=== PATIENT | female | born 1940 | race Caucasian/White ===

== ENCOUNTER → 2016-02-18 | Outpatient (CLI) | payer BC ==
[~2016-02-18] MED LIST: ASPEC81 PO; ATOR-24 PO; CALCTAB5 PO; CHOLTAB3 PO; COQ10100 PO; CTP1CL PO; HYDR-4717 PO; LEVO125T5 PO; LISI40TA PO; MULT-506 PO; OMEG10007 PO; PANT1TAB3 PO; VENL75CA73 PO; VERA240T20 PO
[2016-02-18 14:56] VITALS: BP 151/83; PULSE 74; Ht 156.8 cm
== END | disposition home or self-care (01) ==
LOC: C.NEUR 13:36
PROVIDERS: ATTEND Internal Medicine Pulmonary Disease
DX: G47.33 Obstructive sleep apnea (adult) (pediatric) (principal)

== ENCOUNTER → 2016-07-25 | Outpatient (CLI) | payer BC ==
[~2016-07-25] MED LIST changes: -PANT1TAB3 PO; +PANT1TAB48 PO
--- NOTE | 2016-07-25 13:55 | MAMMOGRAPHY REPORT ---
BILATERAL DIGITAL SCREENING MAMMOGRAM WITH CAD: 07/25/2016 CLINICAL HISTORY: Routine screening. Patient has no complaints. TECHNIQUE: Current study was also evaluated with a Computer Aided Detection (CAD) system. Bilateral CC and MLO views were obtained. COMPARISON: Comparison is made to exams dated: 07/23/2015 mammogram, 01/19/2015 mammogram, 06/21/2014 [facility], 05/10/2013 mammogram, and 04/30/2012 mammogram - [facility]. BREAST COMPOSITION: There are scattered areas of fibroglandular density in both breasts. FINDINGS: No suspicious masses, calcifications, or areas of architectural distortion are noted in ei ther breast. There has been no significant interval change compared to prior exams. Scattered benign -appearing calcifications are again noted throughout both breasts. IMPRESSION: ACR BI-RADS CATEGORY 2: BENIGN There is no mammographic evidence of malignancy. A 1 year screening mammogram is recommended. The pa tient will receive written notification of the results. Approximately 10% of breast cancers are not detected with mammography. A negative mammographic report should not delay biopsy if a clinically suggestive mass is present. Aline Gonzáles M.D. /:07/25/2016 12:31:53 Digital Advisor: Deb DEVINE(Valery)(M), [facility] letter sent: Normal 1/2 BI-RADS Code: ACR BI-RADS Category 2: Benign
== END | disposition home or self-care (01) ==
LOC: C.MAMM 11:03
PROVIDERS: ATTEND Family Medicine
DX: Z12.31 Encounter for screening mammogram for malignant neoplasm of breast (principal)

== ENCOUNTER 2022-09-16 07:03 | Observation (INO) ==
--- NOTE | 2022-09-05 14:37 | PAT Medication Instructions ---
Medication Instructions Date of Service September 05, 2022 Home Medications Medication Instructions Recorded verapamil 300 mg capsule 24hr 300 mg PO BID #180 caps 11/09/[address],ext.release clonidine HCl 0.1 mg tablet 0.2 mg PO BID #360 tabs 06/19/20 Wheeled Walker #1 ea 02/24/22 acetaminophen 500 mg tablet (Acetaminophen Extra Strength) 1,000 mg PO Q6H PRN Pain hydralazine 50 mg tablet 100 mg PO TID levothyroxine 125 mcg tablet 125 mcg PO 6XWK lisinopril 40 mg tablet 40 mg PO HS lorazepam 0.5 mg tablet (Ativan) 0.5 mg sublingual BID PRN Anxiety multivitamin 1 tab PO QAM omega 3 350 mg-dha 235 mg-epa 90 mg-fish oil 597 mg capsule,delay rel ([place]-3) 1 cap PO QPM pantoprazole 40 mg tablet,delayed release 40 mg PO QPM venlafaxine 150 mg capsule,extended release 24 hr 150 mg PO HS venlafaxine 75 mg capsule,extended release 24 hr 75 mg PO HS verapamil 300 mg capsule 24hr pellet CT,ext.release 300 mg PO BID clonidine HCl 0.1 mg tablet 0.2 mg PO BID prevagen 20 mg PO QAM psyllium husk 3.4 gram/5.4 gram oral powder (Metamucil) 2 tbsp PO BID Balance Of Nature 6 cap PO QAM [place] 3 With Coq10 1 tab PO QAM aflibercept 2 mg/0.05 mL intravitreal syringe (Eylea) 2 mg intravitreal UD amoxicillin 500 mg capsule 2,000 mg PO UD PRN prior to dental procedures cholecalciferol (vitamin D3) 125 mcg (5,000 unit) tablet (Vitamin D3) 125 mcg PO QPM cyanocobalamin (vitamin B-12) 5,000 mcg sublingual tablet (Vitamin B-12) 5,000 mcg sublingual QAM levothyroxine 125 mcg tablet 250 mcg PO WK Super Beets 2 tab PO QAM magnesium 250 mg tablet 250 mg PO BID Continue as directed amoxicillin 500 mg capsule 2,000 mg PO UD PRN prior to dental procedures levothyroxine ASK your prescriber and surgeon prevagen 20 mg PO QAM aflibercept 2 mg/0.05 mL intravitreal syringe (Eylea) 2 mg intravitreal UD STOP taking 2 weeks before surgery (or as soon as possible if surgery is within 2 weeks) omega 3 350 mg-dha 235 mg-epa 90 mg-fish oil 597 mg capsule,delay rel ([place]-3) 1 cap PO QPM Balance Of Nature 6 cap PO QAM [place] 3 With Coq10 1 tab PO QAM Super Beets 2 tab PO QAM DO NOT take the morning of surgery multivitamin 1 tab PO QAM psyllium husk 3.4 gram/5.4 gram oral powder (Metamucil) 2 tbsp PO BID cyanocobalamin (vitamin B-12) 5,000 mcg sublingual tablet (Vitamin B-12) 5,000 mcg sublingual QAM magnesium 250 mg tablet 250 mg PO BID Take morning of surgery With a small sip of water, OTHERWISE NOTHING TO EAT OR DRINK AFTER MIDNIGHT: acetaminophen 500 mg tablet (Acetaminophen Extra Strength) 1,000 mg PO Q6H PRN Pain (if needed) hydralazine 50 mg tablet 100 mg PO TID lorazepam 0.5 mg tablet (Ativan) 0.5 mg sublingual BID PRN Anxiety (if needed) verapamil 300 mg capsule 24hr pellet CT,ext.release 300 mg PO BID clonidine HCl 0.1 mg tablet 0.2 mg PO BID Take evening before surgery acetaminophen 500 mg tablet (Acetaminophen Extra Strength) 1,000 mg PO Q6H PRN Pain (if needed) hydralazine 50 mg tablet 100 mg PO TID lisinopril 40 mg tablet 40 mg PO HS lorazepam 0.5 mg tablet (Ativan) 0.5 mg sublingual BID PRN Anxiety (if needed) pantoprazole 40 mg tablet,delayed release 40 mg PO QPM venlafaxine 150 mg capsule,extended release 24 hr 150 mg PO HS venlafaxine 75 mg capsule,extended release 24 hr 75 mg PO HS verapamil 300 mg capsule 24hr pellet CT,ext.release 300 mg PO BID clonidine HCl 0.1 mg tablet 0.2 mg PO BID psyllium husk 3.4 gram/5.4 gram oral powder (Metamucil) 2 tbsp PO BID cholecalciferol (vitamin D3) 125 mcg (5,000 unit) tablet (Vitamin D3) 125 mcg PO QPM magnesium 250 mg tablet 250 mg PO BID Other Notes If you have any questions please call us at [phone] or [phone] or [phone] or [phone]
--- NOTE | 2022-09-11 14:03 | Anesthesiology Consultation ---
Date of Service September 11, 2022 Assessment & Plan (1) Encounter for pre-operative examination: Chart Review Chart Review: Acceptable Risk for Surgery and Patient seen in Pre Admission Testing - Check coags AM DOS (due to hx of chronically elevated PTT- will leave final discretion re: SAB vs GA to anesthesiologist DOS- fluid bolus NOT ordered for DOS) Significant urinary incontinence- usually wears pull up and pad - Pt is NOT an OPJ candidate due to age and comorbidities Per PAT appt on 09/11/22, patient denies any recent travel. No recent Covid exposures, Covid related symptoms, or recent Covid positive tests. Pt is vaccinated for Covid. Will leave to surgeon's discretion if preop Covid testing needed. Educated on importance of using Covid precautions one week prior to surgery Per hematology letter 09/01/22= Patient followed with prolonged aPTT. Testing revealed normal factor IX, XI, and XII activity. Previously obtained von Wi llebrand laboratory testing was also normal. Based on this, aPTT is prolonged due to presence of lupus anticoagulant and should not be at increased risk of bleeding from prolonged PTT. Presence of lupus anticoagulant indicates that she may be a increased risk for clotting. Patient would like to move forward for knee replacement. Given potential risk of clotting in the presence of lupus anticoagulant, would recommend prophylactic anticoagulation for a least 2 weeks post postoperatively once hemostasis has been achieved from a surgical standpoint. May extend prophylactic anticoagulation to 6 weeks if immobility is prolonged... I will send this note to surgeon (Dr. Walls) indicating that patient is cleared from hematology standpoint to go ahead with surgery. Seen by cardiology 08/12/2022 = seen for 1 year cardiology follow-up. From a cardiac standpoint patient is feeling well. Longstanding hypertensionsystolic pressure mildly elevated. Diastolic pressure adequately controlled. Tolerating current antihypertensive regimen. Hyperdynamic LV systolic function on most recent echo. Severe LVH. No evidence of any significant LV outflow tract obstruction on echo. Continue current medications. If BP remains elevated could consider increase clonidine dose. Based on current condition she is an acceptable cardiac risk to undergo her left total knee replacement. Teaching & Discussion Pre-Anesthesia Teaching/Discussion Notes: Instructed NPO after midnight before surgery,except medications with 15 cc of water. Medication instructions provided according to the PAT guidelines. History Surgery Operation Date: 09/16/22 08:50 Proposed Procedures p Left Total Knee Arthroplasty versus - Betito S. Titi, MD s Left Uni-Compartmental Knee - Betito Walls MD Height/Weight Height: 5 ft 1.75 in Weight: 70.6 kg Allergies Allergy/AdvReac Type Severity Reaction Status Date / Time Beta-Blockers Allergy Severe shortness Verified 09/04/22 14:05 (Beta-Adrenergic Bloc of breath, worsened anxiety diltiazem Allergy Severe Rash Verified 09/04/22 14:44 Influenza Virus Vaccines Allergy Severe itching Verified 09/04/22 14:44 metoprolol Allergy Severe severe Verified 09/04/22 14:44 fatigue and palpitations sertraline [From Zoloft] Allergy Severe shortness Verified 09/04/22 14:05 of breath, worsened anxiety Sulfa (Sulfonamide Allergy Severe TONGUE Verified 09/04/22 14:05 Antibiotics) SWELLS sulfamethoxazole Allergy Severe TONGUE Verified 09/04/22 14:05 SWELLS trimethoprim Allergy Severe TONGUE Verified 09/04/22 14:05 SWELLS adhesive tape Allergy Mild Rash Verified 09/04/22 14:05 metronidazole [From Flagyl] AdvReac Intermediate Nausea Verified 09/04/22 14:44 felodipine [From Plendil] AdvReac Unknown Unknown Verified 09/04/22 14:44 Medications Home Medications Medication Instructions Recorded Confirmed Last Taken acetaminophen 500 mg tablet 1,000 mg PO Q6H PRN Pain 10/28/18 09/04/22 Unknown (Acetaminophen Extra Strength) hydralazine 50 mg tablet 100 mg PO TID 10/28/18 09/04/22 Unknown levothyroxine 125 mcg tablet 125 mcg PO 6XWK 10/28/18 09/04/22 Unknown lisinopril 40 mg tablet 40 mg PO HS 10/28/18 09/04/22 Unknown lorazepam 0.5 mg tablet (Ativan) 0.5 mg sublingual BID PRN Anxiety 10/28/18 09/04/22 Unknown multivitamin 1 tab PO QAM 10/28/18 09/04/22 Unknown omega 3 350 mg-dha 235 mg-epa 90 1 cap PO QPM 10/28/18 09/04/22 Unknown mg-fish oil 597 mg capsule,delay rel ([place]-3) pantoprazole 40 mg tablet,delayed 40 mg PO QPM 10/28/18 09/04/22 Unknown release venlafaxine 150 mg 150 mg PO HS 10/28/18 09/04/22 Unknown capsule,extended release 24 hr venlafaxine 75 mg capsule,extended 75 mg PO HS 10/28/18 09/04/22 Unknown release 24 hr verapamil 300 mg capsule 24hr 300 mg PO BID #180 caps 11/09/19 09/04/[address],ext.release clonidine HCl 0.1 mg tablet 0.2 mg PO BID #360 tabs 06/19/20 09/04/22 Unknown prevagen 20 mg PO QAM 08/21/21 09/04/22 Unknown psyllium husk 3.4 gram/5.4 gram 2 tbsp PO BID 08/21/21 09/04/22 Unknown oral powder (Metamucil) Wheeled Walker #1 ea 02/24/22 08/12/22 Unknown Balance Of Nature 6 cap PO QAM 02/27/22 09/04/22 Unknown [place] 3 With Coq10 1 tab PO QAM 02/27/22 09/04/22 Unknown aflibercept 2 mg/0.05 mL 2 mg intravitreal UD 02/27/22 09/04/22 Unknown intravitreal syringe (Eylea) amoxicillin 500 mg capsule 2,000 mg PO UD PRN prior to dental 02/27/22 09/04/22 Unknown procedures cholecalciferol (vitamin D3) 125 125 mcg PO QPM 02/27/22 09/04/22 Unknown mcg (5,000 unit) tablet (Vitamin D3) cyanocobalamin (vitamin B-12) 5,000 mcg sublingual QAM 02/27/22 09/04/22 Unknown 5,000 mcg sublingual tablet (Vitamin B-12) levothyroxine 125 mcg tablet 250 mcg PO WK 02/27/22 09/04/22 Unknown Super Beets 2 tab PO QAM 09/04/22 09/04/22 Unknown magnesium 250 mg tablet 250 mg PO BID 09/04/22 09/04/22 Unknown Past Medical History Medical History (Updated 09/12/22 @ 09:55 by Mariah Guevara PA-C) Anxiety Central retinal vein occlusion ~ - follows with Dr White for an injection in the left eye every 6- 8 weeks. Depression Dyslipidemia Elevated partial thromboplastin time (PTT) Following with [facility] - Dr. Ajala GERD (gastroesophageal reflux disease) rare, stable per pt Hearing deficit Wears hearing aids intermittently History of blood transfusion prior to hysterectomy () History of COVID-19 diagnosed 03/2021--mild symptoms, no symptoms now Hypertension controlled, stable per pt Hypothyroidism Left ventricular hypertrophy Severe LVH per 09/2021 ECHO ; no LVOT obstruction per cardio follows with Dr. Shepard Lupus anticoagulant disorder Following with heme- no personal hx of DVT/PE- heme aware of upcoming TKA- recommendations given Sleep apnea not currently treated- could not tolerate device due to getting up multiple times at night to urinate Urinary incontinence severe Exercise / Class Metabolic Activity II 4-5 Yardwork/Stairs/Walk up hill (one flight of stairs - no chest pain or SOB ) Past Family History Family History Other No family history of adverse response to anesthesia Past Surgical History Surgical History H/O parathyroidectomy H/O: hysterectomy Total with BSO History of bilateral cataract extraction History of bilateral tubal ligation History of colonoscopy History of dilatation and curettage History of partial knee replacement right S/P appendectomy Past Anesthesia History No Hx of Anesthesia Complications and No Family Hx of Anesthesia Complications History of PONV No Hx of PONV and Hx of Motion Sickness Social History Smoking Status: Never smoker Do You Dip or Chew Tobacco: No Hx Alcohol Use: No Hx Substance Use: No substance use type: does not use Review of Systems Patient denies chest pain, shortness of breath, dyspnea on exertion, cough, wheezing, palpitations. No hx of seizures, stroke, [place]. No hx of blood clots Physical Exam Vital Signs VITALS BP 170/90 (manually) (BP 150s/70-80s at cardiology appt 08/12/22) P 68 TEMP 98.4 SP02 96% RESP 16 Constitutional no acute distress ENMT Mouth: no TMJ clicking Thyromental Distance: < 3.5 Finger Breadths (3.0) Mallampati Class: III Top front teeth veneers Neck neck extension not limited Respiratory normal respiratory effort; no respiratory distress Auscultation: lungs clear to auscultation bilaterally; no wheezes Cardiovascular Rate/Rhythm: regular rate and regular rhythm Heart Sounds: no murmur Vessels: no carotid bruit Musculoskeletal Spine: no pain with cervical ROM Extremities: extremities normal to inspection Psychiatric Orientation: alert Lab Results Anesthesia Preop Results Results Anesthesia Widget: WBC 5.37 K/ul (4.8-10.8) 09/11/22 Hgb 12.6 g/dl (12.0-16.0) 09/11/22 Hct 37.4 % (37.0-47.0) 09/11/22 Plt 253 K/uL (130-400) 09/11/22 Na 135 mmol/L (136-145) L 09/11/22 K 4.0 mmol/L (3.5-5.1) 09/11/22 Cl 101 mmol/L (98-107) 09/11/22 CO2 27 mmol/L (21-32) 09/11/22 BUN 18 mg/dl (6-23) 09/11/22 Creat 0.98 mg/dl (0.6-1.2) 09/11/22 Glucose Level 83 mg/dl (70-99(Fasting)) 09/11/22 PT 10.7 Seconds (9.0-12.0) 09/11/22 PTT 33.0 Seconds (21.0-31.0) H 09/11/22 INR 1.0 (0.9-1.1) 09/11/22 Blood Type O Positive 09/11/22 Antibody Screen NEGATIVE 09/11/22 Testing Laboratory Results Chronically elevated PTT- following with hematology- mildly improved from previous- will recheck DOS Electrocardiogram Date: 09/11/22 Findings: + NSR @ (63bpm ) LAD LVH with repolarization abnormality When compared to EKG from Apr 12, 2013- no significant change was found Chest X-Ray Date: 03/03/22 Cardiac mediastinal and hilar silhouettes are within normal limits. Atherosclerosis of the aorta. No pneumothorax, effusion, airspace consolidation or overt pulmonary edema. Bones of the chest appear grossly intact. IMPRESSION: No acute process. Echocardiogram Date: 10/03/21 EF > 70% Grade I diastolic dysfunction No LV regional wall motion abnormalities Severe LVH Small LV cavity Mild LA dilatation Mild aortic regurgitation Mild mitral regurgitation No significant tricuspid regurgitation Normal estimated central venous pressure Compared to ECHO from 08/05/18- no significant interval change
--- NOTE | 2022-09-12 14:25 | History & Physical Report ---
Date of Service September 12, 2022 Assessment & Plan (1) Left knee DJD: 81-year-old female well 13 years out from a right partial knee replacement advanced left knee medial compartment arthritis. Is got older chondrocalcinosis. She failed conservative treatment. Happy with the right knee would like to have her similar procedure done on her left knee. Plan: Oriented to take her to the operating do left partial knee replacement. If we get in the next tube partial knee replacement explained the patient could be not limited to DVT PE infection neurological and vascular bleeding palm pain limb range of motion test is fairly her symptoms incomplete review of system symptoms dislocation etc. Patient understands and desires to proceed informed consent was obtained. She did have a hematological work-up and the recommended anticoagulation pretty negative work-up for we will plan on Xarelto for 30 days postop. As far as discharge (patient be discharged home using [facility] home health program. See can assist in her care. History of Present Illness Chief Complaint: . Left medial knee pain and discomfort Primary Care Provider: Hernandez Brar . Patient is an 81-year-old female well-known to me from previous right partial knee replacement 2009. That she done well from that knee. Over the past year to 2 years she developed increased pain discomfort to left knee. She had increased pain discomfort with for the past 12 months. She been seen by Marino mendoza physician assistant facility manager who is provide conservative care which became less successf ul over time. She she had an MRI which showed advanced medial compartment arthritis. Symptoms all localized medial side of her knee. Increased with weightbearing. She is happy with the right knee would like to have some procedure done in the left side. I once again the pain is all medial. Allergies Allergy/AdvReac Type Severity Reaction Status Date / Time Beta-Blockers Allergy Severe shortness Verified 09/04/22 14:05 (Beta-Adrenergic Bloc of breath, worsened anxiety diltiazem Allergy Severe Rash Verified 09/04/22 14:44 Influenza Virus Vaccines Allergy Severe itching Verified 09/04/22 14:44 metoprolol Allergy Severe severe Verified 09/04/22 14:44 fatigue and palpitations sertraline [From Zoloft] Allergy Severe shortness Verified 09/04/22 14:05 of breath, worsened anxiety Sulfa (Sulfonamide Allergy Severe TONGUE Verified 09/04/22 14:05 Antibiotics) SWELLS sulfamethoxazole Allergy Severe TONGUE Verified 09/04/22 14:05 SWELLS trimethoprim Allergy Severe TONGUE Verified 09/04/22 14:05 SWELLS adhesive tape Allergy Mild Rash Verified 09/04/22 14:05 metronidazole [From Flagyl] AdvReac Intermediate Nausea Verified 09/04/22 14:44 felodipine [From Plendil] AdvReac Unknown Unknown Verified 09/04/22 14:44 Home Medications Medication Instructions Recorded Confirmed Type acetaminophen 500 mg tablet 1,000 mg PO Q6H PRN Pain 10/28/18 09/04/22 History (Acetaminophen Extra Strength) hydralazine 50 mg tablet 100 mg PO TID 10/28/18 09/04/22 History levothyroxine 125 mcg tablet 125 mcg PO 6XWK 10/28/18 09/04/22 History lisinopril 40 mg tablet 40 mg PO HS 10/28/18 09/04/22 History lorazepam 0.5 mg tablet (Ativan) 0.5 mg sublingual BID PRN Anxiety 10/28/18 09/04/22 History multivitamin 1 tab PO QAM 10/28/18 09/04/22 History omega 3 350 mg-dha 235 mg-epa 90 1 cap PO QPM 10/28/18 09/04/22 History mg-fish oil 597 mg capsule,delay rel ([place]-3) pantoprazole 40 mg tablet,delayed 40 mg PO QPM 10/28/18 09/04/22 History release venlafaxine 150 mg 150 mg PO HS 10/28/18 09/04/22 History capsule,extended release 24 hr venlafaxine 75 mg capsule,extended 75 mg PO HS 10/28/18 09/04/22 History release 24 hr verapamil 300 mg capsule 24hr 300 mg PO BID #180 caps 11/09/19 09/04/[address],ext.release clonidine HCl 0.1 mg tablet 0.2 mg PO BID #360 tabs 06/19/20 09/04/22 Rx prevagen 20 mg PO QAM 08/21/21 09/04/22 History psyllium husk 3.4 gram/5.4 gram 2 tbsp PO BID 08/21/21 09/04/22 History oral powder (Metamucil) Ysabel Portillo #1 ea 02/24/22 08/12/22 Rx Balance Of Nature 6 cap PO QAM 02/27/22 09/04/22 History [place] 3 With Coq10 1 tab PO QAM 02/27/22 09/04/22 History aflibercept 2 mg/0.05 mL 2 mg intravitreal UD 02/27/22 09/04/22 History intravitreal syringe (Eylea) amoxicillin 500 mg capsule 2,000 mg PO UD PRN prior to dental 02/27/22 09/04/22 History procedures cholecalciferol (vitamin D3) 125 125 mcg PO QPM 02/27/22 09/04/22 History mcg (5,000 unit) tablet (Vitamin D3) cyanocobalamin (vitamin B-12) 5,000 mcg sublingual QAM 02/27/22 09/04/22 History 5,000 mcg sublingual tablet (Vitamin B-12) levothyroxine 125 mcg tablet 250 mcg PO WK 02/27/22 09/04/22 History Super Beets 2 tab PO QAM 09/04/22 09/04/22 History magnesium 250 mg tablet 250 mg PO BID 09/04/22 09/04/22 History Past Med/Surg History Medical History Anxiety Central retinal vein occlusion ~ - follows with Dr White for an injection in the left eye every 6- 8 weeks. Depression Dyslipidemia Elevated partial thromboplastin time (PTT) Following with [facility] - Dr. Cadet GERD (gastroesophageal reflux disease) rare, stable per pt Hearing deficit Wears hearing aids intermittently History of blood transfusion prior to hysterectomy () History of COVID-19 diagnosed 03/2021--mild symptoms, no symptoms now Hypertension controlled, stable per pt Hypothyroidism Left ventricular hypertrophy Severe LVH per 09/2021 ECHO ; no LVOT obstruction per cardio follows with Dr. Shepard Lupus anticoagulant disorder Following with heme- no personal hx of DVT/PE- heme aware of upcoming TKA- recommendations given Sleep apnea not currently treated- could not tolerate device due to getting up multiple times at night to urinate Urinary incontinence severe Surgical History (Updated 09/12/22 @ 14:24 by Betito Walls MD) H/O parathyroidectomy H/O: hysterectomy Total with BSO History of bilateral cataract extraction History of bilateral tubal ligation History of colonoscopy History of dilatation and curettage History of partial knee replacement right S/P appendectomy Status post right partial knee replacement Family History Other No family history of adverse response to anesthesia Social History Smoking Status: Never smoker Second Hand Exposure: No; Do You Dip or Chew Tobacco: No; Hx Alcohol Use: No Hx Substance Use: No Preferred Language: [place] Citizen Communication Ability: Effective Shipper/Receiver Required: No Beliefs That Will Affect Care: Religion Religion Beliefs: Buddhism of Dimitry [employer] of Later Day Over 40 Females marital status: / Current Living Situation: Family Current Living Situation Comment: Lives with daughter current occupational status: retired How many Children do You have: 6 Feels Safe at Home: Yes Assistive Devices: Glasses and Hearing Aid - Bilateral Review of Systems All systems reviewed & are unremarkable except as noted in HPI & below. Physical Exam . Physical exam nation reveals a pleasant elderly female looks younger than her stated age. Examination of the left knee reveals patient walks with a slightly limp patient had varus alignment to her knee. Small knee effusion. Tender medial joint line. Range of motion 0-1 20. Good straight leg raise. ACL appears intact. Negative Rinku test. Neck trachea midline, no thyromegaly Respiratory normal respiratory effort, lungs clear to auscultation Cardiovascular RRR, no murmur, no edema Gastrointestinal (Abdomen) normal bowel sounds, soft, nontender, no hepatosplenomegaly Results & Data Results & Data Laboratory Results . Diagnostic Findings . X-rays of the left knee were reviewed today. It shows advanced medial compartment arthritis. This has progressed over the past year. She does have a little bit of chondrocalcinosis laterally. The right partial knee replacement looks to be doing well. MRI was also reviewed from [facility] in July 2021. Shows advanced medial compartment arthritis Feese Bone marrow changes medial femoral condyle medial tibial plateau. The lateral compartment looks well-preserved. Very mild patellofemoral disease. PG Care Time/CCT Total # of Minutes Spent Total Time Spent with Patient: Total time spent is greater than 50% in coordination of care (as documented) at patient's floor/unit and/or counseling patient: Coding Level of Care Code None Diagnoses Left knee DJD M17.12
[~2022-09-16 07:03] MED LIST changes: +ACETAMINOPHEN 500 MG TAB PO SCH; -ASPEC81 PO; -ATOR-24 PO; +BUPIVACAINE 0.5 % 5 MG/1 ML PF 10ML VIAL ONE; +BUPIVACAINE LIPOSOME/PF 266 MG, BUPIVACAINE/EPINEPHRINE 50 ML, SODIUM CHLORIDE 0.9% PF ... INFIL SCH; -CALCTAB5 PO; -CHOLTAB3 PO; -COQ10100 PO; -CTP1CL PO; +CeleBREX 200 MG CAP PO SCH; +EPINEPHrine INJ 1 MG/ML AMP ONE; +FAMOTIDINE 20 MG TAB PO SCH; -HYDR-4717 PO; -LEVO125T5 PO; -LISI40TA PO; +LR 15ML/HR IV SCH; +LR 60ML/HR IV SCH; +METOCLOPRAMIDE HCL 10 MG TABLET PO SCH; -MULT-506 PO; -OMEG10007 PO; -PANT1TAB48 PO; +ROPIVACAINE 0.5% 5 MG/ML 30 ML VIAL ONE; +TRANEXAMIC ACID 1,000 MG **IV Intra-op IV SCH; -VENL75CA73 PO; -VERA240T20 PO; +ceFAZolin 2000MG 2,000 MG/15 ML SYR IV SCH
[2022-09-16] MEDS ORDERED: fentaNYL citrate PF 100 MCG/2 ML VIAL ONE (07:20)
[2022-09-16] MEDS ORDERED: MIDAZOLAM HCL 1 MG/ML 2ML VIAL ONE (07:20)
[2022-09-16 08:03] LABS: INR 0.9 (0.9-1.1); Partial Thromboplastin Ratio 1.4; Partial Thromboplastin Time 38.3 Seconds (21.0-31.0); Prothrombin Time 10.4 Seconds (9.0-12.0)
--- NOTE | 2022-09-16 08:45 | History & Physical Bridge Note ---
Date of Service September 16, 2022 History & Physical Bridge Note I have examined the patient, reviewed the History & Physical and in the interval since the performance of the History & Physical I have noted the following changes of clinical significance: no changes noted
[2022-09-16] MEDS ORDERED: BUPIVACAINE/EPINEPHRINE 0.25% 1:200,000 30 ML VIAL ONE (08:52)
[2022-09-16] MEDS ORDERED: BUPIVACAINE LIPOSOME 1.3% 266 MG/20 ML VIAL ONE (08:52)
[2022-09-16] MEDS ORDERED: SODIUM CHLORIDE 0.9% PF 50 ML VIAL ONE (08:52)
[2022-09-16] MEDS ORDERED: MEPIVACAINE HCL 1.5% 30 ML VIAL ONE (08:55)
[2022-09-16] MEDS ORDERED: PROPOFOL IV EMULSION 10 MG/ML 20 ML VIAL IV ONE ×2 (09:24→10:36)
[2022-09-16] MEDS ORDERED: KETOROLAC 30 MG/ML VIAL ONE (09:28)
[2022-09-16] MEDS ORDERED: DEXAMETHASONE SOD INJ 4 MG/ML VIAL ONE (09:28)
[2022-09-16] MEDS ORDERED: ATROPINE SULFATE 0.1 MG/ML 10ML SYR IV PRN (09:35)
[2022-09-16] MEDS ORDERED: ePHEDrine sulfate 50 MG/ML AMP IV PRN (09:35)
--- NOTE | 2022-09-16 11:14 | Operative Report ---
PG Post Operative Report Pre & Post Diagnosis Operation Date: 09/16/22 08:50 Pre-Op Diagnosis: Left Knee Medial Compartment Degenerative Joint Disease Post-Op Diagnosis: Left Knee Medial Compartment Degenerative Joint Disease I identified the patient and participated in the time-out.: Yes Procedure Operation Date: 09/16/22 08:50 Actual Procedures p Left Unicompartmental Knee Arthroplasty(Left) - Betito Walls MD Surgeon Betito Walls MD [id number] Programmer Marino Mckay PA-C Estimated Blood Loss 25 Findings Consistent with Post-Op Diagnosis Operative findings were advanced left knee medial compartment arthritis. She had [id number] grade 4 disease in medial femoral condyle medial tibial plateau. The ACL was intact. The lateral and patellofemoral compartments were fairly well-preserved. She had fairly large knee joint effusion with varus deformity to her knee. Specimens None Anesthesia Type Spinal MAC Complications none Disposition Accompanied Patient To Recovery: No Indications Patient is an 81-year-old female whose had a long history of knee problems. She had a right partial knee replacement done about 13 years ago and is done well from this. Over the past several years she developed increased pain discomfort localized the medial side of her knee. She been to extensive conservative treatment occluding medicines as well as injection which became less successful over time. X-rays showed advanced medial compartment arthritis. She did have some chondrocalcinosis laterally but no symptoms laterally. Considering her age and medical comorbidities I considered it best to proceed with partial knee replacement. Description of Procedure Operative implants consist of: 1. Biomet [place] size small femoral component. 2. Biomet [place] left medial size AA tibial tray. 3. 5 mm mobile-bearing polyethylene insert. The patient was taken the operating, identified, and placed on the operating table supine position but all contact areas were properly padded. IV antibiotics tried by anesthesia team. A spinal anesthetic and abductor canal block had provided holding area. Draper catheter was placed in sterile fashion to the left thigh tent was then placed in left lower extremity then prepped draped in usual sterile fashion. The left leg was elevated exsanguinated with use of an Esmarch and the turn was placed at 300 mmHg. An anterior posterior left knee was then performed to longitudinal incision centered over the patella. Sharp dissection was carried through subcutaneous tissue down the extensor mechanism. A medial parapatellar throb incision was made. Some subperiosteal dissection was carried out medially. The fat pad was resected from Neath patella tendon. I then flexed the knee. The ACL was intact. She had advanced medial compartment arthritis with the lateral patellofemoral compartments were fairly well-preserved with minimal or chondral disease. She did have Some chondrocalcinosis on x-ray based on her symptoms and the visible cartilage status I elected proceed with a partial knee replacement. The osteophytes taken off the intercondylar notch area. The femur was then sized to a size small. The small spoon was placed and attached to the external tibial alignment jig with a 4G clamp. This was pinned in place. The proximal tibial cut was made and the tibia was then sized to a size AA. Attention drawn the femur. The distal femur during the sharp drill. Intramedullary mario was placed. The small template femoral cutting guide was placed and attached to the IM mario. Holes were drilled for the femoral component. Posterior cutting guide was placed and a posterior cut was made. 0 spigot was used to drill the distal femur. I then trialed the knee. I did resect the medial meniscus. We trialed the knee and the 5 insert fit most properly. In extension the 2 fit so used a 3 spigot. At the distal femur was then milled with 3 spigot. We trialed the knee again and the 5 insert fit appropriate in flexion and extension. Attention to interpret prepare the surfaces. The posterior osteophyte cutting guide was placed. The posterior osteophyte was removed. The anterior milling device was used to milled for the anterior femur. The cement drill was used to create some cement holes for cement digitation. The tibial tray was then pinned and the toothbrush blade saw was used to create the defect for the keel. I then cleaned up the knee extensively. We then trialed the knee 1 more time and the 5 insert fit most appropriately. Attention drawn to placing permanent components. Nupathe all trial components were removed. A single patch [place] G cement was mixed. A left medial size AA tibial tray, a small femoral component were then cemented in place. All extraneous cement was removed. The 5 feeler gauge was used and the knee was brought into 30 degrees short of full extension. Once the cement hardened the final cement check was then performed. We then placed a permanent a 5 mm mobile-bearing insert. The wound was irrigated. I injected locally with 100 cc of combination of 20 cc of Exparel, 30 cc normal saline, 50 cc of 4% Marcaine with epinephrine. The tourniquet was then let down for a turn time 57 minutes but hemostasis reduced electrocautery. Extensor mechanism closed with #1 Vicryl suture in a [id number] fashion. Extensor Maxon checked found to be intact with subcutaneous tissues then closed with 2-0 Dexon suture in a buried interrupted fashion skin was closed skin ruth. Leg was then cleaned and dried and sterile dressed with Xeroform, 4 fours, sterile ABD pad, sterile cast pain, Cortes bandage applied. Patient then transferred to the recovery in stable condition. Patient tolerated procedure well and there were no complications. aMrino Mckay, my physician carpenter's assistant, was present for the entire procedure. His assistance was essential and required for appropriate patient positioning, prepping and draping, surgical exposure, performing the technical details of the operation, placement the implants, closure of the wound, and placement of the sterile bandage. I attest to the content of the Intraoperative Record and any orders documented therein. Any exceptions are noted below.
[2022-09-16] MEDS ORDERED: LABETALOL HCL IV 5 MG/ML 20ML IV ONE (11:22)
[2022-09-16] MEDS: LABETALOL HCL IV 5 MG/ML 20ML IV STA ×2 (11:24→11:29)
--- NOTE | 2022-09-16 11:39 | XRay Report ---
TWO VIEWS LEFT KNEE CLINICAL HISTORY: Postoperative examination. FINDINGS: AP and crosstable lateral portable views of the left knee are obtained. A hemiarthroplasty in the medial compartment of the left knee is in near anatomic alignment. No acute fracture is identi fied. Mild degenerative narrowing and chondrocalcinosis is seen in the lateral compartment. There are expected postoperative changes around the knee including skin clips, soft tissue edema, and subcutan eous gas. IMPRESSION: Expected postoperative changes status post left knee hemiarthroplasty. No acute fracture is seen. ACT 112: Negative or not required by law. Electronically signed by: James Jiménez M.D. 09/16/2022 11:38 AM
[2022-09-16] MEDS ORDERED: ONDANSETRON INJ 2 MG/ML 2 ML VIAL IV PRN (12:24)
[2022-09-16] MEDS ORDERED: bisacodyL 10 MG SUPP PR PRN (12:24)
[2022-09-16] MEDS ORDERED: AFLIBERCEPT 2 MG/0.05 ML INT VIT SCH (12:24)
[2022-09-16] MEDS ORDERED: ALUMINUM/MAGNESIUM SUSP 30 ML UDC PO PRN (12:24)
[2022-09-16] MEDS ORDERED: METOCLOPRAMIDE HCL INJ 5 MG/ML 2 ML VIAL IV PRN (12:24)
[2022-09-16] MEDS ORDERED: LORazepam 0.5 MG TAB SL PRN (12:24)
[2022-09-16] MEDS ORDERED: HYDROmorphone INJ 0.5 MG/0.5 ML SYR IV PRN (12:24)
[2022-09-16] MEDS ORDERED: NALOXONE HCL 0.4 MG/1 ML VIAL/CARP IV PRN (12:24)
[2022-09-16] MEDS ORDERED: MAGNESIUM HYDROXIDE SUSP 30 ML UDC PO PRN (12:24)
--- NOTE | 2022-09-16 12:32 | Anesthesiology Progress Note ---
Date of Service September 16, 2022 Anesthesia Post Procedure Vital Signs Vital Signs: Temp Pulse Pulse Pulse Pulse Resp BP 09/16/22 12:00 36.6 C 65 16 09/16/22 11:30 78 22 09/16/22 11:50 65 12 09/16/22 11:40 78 22 09/16/22 11:20 83 22 09/16/22 11:10 68 20 09/16/22 11:29 83 180/76 H 09/16/22 10:59 36.7 C 90 14 09/16/22 07:21 36.5 C 80 20 BP Pulse Ox O2 Del Method O2 Flow Rate 09/16/22 12:00 164/71 H 98 Nasal Cannula 3 09/16/22 11:30 180/76 H 93 Nasal Cannula 3 09/16/22 11:50 164/40 H 95 Nasal Cannula 3 09/16/22 11:40 169/74 H 93 Nasal Cannula 3 09/16/22 11:20 180/78 H 94 Oxymask 3 09/16/22 11:10 187/75 H 95 Oxymask 4 09/16/22 11:29 09/16/22 10:59 181/68 H 95 Oxymask 6 09/16/22 07:21 173/90 H 96 Room Air Pain Intensity Left Knee: Pain Intensity: 4 Transfer of Care Handoff Completed per policy Notes Mental Status: alert / awake / arousable Patient Amnestic to Procedure: Yes Nausea / Vomiting: adequately controlled Pain: adequately controlled Airway Patency, RR, SpO2: stable & adequate BP & HR: stable & adequate Hydration State: stable & adequate Neuraxial Anesthesia: was administered and sensory block is resolving Anesthetic Complications: no major complications apparent
[2022-09-16] MEDS: SODIUM CHLORIDE 0.9% 1000ML 1,000 ML IV SCH ×2 (12:41→23:30)
[2022-09-16] MEDS: KETOROLAC TROMETHAMINE 15 MG/ML VIAL IV SCH ×2 (13:43→19:47)
[2022-09-16] MEDS: ACETAMINOPHEN 500 MG TAB PO SCH ×2 (13:46→19:55)
[2022-09-16] MEDS: hydrALAZINE TAB 50 MG TAB PO SCH ×2 (13:46→19:49)
[2022-09-16] MEDS ORDERED: TRANEXAMIC ACID / 0.7% NACL 1,000 MG/100 ML BAG IV SCH (17:15)
[2022-09-16] MEDS: ceFAZolin 1000MG 1,000 MG/7.5 ML SYR IV SCH (17:35)
[2022-09-16] MEDS: ASCORBIC ACID 500 MG TAB PO SCH (17:36)
[2022-09-16] MEDS: DOCUSATE SODIUM 100 MG CAP PO SCH (19:48)
[2022-09-16] MEDS: PSYLLIUM or GUAR GUM FIBER POWDER PACKET PO SCH (19:48)
[2022-09-16] MEDS: cloNIDine HCL 0.1 MG TAB PO SCH (19:51)
[2022-09-16] MEDS: MAGNESIUM OXIDE 400 MG TAB PO SCH (19:55)
[2022-09-16] MEDS: OMEGA-3 (PURIFIED FISH OIL) 1 GM CAP PO SCH (19:55)
[2022-09-16] MEDS: VERAPAMIL 300 MG PO SCH (20:42)
[2022-09-16] MEDS ORDERED: CHOLECALCIFEROL 5,000 UNITS 125 MCG TAB PO SCH (21:00)
[2022-09-16] MEDS ORDERED: VENLAFAXINE HCL XR 150 MG CAPXR PO SCH (21:00)
[2022-09-16] MEDS ORDERED: SENNA 8.6 MG TAB PO SCH ×2 (21:00)
[2022-09-16] MEDS ORDERED: PANTOprazole 40 MG TAB PO SCH (21:00)
[2022-09-16] MEDS ORDERED: lisinopril 40 MG TAB PO SCH (21:00)
[2022-09-16] MEDS ORDERED: VENLAFAXINE HCL XR 75 MG CAPXR PO SCH (21:00)
[2022-09-16] MEDS: oxyCODONE HCL IR 5 MG TAB (IMMEDIATE RELEASE) PO PRN (23:18)
[2022-09-16] MEDS ORDERED: hydrALAZINE HCL 20 MG/ML VIAL IV STA (23:22)
--- NOTE | 2022-09-16 23:38 | Hospitalist Consultation ---
Date of Consultation September 16, 2022 Assessment & Plan (1) Resistant hypertension: 81 yo female with PMHx of resistant HTN, hypothyroidism, and anxiety. Hospital team was consulted by orthopedics for elevated BPs staining >200 systolic. She underwent left unicompartmental knee arthroplasty earlier today without complaints. #Resistant HTN -long standing history, home BP typically ~160 systolic -chronically on lisinopril 40mg HS, clonidine 0.2mg bid, hydralazine 100mg tid, and verapamil 300mg bid, all of which she received this evening; despite this BP remains >220 systolic. Suspect elevations multifactiorail due to resistant HTN, rebound HTN, hospital stress, post op, anxiety, and pain. -she received a dose of ativan in the evening. -pain has been minimal since surgery but maybe a slight increase at this time. Cont. toradol and tylenol scheduled. Will administer prn oxycodone dose. -pt currently on medical floor and IV anti-hypertensive medications limited. Will push 10mg IV hydralazine and closely monitor BP. Low threshold to upgrade patient with tele monitor and more IV options. -of note, patient does have beta blockers on her allergy list. She did receive a dose of oral labetolol in the morning prior to surgery without adverse reactions and would be amenable to trying further beta blockers if necessary. #Anxiety -cont. venlafaxine, ativan prn #Hypothyroidism -cont. levothyroxine -will check TSH in am Hospital team will continue to follow. DVT ppx: xarelto FEN/GI: regular Code Status: full Dispo: med surg (2) Hypertension: (3) Depression: Supervising Physician Co-Signing Physician Notes Attending addendum: I have supervised the medical residents activities, and agree with the H&P unless as otherwise noted. Assessment and Plan: Uncontrolled hypertension postoperatively- Her blood pressure has been uncontrolled in the outpatient setting, with systolic blood pressures in the 160s Blood pressure now is likely elevated due to missing some of her antihypertensives prior to surgery Lisinopril 40 mg at bedtime, clonidine 0.2 mg p.o. twice daily, urology 100 mg p.o. 3 times daily and verapamil SR 300 mg p.o. twice daily If hydralazine 10 mg IV every 4 hours as needed does not control blood pressure, in particular if heart rate remains above 75 and systolic not controlled, she may need to be transferred to a monitored floor where IV negative inotropes can be given Pain control postoperatively- Per primary team Remaining orders and notations as noted History of Present Illness Reason for Consultation: HTN Requesting Physician: Betito Walls MD Attending Physician: Betito Walls MD History of Present Illness 81 yo female with PMHx of resistant HTN, hypothyroidism, and anxiety. Hospital team was consulted by orthopedics for elevated BPs staining >200 systolic. She underwent left unicompartmental knee arthroplasty earlier today without complaints. On medical floor her BP continued to rise despite home blood pressure medications which includes lisinopril, clonidine, hydralazine, and verapamil. Patient does endorse a mild headache, resolved chills, and a 2 out of 10 pain in her L knee from the surgery. Otherwise denies vision changes, fatigue, chills, chest pain, sob, abd pain, N/V/D, dysuria. She does state she is anxious as well which is normal for her, but more so since her BP is so high. She states prior to surgery, her last BP check was about a month ago and was in the 160s systolic. Her levothyroxine was uptitrated about 6 weeks ago without recheck in thyroid levels. Denies tobacco use. Allergies Allergy/AdvReac Type Severity Reaction Status Date / Time Beta-Blockers Allergy Severe shortness Verified 09/16/22 07:32 (Beta-Adrenergic Bloc of breath, worsened anxiety diltiazem Allergy Severe Rash Verified 09/16/22 07:32 Influenza Virus Vaccines Allergy Severe itching Verified 09/16/22 07:32 metoprolol Allergy Severe severe Verified 09/16/22 07:32 fatigue and palpitations sertraline [From Zoloft] Allergy Severe shortness Verified 09/16/22 07:32 of breath, worsened anxiety Sulfa (Sulfonamide Allergy Severe TONGUE Verified 09/16/22 07:32 Antibiotics) SWELLS sulfamethoxazole Allergy Severe TONGUE Verified 09/16/22 07:32 SWELLS trimethoprim Allergy Severe TONGUE Verified 09/16/22 07:32 SWELLS adhesive tape Allergy Mild Rash Verified 09/16/22 07:32 metronidazole [From Flagyl] AdvReac Intermediate Nausea Verified 09/16/22 07:32 felodipine [From Plendil] AdvReac Unknown Unknown Verified 09/04/22 14:44 Home Medications Medication Instructions Recorded Confirmed Type hydralazine 50 mg tablet 100 mg PO TID 10/28/18 09/16/22 History levothyroxine 125 mcg tablet 125 mcg PO 6XWK 10/28/18 09/16/22 History lisinopril 40 mg tablet 40 mg PO HS 10/28/18 09/16/22 History lorazepam 0.5 mg tablet (Ativan) 0.5 mg sublingual BID PRN Anxiety 10/28/18 09/16/22 History multivitamin 1 tab PO QAM 10/28/18 09/16/22 History omega 3 350 mg-dha 235 mg-epa 90 1 cap PO QPM 10/28/18 09/16/22 History mg-fish oil 597 mg capsule,delay rel ([place]-3) pantoprazole 40 mg tablet,delayed 40 mg PO QPM 10/28/18 09/16/22 History release venlafaxine 150 mg 150 mg PO HS 10/28/18 09/16/22 History capsule,extended release 24 hr venlafaxine 75 mg capsule,extended 75 mg PO HS 10/28/18 09/16/22 History release 24 hr verapamil 300 mg capsule 24hr 300 mg PO BID #180 caps 11/09/19 09/16/[address],ext.release clonidine HCl 0.1 mg tablet 0.2 mg PO BID #360 tabs 06/19/20 09/16/22 Rx prevagen 20 mg PO QAM 08/21/21 09/16/22 History psyllium husk 3.4 gram/5.4 gram 2 tbsp PO BID 08/21/21 09/16/22 History oral powder (Metamucil) Wheeled Walker #1 ea 02/24/22 08/12/22 Rx Balance Of Nature 6 cap PO QAM 02/27/22 09/16/22 History [place] 3 With Coq10 1 tab PO QAM 02/27/22 09/16/22 History aflibercept 2 mg/0.05 mL 2 mg intravitreal UD 02/27/22 09/16/22 History intravitreal syringe (Eylea) amoxicillin 500 mg capsule 2,000 mg PO UD PRN prior to dental 02/27/22 09/16/22 History procedures cholecalciferol (vitamin D3) 125 125 mcg PO QPM 02/27/22 09/16/22 History mcg (5,000 unit) tablet (Vitamin D3) cyanocobalamin (vitamin B-12) 5,000 mcg sublingual QAM 02/27/22 09/16/22 History 5,000 mcg sublingual tablet (Vitamin B-12) levothyroxine 125 mcg tablet 250 mcg PO WK 02/27/22 09/16/22 History Super Beets 2 tab PO QAM 09/04/22 09/16/22 History magnesium 250 mg tablet 250 mg PO BID 09/04/22 09/16/22 History acetaminophen 500 mg tablet 1,000 mg PO TID pain 30 days #180 09/13/22 09/16/22 Rx (Tylenol Extra Strength) tabs ondansetron 4 mg disintegrating 4 mg PO Q8 PRN nausea #20 tabs 09/13/22 09/16/22 Rx tablet oxycodone 5 mg tablet 5 mg PO Q6 PRN pain #40 tabs 09/13/22 09/16/22 Rx rivaroxaban 10 mg tablet (Xarelto) 10 mg PO DAILY prevent blood clots 09/13/22 09/16/22 Rx 30 days #30 tabs sennosides 8.6 mg tablet (Senokot) 8.6 mg PO BID prevent constipation 09/13/22 09/16/22 Rx 14 days #28 tabs Patient History Medical History (Updated 09/16/22 @ 23:51 by Rahat Cuellar DO) Anxiety Central retinal vein occlusion ~ - follows with Dr White for an injection in the left eye every 6- 8 weeks. Depression Dyslipidemia Elevated partial thromboplastin time (PTT) Following with [facility] - Dr. Cadet GERD (gastroesophageal reflux disease) rare, stable per pt Hearing deficit Wears hearing aids intermittently History of blood transfusion prior to hysterectomy () History of COVID-19 diagnosed 03/2021--mild symptoms, no symptoms now Hypertension controlled, stable per pt Hypothyroidism Left ventricular hypertrophy Severe LVH per 09/2021 ECHO ; no LVOT obstruction per cardio follows with Dr. Shepard Lupus anticoagulant disorder Following with heme- no personal hx of DVT/PE- heme aware of upcoming TKA- recommendations given Sleep apnea not currently treated- could not tolerate device due to getting up multiple times at night to urinate Urinary incontinence severe Surgical History (Updated 09/17/22 @ 07:03 by Carmine Mckay PA-C) H/O parathyroidectomy H/O: hysterectomy Total with BSO History of bilateral cataract extraction History of bilateral tubal ligation History of colonoscopy History of dilatation and curettage History of partial knee replacement right S/P appendectomy Status post right partial knee replacement Family History Other No family history of adverse response to anesthesia Social History Smoking Status: Never smoker Second Hand Exposure: No; Do You Dip or Chew Tobacco: No; Hx Alcohol Use: No Hx Substance Use: No Preferred Language: Bengali Communication Ability: Effective Preschool Program Director Required: No Beliefs That Will Affect Care: Mormon Mormon Beliefs: Hindu of [facility] [employer] marital status: / Current Living Situation: Family Current Living Situation Comment: Lives with daughter current occupational status: retired How many Children do You have: 6 Feels Safe at Home: Yes Assistive Devices: Walker Review of Systems Review of Systems: All systems reviewed & are unremarkable except as noted in HPI & below Physical Exam Physical Exam: Constitutional: in no acute distress, pleasant and normal affect, intact memory. AOx3. Vitals as above. HEENT: No scleral injection or discharge.Moist mucous membranes. Neck: Supple without lymphadenopathy or thyromegaly. Trachea midline. Lungs:Clear to auscultation bilaterally with good effort. No wheezes/rales/rhonchi. Cardiac: Regular rate and rhythm.No extremity edema. 2+ distal peripheral pulses. Abdomen: Bowel sounds present. Soft, nontender, and nondistended.No guarding. No hepatosplenomegaly. MSK: No cyanosis or clubbing. Extremities motor strength 5/5. L leg in donnie wrap from knee surgery. Skin: No abnormal rashes, warm, dry. Neurologic: no focal deficits Results & Data Results & Data Vital Signs (Past 12 Hours) Vital Signs Temp Pulse Pulse Resp BP Pulse Ox O2 Del Method 09/16/22 23:13 36.7 C 98 H 18 220/96 H 95 Room Air 09/16/22 21:45 219/94 H 09/16/22 21:10 223/113 H 09/16/22 19:00 36.7 C 77 16 190/80 H 93 Room Air 09/16/22 14:58 36.7 C 75 16 172/76 H 94 Nasal Cannula 09/16/22 14:00 36.4 C L 77 18 159/70 H Nasal Cannula 09/16/22 13:00 36.4 C L 66 18 168/75 H 98 Nasal Cannula 09/16/22 12:30 36.4 C L 68 16 169/74 H 97 Nasal Cannula 09/16/22 12:00 36.6 C 65 16 164/71 H 98 Nasal Cannula 09/16/22 11:50 65 12 164/40 H 95 Nasal Cannula 09/16/22 11:40 78 22 169/74 H 93 Nasal Cannula O2 Flow Rate 09/16/22 23:13 09/16/22 21:45 09/16/22 21:10 09/16/22 19:00 09/16/22 14:58 1 09/16/22 14:00 1 09/16/22 13:00 2 09/16/22 12:30 3 09/16/22 12:00 3 09/16/22 11:50 3 09/16/22 11:40 3 Laboratory Results Laboratory Results PT 10.4 Seconds (9.0-12.0) 09/16/22 07:19 INR 0.9 (0.9-1.1) 09/16/22 07:19 APTT 38.3 Seconds (21.0-31.0) H 09/16/22 07:19 PTT Ratio 1.4 09/16/22 07:19 Impressions Knee X-Ray 09/16/22 11:06 TWO VIEWS LEFT KNEE CLINICAL HISTORY: Postoperative examination. FINDINGS: AP and crosstable lateral portable views of the left knee are obtained. A hemiarthroplasty in the medial compartment of the left knee is in near anatomic alignment. No acute fracture is identified. Mild degenerative narrowing and chondrocalcinosis is seen in the lateral compartment. There are expected postoperative changes around the knee including skin clips, soft tissue edema, and subcutaneous gas. IMPRESSION: Expected postoperative changes status post left knee hemiarthroplasty. No acute fracture is seen. ACT 112: Negative or not required by law. Electronically signed by: James Jiménez M.D. 09/16/2022 11:38 AM Resident Activity Tracking Resident Involvement: Resident Care Provided Care Provided: [facility]
[2022-09-17] MEDS: ceFAZolin 1000MG 1,000 MG/7.5 ML SYR IV SCH (01:29)
[2022-09-17] MEDS: KETOROLAC TROMETHAMINE 15 MG/ML VIAL IV SCH ×2 (01:30→06:02)
[2022-09-17] MEDS ORDERED: hydrALAZINE HCL 20 MG/ML VIAL IV STA (03:35)
[2022-09-17] MEDS: oxyCODONE HCL IR 5 MG TAB (IMMEDIATE RELEASE) PO PRN ×2 (06:04→12:11)
[2022-09-17] MEDS ORDERED: cloNIDine HCL 0.1 MG TAB PO ONE (06:27)
[2022-09-17] MEDS ORDERED: LEVOTHYROXINE SODIUM 125 MCG TABLET PO SCH (06:30)
[2022-09-17 06:48] LABS: Hematocrit (blood only) 34.4 % (37.0-47.0); Hemoglobin 11.8 g/dl (12.0-16.0); Mean Corpuscular Hemoglobin 28.3 pg (25.0-34.0); Mean Corpuscular Hgb Conc 34.3 g/dL (32.0-36.0); Mean Corpuscular Volume 82.5 fL (80.0-100.0); Mean Platelet Volume 11.2 fL (9.4-12.4); Platelet Count 235 K/uL (130-400); RDW Coefficient of Variation 13.2 % (11.5-14.5); Red Blood Count 4.17 M/uL (4.20-5.40); White Blood Count 11.46 K/ul (4.8-10.8)
[2022-09-17 07:01] LABS: BUN Creatinine Ratio 20.7 (10-20); Calcium 9.3 mg/dl (8.6-10.3); Creatinine Clr Calc Pharmacy 43.8 ml/min; Est GFR (African American) 67.7 ml/min; Est GFR (Non-African American) 58.4 ml/min; Potassium 3.7 mmol/L (3.5-5.1)
--- NOTE | 2022-09-17 07:06 | Orthopedic Progress Note ---
Date of Service September 17, 2022 Assessment & Plan (1) Status post left partial knee replacement: Pain is reasonably controlled. Only having minimal knee pain. Hypertension: being managed by the hospitalist service PT/OT: wbat, total knee protocol DVT prophylaxis: teds, scd's, xarelto Discharge planning: Will discuss with Dr. Walls. Plan is discharge home with home health Subjective .81 year old patient POD #1 from left partial knee replacement. Had post op hypertension and hospitalist service was consulted and has seen her. She has a headache. No chest pain. Mild knee pain. No other complaints. Review of Systems All systems reviewed & are unremarkable except as noted in HPI & below. Physical Exam . alert and oriented. NAD Last blood pressure at 6am was 207/80 Left leg: dressing clean, dry, intact. Able to dorsiflex and plantarflex. Able to do a straight leg raise. NVI Results & Data Results & Data Laboratory Results . Diagnostic Findings . PG Care Time/CCT Total # of Minutes Spent Total Time Spent with Patient: Total time spent is greater than 50% in coordination of care (as documented) at patient's floor/unit and/or counseling patient: Coding Level of Care Code 67252 Post Operative Follow-Up Diagnoses Status post left partial knee replacement Z96.652
[2022-09-17 07:29] LABS: Thyroid Stimulating Hormone < 0.010 uIu/ml (0.300-4.500)
[2022-09-17] MEDS: ASCORBIC ACID 500 MG TAB PO SCH (07:43)
[2022-09-17] MEDS ORDERED: dexAMETHasone 10 MG in SYRINGE 0 ML IV SCH (08:00)
[2022-09-17 08:04] LABS: T4 Free Thyroxine 2.11 ng/dl (0.61-1.60)
[2022-09-17] MEDS: ACETAMINOPHEN 500 MG TAB PO SCH ×2 (08:34→13:06)
[2022-09-17] MEDS: DOCUSATE SODIUM 100 MG CAP PO SCH (08:35)
[2022-09-17] MEDS: OMEGA-3 (PURIFIED FISH OIL) 1 GM CAP PO SCH (08:36)
[2022-09-17] MEDS: hydrALAZINE TAB 50 MG TAB PO SCH ×2 (08:36→13:34)
[2022-09-17] MEDS: MAGNESIUM OXIDE 400 MG TAB PO SCH (08:38)
[2022-09-17] MEDS: VERAPAMIL 300 MG PO SCH (08:39)
[2022-09-17] MEDS: PSYLLIUM or GUAR GUM FIBER POWDER PACKET PO SCH (08:39)
[2022-09-17] MEDS: cloNIDine HCL 0.1 MG TAB PO SCH (08:49)
[2022-09-17] MEDS ORDERED: CYANOCOBALAMIN (B-12) 2,500 MCG TABLET SL SCH (09:00)
[2022-09-17] MEDS ORDERED: NON-FORMULARY MEDICATION (Multivitamin Tablet) PO SCH (09:00)
[2022-09-17] MEDS ORDERED: PREVAGEN 20 MG PO SCH (09:00)
[2022-09-17] MEDS ORDERED: COQ10 PO SCH (09:00)
[2022-09-17] MEDS ORDERED: MULTIVITAMIN TAB PO SCH (09:00)
[2022-09-17] MEDS ORDERED: OMEGA PO SCH (09:00)
[2022-09-17] MEDS ORDERED: SUPER BEETS PO SCH (09:00)
[2022-09-17] MEDS ORDERED: BALANCE OF NATURE PO SCH (09:00)
[2022-09-17] MEDS ORDERED: RIVAROXABAN 10 MG TABLET PO SCH (12:00)
--- NOTE | 2022-09-17 17:55 | Hospitalist Progress Note ---
Date of Service September 17, 2022 Assessment & Plan (1) Resistant hypertension: Plan: 81 yo female with PMHx of resistant HTN, hypothyroidism, and anxiety. Hospital team was consulted by orthopedics for elevated BPs staining >200 systolic. She underwent left unicompartmental knee arthroplasty earlier today without complaints. #Resistant HTN -long standing history, home BP typically ~160 systolic -chronically on lisinopril 40mg HS, clonidine 0.2mg bid, hydralazine 100mg tid, and verapamil 300mg bid -Suspect elevation multifactorial due to established resistant HTN history, hospital stress, post op, anxiety, and pain. -pain has been minimal since surgery. Continue toradol and tylenol -do not recommend medical intervention at this time given that patient is asymptomatic, additional medication likely to do more harm than good -Could consider adding diuretic to antihypertensive regimen at the discretion of outpatient cardiology #Anxiety -cont. venlafaxine, ativan prn #Hypothyroidism -cont. levothyroxine -TSH <.010, free T4 2.11 -follow up with vp human resources for ongoing management Hospital team signing off DVT ppx: xarelto FEN/GI: regular Code Status: full Dispo: med surg (2) Hypertension: (3) Depression: Admission and Anticipated Discharge Date Admission Date: September 16, 2022 Supervising Physician Co-Signing Physician Notes I personally examined the patient and verified all martinez points of history and exam, discussed case, and agree with decision making with Dr Ocampo feeling okay from a hypertensive urgency standpointmild headache, but no blurred vision or confusion. No strokelike symptoms, no chest pain or shortness of breath. Vitals noted, in general she is awake and alert pleasant no distress. HEENT normocephalic atraumatic mucous membranes moist. Breathing unlabored no accessory muscle use good effort. Skin shows no rashes no pallor or icterus. Neuro without focal deficits. Hypertensionher numbers are elevated, but in the context of hospital stay and surgeryit is likely provoked. It is generally the standard of care to only intervene on uncontrolled hypertension in the inpatient setting whenever it is clear that it is simply poor baseline control (which it is not in this case) or more importantly if there is evidence of a hypertensive endorgan crisis (which there is not)would recommend keeping on her home meds, and have her follow-up with her PCP after discharge. Hospitalist team will sign off at this time, certainly available if we can be of further assistance. Subjective 81 yo female with PMHx of resistant HTN, hypothyroidism, and anxiety. Hospital team was consulted by orthopedics for elevated BPs staining >200 systolic. She underwent left unicompartmental knee arthroplasty earlier today without complaints. Patient states that her home blood pressure generally runs in the 150s-160s systolic, she follows regularly with Dr. Delcid for resistant hypertension. Patient notes that she developed a headache yesterday afternoon that lasted until early in the morning, denies changes in vision, no confusion notable during conversation. Patient states that pain is well controlled at this time. Also notes that she believes her blood pressure is elevated due to her thyroid replacement dose, which was recently increased. Beta blockers listed as an allergy, patient confirms that this is not a true allergy, notes that it makes her feel "like she is having a heart attack." Review of Systems Review of Systems: All systems reviewed & are unremarkable except as noted in HPI & below Physical Exam Constitutional: WD/WN, vitals as above no acute distress Respiratory: normal respiratory effort, lungs clear to auscultation Cardiovascular: RRR, no murmur, no edema distal pulses 2+, intact Musculoskeletal: 5/5 strength on hip flexion bilaterally Skin: no rashes, warm and dry Neurologic: AOx4, no focal deficits appreciated Results & Data Results & Data Vital Signs (Past 12 Hours) Vital Signs Temp Pulse Pulse Resp BP BP Pulse Ox 09/17/22 12:55 36.7 C 65 76 18 163/80 H 194/80 H 93 09/17/22 10:44 36.7 C 76 18 163/80 H 93 09/17/22 08:31 98 H 18 185/84 H 94 09/17/22 07:15 36.9 C 98 H 18 195/91 H 98 09/17/22 06:00 36.5 C 96 H 16 207/80 H 94 O2 Del Method 09/17/22 12:55 09/17/22 10:44 Room Air 09/17/22 08:31 Room Air 09/17/22 07:15 Room Air 09/17/22 06:00 Room Air Resident Activity Tracking Resident Involvement: Resident Care Provided Care Provided: Adult [facility]
--- NOTE | 2022-09-17 19:51 | Billing Data ---
Date of Service September 17, 2022 Coding Level of Care Code 18178 SUB INP/OBS CARE
--- NOTE | 2022-09-18 06:36 | Billing Data ---
Date of Service September 18, 2022 Coding Level of Care Code 54511 IN/OBS CONSULT LVL 3,45M
--- NOTE | 2022-09-20 14:24 | Discharge Summary ---
Date of Service September 20, 2022 Discharge Data Consultations 09/16/22 22:04 Consult Hospitalist Routine Procedures Performed Operation Date: 09/16/22 08:50 Actual Procedures p Left Unicompartmental Knee Arthroplasty(Left) - Betito Walls MD Hospital Course (1) Status post left partial knee replacement: This is a 81 year old patient admitted on 09/16/22 and underwent partial knee replacement. She tolerated the procedure well and there were no complications. Transferred to the PACU post op and later to the orthopedic floor for further care. She was given ancef for antibiotic prophylaxis. She was also given FCO stockings, SCDs, and xarelto for DVT prophylaxis. Hemoglobin, hematocrit, and vital signs were monitored during her hospital stay and remained stable. She did have some hypertension and headache post op. The hospitalist was consulted for further management. Did not require any blood transfusions. There were no complications during her hospital stay. By post op day #1 the patient was tolerating a regular diet, pain was reasonably controlled with oral pain medicine, and she was participating in physical th era. On post op day #1 the patient was discharged home and set up with home health care. She was given printed discharge instructions including prescriptions for extra strength tylenol, zofran, senokot, oxycodone, and xarelto. Continue physical therapy, weight bearing as tolerated. Continue FCO stockings. Follow up approximately 2 weeks post op or sooner if there are problems or concerns. Coding Level of Care Code None Diagnoses Status post left partial knee replacement Z96.652
[2022-09-21] MEDS ORDERED: LEVOTHYROXINE SODIUM 125 MCG TABLET PO SCH (06:30)
== END 2022-09-17 14:07 | disposition home health service (06) ==
LOC: ASU 07:03 → 3E 07:03

== ENCOUNTER 2023-10-05 18:13 | Inpatient (IN) ==
--- NOTE | 2023-10-05 19:29 | Emergency Department Note ---
Impression & Plan Acute constipation, Abdominal distension, Leukocytosis, Acute hypokalemia, Hypertensive urgency ED Provider Note HISTORY OF PRESENT ILLNESS: Patient is an 82-year-old female presenting with abdominal bloating. Patient reports "I am feeling very bloated and I am full of poop." She was seen yesterday for similar symptoms and diagnosed with constipation but refused an enema and wanted to try taking medications at home. She was prescribed senna and reports that she took a dose today, but is felt very bloated and uncomfortable ever since. Reports that she has had "2 very small bowel movements today." She denies any vomiting. Denies any chest pain or shortness of breath. Reports that she feels very full and "needs help." ROS: as above PHYSICAL EXAM: Constitutional: Patient appears in no acute distress. HENT: Head: Normocephalic and atraumatic. Eyes: EOMI, PERRL Mouth/Throat: Mucous membranes moist. Neck: Trachea midline. Neck supple. Cardiovascular: RRR, No murmurs, rubs or gallops. Intact distal pulses. Pulmonary/Chest: No respiratory distress. Breath sounds clear and equal bilaterally. No wheezes or rales. Abdominal: Abdomen soft, no tenderness, rebound or guarding. Abdomen is distended Musculoskeletal: No edema, tenderness or deformity noted. Skin: Warm and dry. No rash, erythema, pallor or cyanosis Psychiatric: Appropriate mood and affect for situation. Neurological: Alert and keenly responsive. CN II-XII grossly intact, moving all extremities equally and fully. MDM: - Vitals signs showed hypertension - History obtained via patient. History as above. - Chronic conditions affecting care: depression; HTN; HLD - Differential diagnoses include, but are not limited to: constipation; bowel obstruction; ischemic bowel; ileus; volvulus - Order placed for continuous cardiac monitoring. At this time, monitor showed rate of 100 bpm with normal sinus rhythm, per my interpretation. - External medical records reviewed. Hypertension vision note dated 09/08/2023 was reviewed. 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 Was started on eplerenone 25 mg daily at that visit. - Laboratory workup interpreted by myself showed leukocytosis (WBC 17.94); hypokalemia (K 2.8); elevated anion gap (12); normal lipase - Patient given 30 mEq IV potassium for electrolyte replacement. - KUB showed significant distended colon secondary to stool burden. Given this x-ray, CT abdomen/pelvis without contrast was ordered. - Patient given PO mag citrate and soap suds enema - CT abdomen/pelvis wo contrast showed massive amount of well-formed stool/gas seen throughout the colon up to 7 cm distended. Some findings suggestive of segmental stercoral colitis. - Patient remained significantly hypertensive while in the emergency department. She was given 50 mcg IV fentanyl for concern for pain driving her hypertension. - Discussion was had with assistant case manager about patient's case and need for admission - Hospitalist consulted for admission - Patient admitted to [facility] for further evaluation and management. 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 Left ventricular hypertrophy Severe LVH per 09/2021 ECHO ; no LVOT obstruction per cardio follows with Dr. Shepard Dyslipidemia Hypertension (Acute) controlled, stable per pt Depression (Chronic) Medical History Lupus anticoagulant disorder Following with heme- no personal hx of DVT/PE- heme aware of upcoming TKA- recommendations given Elevated partial thromboplastin time (PTT) Following with [facility] - Dr. Cadet GERD (gastroesophageal reflux disease) rare, stable per pt Sleep apnea not currently treated- could not tolerate device due to getting up multiple times at night to urinate History of blood transfusion prior to hysterectomy () Anxiety Encounter for pre-operative examination Urinary incontinence severe Hypothyroidism Hearing deficit Wears hearing aids intermittently History of COVID-19 diagnosed 03/2021--mild symptoms, no symptoms now Left knee DJD Surgical History Status post right partial knee replacement History of dilatation and curettage History of bilateral tubal ligation History of partial knee replacement right History of colonoscopy History of bilateral cataract extraction H/O parathyroidectomy S/P appendectomy H/O: hysterectomy Total with BSO Family History Father Coronary heart disease Heart disease Hypertension Myocardial infarction Dyslipidemia Mother Hypertension Sister Hypertension Heart disease Other No family history of adverse response to anesthesia Social History Smoking Status: Never smoker Second Hand Exposure: No; Do You Dip or Chew Tobacco: No; Hx Alcohol Use: No Hx Substance Use: No Preferred Language: Arabic Communication Ability: Effective Visual Impairment: No Limitations Hearing Ability: Normal Managed Care Nurse Required: No Beliefs That Will Affect Care: Sabianist Sabianist Beliefs: [facility] marital status: / Current Living Situation: Family Current Living Situation Comment: Lives with daughter current occupational status: retired How many Children do You have: 6 Feels Safe at Home: Yes Diet: regular caffeine: Yes (takes caffeine pills 100mg ) Physical Activity Frequency: Does not Exercise Seatbelt Use: always Do you think of yourself as: straight/heterosexual Gender Identity: Female Assistive Devices: Glasses and Walker Allergies Allergies Allergy/AdvReac Type Severity Reaction Status Date / Time Beta-Blockers Allergy Severe shortness Verified 10/05/23 20:40 (Beta-Adrenergic Bloc of breath, worsened anxiety diltiazem Allergy Severe Rash Verified 10/05/23 20:40 Influenza Virus Vaccines Allergy Severe itching Verified 10/05/23 20:40 metoprolol Allergy Severe severe Verified 10/05/23 20:40 fatigue and palpitations sertraline [From Zoloft] Allergy Severe shortness Verified 10/05/23 20:40 of breath, worsened anxiety Sulfa (Sulfonamide Allergy Severe TONGUE Verified 10/05/23 20:40 Antibiotics) SWELLS sulfamethoxazole Allergy Severe TONGUE Verified 10/05/23 20:40 SWELLS trimethoprim Allergy Severe TONGUE Verified 10/05/23 20:40 SWELLS adhesive tape Allergy Mild Rash Verified 10/05/23 20:40 metronidazole [From Flagyl] AdvReac Intermediate Nausea Verified 10/05/23 20:40 felodipine [From Plendil] AdvReac Unknown Unknown Verified 10/05/23 20:40 Home Meds Home Medications Medication Instructions Recorded Confirmed lorazepam 0.5 mg tablet (Ativan) 0.5 mg sublingual BID PRN Anxiety 10/28/18 10/05/23 multivitamin 1 tab PO QAM 10/28/18 10/05/23 omega 3 350 mg-dha 235 mg-epa 90 1 cap PO QPM 10/28/18 10/05/23 mg-fish oil 597 mg capsule,delay rel ([place]-3) pantoprazole 40 mg tablet,delayed 40 mg PO QPM 10/28/18 10/05/23 release venlafaxine 150 mg 150 mg PO HS 10/28/18 10/05/23 capsule,extended release 24 hr prevagen 20 mg PO QAM 08/21/21 10/05/23 psyllium husk 3.4 gram/5.4 gram 2 tbsp PO BID 08/21/21 10/05/23 oral powder (Metamucil) Balance Of Nature 6 cap PO QAM 02/27/22 10/05/23 aflibercept 2 mg/0.05 mL 2 mg intravitreal UD 02/27/22 10/05/23 intravitreal syringe (Eylea) amoxicillin 500 mg capsule 2,000 mg PO UD PRN prior to dental 02/27/22 10/05/23 procedures cholecalciferol (vitamin D3) 125 125 mcg PO QPM 02/27/22 10/05/23 mcg (5,000 unit) tablet (Vitamin D3) cyanocobalamin (vitamin B-12) 5,000 mcg sublingual QAM 02/27/22 10/05/23 5,000 mcg sublingual tablet (Vitamin B-12) Super Beets 2 tab PO QAM 09/04/22 10/05/23 magnesium 250 mg tablet 250 mg PO BID 09/04/22 10/05/23 caffiene 100 mg PO DAILY PRN .KEEP ALERT 05/27/23 10/05/23 levothyroxine 88 mcg capsule 88 mcg PO DAILY 07/29/23 10/05/23 eplerenone 25 mg tablet 12.5 mg PO DAILY 10/05/23 10/05/23 Previous Rx's Medication Instructions Recorded verapamil 300 mg capsule 24hr 300 mg PO BID #180 caps 11/09/[address],ext.release Wheeled Walker #1 ea 02/24/22 acetaminophen 500 mg tablet 1,000 mg (2 x 500 mg) PO TID pain 09/13/22 (Tylenol Extra Strength) 30 days #180 tabs ondansetron 4 mg disintegrating 4 mg PO Q8 PRN nausea #20 tabs 09/13/22 tablet clonidine HCl 0.3 mg tablet 0.3 mg PO BID #180 tabs 06/10/23 olmesartan 40 mg tablet 40 mg PO DAILY #90 tabs 07/20/23 hydralazine 50 mg tablet 100 mg (2 x 50 mg) PO TID 90 days 08/04/23 #540 tabs sennosides 8.6 mg tablet (Senna 8.6 mg PO BID PRN constipation #10 10/04/23 Lax) tabs Results & Data (ED) Vital Signs Vital Signs - 24 hr 10/05/23 18:15 10/05/23 18:53 10/05/23 18:53 Temperature 36.7 C Temperature Source Temporal Artery Scan Pulse Rate 84 77 Pulse Rate [Apical] 79 Respiratory Rate 20 20 Respiratory Effort / Characteristics Non-Labored Spontaneous Non-Labored Spontaneous Respiratory Depth Normal Normal Respiratory Pattern Regular Blood Pressure 204/130 H Blood Pressure [Right Arm] 212/119 H Blood Pressure Mean 154 Blood Pressure Mean [Right Arm] 150 Blood Pressure Position [Right Arm] Semi-fowlers Pulse Oximetry 96 95 Oxygen Delivery Method Room Air Room Air Sepsis Recent Fever Within 48 Hours No Sepsis New/Unexplained Change in Mental Status N/A Sepsis Action Taken by Nursing No Action Required 10/05/23 20:34 10/05/23 20:34 10/05/23 22:09 Temperature Temperature Source Pulse Rate 91 H Pulse Rate [Apical] 81 97 H Respiratory Rate 18 18 Respiratory Effort / Characteristics Non-Labored Non-Labored Respiratory Depth Normal Normal Respiratory Pattern Regular Regular Blood Pressure Blood Pressure [Right Arm] 200/100 H 226/106 H Blood Pressure Mean Blood Pressure Mean [Right Arm] 133 146 Blood Pressure Position [Right Arm] Pulse Oximetry 97 97 94 Oxygen Delivery Method Room Air Room Air Room Air Sepsis Recent Fever Within 48 Hours Sepsis New/Unexplained Change in Mental Status Sepsis Action Taken by Nursing 10/05/23 22:47 Temperature Temperature Source Pulse Rate 107 H Pulse Rate [Apical] Respiratory Rate Respiratory Effort / Characteristics Respiratory Depth Respiratory Pattern Blood Pressure Blood Pressure [Right Arm] Blood Pressure Mean Blood Pressure Mean [Right Arm] Blood Pressure Position [Right Arm] Pulse Oximetry Oxygen Delivery Method Sepsis Recent Fever Within 48 Hours Sepsis New/Unexplained Change in Mental Status Sepsis Action Taken by Nursing Laboratory Data 10/05/23 20:32 10/05/23 20:32 Lab Results 10/05/23 10/05/23 Range/Units 20:32 21:14 WBC 17.94 H (4.8-10.8) K/ul RBC 4.85 (4.20-5.40) M/uL Hgb 13.7 (12.0-16.0) g/dl Hct 40.2 (37.0-47.0) % MCV 82.9 (80.0-100.0) fL MCH 28.2 (25.0-34.0) pg MCHC 34.1 (32.0-36.0) g/dL RDW Std Deviation 38.8 (36.4-46.3) fL RDW Coeff of [place] 12.8 (11.5-14.5) % Plt Count 267 (130-400) K/uL MPV 10.9 (9.4-12.4) fL Immature Gran % (Auto) 0.5 % Neut % (Auto) 83.3 % Lymph % (Auto) 10.1 % [place] % (Auto) 5.7 % Eos % (Auto) 0.1 % Baso % (Auto) 0.3 % Neut # (Auto) 14.94 H (1.40-6.50) K/uL Lymph # (Auto) 1.81 (1.20-3.40) K/uL [place] # (Auto) 1.02 H (0.11-0.59) K/uL Eos # (Auto) 0.02 (0.00-0.50) K/uL Baso # (Auto) 0.06 (0.00-0.20) K/uL Immature Gran # (Auto) 0.09 (0.01-0.20) K/uL Sodium 131 L (136-145) mmol/L Potassium 2.8 L D (3.5-5.1) mmol/L Chloride 95 L (98-107) mmol/L Carbon Dioxide 24 (21-32) mmol/L Anion Gap 12 H (3-11) BUN 10 (6-23) mg/dl Creatinine 0.79 (0.6-1.2) mg/dl Est Cr Clr Drug Dosing 50.1 ml/min Est GFR ( Amer) 80.8 ml/min Est GFR (Non-Af Amer) 69.7 ml/min BUN/Creatinine Ratio 12.7 (10-20) Glucose 128 H (70-99(Fasting)) mg/dl Lactate 1.0 (0.4-2.0) mmol/L Calcium 9.6 (8.6-10.3) mg/dl Total Bilirubin 0.9 (0.2-1.0) mg/dl AST 17 (13-39) U/L ALT 17 (7-52) U/L Alkaline Phosphatase 98 (34-104) U/L Total Protein 7.6 (6.0-8.3) gm/dl Albumin 4.4 (3.4-5.0) gm/dl Globulin 3.2 (2.5-4.0) gm/dl Albumin/Globulin Ratio 1.4 (0.9-2) Lipase 13 (11-82) U/L Administered Medications Discontinued Medications Fentanyl Citrate (Fentanyl Citrate Pf 100 Mcg/2 Ml Vial) 50 mcg IV NOW STA Stop: 10/05/23 22:21 Last Admin: 10/05/23 22:22 Dose: 50 mcg Documented By: NOELLE Magnesium Citrate (Magnesium Citrate 296 Ml/Btl) 296 ml PO NOW STA Stop: 10/05/23 19:28 Last Admin: 10/05/23 20:00 Dose: 296 ml Documented By: NOELLE Ondansetron HCl (Ondansetron Inj 2 Mg/Ml 2 Ml Vial) 4 mg IV NOW STA Stop: 10/05/23 21:51 Last Admin: 10/05/23 21:54 Dose: 4 mg Documented By: NOELLE Imaging Data Radiologist's Impression: Abdomen/Pelvis CT 10/05/23 20:19 Exam(s): CT ABDOMEN + PELVIS Without Contrast EXAM: CT Abdomen and Pelvis Without Intravenous Contrast CLINICAL HISTORY: Reason for exam: constipation; abd distension. TECHNIQUE: Axial computed tomography images of the abdomen and pelvis without intravenous contrast. CTDI is 22.19 mGy and DLP is 1126.83 mGy-cm. Automated exposure control was utilized for the study. A dose lowering technique was utilized adhering to the principles of ALARA. COMPARISON: CT abdomen/pelvis: 10/04/2023 FINDINGS: Diagnostic sensitivity of the exam is reduced by motion artifact and by the absence of IV contrast Lung bases: Bilateral bronchial wall thickening and mild dilatation. Pulmonary emphysema. Lingula small linear atelectatic changes . No mass. No consolidation. Cardiomegaly. Small/trace pericardial effusion. Coronary arterial and mitral valve/aortic valve calcifications. Elevated diaphragm. ABDOMEN: Liver: Diffuse fatty hepatic infiltration. Hepatomegaly. Gallbladder and bile ducts: The gallbladder is not seen, either contracted or surgically removed. No ductal dilation. Pancreas: Grossly normal unenhanced pancreas. No ductal dilation. Spleen: Unremarkable. No splenomegaly. Adrenals: Unremarkable. No mass. Kidneys and ureters: Unremarkable. No obstructing stones. No hydronephrosis. Stomach and bowel: A small hiatal hernia. Fluid-filled moderately distended stomach. Massive amount of well-formed stool and gas is seen throughout a 7 cm distended colon. In the left lower quadrant segmental mild mural thickening and minimal pericolonic fat stranding noted in the presence of an impacted feces (series 3 images 203. 223, series 300 image 102), suggestive of a stercoral colitis and chronic constipation. Diffuse segmental spasm of the sigmoid. PELVIS: Appendix: No acute findings in the region of the appendix Bladder: An empty urinary bladder. No stones. Reproductive: Prior hysterectomy. ABDOMEN and PELVIS: Intraperitoneal space: Unremarkable. No free air. No significant fluid collection. Bones/joints: No acute fracture. No dislocation. Moderate levoscoliosis. Degenerative thoracolumbar spondylitic changes. Mild/moderate bilateral hip osteoarthropathy. Soft tissues: Unremarkable. Vasculature: Scattered atherosclerotic calcifications of the tortuous/elongated normal caliber aortoiliac vasculature. Lymph nodes: Unremarkable. No enlarged lymph nodes. IMPRESSION: Massive amount of well-formed stool/gas is seen throughout an up to 7 cm distended colon , with associated segmental mild mural thickening and minimal pericolonic fat stranding, suggestive of a segmental stercoral colitis and chronic severe constipation. Clinical correlation is recommended. Diffuse segmental spasm of the sigmoid. Diffuse fatty hepatic infiltration. Hepatomegaly. . Electronically signed by: Barbara Buckley MD, DABR 10/05/23 22:01 PM Discharge Plan Visit Data Chief Complaint: Abdominal Pain ED Provider: Darlene Callahan Discharge Problem: Acute constipation, Abdominal distension, Leukocytosis, Acute hypokalemia, Hypertensive urgency Forms Stand Alone Forms: [facility] Prescriptions Prescriptions: No Action verapamil 300 mg capsule, [address] 300 mg PO BID Qty: 180 3RF ondansetron 4 mg tablet,disintegrating 4 mg PO Q8 PRN (Reason: nausea) Qty: 20 1RF Rx Instructions: Take as needed for nausea acetaminophen [Tylenol Extra Strength] 500 mg tablet 1,000 mg PO TID 30 Days Qty: 180 0RF Rx Instructions: Take 3 times per day to lessen pain. clonidine HCl 0.3 mg tablet 0.3 mg PO BID Qty: 180 3RF olmesartan 40 mg tablet 40 mg PO DAILY Qty: 90 2RF prevagen 20 mg 20 mg PO QAM Metamucil 3.4 gram/5.4 gram powder 2 tbsp PO BID Rx Instructions: mix into at least 8 oz of water or juice before administering (DME) [facility] See [facility] Instructions .MEDSUPPLY Qty: 1 0RF Rx Instructions: As directed caffiene 100 mg PO DAILY PRN (Reason: .KEEP ALERT) Rx Instructions: "to help her function" levothyroxine 88 mcg capsule 88 mcg PO DAILY hydralazine 50 mg tablet 100 mg PO TID 90 Days Qty: 540 1RF lorazepam [Ativan] 0.5 mg Tablet 0.5 mg SUBLINGUAL BID PRN (Reason: Anxiety) pantoprazole 40 mg Tablet,Delayed Release (Dr/Ec) 40 mg PO QPM venlafaxine 150 mg Capsule,Extended Release 24hr 150 mg PO HS Rx Instructions: take with 75mg multivitamin Tablet 1 tab PO QAM [place]-3 350 mg-235 mg- 90 mg-597 mg Capsule,Delayed Release(Dr/Ec) 1 cap PO QPM cholecalciferol (vitamin D3) [Vitamin D3] 125 mcg (5,000 unit) Tablet 125 mcg PO QPM Balance Of Nature 6 cap PO QAM Patient Comments: "veggie and fruit capsules midday" amoxicillin 500 mg Capsule 2,000 mg PO UD PRN (Reason: prior to dental procedures) Eylea 2 mg/0.05 mL Syringe 2 mg INTRAVITREAL UD Patient Comments: every 6-8wks cyanocobalamin (vitamin B-12) [Vitamin B-12] 5,000 mcg Tablet, Sublingual 5,000 mcg SUBLINGUAL QAM magnesium 250 mg Tablet 250 mg PO BID Super Beets 2 tab PO QAM sennosides [Senna Lax] 8.6 mg tablet 8.6 mg PO BID PRN (Reason: constipation) Qty: 10 0RF eplerenone 25 mg tablet 12.5 mg PO DAILY Rx Instructions: take at bedtime Referrals Referrals: Hernandez Brar [Primary Care Provider] -
[2023-10-05] MEDS: MAGNESIUM CITRATE 296 ML/BTL PO STA (20:00)
[2023-10-05 20:44] LABS: Basophils # (auto) 0.06 K/uL (0.00-0.20); Basophils % (auto) 0.3 %; Eosinophils # (auto) 0.02 K/uL (0.00-0.50); Eosinophils % (auto) 0.1 %; Hematocrit (blood only) 40.2 % (37.0-47.0); Hemoglobin 13.7 g/dl (12.0-16.0); Immature Granulocytes # (auto) 0.09 K/uL (0.01-0.20); Immature Granulocytes % (auto) 0.5 %; Lymphocytes # (auto) 1.81 K/uL (1.20-3.40); Lymphocytes % (auto) 10.1 %; Mean Corpuscular Hemoglobin 28.2 pg (25.0-34.0); Mean Corpuscular Hgb Conc 34.1 g/dL (32.0-36.0); Mean Corpuscular Volume 82.9 fL (80.0-100.0); Mean Platelet Volume 10.9 fL (9.4-12.4); Monocytes # (auto) 1.02 K/uL (0.11-0.59); Monocytes % (auto) 5.7 %; Neutrophils # (auto) 14.94 K/uL (1.40-6.50); Neutrophils % (auto) 83.3 %; Platelet Count 267 K/uL (130-400); RDW Coefficient of Variation 12.8 % (11.5-14.5); RDW Standard Deviation 38.8 fL (36.4-46.3); Red Blood Count 4.85 M/uL (4.20-5.40); White Blood Count 17.94 K/ul (4.8-10.8)
[2023-10-05 21:07] LABS: Albumin Globulin Ratio 1.4 (0.9-2); Albumin Level 4.4 gm/dl (3.4-5.0); BUN Creatinine Ratio 12.7 (10-20); Bilirubin,Total 0.9 mg/dl (0.2-1.0); Calcium 9.6 mg/dl (8.6-10.3); Creatinine Clr Calc Pharmacy 50.1 ml/min; Est GFR (African American) 80.8 ml/min; Est GFR (Non-African American) 69.7 ml/min; Globulin 3.2 gm/dl (2.5-4.0); Potassium 2.8 mmol/L (3.5-5.1); Total Protein 7.6 gm/dl (6.0-8.3)
[2023-10-05] MEDS: ONDANSETRON INJ 2 MG/ML 2 ML VIAL IV STA (21:54)
--- NOTE | 2023-10-05 22:02 | CT Scan Report ---
Exam(s): CT ABDOMEN + PELVIS Without Contrast EXAM: CT Abdomen and Pelvis Without Intravenous Contrast CLINICAL HISTORY: Reason for exam: constipation; abd distension. TECHNIQUE: Axial computed tomography images of the abdomen and pelvis without intravenous contrast. CTDI is 22.19 mGy and DLP is 1126.83 mGy-cm. Automated exposure control was utilized for the study. A dose lowering technique was utilized adhering to the principles of ALARA. COMPARISON: CT abdomen/pelvis: 10/04/2023 FINDINGS: Diagnostic sensitivity of the exam is reduced by motion artifact and by the absence of IV contrast Lung bases: Bilateral bronchial wall thickening and mild dilatation. Pulmonary emphysema. Lingula small linear atelectatic changes . No mass. No consolidation. Cardiomegaly. Small/trace pericardial effusion. Coronary arterial and mitral valve/aortic valve calcifications. Elevated diaphragm. ABDOMEN: Liver: Diffuse fatty hepatic infiltration. Hepatomegaly. Gallbladder and bile ducts: The gallbladder is not seen, either contracted or surgically removed. No ductal dilation. Pancreas: Grossly normal unenhanced pancreas. No ductal dilation. Spleen: Unremarkable. No splenomegaly. Adrenals: Unremarkable. No mass. Kidneys and ureters: Unremarkable. No obstructing stones. No hydronephrosis. Stomach and bowel: A small hiatal hernia. Fluid-filled moderately distended stomach. Massive amount of well-formed stool and gas is seen throughout a 7 cm distended colon. In the left lower quadrant segmental mild mural thickening and minimal pericolonic fat stranding noted in the presence of an impacted feces (series 3 images 203. 223, series 300 image 102), suggestive of a stercoral colitis and chronic constipation. Diffuse segmental spasm of the sigmoid. PELVIS: Appendix: No acute findings in the region of the appendix Bladder: An empty urinary bladder. No stones. Reproductive: Prior hysterectomy. ABDOMEN and PELVIS: Intraperitoneal space: Unremarkable. No free air. No significant fluid collection. Bones/joints: No acute fracture. No dislocation. Moderate levoscoliosis. Degenerative thoracolumbar spondylitic changes. Mild/moderate bilateral hip osteoarthropathy. Soft tissues: Unremarkable. Vasculature: Scattered atherosclerotic calcifications of the tortuous/elongated normal caliber aortoiliac vasculature. Lymph nodes: Unremarkable. No enlarged lymph nodes. IMPRESSION: Massive amount of well-formed stool/gas is seen throughout an up to 7 cm distended colon , with associated segmental mild mural thickening and minimal pericolonic fat stranding, suggestive of a segmental stercoral colitis and chronic severe constipation. Clinical correlation is recommended. Diffuse segmental spasm of the sigmoid. Diffuse fatty hepatic infiltration. Hepatomegaly. . Electronically signed by: Barbara Buckley MD, NATHALIE 10/05/23 22:01 PM
[2023-10-05] MEDS: fentaNYL citrate PF 100 MCG/2 ML VIAL IV STA (22:22)
--- NOTE | 2023-10-05 22:29 | Surgery Consultation ---
Date of Consultation October 05, 2023 Assessment & Plan (1) Constipation: I discussed with the treating emergency room physician and she is having the patient admitted on the hospital service. From surgical perspective we recommend the following: It appears by CAT scan the patient has severe constipation and potential sterile coral colitis In order to treat this condition efforts will be made to assist the patient with bowel movements including the following: -Gentle hydration with IV fluids to be provided, supplementing her potassium -As the patient does not have a bowel obstruction we will initiate daily MiraLAX orally; it would also be acceptable for patient to have clear liquids only for now -We will provide 3 times daily Dulcolax suppository -Enemas will be continued to be provided Serial labs should be followed Repeat KUB will be ordered for tomorrow morning Efforts to continue ambulation should be employed Additional recommendations will be forthcoming based on her clinical course as it unfolds Addendum (6:00 AM) Patient revisited at the bedside. There is no change in patient's abdominal exam. Patient is currently resting comfortably in bed. I did discuss with nursing staff and several hours ago patient had a very small amount of emesis. Medical service had ordered an NG tube that is patient's emesis has subsided and not recurred they decided to hold off on this modality. I also discussed with the medical service and the patient has a history of lupus anticoagulant and therefore they did a CT scan of the chest which was negative for pulmonary emboli. As they were scanning the patient's chest they also rescan the patient's abdomen which shows the patient now has diffuse sigmoid colonic wall thickening and mucosal hyperenhancement suggestive of colitis causing a distal colonic obstruction. I discussed with Dr. Mclean the new CT scan findings and as patient has findings concerning for distal colonic obstruction we will stop the MiraLAX orally. He is also recommended patient to be placed on antibiotics and the medical service has already initiated Zosyn. We will continue with hydration measures and the patient is receiving LR at 125 cc/h. Will monitor her clinical response with additional recommendations to follow History of Present Illness Reason for Consultation: Constipation with concern for sterile coral colitis History of Present Illness This is an 82-year-old female who presented to the emergency department secondary to abdominal bloating. The patient notes that it has been approximately 2 to 3 days since she has had a normal sized bowel movement. She does report that she takes Metamucil on a daily basis and usually moves her bowels regularly in a normal fashion. Because of her symptoms she presented to the emergency department on 10/04/2023 where the patient had a CT scan of the abdomen pelvis that showed significant stool burden with no signs of obstruction. At that time she had a CBC where white blood cell count was elevated 14.1. Her hemoglobin, hematocrit, and platelet count were normal. The patient's sodium and potassium as well as her BUN and creatinine were normal. Patient was offered an enema which she refused and she was discharged home with a prescription for senna which she says that she took earlier today. She represented to the emergency department today on 10/05/2023 secondary to worsening of her symptoms. She notes that she has some generalized abdominal pain as well as increased abdominal bloating. She notes that she has not passing any flatus but did have 2 very small bowel movements today. She denies any fevers, shakes, or chills. She does have nausea without vomiting. The patient notes that she does not take any chronic analgesics that would contribu te to any element of constipation. I question the patient about previous abdominal surgeries and she says she has had an appendectomy as a child and she has had a hysterectomy secondary to abnormal bleeding. She also notes that she has had a colonoscopy in the past but is unsure how many years ago. To the best of her knowledge they noted that she had diverticular disease on the study. Today in the emergency department she had repeat labs and imaging which I did independently reviewed. A CT scan of the abdomen pelvis showed the patient had a massive amount of well-formed stool in the colon. Her colon measured up to 7 cm. There is some segmental mural thickening and pericolonic fat stranding suggestive of a sterile coral colitis. Labs included CBC her white blood cell count is now 17.9. Hemoglobin and hematocrit as well as platelet count was normal. Patient's chemistry profile showed sodium and potassium were 131 and 2.8 respectively. The patient's BUN and creatinine were both within the normal range. A lactic acid level was normal at 1.0. There is no elevation of LFTs or lipase. In the emergency department the patient did have an enema which did not produce any significant relief of her symptoms. At the time of my interview the patient seems slightly uncomfortable but she was in no distress. Allergies Allergy/AdvReac Type Severity Reaction Status Date / Time diltiazem Allergy Severe Rash Verified 10/05/23 20:40 Influenza Virus Vaccines Allergy Severe itching Verified 10/05/23 20:40 sertraline [From Zoloft] Allergy Severe shortness Verified 10/05/23 20:40 of breath, worsened anxiety Sulfa (Sulfonamide Allergy Severe TONGUE Verified 10/05/23 20:40 Antibiotics) SWELLS sulfamethoxazole Allergy Severe TONGUE Verified 10/05/23 20:40 SWELLS trimethoprim Allergy Severe TONGUE Verified 10/05/23 20:40 SWELLS adhesive tape Allergy Mild Rash Verified 10/05/23 20:40 Beta-Blockers AdvReac Severe shortness Verified 10/06/23 02:02 (Beta-Adrenergic Bloc of breath, worsened anxiety metoprolol AdvReac Severe severe Verified 10/06/23 02:02 fatigue and palpitations metronidazole [From Flagyl] AdvReac Intermediate Nausea Verified 10/05/23 20:40 felodipine [From Plendil] AdvReac Unknown Unknown Verified 10/05/23 20:40 Home Medications Medication Instructions Recorded Confirmed Type lorazepam 0.5 mg tablet (Ativan) 0.5 mg sublingual BID PRN Anxiety 10/28/18 10/05/23 History multivitamin 1 tab PO QAM 10/28/18 10/05/23 History omega 3 350 mg-dha 235 mg-epa 90 1 cap PO QPM 10/28/18 10/05/23 History mg-fish oil 597 mg capsule,delay rel ([place]-3) pantoprazole 40 mg tablet,delayed 40 mg PO QPM 10/28/18 10/05/23 History release venlafaxine 150 mg 150 mg PO HS 10/28/18 10/05/23 History capsule,extended release 24 hr verapamil 300 mg capsule 24hr 300 mg PO BID #180 caps 11/09/19 10/05/[address],ext.release prevagen 20 mg PO QAM 08/21/21 10/05/23 History psyllium husk 3.4 gram/5.4 gram 2 tbsp PO BID 08/21/21 10/05/23 History oral powder (Metamucil) Ysabel Walker #1 ea 02/24/22 10/05/23 Rx Balance Of Nature 6 cap PO QAM 02/27/22 10/05/23 History aflibercept 2 mg/0.05 mL 2 mg intravitreal UD 02/27/22 10/05/23 History intravitreal syringe (Eylea) amoxicillin 500 mg capsule 2,000 mg PO UD PRN prior to dental 02/27/22 10/05/23 History procedures cholecalciferol (vitamin D3) 125 125 mcg PO QPM 02/27/22 10/05/23 History mcg (5,000 unit) tablet (Vitamin D3) cyanocobalamin (vitamin B-12) 5,000 mcg sublingual QAM 02/27/22 10/05/23 History 5,000 mcg sublingual tablet (Vitamin B-12) Super Beets 2 tab PO QAM 09/04/22 10/05/23 History magnesium 250 mg tablet 250 mg PO BID 09/04/22 10/05/23 History acetaminophen 500 mg tablet 1,000 mg (2 x 500 mg) PO TID pain 09/13/22 10/05/23 Rx (Tylenol Extra Strength) 30 days #180 tabs ondansetron 4 mg disintegrating 4 mg PO Q8 PRN nausea #20 tabs 09/13/22 10/05/23 Rx tablet caffiene 100 mg PO DAILY PRN .KEEP ALERT 05/27/23 10/05/23 History clonidine HCl 0.3 mg tablet 0.3 mg PO BID #180 tabs 06/10/23 10/05/23 Rx olmesartan 40 mg tablet 40 mg PO DAILY #90 tabs 07/20/23 10/05/23 Rx levothyroxine 88 mcg capsule 88 mcg PO DAILY 07/29/23 10/05/23 History hydralazine 50 mg tablet 100 mg (2 x 50 mg) PO TID 90 days 08/04/23 10/05/23 Rx #540 tabs sennosides 8.6 mg tablet (Senna 8.6 mg PO BID PRN constipation #10 10/04/23 10/05/23 Rx Lax) tabs eplerenone 25 mg tablet 12.5 mg PO DAILY 10/05/23 10/05/23 History Patient History Medical History (Updated 10/06/23 @ 04:47 by Ángel Catalan MD) Palpitations Adrenal adenoma Avascular necrosis of bone Chondrocalcinosis Hypertension Epistaxis Medication reaction Elevated partial thromboplastin time (PTT) Following with [facility] - Dr. Ajala GERD (gastroesophageal reflux disease) rare, stable per pt Sleep apnea not currently treated- could not tolerate device due to getting up multiple times at night to urinate History of blood transfusion prior to hysterectomy (1980s) Anxiety Encounter for pre-operative examination Urinary incontinence severe Hypothyroidism Hearing deficit Wears hearing aids intermittently History of COVID-19 diagnosed 03/2021--mild symptoms, no symptoms now Left knee DJD Surgical History Status post right partial knee replacement History of dilatation and curettage History of bilateral tubal ligation History of partial knee replacement right History of colonoscopy History of bilateral cataract extraction H/O parathyroidectomy S/P appendectomy H/O: hysterectomy Total with BSO Family History Father Coronary heart disease Heart disease Hypertension Myocardial infarction Dyslipidemia Mother Hypertension Sister Hypertension Heart disease Other No family history of adverse response to anesthesia Social History Smoking Status: Never smoker Second Hand Exposure: No; Do You Dip or Chew Tobacco: No; Hx Alcohol Use: No Hx Substance Use: No Preferred Language: Slovenian Communication Ability: Effective Visual Impairment: No Limitations Hearing Ability: Normal Warehouse Specialist Required: No Beliefs That Will Affect Care: None marital status: / Current Living Situation: Family Current Living Situation Comment: lives with daughter current occupational status: retired How many Children do You have: 6 Other Information That Helps Us Care for You: No Feels Safe at Home: Yes Safety Concerns: Feels Safe At This Time Diet: regular caffeine: Yes (takes caffeine pills 100mg ) Physical Activity Frequency: Does not Exercise Seatbelt Use: always Do you think of yourself as: straight/heterosexual Gender Identity: Female Assistive Devices: Cane, Glasses and Hearing Aid - Bilateral Physical Exam Constitutional: WD/WN, vitals as above Eyes: Wears glasses ENMT: Ears: no hearing impairment and no external ear abnormality Mouth: no oropharynx abnormality Neck: trachea midline Respiratory: normal respiratory effort; no respiratory distress and no labored breathing Cardiovascular: Rate/Rhythm: regular rate and regular rhythm Gastrointestinal (Abdomen): Abdomen has moderate distention. Her abdomen however is not rigid. She has some generalized pain with palpation but no rebound tenderness or guarding. There is some slight tympany noted to percussion. 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 Patient had normal sphincter tone. I do not appreciate any masses or stool in the rectal vault. Musculoskeletal: No calf tenderness Skin: no rashes Neurologic: moves all extremities Psychiatric: A+Ox3, euthymic affect Results & Data Vital Signs (Past 12 Hours) Vital Signs Temp Pulse Pulse Resp BP BP Pulse Ox 10/05/23 22:09 97 H 18 226/106 H 94 10/05/23 20:34 91 H 97 10/05/23 20:34 81 18 200/100 H 97 10/05/23 18:53 77 10/05/23 18:53 79 20 212/119 H 95 10/05/23 18:15 36.7 C 84 20 204/130 H 96 O2 Del Method 10/05/23 22:09 Room Air 10/05/23 20:34 Room Air 10/05/23 20:34 Room Air 10/05/23 18:53 10/05/23 18:53 Room Air 10/05/23 18:15 Room Air PG Care Time/CCT Total # of Minutes Spent Total Time Spent with Patient: Total time spent is greater than 50% in coordination of care (as documented) at patient's floor/unit and/or counseling patient: Coding Level of Care Code 96139 INT INP/OBS CARE 3/75MIN Diagnoses Constipation K59.00 Constipation type: unspecified constipation type (1) Constipation Constipation type: unspecified constipation type Qualified Code(s): K59.00 - Constipation, unspecified
[2023-10-05] MEDS ORDERED: SOD PHOSPHATE/SOD BIPHOSPHATE ENEMA 132 ML BTL PR PRN (22:31)
[2023-10-05] MEDS: POLYETHYLENE (MIRALAX) 17 GM PACK PO STA (23:22)
[2023-10-05] MEDS: POTASSIUM CHLORIDE / WTR 10 MEQ/100 ML PLCT IV SCH (23:24)
--- NOTE | 2023-10-05 23:41 | History & Physical Report ---
Date of Service October 05, 2023 Assessment & Plan (1) Intractable nausea and vomiting: (2) Acute constipation: Plan: - Patient constipation started 10/03, endorses 3 very small BMs - Dulcolax 10mg TID, Magnesium Citrate 296 ml, miralax given in ED 10/04 - Enemas will continue to be provided - Gentle hydration will be held til BP stabilizes - Repeat KUB - Frequent ambulation - Continue trending BMP and CBC (3) Uncontrolled hypertension: (4) Lupus anticoagulant disorder: (5) Hypertensive urgency: Plan: - Patient's highest reading at 226/106, systolic remained in 200s since admit - Patient took AM dose of BP meds, given PM dose of verapamil, clonidine and hydralazine - Metoprolol Tartrate 2.5 mg IV and fentanyl citrate 50 mcg added for high BP - Will add antihypertensive medications if BP remains uncontrolled - Will hold fluids while BP stabilizes (6) Acute hypokalemia: Plan: - On arrival patient's potassium was 2.8 - Started Potassium Chloride IV 10 meq in 100 ml x3 - Will continue to replenish as needed (7) Abdominal distension: Plan: - Patient constipated with abdominal distention since 10/03 - Dulcolax 10mg TID, Magnesium Citrate 296 ml, miralax given in ED 10/04 - Continue stool softeners - Enemas will continue to be provided - Ondansetron 4mg IV and Compazine 5mg IV Q6 ordered for acute nausea and vomiting - Protonix 40 mg IV daily ordered - Repeat KUB (8) Leukocytosis: Plan: - 10/03 white count was 14.18 - 10/04 white count continues to elevate to 17.94 - Patient remains afebrile, w/o symptoms of infection - CT abdomen showed non-specific colitis - Will continue to assess, abx not ordered at this time (9) Elevated troponin: Plan: - Patient's EKG in ED showed evidence of ST elevation in V1-V3, 1, and aVL - Potential lateral infarct - Initial high sensitivity troponin: 33.2 - no chest pain or tightness - will continue to trend troponin (10) Hypertension: (11) Left ventricular hypertrophy: (12) Antiphospholipid syndrome: History of Present Illness Chief Complaint: Acute constipation, abdominal distention, hypertensive urgency, acute hypokalemia, leukocytosis Primary Care Provider: Hernandez Jimenezcey is a 82 y/o F with a past medical history of chronic hypertension, hyperparathyroidism, GERD, osteoarthritis, dyslipidemia, and left ventricular hypertrophy arriving in the [facility] ED due to constipation and abdominal bloating. The patient was seen 10/03 in the ED due to lower quadrant abdominal pain 3/10, abdominal distention, constipation and nausea. At the time the patient underwent a KUB x-ray showing fecal retention and non-obstructive bowel gas pattern, abdominal pelvic CT showed circumferential thickening within distal colon and sigmoid colon and mild pericolonic fat stranding consistent with non-specific colitis. The patient was offered an enema at the time, but elected to leave and was given senna. Today the patient arrived to the ED again due to continued constipation, mild abdominal pain, and nausea. The patient feels that her bloating, nausea, and vomiting became worse after taking the senna. The patient endorses 3 very small bowel movements, but does not feel that they have helped with her abdominal distention. The patient reports that it has been 3 days since her last normal BM. The patient takes Metamucil on a regular basis and does not regularly have bowel issues. Patient reports that the last time she had abdominal and GI issues was during a bout of diverticulitis, and reports that she felt better after antibiotics and that she had a colonoscopy at the time that was largely normal except for a few diverticula. The patient denies fevers, chills, chest pain/palpitations/tightness, shortness of breath, cough, or wheeze. Allergies Allergy/AdvReac Type Severity Reaction Status Date / Time diltiazem Allergy Severe Rash Verified 10/05/23 20:40 Influenza Virus Vaccines Allergy Severe itching Verified 10/05/23 20:40 sertraline [From Zoloft] Allergy Severe shortness Verified 10/05/23 20:40 of breath, worsened anxiety Sulfa (Sulfonamide Allergy Severe TONGUE Verified 10/05/23 20:40 Antibiotics) SWELLS sulfamethoxazole Allergy Severe TONGUE Verified 10/05/23 20:40 SWELLS trimethoprim Allergy Severe TONGUE Verified 10/05/23 20:40 SWELLS adhesive tape Allergy Mild Rash Verified 10/05/23 20:40 Beta-Blockers AdvReac Severe shortness Verified 10/06/23 02:02 (Beta-Adrenergic Bloc of breath, worsened anxiety metoprolol AdvReac Severe severe Verified 10/06/23 02:02 fatigue and palpitations metronidazole [From Flagyl] AdvReac Intermediate Nausea Verified 10/05/23 20:40 felodipine [From Plendil] AdvReac Unknown Unknown Verified 10/05/23 20:40 Home Medications Medication Instructions Recorded Confirmed Type lorazepam 0.5 mg tablet (Ativan) 0.5 mg sublingual BID PRN Anxiety 10/28/18 10/05/23 History multivitamin 1 tab PO QAM 10/28/18 10/05/23 History omega 3 350 mg-dha 235 mg-epa 90 1 cap PO QPM 10/28/18 10/05/23 History mg-fish oil 597 mg capsule,delay rel ([place]-3) pantoprazole 40 mg tablet,delayed 40 mg PO QPM 10/28/18 10/05/23 History release venlafaxine 150 mg 150 mg PO HS 10/28/18 10/05/23 History capsule,extended release 24 hr verapamil 300 mg capsule 24hr 300 mg PO BID #180 caps 11/09/19 10/05/[address],ext.release prevagen 20 mg PO QAM 08/21/21 10/05/23 History psyllium husk 3.4 gram/5.4 gram 2 tbsp PO BID 08/21/21 10/05/23 History oral powder (Metamucil) Wheeled Walker #1 ea 02/24/22 10/05/23 Rx Balance Of Nature 6 cap PO QAM 02/27/22 10/05/23 History aflibercept 2 mg/0.05 mL 2 mg intravitreal UD 02/27/22 10/05/23 History intravitreal syringe (Eylea) amoxicillin 500 mg capsule 2,000 mg PO UD PRN prior to dental 02/27/22 10/05/23 History procedures cholecalciferol (vitamin D3) 125 125 mcg PO QPM 02/27/22 10/05/23 History mcg (5,000 unit) tablet (Vitamin D3) cyanocobalamin (vitamin B-12) 5,000 mcg sublingual QAM 02/27/22 10/05/23 History 5,000 mcg sublingual tablet (Vitamin B-12) Super Beets 2 tab PO QAM 09/04/22 10/05/23 History magnesium 250 mg tablet 250 mg PO BID 09/04/22 10/05/23 History acetaminophen 500 mg tablet 1,000 mg (2 x 500 mg) PO TID pain 09/13/22 10/05/23 Rx (Tylenol Extra Strength) 30 days #180 tabs ondansetron 4 mg disintegrating 4 mg PO Q8 PRN nausea #20 tabs 09/13/22 10/05/23 Rx tablet caffiene 100 mg PO DAILY PRN .KEEP ALERT 05/27/23 10/05/23 History clonidine HCl 0.3 mg tablet 0.3 mg PO BID #180 tabs 06/10/23 10/05/23 Rx olmesartan 40 mg tablet 40 mg PO DAILY #90 tabs 07/20/23 10/05/23 Rx levothyroxine 88 mcg capsule 88 mcg PO DAILY 07/29/23 10/05/23 History hydralazine 50 mg tablet 100 mg (2 x 50 mg) PO TID 90 days 08/04/23 10/05/23 Rx #540 tabs sennosides 8.6 mg tablet (Senna 8.6 mg PO BID PRN constipation #10 10/04/23 10/05/23 Rx Lax) tabs eplerenone 25 mg tablet 12.5 mg PO DAILY 10/05/23 10/05/23 History Past Med/Surg History Problem List (Updated 10/06/23 @ 04:47 by Ángel Catalan MD) Antiphospholipid syndrome Intractable nausea and vomiting Uncontrolled hypertension Lupus anticoagulant disorder Following with heme- no personal hx of DVT/PE- heme aware of upcoming TKA- recommendations given Left ventricular hypertrophy Hypertension Depression Anxiety Prediabetes Nonrheumatic mitral valve insufficiency Near syncope Mild obstructive sleep apnea Lightheadedness Heart disease Diastolic dysfunction, left ventricle AI (aortic insufficiency) Elevated troponin Hypertensive urgency (Acute) Acute hypokalemia (Acute) Leukocytosis (Acute) Abdominal distension (Acute) Acute constipation (Acute) Constipation (Acute) Status post left partial knee replacement Resistant hypertension Antiplatelet or antithrombotic long-term use pt denies any besides aspirin 81 daily Mild mitral regurgitation by prior echocardiogram Effusion, left knee Mild aortic regurgitation Mild tricuspid regurgitation Central retinal vein occlusion ~ - follows with Dr White for an injection in the left eye every 6- 8 weeks. Left ventricular hypertrophy Severe LVH per 09/2021 ECHO ; no LVOT obstruction per cardio follows with Dr. Shepard Dyslipidemia Hypertension (Acute) controlled, stable per pt Depression (Chronic) Medical History (Updated 10/06/23 @ 04:47 by Ángel Catalan MD) Palpitations Adrenal adenoma Avascular necrosis of bone Chondrocalcinosis Hypertension Epistaxis Medication reaction Elevated partial thromboplastin time (PTT) Following with [facility] - Dr. Cadet GERD (gastroesophageal reflux disease) rare, stable per pt Sleep apnea not currently treated- could not tolerate device due to getting up multiple times at night to urinate History of blood transfusion prior to hysterectomy () Anxiety Encounter for pre-operative examination Urinary incontinence severe Hypothyroidism Hearing deficit Wears hearing aids intermittently History of COVID-19 diagnosed 03/2021--mild symptoms, no symptoms now Left knee DJD Surgical History Status post right partial knee replacement History of dilatation and curettage History of bilateral tubal ligation History of partial knee replacement right History of colonoscopy History of bilateral cataract extraction H/O parathyroidectomy S/P appendectomy H/O: hysterectomy Total with BSO Family History Father Coronary heart disease Heart disease Hypertension Myocardial infarction Dyslipidemia Mother Hypertension Sister Hypertension Heart disease Other No family history of adverse response to anesthesia Social History Smoking Status: Never smoker Second Hand Exposure: No; Do You Dip or Chew Tobacco: No; Hx Alcohol Use: No Hx Substance Use: No Preferred Language: Croatian Communication Ability: Effective Visual Impairment: No Limitations Hearing Ability: Normal Clinical Documentation Nurse Required: No Beliefs That Will Affect Care: [facility] Beliefs: [employer] marital status: / Current Living Situation: Family Current Living Situation Comment: Lives with daughter current occupational status: retired How many Children do You have: 6 Feels Safe at Home: Yes Diet: regular caffeine: Yes (takes caffeine pills 100mg ) Physical Activity Frequency: Does not Exercise Seatbelt Use: always Do you think of yourself as: straight/heterosexual Gender Identity: Female Assistive Devices: Glasses and Walker Physical Exam Physical Exam: General: patient resting comfortably, NAD, non-toxic in appearance, answers questions appropriately. Skin: warm, dry, intact HEENT: NC/AT, anicteric sclera, conjunctiva without injection, moist mucus membranes. Heart: +S1/S2, regular, no m/r/g Lungs: equal air entry bilaterally, no rales/rhonchi/wheezes Abd: +BS, soft, moderate abdominal distention present with mild abdominal tenderness in LLQ w/o rebound, guarding, or rigidity Ext: warm, no clubbing/cyanosis or edema Neuro: nonfocal, speech intact, no facial droop, moving all extremities. Results & Data Results & Data Vital Signs (Past 12 Hours) Vital Signs Temp Pulse Pulse Resp BP BP Pulse Ox 10/05/23 22:47 107 H 10/05/23 22:09 97 H 18 226/106 H 94 10/05/23 20:34 91 H 97 10/05/23 20:34 81 18 200/100 H 97 10/05/23 18:53 77 10/05/23 18:53 79 20 212/119 H 95 10/05/23 18:15 36.7 C 84 20 204/130 H 96 O2 Del Method 10/05/23 22:47 10/05/23 22:09 Room Air 10/05/23 20:34 Room Air 10/05/23 20:34 Room Air 10/05/23 18:53 10/05/23 18:53 Room Air 10/05/23 18:15 Room Air Laboratory Results Laboratory Results WBC 17.94 K/ul (4.8-10.8) H 10/05/23 20:32 RBC 4.85 M/uL (4.20-5.40) 10/05/23 20:32 Hgb 13.7 g/dl (12.0-16.0) 10/05/23 20:32 Hct 40.2 % (37.0-47.0) 10/05/23 20:32 MCV 82.9 fL (80.0-100.0) 10/05/23 20:32 MCH 28.2 pg (25.0-34.0) 10/05/23 20:32 MCHC 34.1 g/dL (32.0-36.0) 10/05/23 20:32 RDW Std Deviation 38.8 fL (36.4-46.3) 10/05/23 20:32 RDW Coeff of Elizabeth 12.8 % (11.5-14.5) 10/05/23 20:32 Plt Count 267 K/uL (130-400) 10/05/23 20:32 MPV 10.9 fL (9.4-12.4) 10/05/23 20:32 Immature Gran % (Auto) 0.5 % 10/05/23 20:32 Neut % (Auto) 83.3 % 10/05/23 20:32 Lymph % (Auto) 10.1 % 10/05/23 20:32 [place] % (Auto) 5.7 % 10/05/23 20:32 Eos % (Auto) 0.1 % 10/05/23 20:32 Baso % (Auto) 0.3 % 10/05/23 20:32 Neut # (Auto) 14.94 K/uL (1.40-6.50) H 10/05/23 20:32 Lymph # (Auto) 1.81 K/uL (1.20-3.40) 10/05/23 20:32 [place] # (Auto) 1.02 K/uL (0.11-0.59) H 10/05/23 20:32 Eos # (Auto) 0.02 K/uL (0.00-0.50) 10/05/23 20:32 Baso # (Auto) 0.06 K/uL (0.00-0.20) 10/05/23 20:32 Immature Gran # (Auto) 0.09 K/uL (0.01-0.20) 10/05/23 20:32 Sodium 131 mmol/L (136-145) L 10/05/23 20:32 Potassium 2.8 mmol/L (3.5-5.1) L D 10/05/23 20:32 Chloride 95 mmol/L (98-107) L 10/05/23 20:32 Carbon Dioxide 24 mmol/L (21-32) 10/05/23 20:32 Anion Gap 12 (3-11) H 10/05/23 20:32 BUN 10 mg/dl (6-23) 10/05/23 20:32 Creatinine 0.79 mg/dl (0.6-1.2) 10/05/23 20:32 Est Cr Clr Drug Dosing 50.1 ml/min 10/05/23 20:32 Est GFR ( Amer) 80.8 ml/min 10/05/23 20:32 Est GFR (Non-Af Amer) 69.7 ml/min 10/05/23 20:32 BUN/Creatinine Ratio 12.7 (10-20) 10/05/23 20:32 Glucose 128 mg/dl (70-99(Fasting)) H 10/05/23 20:32 Lactate 1.0 mmol/L (0.4-2.0) 10/05/23 21:14 Calcium 9.6 mg/dl (8.6-10.3) 10/05/23 20:32 Magnesium 1.8 mg/dl (1.7-2.4) 10/05/23 20:32 Total Bilirubin 0.9 mg/dl (0.2-1.0) 10/05/23 20:32 AST 17 U/L (13-39) 10/05/23 20:32 ALT 17 U/L (7-52) 10/05/23 20:32 Alkaline Phosphatase 98 U/L (34-104) 10/05/23 20:32 Troponin I High Sens 33.2 pg/ml (0-14) H 10/05/23 20:32 Total Protein 7.6 gm/dl (6.0-8.3) 10/05/23 20:32 Albumin 4.4 gm/dl (3.4-5.0) 10/05/23 20:32 Globulin 3.2 gm/dl (2.5-4.0) 10/05/23 20:32 Albumin/Globulin Ratio 1.4 (0.9-2) 10/05/23 20:32 Lipase 13 U/L (11-82) 10/05/23 20:32 Impressions Abdomen/Pelvis CT 10/05/23 20:19 Exam(s): CT ABDOMEN + PELVIS Without Contrast EXAM: CT Abdomen and Pelvis Without Intravenous Contrast CLINICAL HISTORY: Reason for exam: constipation; abd distension. TECHNIQUE: Axial computed tomography images of the abdomen and pelvis without intravenous contrast. CTDI is 22.19 mGy and DLP is 1126.83 mGy-cm. Automated exposure control was utilized for the study. A dose lowering technique was utilized adhering to the principles of ALARA. COMPARISON: CT abdomen/pelvis: 10/04/2023 FINDINGS: Diagnostic sensitivity of the exam is reduced by motion artifact and by the absence of IV contrast Lung bases: Bilateral bronchial wall thickening and mild dilatation. Pulmonary emphysema. Lingula small linear atelectatic changes . No mass. No consolidation. Cardiomegaly. Small/trace pericardial effusion. Coronary arterial and mitral valve/aortic valve calcifications. Elevated diaphragm. ABDOMEN: Liver: Diffuse fatty hepatic infiltration. Hepatomegaly. Gallbladder and bile ducts: The gallbladder is not seen, either contracted or surgically removed. No ductal dilation. Pancreas: Grossly normal unenhanced pancreas. No ductal dilation. Spleen: Unremarkable. No splenomegaly. Adrenals: Unremarkable. No mass. Kidneys and ureters: Unremarkable. No obstructing stones. No hydronephrosis. Stomach and bowel: A small hiatal hernia. Fluid-filled moderately distended stomach. Massive amount of well-formed stool and gas is seen throughout a 7 cm distended colon. In the left lower quadrant segmental mild mural thickening and minimal pericolonic fat stranding noted in the presence of an impacted feces (series 3 images 203. 223, series 300 image 102), suggestive of a stercoral colitis and chronic constipation. Diffuse segmental spasm of the sigmoid. PELVIS: Appendix: No acute findings in the region of the appendix Bladder: An empty urinary bladder. No stones. Reproductive: Prior hysterectomy. ABDOMEN and PELVIS: Intraperitoneal space: Unremarkable. No free air. No significant fluid collection. Bones/joints: No acute fracture. No dislocation. Moderate levoscoliosis. Degenerative thoracolumbar spondylitic changes. Mild/moderate bilateral hip osteoarthropathy. Soft tissues: Unremarkable. Vasculature: Scattered atherosclerotic calcifications of the tortuous/elongated normal caliber aortoiliac vasculature. Lymph nodes: Unremarkable. No enlarged lymph nodes. IMPRESSION: Massive amount of well-formed stool/gas is seen throughout an up to 7 cm distended colon , with associated segmental mild mural thickening and minimal pericolonic fat stranding, suggestive of a segmental stercoral colitis and chronic severe constipation. Clinical correlation is recommended. Diffuse segmental spasm of the sigmoid. Diffuse fatty hepatic infiltration. Hepatomegaly. . Electronically signed by: Barbara Buckley MD, NATHALIE 10/05/23 22:01 PM Medications Administered Potassium Chloride (K Juancarlos / Wtr) 10 meq in 100 mls @ 100 mls/hr IV Q1H ABIGAIL Stop: 10/06/23 02:14 Last Admin: 10/06/23 00:27 Dose: 100 mls/hr Documented By: Infusion: 10/06/23 00:24 Dose: Infused Documented By: Admin: 10/05/23 23:24 Dose: 100 mls/hr Documented By: NOELLE Lactated Ringer's (Lr) 1,000 mls @ 125 mls/hr IV .Q8H ABIGAIL Stop: 11/05/23 00:59 Last Infusion: 10/06/23 00:50 Dose: 0 mls/hr Documented By: Admin: 10/06/23 00:18 Dose: 125 mls/hr Documented By: NOELLE Code Status & VTE Plan Code Status Full code status Lovenox 40 mg SQ Q24h SCDs VTE Prophylaxis Plan VTE Prophylaxis will be ordered: Yes Supervising Physician Co-Signing Physician Notes Attending addendum: I have physically seen this patient, have supervised the medical residents activities, and agree with the H&P unless as otherwise noted. Assessment and Plan: Intractable nausea/vomiting/severe constipation/stercoral colitis/segmental sigmoid colon spasm- Assessed by surgery while in the emergency department Bowel regimen including MiraLAX, Dulcolax suppositories, fleets enema Nausea treatment with multiple dosages of Zofran and prochlorperazine Zosyn 4.5 g IV every 8 hours Pantoprazole 40 mg IV daily Zofran 4 mg IV every 6 hours as needed Lorazepam 0.5 mg IV every 8 hours as needed for nausea/anxiety LR 125 mL/h Factors contributing to severe constipation including not limited to: Inadequate oral intake of liquids, verapamil, olmesartan Uncontrolled hypertension elevated troponin/EKG showing LVH with repolarization changes/hypertension/hypokalemia- The patient will be admitted to telemetry for serial cardiac enzymes, serial EKG's, cardiac rhythm monitoring and a 2-D echocardiogram with Dopplers. Initial troponin of 33.2, with follow-up 51.3 Received 3K riders in the ED, rechecking laboratories in a.m. Patient unable to tolerate oral medications that she usually takes for hypertension. Suspect she has been without medications for a few days. In particular causing rebound hypertension off clonidine Heart rate has improved from 107 down to 69 after receiving multiple doses of IV Lopressor Target systolic blood pressure for this evening is 160-180 Hold oral antihypertensives for now except hydralazine, which may need to be ch anged to IV if unable to take p.o. in the morning Change clonidine 0.3 mg p.o. twice daily to clonidine TTS-3 patch Thrombophilias/lupus anticoagulant/antiphospholipid syndrome- Concern regarding possible process contributing to nausea/vomiting Order CTA PE protocol and CT abdomen and pelvis Resident Activity Tracking Resident Involvement: Resident Care Provided Care Provided: Adult [facility] Medicine (8) Leukocytosis Leukocytosis type: unspecified Qualified Code(s): D72.829 - Elevated white blood cell count, unspecified
[2023-10-06 00:17] LABS: Magnesium 1.8 mg/dl (1.7-2.4); Troponin I High Sensitivity 33.2 pg/ml (0-14)
[2023-10-06] MEDS: LACTATED RINGER'S 1,000 ML IV STA (00:18)
[2023-10-06] MEDS: LACTATED RINGER'S 1,000 ML IV SCH (00:18)
[2023-10-06] MEDS: LORazepam 0.5 MG TAB SL STA (00:22)
[2023-10-06] MEDS: VERAPAMIL HCL 180 MG TABCR PO STA (00:27)
[2023-10-06] MEDS: cloNIDine HCL 0.1 MG TAB PO STA (00:27)
[2023-10-06] MEDS: VERAPAMIL HCL 120 MG TABCR PO STA (00:28)
[2023-10-06] MEDS: hydrALAZINE TAB 50 MG TAB PO STA (00:34)
[2023-10-06] MEDS: ONDANSETRON INJ 2 MG/ML 2 ML VIAL IV STA (01:02)
[2023-10-06] MEDS ORDERED: LORazepam 0.5 MG in SYRINGE 0.25 ML IV STA (01:11)
[2023-10-06] MEDS ORDERED: LORazepam 0.5 MG TAB SL PRN (01:19)
[2023-10-06] MEDS: METOPROLOL TARTRATE 1 MG/ML VIAL IV STA ×5 (01:23→21:37)
[2023-10-06] MEDS ORDERED: PROCHLORPERAZINE 5 MG in SYRINGE 4 ML IV PRN (01:24)
[2023-10-06] MEDS: FAMOTIDINE 20MG IV PUSH 20 MG/5 ML SYR IV STA (01:48)
[2023-10-06] MEDS: EPLERENONE~ORDER AWAITING ACTION SCH (02:34)
[2023-10-06] MEDS: cloNIDine HCL 0.3 MG/24 HR TRANSDERM SYS TD SCH (02:42)
[2023-10-06] MEDS: SUCRALFATE 1 GM TAB PO STA (02:43)
[2023-10-06] MEDS: LORazepam 1 MG/1 ML SYR ED Inj Use IV STA (03:16)
[2023-10-06] MEDS: OPTIRAY 320 125ml IV ONE (03:29)
[2023-10-06] MEDS: bisacodyL 10 MG SUPP PR PRN (03:51)
[2023-10-06] MEDS ORDERED: LORazepam 0.5 MG in SYRINGE 0.25 ML IV PRN (04:08)
[2023-10-06] MEDS: PIPERACILLIN/TAZOBACTAM 4.5 GM/100 ML BAG IV STA (04:43)
--- NOTE | 2023-10-06 05:00 | CT Scan Report ---
Exam(s): CTA CHEST IV Amt: 118 ML OPTIRAY 320 EXAM: CT Angiography Chest With Intravenous Contrast CLINICAL HISTORY: Reason for exam: PE. TECHNIQUE: Axial computed tomographic angiography images of the chest with intravenous contrast. CTDI is 25.97 mGy and DLP is 1306.01 mGy-cm. Automated exposure control was utilized for the study. A dose lowering technique was utilized adhering to the principles of ALARA. MIP reconstructed images were created and reviewed. COMPARISON: No relevant prior studies available. FINDINGS: LUNGS: No focal consolidation, pleural effusion, or pneumothorax. Atelectasis at the lung bases. HEART: Cardiomegaly. VASCULATURE: No acute pulmonary embolism. Atherosclerotic changes of the aorta. THYROID: Within normal limits. MEDIASTINUM + LYMPH NODES: There are no pathologically enlarged mediastinal, hilar, or axillary lymph nodes. SUPERIOR ABDOMEN: Hepatic steatosis. Large volume of fecal retention in the upper abdomen. MUSCULOSKELETAL: Degenerative changes. IMPRESSION: No acute pulmonary embolism. Electronically signed by: Easton Oleary MD 10/06/23 04:59 AM
--- NOTE | 2023-10-06 05:16 | Billing Data ---
Date of Service October 06, 2023 Coding Level of Care Code 92563 INT INP/OBS CARE
[2023-10-06] MEDS: PANTOprazole 40 MG in SYRINGE 0 ML IV ONE (05:28)
--- NOTE | 2023-10-06 05:38 | CT Scan Report ---
Exam(s): CT ABDOMEN + PELVIS With Contrast Oral - High Density Amt: 30 ML GASTRO, IV Amt: 118 ML OPTIRAY 320 EXAM: CT Abdomen and Pelvis With Intravenous Contrast CLINICAL HISTORY: Reason for exam: eval mesenteric ischemia. TECHNIQUE: Axial computed tomography images of the abdomen and pelvis with intravenous contrast. CTDI is 25.97 mGy and DLP is 1306.01 mGy-cm. Automated exposure control was utilized for the study. A dose lowering technique was utilized adhering to the principles of ALARA. CONTRAST: Patient received 30 ML GASTRO of Oral - High Density and 118 ML OPTIRAY 320 of IV contrast COMPARISON: No relevant prior studies available. FINDINGS: Lung bases: Unremarkable. No mass. No consolidation. Mediastinum: Small hiatus hernia and gastroesophageal reflux. ABDOMEN: Liver: Unremarkable. No mass. Gallbladder and bile ducts: There is cholelithiasis. No ductal dilation. Pancreas: Unremarkable. No mass. No ductal dilation. Spleen: Unremarkable. No splenomegaly. Adrenals: Unremarkable. No mass. Kidneys and ureters: Unremarkable. No solid mass. No hydronephrosis. Stomach and bowel: There is colonic distention with fecal matter and air with transition point located in the proximal sigmoid colon. The sigmoid colon shows diffuse wall thickening, measuring up to 9 mm along with mucosal hyperenhancement. PELVIS: Appendix: No findings to suggest acute appendicitis. Bladder: Unremarkable. No mass. Reproductive: Unremarkable as visualized. ABDOMEN and PELVIS: Intraperitoneal space: Unremarkable. No free air. No significant fluid collection. Bones/joints: No acute fracture. No dislocation. Soft tissues: Unremarkable. Vasculature: Patent superior mesenteric artery. Atherosclerotic calcification seen in the region of the patent celiac artery.. No abdominal aortic aneurysm. Lymph nodes: Unremarkable. No enlarged lymph nodes. IMPRESSION: Diffuse sigmoid colonic wall thickening and mucosal hyperenhancement is suggestive of colitis, causing distal colonic obstruction Electronically signed by: Jeremy Jones MD 10/06/23 05:38 AM
[2023-10-06 06:30] LABS: Hematocrit (blood only) 35.8 % (37.0-47.0); Hemoglobin 12.5 g/dl (12.0-16.0); Mean Corpuscular Hemoglobin 28.3 pg (25.0-34.0); Mean Corpuscular Hgb Conc 34.9 g/dL (32.0-36.0); Mean Corpuscular Volume 81.2 fL (80.0-100.0); Mean Platelet Volume 10.8 fL (9.4-12.4); Platelet Count 262 K/uL (130-400); RDW Coefficient of Variation 12.9 % (11.5-14.5); RDW Standard Deviation 38.1 fL (36.4-46.3); Red Blood Count 4.41 M/uL (4.20-5.40); White Blood Count 14.57 K/ul (4.8-10.8)
[2023-10-06 06:45] LABS: BUN Creatinine Ratio 15.8 (10-20); Calcium 8.5 mg/dl (8.6-10.3); Creatinine Clr Calc Pharmacy 52.1 ml/min; Est GFR (African American) 84.7 ml/min; Est GFR (Non-African American) 73.1 ml/min; Potassium 3.6 mmol/L (3.5-5.1)
[2023-10-06] MEDS: ONDANSETRON INJ 2 MG/ML 2 ML VIAL IV PRN (07:25)
[2023-10-06] MEDS ORDERED: SUCRALFATE 1 GM TAB PO SCH (07:30)
[2023-10-06] MEDS: LEVOTHYROXINE SODIUM 88 MCG TABLET PO SCH (07:58)
[2023-10-06] MEDS: METOPROLOL TARTRATE 1 MG/ML VIAL IV ONE (07:58)
--- NOTE | 2023-10-06 08:41 | Electrocardiogram Report ---
Test Reason : Blood Pressure : */* mmHG Vent. Rate : 97 BPM Atrial Rate : 97 BPM P-R Int : 206 ms QRS Dur : 94 ms QT Int : 384 ms P-R-T Axes : 56 210 59 degrees QTcB Int : 487 ms Normal sinus rhythm Probable limb lead reversal Right superior axis deviation Poor R wave progression, consider anterior IA vs. lead placement vs. LVH Nonspecific ST elevation in Lateral leads Abnormal ECG When compared with ECG of 11-Sep-2022 14:21, Vent. rate has increased by 34 bpm QRS axis Shifted left ST elevation in Lateral leads now present Confirmed by Ta Woodall ([id number]) on 10/06/2023 8:40:58 AM Referred By: REFERRED SELF Confirmed By: Ta Woodall
--- NOTE | 2023-10-06 08:49 | XRay Report ---
KUB CLINICAL HISTORY: Constipation. FINDINGS: 2 AP, portable, supine abdominal radiographs are compared to abdominal radiographs and CT d ated 10/04/2023. There is severe constipation with diffuse gaseous distention of the colon. The small bowel loops are normal in caliber. No evidence of intraperitoneal free air is seen on these supine im ages. There are no abnormal abdominal calcifications. Phleboliths are seen in the pelvis. The skeleta l structures are osteopenic and appear intact. Lumbosacral spondylosis is noted. IMPRESSION: 1. Severe constipation with diffuse gaseous distention of the colon is similar in appearance to yeste rday. Colonic ileus or functional colonic obstruction secondary to fecal impaction is not excluded 2. The small bowel loops are normal in caliber. Electronically signed by: James Jiménez M.D. 10/06/2023 8:47 AM
[2023-10-06] MEDS: hydrALAZINE HCL 20 MG/ML VIAL IV SCH ×2 (08:58→17:41)
[2023-10-06] MEDS ORDERED: LOSARTAN POTASSIUM 50 MG TAB PO SCH (09:00)
[2023-10-06] MEDS ORDERED: PSYLLIUM or GUAR GUM FIBER 4GM PACKET PO SCH (09:00)
[2023-10-06] MEDS ORDERED: VERAPAMIL HCL 120 MG TABCR PO SCH (09:00)
[2023-10-06] MEDS ORDERED: hydrALAZINE TAB 50 MG TAB PO SCH (09:00)
[2023-10-06] MEDS ORDERED: VERAPAMIL HCL 180 MG TABCR PO SCH (09:00)
[2023-10-06] MEDS ORDERED: POLYETHYLENE (MIRALAX) 17 GM PACK PO SCH (09:00)
--- NOTE | 2023-10-06 09:23 | XCELERA ---
[id number]
[2023-10-06] MEDS: CHECK CLONIDINE PATCH PLACEMENT SCH (09:29)
[2023-10-06] MEDS: PIPERACILLIN/TAZOBACTAM 4.5 GM/100 ML BAG IV SCH (09:30)
[2023-10-06] MEDS: D5NSS + 20MEQ KCL 20 MEQ/1,000 ML BAG IV SCH (09:30)
[2023-10-06] MEDS: ENOXAPARIN INJ 40 MG/0.4 ML SYR SQ SCH (09:57)
[2023-10-06] MEDS: ACETAMINOPHEN 500 MG TAB PO SCH (10:15)
[2023-10-06] MEDS: ACETAMINOPHEN 1,000 MG/100 ML VIAL IV PRN (10:18)
[2023-10-06] MEDS: PROMETHAZINE 12.5 MG/50.5 ML BAG IV PRN (10:34)
--- NOTE | 2023-10-06 10:43 | XRay Report ---
XR KUB/Abdomen 1 view CLINICAL HISTORY: constipation TECHNIQUE: 1 view of the abdomen was obtained. Comparison: Comparison is made to abdomen radiograph 05/05/2023 FINDINGS: Lung bases are unremarkable. Degenerative changes are seen in the visualized skeleton. The bowel gas pattern is nonobstructive. Prominent stool burden is seen. Retained contrast is noted in the bladder limiting evaluation. IMPRESSION: There is a large stool burden without evidence of inspissated stool. ACT 112: Negative or not required by law. Electronically signed by: Francisco J Garcia M.D. 10/06/2023 10:42 AM
[2023-10-06] MEDS ORDERED: PANTOprazole 40 MG in SYRINGE 0 ML IV SCH (11:00)
[2023-10-06] MEDS: FAMOTIDINE 20MG IV PUSH 20 MG/5 ML SYR IV SCH (11:41)
[2023-10-06] MEDS: METOPROLOL TARTRATE 1 MG/ML VIAL IV SCH (11:41)
--- NOTE | 2023-10-06 12:32 | Surgery Progress Note ---
Date of Service October 06, 2023 Assessment & Plan (1) Constipation: Plan: Pt here with constipation and CT a/p with probable findings of sterocoral colitis WBC 14. HTN under better control currently Abdominal pain and nausea improving some per pt + flatus. Last BM yesterday She is written for clears and IV abx Would continue bowel regimen, enema's/suppositories from below as above. passing some flatus. continue conservative management. no urgent indication for surgical intervention currently. will continue to follow along Admission and Anticipated Discharge Date Admission Date: October 05, 2023 Subjective Pt tells me she feels a bit better than when she came in. Pain somewhat improved as well as her nausea. She reports some flatus. last BM yesterday. She denies CP/SOB Physical Exam Physical Exam: resting, but easily arousable Respiratory: on 2 L Gastrointestinal (Abdomen): Inspection/Auscultation: + abdomen distended (mild) Percussion/Palpation: + abdomen tender (some discomfort in lower abdomen) and abdomen soft Results & Data Vital Signs (Past 12 Hours) Vital Signs Pulse Pulse Resp BP BP BP Pulse Ox 10/06/23 12:08 56 L 137/72 10/06/23 11:41 62 144/70 H 10/06/23 11:40 61 23 144/70 H 10/06/23 10:17 67 22 168/72 H 92 10/06/23 09:02 79 19 195/102 H 95 10/06/23 08:55 77 18 203/105 H 86 L 10/06/23 08:03 70 226/116 H 10/06/23 07:53 224/117 H 92 10/06/23 07:42 77 18 215/120 H 93 10/06/23 07:32 76 215/120 H 10/06/23 07:30 77 18 215/120 H 93 10/06/23 06:39 74 18 201/89 H 98 10/06/23 05:33 71 23 180/87 H 94 10/06/23 04:28 72 18 163/79 H 93 10/06/23 04:00 10/06/23 03:10 69 10/06/23 02:56 71 18 188/74 H 10/06/23 02:42 75 190/85 H 10/06/23 02:30 77 10/06/23 02:24 77 18 201/84 H 98 10/06/23 02:16 84 10/06/23 02:00 81 16 210/88 H 99 10/06/23 01:45 82 212/90 H 10/06/23 01:44 81 18 212/92 H 99 10/06/23 01:23 101 H 227/113 H Pulse Ox O2 Del Method O2 Del Method O2 Flow Rate 10/06/23 12:08 10/06/23 11:41 10/06/23 11:40 10/06/23 10:17 Nasal Cannula 2 10/06/23 09:02 Nasal Cannula 2 10/06/23 08:55 Room Air 10/06/23 08:03 10/06/23 07:53 Room Air 10/06/23 07:42 Room Air 10/06/23 07:32 10/06/23 07:30 Room Air 10/06/23 06:39 Room Air 10/06/23 05:33 Room Air 10/06/23 04:28 Room Air 10/06/23 04:00 93 Room Air 10/06/23 03:10 10/06/23 02:56 10/06/23 02:42 10/06/23 02:30 10/06/23 02:24 Room Air 10/06/23 02:16 10/06/23 02:00 Room Air 10/06/23 01:45 10/06/23 01:44 Room Air 10/06/23 01:23 PG Care Time/CCT Total # of Minutes Spent Total Time Spent with Patient: Total time spent is greater than 50% in coordination of care (as documented) at patient's floor/unit and/or counseling patient: Coding Level of Care Code 63317 SUB INP/OBS CARE 125MIN Diagnoses Constipation K59.00 Constipation type: unspecified constipation type (1) Constipation Constipation type: unspecified constipation type Qualified Code(s): K59.00 - Constipation, unspecified
[2023-10-06] MEDS: hydrALAZINE HCL 20 MG/ML VIAL IV STA (15:08)
[2023-10-06] MEDS: bisacodyL 10 MG SUPP PR STA (15:10)
--- NOTE | 2023-10-06 16:01 | Hospitalist Progress Note ---
Date of Service October 06, 2023 Assessment & Plan (1) Intractable nausea and vomiting: Plan: Related to constipation. Symptomatic management. Treat constipation (2) Acute constipation: Plan: Patient constipation started 10/03. Dulcolax 10mg , Magnesium Citrate 296 ml, miralax given in ED 10/04. Enemas will continue to be provided. Appreciate general surgery consultation and recommendations. Will repeat KUB in the morning, October 06 (3) Uncontrolled hypertension: Plan: Scheduled dosing of intravenous metoprolol and hydralazine have been ordered. Improving. Telemetry. Will follow (4) Lupus anticoagulant disorder: Plan: By history. She is not on systemic anticoagulation however. Will follow (5) Hypertensive urgency: Plan: Currently on scheduled dosing of intravenous hydralazine and metoprolol. Improved. Telemetry. Will follow (6) Acute hypokalemia: Plan: Intravenous replacement. Serial labs (7) Elevated troponin: Plan: Due to demand ischemia most likely. No evidence of acute coronary syndrome. No chest pain. No acute EKG changes. Plan To be determined Admission and Anticipated Discharge Date Admission Date: October 05, 2023 Subjective The patient is drowsy from a long night in the ER. Daughters at the bedside. She is in no acute distress. She is not able to take oral medications at this time and is now on IV hydralazine and IV metoprolol. Continue IV fluids for now with potassium replacement. Blood pressure has improved from admission. Sodium is still low at 129. Potassium improved to 3.6. Chest CTA on admission was negative for PE. Verapamil is likely contributing to constipation and will be discontinued. Troponin is minimally elevated but no chest pain and no acute EKG changes. Review of Systems 2 Review of Systems: Constitutionalno fever or chills ENTno blurred vision, no double vision, no epistaxis, no sore throat Respiratoryno cough, no wheezing, no shortness of breath Cardiacno palpitations, no chest pain, no syncope GIlower abdominal discomfort and constipation. Some nausea. No vomiting. No melena or hematochezia. GUno urinary retention, no urinary incontinence, no dysuria, no hematuria Musculoskeletalno joint pain, no muscle tenderness Skinno bruising, no rashes, no pruritus Neurono isolated weakness, no paresthesia Psychno depression, no anxiety Physical Exam 2 Physical Exam: General-somnolent but easily arousable and oriented. No fever HEENT-head atraumatic and normocephalic, pupils equal and reactive to light, extraocular muscles intact Neck-no lymphadenopathy or thyromegaly, trachea midline Chest-clear to auscultation. No rales, wheezing or rhonchi Cardiac-regular rate and rhythm, normal S1 and S2 Abdomen-normal bowel sounds, no hepatosplenomegaly. Tenderness in mid lower abdomen but no rebound or guarding. No masses Extremities-no cyanosis, clubbing, or edema Neuro-cranial nerves II through XII intact, motor and sensory function within normal limits, strength symmetrical with generalized weakness, no focal deficits Psych-normal affect, normal mood Results & Data Results & Data Vital Signs (Past 12 Hours) Vital Signs Temp Pulse Pulse Resp BP BP BP 10/06/23 15:13 179/74 H 10/06/23 15:00 10/06/23 14:47 195/80 H 203/71 H 10/06/23 14:39 37.3 C 63 20 194/72 H 10/06/23 13:28 63 18 148/66 H 10/06/23 12:08 56 L 137/72 10/06/23 11:41 62 144/70 H 10/06/23 11:40 61 23 144/70 H 10/06/23 10:17 67 22 168/72 H 10/06/23 09:02 79 19 195/102 H 10/06/23 08:55 77 18 203/105 H 10/06/23 08:03 70 226/116 H 10/06/23 07:53 224/117 H 10/06/23 07:42 77 18 215/120 H 10/06/23 07:32 76 215/120 H 10/06/23 07:30 77 18 215/120 H 10/06/23 06:39 74 18 201/89 H 10/06/23 05:33 71 23 180/87 H 10/06/23 04:28 72 18 163/79 H 10/06/23 04:00 Pulse Ox Pulse Ox O2 Del Method O2 Del Method O2 Flow Rate 10/06/23 15:13 10/06/23 15:00 Nasal Cannula 3 10/06/23 14:47 10/06/23 14:39 91 Nasal Cannula 3 10/06/23 13:28 91 Nasal Cannula 2 10/06/23 12:08 10/06/23 11:41 10/06/23 11:40 10/06/23 10:17 92 Nasal Cannula 2 10/06/23 09:02 95 Nasal Cannula 2 10/06/23 08:55 86 L Room Air 10/06/23 08:03 10/06/23 07:53 92 Room Air 10/06/23 07:42 93 Room Air 10/06/23 07:32 10/06/23 07:30 93 Room Air 10/06/23 06:39 98 Room Air 10/06/23 05:33 94 Room Air 10/06/23 04:28 93 Room Air 10/06/23 04:00 93 Room Air Laboratory Results 10/06/23 06:10 10/06/23 06:10 PG Care Time/CCT Total # of Minutes Spent Total Time Spent with Patient: Total time spent is greater than 50% in coordination of care (as documented) at patient's floor/unit and/or counseling patient: Coding Level of Care Code 64884 SUB INP/OBS CARE 3/50MIN Diagnoses Intractable nausea and vomiting R11.2 Acute constipation K59.00 Uncontrolled hypertension I10 Lupus anticoagulant disorder D68.62 Hypertensive urgency I16.0 Acute hypokalemia E87.6 Elevated troponin R79.89
[2023-10-06] MEDS: LABETALOL HCL IV 5 MG/ML 20ML IV SCH ×3 (17:22→22:06)
[2023-10-06] MEDS: METOCLOPRAMIDE HCL INJ 5 MG/ML 2 ML VIAL IV SCH (17:23)
[2023-10-06] MEDS: LABETALOL HCL IV 5 MG/ML 20ML IV STA (17:55)
[2023-10-06] MEDS ORDERED: LABETALOL HCL IV 5 MG/ML 20ML IV PRN (18:51)
[2023-10-06] MEDS ORDERED: LABETALOL HCL IV 5 MG/ML 20ML IV SCH (19:10)
[2023-10-06] MEDS: DOCUSATE SODIUM 100 MG CAP PO SCH (20:40)
[2023-10-06] MEDS: SOD PHOSPHATE/SOD BIPHOSPHATE ENEMA 132 ML BTL PR SCH (20:40)
[2023-10-06] MEDS: POLYETHYLENE (MIRALAX) 17 GM PACK PO SCH (20:40)
[2023-10-06] MEDS: VENLAFAXINE HCL XR 150 MG CAPXR PO SCH (20:41)
--- NOTE | 2023-10-06 21:40 | Communication Note ---
Date of Service: October 06, 2023 Alerted that patient with SBP > 200 despite recent administration of scheduled hydralazine. One time dose of Lopressor 5 mg. Ordered K and Mg to optimize electrolytes. EKG per my read - deysieminy, converted to sinus after beta blockade administrations. Labs - CBC, CMP, Mg ordered. One time clonidine 0.2 mg given. IV hydralazine discontinued. Continue IV labetalol 20 mg Q4H with 20 mg Q1H PRN. Will continue to follow with patient care. Case discussed with Dr. Catalan. Resident Activity Tracking Resident Involvement: Resident Care Provided Care Provided: Adult [facility]
[2023-10-06] MEDS: MAGNESIUM SULFATE / D5W 1 GM/100 ML BAG IV SCH (21:59)
[2023-10-06] MEDS: POTASSIUM CHLORIDE / WTR 10 MEQ/100 ML PLCT IV SCH (21:59)
[2023-10-06] MEDS: cloNIDine HCL 0.1 MG TAB PO ONE (22:44)
[2023-10-06 23:09] LABS: Basophils # (auto) 0.05 K/uL (0.00-0.20); Basophils % (auto) 0.4 %; Eosinophils # (auto) 0.02 K/uL (0.00-0.50); Eosinophils % (auto) 0.2 %; Hematocrit (blood only) 36.4 % (37.0-47.0); Hemoglobin 12.3 g/dl (12.0-16.0); Immature Granulocytes # (auto) 0.07 K/uL (0.01-0.20); Immature Granulocytes % (auto) 0.6 %; Lymphocytes # (auto) 1.13 K/uL (1.20-3.40); Lymphocytes % (auto) 9.9 %; Mean Corpuscular Hemoglobin 27.8 pg (25.0-34.0); Mean Corpuscular Hgb Conc 33.8 g/dL (32.0-36.0); Mean Corpuscular Volume 82.4 fL (80.0-100.0); Mean Platelet Volume 10.8 fL (9.4-12.4); Monocytes # (auto) 1.07 K/uL (0.11-0.59); Monocytes % (auto) 9.4 %; Neutrophils # (auto) 9.06 K/uL (1.40-6.50); Neutrophils % (auto) 79.5 %; Platelet Count 266 K/uL (130-400); RDW Coefficient of Variation 13.1 % (11.5-14.5); RDW Standard Deviation 39.6 fL (36.4-46.3); Red Blood Count 4.42 M/uL (4.20-5.40)
[2023-10-06 23:18] LABS: Albumin Globulin Ratio 1.3 (0.9-2); Albumin Level 3.5 gm/dl (3.4-5.0); Bilirubin,Total 0.7 mg/dl (0.2-1.0); Calcium 8.1 mg/dl (8.6-10.3); Est GFR (African American) 67.2 ml/min; Globulin 2.8 gm/dl (2.5-4.0); Magnesium 2.3 mg/dl (1.7-2.4); Potassium 3.6 mmol/L (3.5-5.1); Total Protein 6.3 gm/dl (6.0-8.3)
[2023-10-07] MEDS: NITROGLYCERIN 2% OINTMENT 30GM TUBE EXT ONE (02:47)
[2023-10-07] MEDS: LABETALOL HCL IV 5 MG/ML 20ML IV PRN (03:43)
[2023-10-07] MEDS: LORazepam 0.5 MG in SYRINGE 0.25 ML IV PRN (04:50)
[2023-10-07] MEDS: cloNIDine HCL 0.1 MG TAB PO ONE (04:50)
[2023-10-07 06:46] LABS: Hematocrit (blood only) 32.4 % (37.0-47.0); Hemoglobin 10.9 g/dl (12.0-16.0); Mean Corpuscular Hemoglobin 27.9 pg (25.0-34.0); Mean Corpuscular Hgb Conc 33.6 g/dL (32.0-36.0); Mean Corpuscular Volume 83.1 fL (80.0-100.0); Platelet Count 241 K/uL (130-400); RDW Coefficient of Variation 13.2 % (11.5-14.5); RDW Standard Deviation 40.4 fL (36.4-46.3); White Blood Count 11.54 K/ul (4.8-10.8)
--- NOTE | 2023-10-07 07:07 | XRay Report ---
SINGLE VIEW CHEST CLINICAL HISTORY: Hypoxia. FINDINGS: An AP, portable, upright chest radiograph is compared to study dated 03/03/2022 and correlat ed with chest CT dated 10/06/2023. The heart is enlarged noting atherosclerotic calcification of the t horacic aorta. There is pulmonary vascular congestion. There is elevation right hemidiaphragm. Bibasi lar airspace opacities likely represent atelectasis. No large pleural effusion or pneumothorax is see n. The skeletal structures are osteopenic. The bony thorax is grossly intact. IMPRESSION: 1. Cardiomegaly with mild pulmonary vascular congestion. 2. Dependent airspace opacities likely represents atelectasis. Correlate clinically. ACT 112: Negative or not required by law. Electronically signed by: James Jiménez M.D. 10/07/2023 7:04 AM
--- NOTE | 2023-10-07 07:14 | Electrocardiogram Report ---
Test Reason : Blood Pressure : */* mmHG Vent. Rate : 90 BPM Atrial Rate : 90 BPM P-R Int : 192 ms QRS Dur : 102 ms QT Int : 400 ms P-R-T Axes : 58 -25 131 degrees QTcB Int : 489 ms Sinus rhythm with frequent Premature ventricular complexes in a pattern of bigeminy Left ventricular hypertrophy with repolarization abnormality Possible Inferior infarct , age undetermined Abnormal ECG When compared with ECG of 06-Oct-2023 03:49, Premature ventricular complexes are now Present Confirmed by Ta Woodall ([id number]) on 10/07/2023 7:14:29 AM Referred By: REFERRED SELF Confirmed By: Ta Woodall
[2023-10-07 07:35] LABS: BUN Creatinine Ratio 13.2 (10-20); Creatinine Clr Calc Pharmacy 43.5 ml/min; Est GFR (African American) 68.1 ml/min; Est GFR (Non-African American) 58.8 ml/min; Potassium 3.4 mmol/L (3.5-5.1)
[2023-10-07] MEDS: PANTOprazole 40 MG in SYRINGE 0 ML IV SCH (11:25)
--- NOTE | 2023-10-07 11:56 | Surgery Progress Note ---
Date of Service October 07, 2023 Assessment & Plan (1) Constipation: Plan: pt reports no BM yet and enema given this AM ongoing abd pain 4/10 mild nausea no emesis Abdomen is distended soft TTP +flatus VSS with HTN tolerating clear liquids pt reports she ambulates at home, please assist pt OOB to chair and ambulate as tolerated continue enemas as above. no pain. no nausea. feels as though may have a bm soon. OOB more ( discussed with nursing). also PT consult. will advance diet after bm. will check KUB tomorrow no urgent indication for surgery. Admission and Anticipated Discharge Date Admission Date: October 05, 2023 Subjective pt reports no BM yet and enema given this AM ongoing abd pain 4/10 mild nausea no emesis Review of Systems Gastrointestinal: + abdominal pain and + nausea (mild); no vomiting Physical Exam Constitutional: cooperative and comfortable; no acute distress Respiratory: normal respiratory effort and able to speak in complete sentences; no respiratory distress Cardiovascular: Rate/Rhythm: regular rate Gastrointestinal (Abdomen): Inspection/Auscultation: + abdomen distended Percussion/Palpation: + abdomen tender and abdomen soft Results & Data Vital Signs (Past 12 Hours) Vital Signs Temp Pulse Pulse Resp BP BP BP 10/07/23 11:42 98.2 F 81 14 199/91 H 10/07/23 11:25 199/92 H 10/07/23 09:41 195/84 H 10/07/23 08:25 198/81 H 10/07/23 07:24 98.1 F 78 17 198/81 H 10/07/23 06:09 74 177/77 H 10/07/23 05:31 76 198/92 H 10/07/23 05:27 76 198/92 H 10/07/23 04:27 78 202/84 H 10/07/23 03:58 80 186/82 H 10/07/23 03:43 80 193/84 H 10/07/23 03:42 80 193/84 H 10/07/23 03:20 99.0 F 82 18 188/80 H 10/07/23 02:27 83 199/81 H 10/07/23 02:09 85 204/88 H 10/07/23 02:08 99.0 F 85 20 204/88 H 10/07/23 01:45 89 10/07/23 00:20 200/83 H Pulse Ox O2 Del Method O2 Flow Rate 10/07/23 11:42 95 Room Air 10/07/23 11:25 10/07/23 09:41 10/07/23 08:25 10/07/23 07:24 96 Nasal Cannula 3 10/07/23 06:09 10/07/23 05:31 10/07/23 05:27 10/07/23 04:27 10/07/23 03:58 10/07/23 03:43 10/07/23 03:42 10/07/23 03:20 96 Nasal Cannula 3 10/07/23 02:27 10/07/23 02:09 10/07/23 02:08 3 L Nasal Cannula 95 10/07/23 01:45 10/07/23 00:20 Results CBC w Diff Results: RBC 3.90 M/uL (4.20-5.40) L 10/07/23 WBC 11.54 K/ul (4.8-10.8) H 10/07/23 Hgb 10.9 g/dl (12.0-16.0) L 10/07/23 Hct 32.4 % (37.0-47.0) L 10/07/23 MCV 83.1 fL (80.0-100.0) 10/07/23 MCH 27.9 pg (25.0-34.0) 10/07/23 MCHC 33.6 g/dL (32.0-36.0) 10/07/23 RDW Standard Deviation 40.4 fL (36.4-46.3) 10/07/23 RDW Coefficient of Variation 13.2 % (11.5-14.5) 10/07/23 Plt Count 241 K/uL (130-400) 10/07/23 MPV 11.0 fL (9.4-12.4) 10/07/23 Neutrophils (%) (Auto) 79.5 % 10/06/23 Lymphocytes (%) (Auto) 9.9 % 10/06/23 Monocytes # (Auto) 1.07 K/uL (0.11-0.59) H 10/06/23 Eosinophils # (Auto) 0.02 K/uL (0.00-0.50) 10/06/23 Immature Granulocyte % (Auto) 0.6 % 10/06/23 Neutrophils # (Auto) 9.06 K/uL (1.40-6.50) H 10/06/23 Lymphocytes # (Auto) 1.13 K/uL (1.20-3.40) L 10/06/23 Monocytes # (Auto) 1.07 K/uL (0.11-0.59) H 10/06/23 Eosinophils # (Auto) 0.02 K/uL (0.00-0.50) 10/06/23 Basophils # (Auto) 0.05 K/uL (0.00-0.20) 10/06/23 Immature Granulocyte # (Auto) 0.07 K/uL (0.01-0.20) 4 PG Care Time/CCT Total # of Minutes Spent Total Time Spent with Patient: Total time spent is greater than 50% in coordination of care (as documented) at patient's floor/unit and/or counseling patient: Coding Level of Care Code 31440 SUB INP/OBS CARE 03/12MIN Diagnoses Constipation K59.00 Constipation type: unspecified constipation type (1) Constipation Constipation type: unspecified constipation type Qualified Code(s): K59.00 - Constipation, unspecified
[2023-10-07] MEDS: D5NSS + 20MEQ KCL 20 MEQ/1,000 ML BAG IV SCH (14:12)
--- NOTE | 2023-10-07 15:29 | Hospitalist Progress Note ---
Date of Service October 07, 2023 Assessment & Plan (1) Intractable nausea and vomiting: Plan: Related to constipation. Symptomatic management. Treat constipation. Rule out chronic cholecystitis (2) Acute constipation: Plan: Patient constipation started 10/03. Dulcolax 10mg , Magnesium Citrate 296 ml, miralax given in ED 10/04. Enemas will continue to be provided. Appreciate general surgery consultation and recommendations. Will repeat KUB in the morning, October 07 (3) Uncontrolled hypertension: Plan: Currently on scheduled dosing of intravenous metoprolol and hydralazine. The patient and her daughter both state that her blood pressure always runs high. Systolics are in the 190s. Cardiac echo reveals severe left ventricular hypertrophy which undoubtedly is due to persistent hypertension. Telemetry. (4) Lupus anticoagulant disorder: Plan: By history. She is not on systemic anticoagulation however. Will follow (5) Hypertensive urgency: Plan: Currently on scheduled dosing of intravenous hydralazine and metoprolol. The daughter states she has had previous evaluation of renal arterial circulation which will not be repeated at this time. Telemetry. Will follow (6) Acute hypokalemia: Plan: Mild. Continue intravenous replacement. Serial labs (7) Elevated troponin: Plan: Due to demand ischemia most likely. No evidence of acute coronary syndrome. No chest pain. No acute EKG changes. Plan To be determined. OT and PT assessments requested Admission and Anticipated Discharge Date Admission Date: October 07, 2023 Subjective Awake and alert. No distress. Her daughter is at the bedside. They both state that her blood pressure always runs high. Currently 190s systolic but asymptomatic. Oral intake remains poor despite clear liquid diet. Continue IV fluids for now sodium stable at 132. Potassium slightly low at 3.4. Cardiac echo reveals severe LVH with no evidence of regional wall motion abnormalities. She has moderate AI and mild MR. She remains on intravenous Zosyn. Review of Systems 2 Review of Systems: Constitutionalno fever or chills ENTno blurred vision, no double vision, no epistaxis, no sore throat Respiratoryno cough, no wheezing, no shortness of breath Cardiacno palpitations, no chest pain, no syncope GIlower abdominal discomfort and constipation. Some nausea. No vomiting. No melena or hematochezia. GUno urinary retention, no urinary incontinence, no dysuria, no hematuria Musculoskeletalno joint pain, no muscle tenderness Skinno bruising, no rashes, no pruritus Neurono isolated weakness, no paresthesia Psychno depression, no anxiety Physical Exam 2 Physical Exam: General-somnolent but easily arousable and oriented. No fever HEENT-head atraumatic and normocephalic, pupils equal and reactive to light, extraocular muscles intact Neck-no lymphadenopathy or thyromegaly, trachea midline Chest-clear to auscultation. No rales, wheezing or rhonchi Cardiac-regular rate and rhythm, normal S1 and S2 Abdomen-normal bowel sounds, no hepatosplenomegaly. Tenderness in mid lower abdomen but no rebound or guarding. No masses Extremities-no cyanosis, clubbing, or edema Neuro-cranial nerves II through XII intact, motor and sensory function within normal limits, strength symmetrical with generalized weakness, no focal deficits Psych-normal affect, normal mood Results & Data Results & Data Vital Signs (Past 12 Hours) Vital Signs Temp Pulse Pulse Resp BP BP BP 10/07/23 15:20 194/84 H 10/07/23 15:16 37.3 C 74 18 10/07/23 15:10 194/84 H 10/07/23 14:51 207/81 H 10/07/23 14:51 207/81 H 10/07/23 14:49 79 14 207/81 H 10/07/23 14:25 230/86 H 10/07/23 14:13 230/86 H 10/07/23 13:35 196/82 H 10/07/23 12:15 10/07/23 11:42 36.8 C 81 14 199/91 H 10/07/23 11:25 199/92 H 10/07/23 10:25 187/91 H 10/07/23 09:41 195/84 H 10/07/23 08:25 198/81 H 10/07/23 07:24 36.7 C 78 17 198/81 H 10/07/23 06:09 74 177/77 H 10/07/23 05:31 76 198/92 H 10/07/23 05:27 76 198/92 H 10/07/23 04:27 78 202/84 H 10/07/23 03:58 80 186/82 H 10/07/23 03:43 80 193/84 H 10/07/23 03:42 80 193/84 H Pulse Ox O2 Del Method O2 Flow Rate 10/07/23 15:20 10/07/23 15:16 96 Nasal Cannula 3 10/07/23 15:10 10/07/23 14:51 10/07/23 14:51 10/07/23 14:49 10/07/23 14:25 10/07/23 14:13 10/07/23 13:35 10/07/23 12:15 Nasal Cannula 2 10/07/23 11:42 95 Room Air 10/07/23 11:25 10/07/23 10:25 10/07/23 09:41 10/07/23 08:25 10/07/23 07:24 96 Nasal Cannula 3 10/07/23 06:09 10/07/23 05:31 10/07/23 05:27 10/07/23 04:27 10/07/23 03:58 10/07/23 03:43 10/07/23 03:42 Laboratory Results 10/07/23 06:04 10/07/23 06:04 PG Care Time/CCT Total # of Minutes Spent Total Time Spent with Patient: Total time spent is greater than 50% in coordination of care (as documented) at patient's floor/unit and/or counseling patient: Coding Level of Care Code 64226 SUB INP/OBS CARE 3/50MIN Diagnoses Intractable nausea and vomiting R11.2 Acute constipation K59.00 Uncontrolled hypertension I10 Lupus anticoagulant disorder D68.62 Hypertensive urgency I16.0 Acute hypokalemia E87.6 Elevated troponin R79.89
[2023-10-07] MEDS: amLODIPine BESYLATE 5 MG TAB PO ONE (17:56)
[2023-10-08 06:24] LABS: Hematocrit (blood only) 36.4 % (37.0-47.0); Hemoglobin 12.6 g/dl (12.0-16.0); Mean Corpuscular Hemoglobin 28.4 pg (25.0-34.0); Mean Corpuscular Hgb Conc 34.6 g/dL (32.0-36.0); Mean Platelet Volume 10.7 fL (9.4-12.4); Platelet Count 305 K/uL (130-400); RDW Coefficient of Variation 12.8 % (11.5-14.5); RDW Standard Deviation 38.5 fL (36.4-46.3); Red Blood Count 4.44 M/uL (4.20-5.40); White Blood Count 7.75 K/ul (4.8-10.8)
[2023-10-08 06:44] LABS: BUN Creatinine Ratio 12.7 (10-20); Calcium 8.5 mg/dl (8.6-10.3); Creatinine Clr Calc Pharmacy 55.7 ml/min; Est GFR (African American) 91.9 ml/min; Est GFR (Non-African American) 79.3 ml/min; Potassium 3.1 mmol/L (3.5-5.1)
[2023-10-08 08:08] LABS: Appearance Urine Clear (Clear); Bacteria Urine Automated None Seen (None Seen); Bilirubin Urine Negative (Negative); Blood Urine Negative (Negative); Cast Urine Automated 0-2 /lpf (0-2); Color Urine Yellow; Epithelial Cell Urine Auto 0-2 /hpf (0-2); Glucose Urine UA Negative (Negative); Ketones Urine Negative (Negative); Leukocyte Esterase Urine Negative (Negative); Nitrite Urine Negative (Negative); Protein Urine 2+ (Negative); RBC Urine Automated 0-2 /hpf (0-2); Specific Gravity Urine 1.012 (1.000-1.030); Urobilinogen Urine Negative (Negative); WBC Urine Automated 0-5 /hpf (0-5)
--- NOTE | 2023-10-08 08:16 | Surgery Progress Note ---
Date of Service October 08, 2023 Assessment & Plan (1) Constipation: Plan: Pt endorses + BMs Not eating much due to low appetite Encouraged her to trial the clears and see how she fairs Will f/u on KUB this AM, if improvement can consider adv diet as she tolerates May continue bowel regimen from below as needed Pain and nausea that she came in with are improved and she is less tender on exam Needs encouragement and assistance to get OOB ambulating at least TID No indications for any surgical intervention as above. feeling ok. no pain. +bm. no surgical intervention indicated. will s/o. please call if any questions/concerns Admission and Anticipated Discharge Date Admission Date: October 07, 2023 Subjective Patient feeling okay. Denies nausea. Reports not drinking much liquids as not much appetite. Endorses + BMS. Abd pain improved. Physical Exam Physical Exam: awake, no distress Gastrointestinal (Abdomen): Inspection/Auscultation: abdomen not distended Percussion/Palpation: abdomen soft; abdomen nontender Results & Data Vital Signs (Past 12 Hours) Vital Signs Temp Pulse Pulse Pulse Resp BP BP 10/08/23 07:55 97.9 F 55 L 18 10/08/23 06:51 95 H 205/98 H 10/08/23 06:40 10/08/23 06:28 96 H 229/87 H 10/08/23 06:26 96 H 229/87 H 10/08/23 05:48 96 H 10/08/23 03:58 98.4 F 88 18 187/94 H 10/08/23 03:37 101 H 10/08/23 03:02 92 H 204/91 H 10/08/23 02:24 10/08/23 00:07 101 H 10/07/23 23:41 97.9 F 96 H 18 199/89 H 10/07/23 23:06 10/07/23 22:42 92 H 206/104 H 10/07/23 22:39 98.2 F 92 H 18 206/104 H 10/07/23 22:16 102 H 199/93 H BP Pulse Ox O2 Del Method O2 Flow Rate 10/08/23 07:55 228/89 H 92 Nasal Cannula 1.5 10/08/23 06:51 10/08/23 06:40 Nasal Cannula 2 10/08/23 06:28 10/08/23 06:26 10/08/23 05:48 10/08/23 03:58 92 Nasal Cannula 2 10/08/23 03:37 10/08/23 03:02 10/08/23 02:24 223/90 H 10/08/23 00:07 10/07/23 23:41 98 Nasal Cannula 2 10/07/23 23:06 214/82 H 10/07/23 22:42 10/07/23 22:39 94 Nasal Cannula 3 10/07/23 22:16 PG Care Time/CCT Total # of Minutes Spent Total Time Spent with Patient: Total time spent is greater than 50% in coordination of care (as documented) at patient's floor/unit and/or counseling patient: Coding Level of Care Code 29541 SUB INP/OBS CARE 03/12MIN Diagnoses Constipation K59.00 Constipation type: unspecified constipation type (1) Constipation Constipation type: unspecified constipation type Qualified Code(s): K59.00 - Constipation, unspecified
--- NOTE | 2023-10-08 09:36 | XRay Report ---
KUB HISTORY: constipation, abdominal pain COMPARISON: KUB 10/06/2023. FINDINGS: The bowel gas pattern is unremarkable. There are no dilated loops of small bowel to suggest an obstruction. No renal calculi. No ureteral calculi. Calcifications in the deep pelvis likely rep resent phleboliths. No pneumoperitoneum or pneumatosis. Large amount of well-formed stool again seen throughout the colon. This is similar to the prior study. IMPRESSION: Severe constipation again noted. ACT 112: Negative or not required by law. Electronically signed by: Paolo Castillo M.D. 10/08/2023 9:34 AM
[2023-10-08] MEDS: MAGNESIUM CITRATE 296 ML/BTL PO STA (12:37)
[2023-10-08] MEDS: hydrALAZINE TAB 50 MG TAB PO SCH (13:15)
[2023-10-08] MEDS: LABETALOL HCL 300 MG TAB PO SCH (13:15)
[2023-10-08] MEDS: ALBUT/IPRATROP 3MG/0.5MG NEB 3 ML VIAL NEB PRN (14:43)
--- NOTE | 2023-10-08 15:05 | Hospitalist Progress Note ---
Date of Service October 08, 2023 Assessment & Plan (1) Intractable nausea and vomiting: Plan: Related to constipation. Improved. Continue scheduled intravenous Reglan for now. Symptomatic management. Treat constipation. (2) Acute constipation: Plan: Patient constipation started 10/03. Dulcolax 10mg , Magnesium Citrate 296 ml, miralax given in ED 10/04. Enemas will continue to be provided. Appreciate general surgery consultation and recommendations. Repeat KUB done today, October 07, continues to show large fecal load in the colon. (3) Uncontrolled hypertension: Plan: Unfortunately, her blood pressure has been refractory to treatment. She is able to take oral medication now though and labetalol and hydralazine have been switched to oral dosing. The patient and her daughter both state that her blood pressure always runs high. Cardiac echo reveals severe left ventricular hypertrophy which undoubtedly is due to persistent hypertension. Telemetry. (4) Lupus anticoagulant disorder: Plan: By history. She is not on systemic anticoagulation however. Will follow (5) Hypertensive urgency: Plan: It appears her hypertension is chronic and refractory to treatment. The daughter states she has had previous evaluation of renal arterial circulation which will not be repeated at this time. Telemetry. Will follow (6) Acute hypokalemia: Plan: Potassium remains low at 3.1. Continue replacement. Serial labs (7) Elevated troponin: Plan: Due to demand ischemia most likely. No evidence of acute coronary syndrome. No chest pain. No acute EKG changes. Plan To be determined. OT and PT assessments requested Admission and Anticipated Discharge Date Admission Date: October 07, 2023 Subjective She looks and feels better today, October 07. Unfortunately, her blood pressure is chronically elevated and refractory to treatment. She is able to eat now and IV fluids have been tapered down. Intravenous labetalol and hydralazine switched to oral dosing. Sodium improved to 135. Potassium remains low and supplementation continues. Zosyn, day 3 for possible colitis associated with her constipation. Verapamil has been discontinued. Abdomen is less distended but KUB done today, October 07, continues to show considerable fecal load in the colon. Review of Systems 2 Review of Systems: Constitutionalno fever or chills ENTno blurred vision, no double vision, no epistaxis, no sore throat Respiratoryno cough, no wheezing, no shortness of breath Cardiacno palpitations, no chest pain, no syncope GIlower abdominal discomfort and constipation. Some nausea. No vomiting. No melena or hematochezia. GUno urinary retention, no urinary incontinence, no dysuria, no hematuria Musculoskeletalno joint pain, no muscle tenderness Skinno bruising, no rashes, no pruritus Neurono isolated weakness, no paresthesia Psychno depression, no anxiety Physical Exam 2 Physical Exam: General-somnolent but easily arousable and oriented. No fever HEENT-head atraumatic and normocephalic, pupils equal and reactive to light, extraocular muscles intact Neck-no lymphadenopathy or thyromegaly, trachea midline Chest-clear to auscultation. No rales, wheezing or rhonchi Cardiac-regular rate and rhythm, normal S1 and S2 Abdomen-normal bowel sounds, no hepatosplenomegaly. Tenderness in mid lower abdomen but no rebound or guarding. No masses Extremities-no cyanosis, clubbing, or edema Neuro-cranial nerves II through XII intact, motor and sensory function within normal limits, strength symmetrical with generalized weakness, no focal deficits Psych-normal affect, normal mood Results & Data Results & Data Vital Signs (Past 12 Hours) Vital Signs Temp Pulse Pulse Pulse Resp BP BP 10/08/23 14:44 83 22 10/08/23 13:01 108 H 10/08/23 12:00 35.9 C L 85 18 10/08/23 10:56 10/08/23 10:11 81 196/94 H 10/08/23 10:11 81 10/08/23 09:54 100 H 210/100 H 10/08/23 08:41 85 10/08/23 07:55 36.6 C 55 L 18 10/08/23 07:48 10/08/23 06:51 95 H 205/98 H 10/08/23 06:40 10/08/23 06:28 96 H 229/87 H 10/08/23 06:26 96 H 229/87 H 10/08/23 05:48 96 H 10/08/23 03:58 36.9 C 88 18 187/94 H 10/08/23 03:37 101 H 10/08/23 03:02 92 H 204/91 H BP Pulse Ox O2 Del Method O2 Flow Rate 10/08/23 14:44 94 Room Air 10/08/23 13:01 10/08/23 12:00 215/101 H 92 Room Air 08/22/24 10:56 96 Room Air, Nasal Cannula 2 10/08/23 10:11 10/08/23 10:11 196/94 H 10/08/23 09:54 10/08/23 08:41 205/98 H 10/08/23 07:55 228/89 H 92 Nasal Cannula 1.5 10/08/23 07:48 Nasal Cannula 2 10/08/23 06:51 10/08/23 06:40 Nasal Cannula 2 10/08/23 06:28 10/08/23 06:26 10/08/23 05:48 10/08/23 03:58 92 Nasal Cannula 2 10/08/23 03:37 10/08/23 03:02 Laboratory Results 10/08/23 05:54 10/08/23 05:54 PG Care Time/CCT Total # of Minutes Spent Total Time Spent with Patient: Total time spent is greater than 50% in coordination of care (as documented) at patient's floor/unit and/or counseling patient: Coding Level of Care Code 33773 SUB INP/OBS CARE 3/50MIN Diagnoses Intractable nausea and vomiting R11.2 Acute constipation K59.00 Uncontrolled hypertension I10 Lupus anticoagulant disorder D68.62 Hypertensive urgency I16.0 Acute hypokalemia E87.6 Elevated troponin R79.89
[2023-10-09] MEDS: PANTOprazole 40 MG TAB PO SCH (08:52)
[2023-10-09 10:54] LABS: Basophils # (auto) 0.08 K/uL (0.00-0.20); Basophils % (auto) 0.9 %; Eosinophils # (auto) 0.44 K/uL (0.00-0.50); Eosinophils % (auto) 4.9 %; Hematocrit (blood only) 35.2 % (37.0-47.0); Hemoglobin 12.1 g/dl (12.0-16.0); Immature Granulocytes # (auto) 0.08 K/uL (0.01-0.20); Immature Granulocytes % (auto) 0.9 %; Lymphocytes # (auto) 1.04 K/uL (1.20-3.40); Lymphocytes % (auto) 11.7 %; Mean Corpuscular Hemoglobin 28.2 pg (25.0-34.0); Mean Corpuscular Hgb Conc 34.4 g/dL (32.0-36.0); Mean Corpuscular Volume 82.1 fL (80.0-100.0); Mean Platelet Volume 10.4 fL (9.4-12.4); Monocytes # (auto) 0.72 K/uL (0.11-0.59); Monocytes % (auto) 8.1 %; Neutrophils # (auto) 6.54 K/uL (1.40-6.50); Neutrophils % (auto) 73.5 %; Platelet Count 313 K/uL (130-400); RDW Coefficient of Variation 12.9 % (11.5-14.5); RDW Standard Deviation 38.9 fL (36.4-46.3); Red Blood Count 4.29 M/uL (4.20-5.40)
[2023-10-09 11:09] LABS: BUN Creatinine Ratio 10.1 (10-20); Calcium 8.4 mg/dl (8.6-10.3); Creatinine Clr Calc Pharmacy 44.8 ml/min; Est GFR (Non-African American) 60.4 ml/min; Potassium 3.5 mmol/L (3.5-5.1)
--- NOTE | 2023-10-09 14:32 | Hospitalist Progress Note ---
Date of Service October 09, 2023 Assessment & Plan (1) Intractable nausea and vomiting: Plan: Related to constipation. Improved. Currently on scheduled intravenous Reglan. Symptomatic management. Treat constipation. (2) Acute constipation: Plan: Patient constipation started 10/03. Dulcolax 10mg , Magnesium Citrate 296 ml, miralax given in ED 10/04. Enemas will continue to be provided. Appreciate general surgery consultation and recommendations. Repeat KUB done on October 07 continues to show large fecal load in the colon. (3) Uncontrolled hypertension: Plan: Unfortunately, her blood pressure has been refractory to treatment. She is able to take oral medication now though and labetalol and hydralazine have been switched to oral dosing. The patient and her daughter both state that her blood pressure always runs high. Cardiac echo reveals severe left ventricular hypertrophy which undoubtedly is due to persistent hypertension. Telemetry. (4) Lupus anticoagulant disorder: Plan: By history. She is not on systemic anticoagulation however. Will follow (5) Hypertensive urgency: Plan: It appears her hypertension is chronic and refractory to treatment. The daughter states she has had previous evaluation of renal arterial circulation which will not be repeated at this time. Telemetry. Will follow (6) Acute hypokalemia: Plan: Potassium has improved to 3.5. Continue replacement. Serial labs. (7) Elevated troponin: Plan: Due to demand ischemia most likely. No evidence of acute coronary syndrome. No chest pain. No acute EKG changes. Plan OT and PT both recommend rehab placement. Hopefully this can occur early next week Admission and Anticipated Discharge Date Admission Date: October 07, 2023 Subjective She states she does not feel well today. Blood pressure remains elevated. Sodium corrected and stable at 134. Potassium corrected to 3.5. Blood pressure remains elevated which is chronic. OT and PT both recommend rehab placement at discharge. Verapamil has been discontinued as a likely contributor to constipation. Parenteral steroid therapy may make her feel better Review of Systems 2 Review of Systems: Constitutionalno fever or chills ENTno blurred vision, no double vision, no epistaxis, no sore throat Respiratoryno cough, no wheezing, no shortness of breath Cardiacno palpitations, no chest pain, no syncope GIlower abdominal discomfort and constipation. Some nausea. No vomiting. No melena or hematochezia. GUno urinary retention, no urinary incontinence, no dysuria, no hematuria Musculoskeletalno joint pain, no muscle tenderness Skinno bruising, no rashes, no pruritus Neurono isolated weakness, no paresthesia Psychno depression, no anxiety Physical Exam 2 Physical Exam: General-somnolent but easily arousable and oriented. No fever HEENT-head atraumatic and normocephalic, pupils equal and reactive to light, extraocular muscles intact Neck-no lymphadenopathy or thyromegaly, trachea midline Chest-clear to auscultation. No rales, wheezing or rhonchi Cardiac-regular rate and rhythm, normal S1 and S2 Abdomen-normal bowel sounds, no hepatosplenomegaly. Tenderness in mid lower abdomen but no rebound or guarding. No masses Extremities-no cyanosis, clubbing, or edema Neuro-cranial nerves II through XII intact, motor and sensory function within normal limits, strength symmetrical with generalized weakness, no focal deficits Psych-normal affect, normal mood Results & Data Results & Data Vital Signs (Past 12 Hours) Vital Signs Temp Pulse Pulse Resp BP BP Pulse Ox 10/09/23 11:28 36.7 C 76 16 125/71 93 10/09/23 08:10 37.0 C 82 20 232/99 H 90 10/09/23 07:42 10/09/23 05:37 94 H 10/09/23 03:08 36.9 C 92 H 18 202/88 H 91 O2 Del Method 10/09/23 11:28 Room Air 10/09/23 08:10 Room Air 10/09/23 07:42 Room Air 10/09/23 05:37 10/09/23 03:08 Room Air Laboratory Results 10/09/23 10:33 10/09/23 10:33 PG Care Time/CCT Total # of Minutes Spent Total Time Spent with Patient: Total time spent is greater than 50% in coordination of care (as documented) at patient's floor/unit and/or counseling patient: Coding Level of Care Code 15246 SUB INP/OBS CARE 3/50MIN Diagnoses Intractable nausea and vomiting R11.2 Acute constipation K59.00 Uncontrolled hypertension I10 Lupus anticoagulant disorder D68.62 Hypertensive urgency I16.0 Acute hypokalemia E87.6 Elevated troponin R79.89
[2023-10-09] MEDS ORDERED: methylPREDNISolone 10 mg/mL (For Ped Dose < 7mg) IV SCH (14:45)
[2023-10-09] MEDS: methylPREDNISolone 40 MG in SYRINGE 0 ML IV SCH (15:29)
--- NOTE | 2023-10-09 21:04 | Communication Note ---
Date of Service: October 09, 2023 Notified by nursing of increasing dyspnea and wheezing on examination. Additionally, patient hypertensive despite PRN Labetalol. Patient continues to have abdominal pain a/w severe constipation and has not yet moved bowels. Patient seen at bedside, endorsing increasing dyspnea w/o pleuritic pain or chest pains. She endorses ongoing abdominal pain w/o increase in intensity. No nausea or emesis. She notes she is increasingly lightheaded, but does not have headache. She continues to urinate, but at a higher frequency than normal. She is concerned that her hands and feet feel more edematous than her baseline. She has not yet had a complete bowel movement. Imaging: - 10/05 CTAP: Diffuse sigmoid colonic wall thickening and mucosal hyperenhancement is suggestive of colitis, causing distal colonic obstruction - 10/05 KUB: There is a large stool burden without evidence of inspissated stool. - 10/07 KUB: Severe constipation again noted. - 10/07 CXR: 1. Cardiomegaly with mild pulmonary vascular congestion.2. Dependent airspace opacities likely represents atelectasis. Physical Exam: Vitals: Hypertension, tachycardia, and tachypnea. Patient afebrile and stable on room air. Gen: NAD, MMM Resp:Non-labored, bilateral crackles in lower to middle lobes, no appreciable wheezing or consolidation CV:tachycardic, regular rhythm Abd: Moderate distension, diffuse TTP, hypoactive bowels, no masses, no rebound or guarding Extr: 2+ dp bilaterally, 1+ edema to lower extremities, trace edema to bilateral hands Skin: No rashes lesions or erythema Assessment/Plan: 1. Patient has been receiving Potassium Chloride/Dextrose/Sod Cl at 60-80 mLs/hr since 10/06. Fluids held d/t dyspnea and rising BP. 2. CXR and exam w/ hypervolemia, 20 mg IV Lasix ordered. Patient incontinent at baseline, counseled regarding use of brief/pad for patient comfort. 3. Has not yet moved bowels. Repeat KUB for constipation, again significant stool burden noted. Now dose Miralax ordered, adjust Miralax to TID scheduled to facilitate bowel movement. No evidence of acute abdomen, thus repeat CTAP not indicated at this time. 5. Vitals meeting SIRS/Sepsis criteria. STAT labs and blood cultures obtained. Lactate Elevated but improved following Lasix dose. 6. Zosyn ongoing. Flagyl added for additional anaerobic coverage. MRSA nares ne gative, no additional gram positive coverage added. Addendum: 030 Patient w/ persistently elevated BPs, mild temperature elevations and mild disorientation. Abdomen remains without rebound or guarding. Small movement of bowels with increased Miralax, active bowel sounds. Tylenol PRN for fever. - Restarted HOME Clonidine 0.3 mg PO BID (399) - Restarted HOME Verapamil 300 mg PO BID (599) - HOME Hydralazine 100 mg TID ongoing. - Removed Labetalol d/t history of Severe Reaction in prior Cardiology notes and increased wheezing/temperature. - Patient is also on Losartan 40 mg PO daily at home, not yet restarted. Resident Activity Tracking Resident Involvement: Resident Care Provided Care Provided: Adult Hospital Medicine
[2023-10-09] MEDS: POLYETHYLENE (MIRALAX) 17 GM PACK PO STA (21:57)
[2023-10-09] MEDS: FUROSEMIDE INJ 20 MG/2 ML VIAL IV ONE (21:57)
[2023-10-09 21:58] LABS: Hematocrit (blood only) 35.9 % (37.0-47.0); Hemoglobin 12.1 g/dl (12.0-16.0); Mean Corpuscular Hemoglobin 28.1 pg (25.0-34.0); Mean Corpuscular Hgb Conc 33.7 g/dL (32.0-36.0); Mean Corpuscular Volume 83.5 fL (80.0-100.0); Mean Platelet Volume 10.7 fL (9.4-12.4); Platelet Count 300 K/uL (130-400); RDW Coefficient of Variation 13.1 % (11.5-14.5); RDW Standard Deviation 39.7 fL (36.4-46.3); White Blood Count 7.85 K/ul (4.8-10.8)
[2023-10-09 22:09] LABS: Calcium 8.9 mg/dl (8.6-10.3); Creatinine Clr Calc Pharmacy 43.3 ml/min; Est GFR (African American) 67.2 ml/min; Magnesium 1.9 mg/dl (1.7-2.4); Potassium 3.7 mmol/L (3.5-5.1)
[2023-10-09 22:18] LABS: C Reactive Protein 3.44 mg/dl (0-0.5)
[2023-10-09] MEDS: metroNIDAZOLE 500 MG/100 ML BAG IV STA (23:11)
[2023-10-10] MEDS: cloNIDine HCL 0.3 MG TAB PO STA (05:10)
[2023-10-10 06:42] LABS: Basophils # (auto) 0.04 K/uL (0.00-0.20); Basophils % (auto) 0.5 %; Eosinophils # (auto) 0.01 K/uL (0.00-0.50); Eosinophils % (auto) 0.1 %; Hematocrit (blood only) 33.4 % (37.0-47.0); Hemoglobin 11.4 g/dl (12.0-16.0); Immature Granulocytes # (auto) 0.24 K/uL (0.01-0.20); Immature Granulocytes % (auto) 3.2 %; Lymphocytes # (auto) 0.95 K/uL (1.20-3.40); Lymphocytes % (auto) 12.6 %; Mean Corpuscular Hemoglobin 27.9 pg (25.0-34.0); Mean Corpuscular Hgb Conc 34.1 g/dL (32.0-36.0); Mean Corpuscular Volume 81.9 fL (80.0-100.0); Mean Platelet Volume 10.8 fL (9.4-12.4); Monocytes # (auto) 0.33 K/uL (0.11-0.59); Monocytes % (auto) 4.4 %; Neutrophils # (auto) 5.98 K/uL (1.40-6.50); Neutrophils % (auto) 79.2 %; Platelet Count 305 K/uL (130-400); RDW Coefficient of Variation 13.1 % (11.5-14.5); Red Blood Count 4.08 M/uL (4.20-5.40); White Blood Count 7.55 K/ul (4.8-10.8)
[2023-10-10 07:10] LABS: BUN Creatinine Ratio 11.2 (10-20); Calcium 8.9 mg/dl (8.6-10.3); Creatinine Clr Calc Pharmacy 40.4 ml/min; Est GFR (African American) 62.3 ml/min; Est GFR (Non-African American) 53.7 ml/min; Potassium 3.4 mmol/L (3.5-5.1)
[2023-10-10] MEDS: metroNIDAZOLE 500 MG/100 ML BAG IV SCH (07:11)
[2023-10-10] MEDS: VERAPAMIL HCL 180 MG TABCR PO SCH (07:15)
[2023-10-10] MEDS: VERAPAMIL HCL 120 MG TABCR PO SCH (07:15)
--- NOTE | 2023-10-10 07:48 | XRay Report ---
KUB CLINICAL HISTORY: Constipation. FINDINGS: An AP, portable, supine abdominal radiographic is compared to study dated 10/09/2023 and cor related with abdominal CT dated 10/06/2023. There is moderate to severe colonic fecal retention. Gaseo us distention of the colon has modestly improved. The small bowel loops are normal in caliber. No douglas dence of intraperitoneal free air is seen on this supine image. There are no abnormal abdominal calci fications. Phleboliths are seen in the pelvis. The skeletal structures are osteopenic and appear inta ct. Lumbosacral spondylosis is noted. IMPRESSION: 1. Moderate to severe constipation 2. Gaseous distention of the colon appears modestly improved. Electronically signed by: James Jiménez M.D. 10/10/2023 7:47 AM
[2023-10-10] MEDS: POLYETHYLENE (MIRALAX) 17 GM PACK PO SCH (07:57)
--- NOTE | 2023-10-10 08:19 | XRay Report ---
SINGLE VIEW CHEST CLINICAL HISTORY: Wheezing FINDINGS: An AP, portable, upright chest radiograph is compared to study dated 10/07/2023 and correlat ed with chest CT dated 10/06/2023. The heart is enlarged noting atherosclerotic calcification of the t horacic aorta. The pulmonary vasculature is noncongested. Chronic interstitial thickening is similar to previous. There is chronic elevation right hemidiaphragm noting bibasilar scarring/atelectasis. No airspace consolidation or large pleural effusion is identified. No pneumothorax is seen. The skeleta l structures are osteopenic. The bony thorax is grossly intact. IMPRESSION: Cardiomegaly with no active disease in the chest. ACT 112: Negative or not required by law. Electronically signed by: James Jiménez M.D. 10/10/2023 8:17 AM
--- NOTE | 2023-10-10 10:38 | XRay Report ---
KUB CLINICAL HISTORY: Constipation. FINDINGS: 2 AP, portable, supine abdominal radial grafts are compared to study dated 10/08/2023 and co rrelated with abdominal CT dated 10/06/2023. There is moderate to severe colonic fecal retention. Ther e is persistent gaseous distention of the colon. The small bowel loops are normal in caliber. No evid ence of intraperitoneal free air is seen on these supine images. There are no abnormal abdominal calc ifications. Phleboliths are seen in the pelvis. The skeletal structures are osteopenic and appear int act. Lumbosacral spondylosis is noted. IMPRESSION: 1. Moderate to severe constipation 2. Gaseous distention of the colon persists. Electronically signed by: James Jiménez M.D. 10/10/2023 10:36 AM
--- NOTE | 2023-10-10 12:10 | Hospitalist Progress Note ---
Date of Service October 10, 2023 Assessment & Plan (1) Intractable nausea and vomiting: Plan: Related to constipation. Improved. Currently on scheduled intravenous Reglan. Symptomatic management. Treat constipation. (2) Acute constipation: Plan: Patient constipation started 10/03. Dulcolax 10mg , Magnesium Citrate 296 ml, miralax given in ED 10/04. Continue stool softeners and laxatives. Continue parenteral metoclopramide as a hypermotility agent. Appreciate general surgery consultation and recommendations. Repeat KUB done today, October 09, continues to reveal moderately severe constipation. She needs to remain off verapamil as an inciting agent. (3) Uncontrolled hypertension: Plan: Unfortunately, her blood pressure has been refractory to treatment. She is able to take oral medication now though and labetalol and hydralazine have been switched to oral dosing. The patient and her daughter both state that her blood pressure always runs high. Cardiac echo reveals severe left ventricular hypertrophy which undoubtedly is due to persistent hypertension. Telemetry. Unfortunately, the healthcare or medical made quite a few changes in her treatment regimen during the evening of October 08. She needs to remain off verapamil indefinitely due to her constipation. She has tolerated labetalol quite well today despite stating she had an adverse reaction to a beta-lena in the past. She has chronic refractory hypertension that has had extensive workup in the past according to the patient and her daughter. This will not be pursued further at this time (4) Lupus anticoagulant disorder: Plan: By history. She is not on systemic anticoagulation however. Will follow (5) Hypertensive urgency: Plan: It appears her hypertension is chronic and refractory to treatment. The daughter states she has had previous evaluation of renal arterial circulation which will not be repeated at this time. Telemetry. Will follow (6) Acute hypokalemia: Plan: Potassium has improved from admission. Potassium level 3.4 today, October 09. Continue replacement. Serial labs. (7) Elevated troponin: Plan: Due to demand ischemia most likely. No evidence of acute coronary syndrome. No chest pain. No acute EKG changes. Plan OT and PT both recommend rehab placement. Hopefully this can occur early next week Admission and Anticipated Discharge Date Admission Date: October 07, 2023 Subjective Alert. No acute distress. She is sitting on the bedside commode at the time of my examination. Blood pressure remains high which is a chronic problem. Unfortunately, as the resident physician placed her back on verapamil last evening and discontinued the Normodyne which she has tolerated quite well up to this time. Verapamil has been discontinued and labetalol restarted. I also restarted the IV fluids which the resident discontinued since her oral intake remains poor. Chest x-ray done on October 08 was negative for CHF or evidence of vascular congestion. KUB continues to show moderately severe constipation. She remains on stool softeners and MiraLAX. OT and PT assessments have been completed and both recommend either rehab or SNF placement. I have spoken by phone to her son, Dr. Hernandez Julio and given him an update. Intravenous metoclopramide was also discontinued by theresident for unknown reasons. This is being used as a hypermotility agent and also to suppress her recurrent nausea. Eventually this will be discontinued but not now. Review of Systems 2 Review of Systems: Constitutionalno fever or chills ENTno blurred vision, no double vision, no epistaxis, no sore throat Respiratoryno cough, no wheezing, no shortness of breath Cardiacno palpitations, no chest pain, no syncope GIlower abdominal discomfort and constipation persist. Occasional nausea. No vomiting. No melena or hematochezia. GUno urinary retention, no urinary incontinence, no dysuria, no hematuria Musculoskeletalno joint pain, no muscle tenderness Skinno bruising, no rashes, no pruritus Neurono isolated weakness, no paresthesia Psychno depression, no anxiety Physical Exam 2 Physical Exam: General-somnolent but easily arousable and oriented. No fever HEENT-head atraumatic and normocephalic, pupils equal and reactive to light, extraocular muscles intact Neck-no lymphadenopathy or thyromegaly, trachea midline Chest-clear to auscultation. No rales, wheezing or rhonchi Cardiac-regular rate and rhythm, normal S1 and S2 Abdomen-normal bowel sounds, no hepatosplenomegaly. Tenderness in mid lower abdomen persists but no rebound or guarding. No masses Extremities-no cyanosis, clubbing, or edema Neuro-cranial nerves II through XII intact, motor and sensory function within normal limits, strength symmetrical with generalized weakness, no focal deficits Psych-normal affect, normal mood Results & Data Results & Data Vital Signs (Past 12 Hours) Vital Signs Temp Pulse Pulse Resp BP BP BP 10/10/23 08:02 36.7 C 80 18 190/78 H 10/10/23 07:14 170/84 H 10/10/23 07:13 85 10/10/23 04:26 95 H 210/91 H 10/10/23 04:11 88 216/107 H 10/10/23 03:59 37.2 C 232/119 H 216/107 H 10/10/23 02:37 37.7 C H 88 22 218/91 H 10/10/23 01:36 197/78 H Pulse Ox O2 Del Method 10/10/23 08:02 91 Room Air 10/10/23 07:14 10/10/23 07:13 10/10/23 04:26 10/10/23 04:11 10/10/23 03:59 10/10/23 02:37 92 Room Air 10/10/23 01:36 Laboratory Results 10/10/23 05:43 10/10/23 05:43 PG Care Time/CCT Total # of Minutes Spent Total Time Spent with Patient: Total time spent is greater than 50% in coordination of care (as documented) at patient's floor/unit and/or counseling patient: Coding Level of Care Code 91994 SUB INP/OBS CARE 3/50MIN Diagnoses Intractable nausea and vomiting R11.2 Acute constipation K59.00 Uncontrolled hypertension I10 Lupus anticoagulant disorder D68.62 Hypertensive urgency I16.0 Acute hypokalemia E87.6 Elevated troponin R79.89
[2023-10-10] MEDS: D5NSS + 20MEQ KCL 20 MEQ/1,000 ML BAG IV SCH (12:29)
[2023-10-10] MEDS: METOCLOPRAMIDE HCL INJ 5 MG/ML 2 ML VIAL IV SCH (12:50)
[2023-10-10] MEDS: LABETALOL HCL 300 MG TAB PO SCH (13:04)
[2023-10-10] MEDS: ACETAMINOPHEN 500 MG TAB PO PRN (13:23)
[2023-10-10 16:48] LABS: Thyroid Stimulating Hormone 2.632 uIu/ml (0.300-4.500)
[2023-10-10 16:50] LABS: T4 Free Thyroxine 0.96 ng/dl (0.61-1.60)
[2023-10-10] MEDS: cloNIDine HCL 0.3 MG TAB PO SCH (20:44)
[2023-10-10] MEDS: NITROGLYCERIN 2% OINTMENT 30GM TUBE EXT ONE (21:50)
--- NOTE | 2023-10-10 21:59 | Communication Note ---
Date of Service: October 10, 2023 Patient on clonidine 0.3 mg BID, hydralazine 100 mg TID, and labetalol 300 mg BID. Received meds as scheduled. Patient continues to have refractory HTN with SBPs > 200 and MAPs > 115. Tried 0.5 inch nitro paste. BP 166/76. Was previously on verapamil 300 mg BID and olmesartan 40 mg. These were discontinued as constipation can be a side effect. Patient will likely need another anti-hypertensive like valsartan and/or amlodipine since others have been discontinued. Resident Activity Tracking Resident Involvement: Resident Care Provided Care Provided: Adult [facility] Medicine
[2023-10-11 06:32] LABS: Basophils # (auto) 0.02 K/uL (0.00-0.20); Basophils % (auto) 0.2 %; Hematocrit (blood only) 30.7 % (37.0-47.0); Hemoglobin 10.5 g/dl (12.0-16.0); Immature Granulocytes # (auto) 0.26 K/uL (0.01-0.20); Immature Granulocytes % (auto) 2.9 %; Lymphocytes # (auto) 1.25 K/uL (1.20-3.40); Mean Corpuscular Hemoglobin 28.3 pg (25.0-34.0); Mean Corpuscular Hgb Conc 34.2 g/dL (32.0-36.0); Mean Corpuscular Volume 82.7 fL (80.0-100.0); Mean Platelet Volume 10.5 fL (9.4-12.4); Monocytes # (auto) 0.62 K/uL (0.11-0.59); Monocytes % (auto) 6.9 %; Neutrophils # (auto) 6.79 K/uL (1.40-6.50); Platelet Count 294 K/uL (130-400); RDW Coefficient of Variation 13.2 % (11.5-14.5); RDW Standard Deviation 40.6 fL (36.4-46.3); Red Blood Count 3.71 M/uL (4.20-5.40); White Blood Count 8.94 K/ul (4.8-10.8)
[2023-10-11] MEDS: NITROGLYCERIN 2% OINTMENT 30GM TUBE EXT ONE ×2 (06:41→20:40)
[2023-10-11 07:25] LABS: BUN Creatinine Ratio 15.4 (10-20); Calcium 8.5 mg/dl (8.6-10.3); Creatinine Clr Calc Pharmacy 38.8 ml/min; Est GFR (African American) 57.9 ml/min; Potassium 3.7 mmol/L (3.5-5.1)
[2023-10-11] MEDS ORDERED: METOCLOPRAMIDE HCL INJ 5 MG/ML 2 ML VIAL IV PRN (09:36)
--- NOTE | 2023-10-11 14:45 | Hospitalist Progress Note ---
Date of Service October 11, 2023 Assessment & Plan (1) Intractable nausea and vomiting: Plan: Related to constipation. Improved. Reglan has now been switched to as needed dosing. Symptomatic management. Treat constipation. (2) Acute constipation: Plan: Patient constipation started 10/03. Dulcolax 10mg , Magnesium Citrate 296 ml, miralax given in ED 10/04. Continue stool softeners and laxatives. Continue parenteral metoclopramide as a hypermotility agent. Appreciate general surgery consultation and recommendations. Repeat KUB done on October 09 continues to reveal moderately severe constipation. She needs to remain off verapamil as an inciting agent. Will repeat KUB tomorrow, October 11 (3) Uncontrolled hypertension: Plan: Unfortunately, her blood pressure has been refractory to treatment. She is able to take oral medication now though and labetalol and hydralazine have been switched to oral dosing. The patient and her daughter both state that her blood pressure always runs high. Cardiac echo reveals severe left ventricular hypertrophy which undoubtedly is due to persistent hypertension. Telemetry. 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 She needs to remain off verapamil indefinitely due to her constipation. She has tolerated labetalol quite well today despite stating she had an adverse reaction to a beta-lena in the past. She has chronic refractory hypertension that has had extensive workup in the past according to the patient and her daughter. Olmesartan has been restarted which she takes at home. Hypertension will not be pursued further at this time (4) Lupus anticoagulant disorder: Plan: By history. She is not on systemic anticoagulation however. Will follow (5) Hypertensive urgency: Plan: It appears her hypertension is chronic and refractory to treatment. The daughter states she has had previous evaluation of renal arterial circulation which will not be repeated at this time. Telemetry. Will follow (6) Acute hypokalemia: Plan: Not corrected. Potassium level 3.7 today, October 10. Continue replacement. Serial labs. (7) Elevated troponin: Plan: Due to demand ischemia most likely. No evidence of acute coronary syndrome. No chest pain. No acute EKG changes. Plan OT and PT both recommend rehab placement. Will discharge to SNF when arrangements are finalized. Admission and Anticipated Discharge Date Admission Date: October 07, 2023 Subjective Alert and oriented. No new problems. I tried to call her son, Bess Hernandez Julio today, but there was no answer. Reglan antiemetic is now as needed. Free T4 is normal and TSH is normal. Free T3 is slightly low of no clinical consequence at this time. Will repeat KUB again tomorrow, October 11. Zosyn has been discontinued as has Solu-Medrol discontinued. Olmesartan has been restarted which she takes at home. Blood pressure remains elevated which unfortunately is chronic for her. Again, according to the patient and her daughter she has had extensive outpatient workup for her chronic hypertension. It appears she will need placement at discharge which is pending. Continue OT and PT while hospitalized Review of Systems 2 Review of Systems: Constitutionalno fever or chills ENTno blurred vision, no double vision, no epistaxis, no sore throat Respiratoryno cough, no wheezing, no shortness of breath Cardiacno palpitations, no chest pain, no syncope GIlower abdominal discomfort and constipation persist. Occasional nausea. No vomiting. No melena or hematochezia. GUno urinary retention, no urinary incontinence, no dysuria, no hematuria Musculoskeletalno joint pain, no muscle tenderness Skinno bruising, no rashes, no pruritus Neurono isolated weakness, no paresthesia Psychno depression, no anxiety Physical Exam 2 Physical Exam: General-somnolent but easily arousable and oriented. No fever HEENT-head atraumatic and normocephalic, pupils equal and reactive to light, extraocular muscles intact Neck-no lymphadenopathy or thyromegaly, trachea midline Chest-clear to auscultation. No rales, wheezing or rhonchi Cardiac-regular rate and rhythm, normal S1 and S2 Abdomen-normal bowel sounds, no hepatosplenomegaly. Tenderness in mid lower abdomen persists but no rebound or guarding. No masses Extremities-no cyanosis, clubbing, or edema Neuro-cranial nerves II through XII intact, motor and sensory function within normal limits, strength symmetrical with generalized weakness, no focal deficits Psych-normal affect, normal mood Results & Data Results & Data Vital Signs (Past 12 Hours) Vital Signs Temp Pulse Pulse Resp BP BP Pulse Ox 10/11/23 11:13 36.6 C 83 18 209/91 H 92 10/11/23 08:14 71 10/11/23 08:04 10/11/23 07:38 220/90 H 10/11/23 07:37 36.5 C 88 19 247/120 H 244/119 H 94 10/11/23 06:27 84 210/91 H O2 Del Method 10/11/23 11:13 Room Air 10/11/23 08:14 10/11/23 08:04 Room Air 10/11/23 07:38 10/11/23 07:37 Room Air 10/11/23 06:27 Laboratory Results 10/11/23 06:04 10/11/23 06:04 PG Care Time/CCT Total # of Minutes Spent Total Time Spent with Patient: Total time spent is greater than 50% in coordination of care (as documented) at patient's floor/unit and/or counseling patient: Coding Level of Care Code 39065 SUB INP/OBS CARE 3/50MIN Diagnoses Intractable nausea and vomiting R11.2 Acute constipation K59.00 Uncontrolled hypertension I10 Lupus anticoagulant disorder D68.62 Hypertensive urgency I16.0 Acute hypokalemia E87.6 Elevated troponin R79.89
[2023-10-11] MEDS: LOSARTAN POTASSIUM 50 MG TAB PO SCH (15:06)
[2023-10-11] MEDS: hydrALAZINE HCL 20 MG/ML VIAL IV STA (17:39)
[2023-10-11] MEDS ORDERED: Nursing to Pharmacy Communication SCH (19:45)
--- NOTE | 2023-10-11 20:24 | Communication Note ---
Date of Service: October 11, 2023 Contacted multiple times regarding patient's refractory hypertension. Patient continues to have SBPs > 200 and MAPs > 115. Patient on clonidine 0.3 mg BID, hydralazine 100 mg TID, and labetalol 300 mg BID. Losartan added back today at 100 mg. Patient also given an addition 10 mg IV hydralazine. BP 218/86 following administration. Given 0.5 inch of nitro paste. There is room to alter BP control with multiple antihypertensive modalities. Will increase labetalol to 400 mg BID. As there has been improvement with nitro paste would consider isosorbide mononitrate initiation. Could also consider carefully increasing clonidine. Will start with increased beta blockade and adjust from there. Discussed case with Dr. Catalan
[2023-10-11] MEDS ORDERED: GLYCERIN ADULT 12 SUPP/BOX SUPP PR PRN (20:36)
[2023-10-11] MEDS ORDERED: SOD PHOSPHATE/SOD BIPHOSPHATE ENEMA 132 ML BTL PR PRN (20:37)
[2023-10-11] MEDS: LABETALOL HCL 100 MG TAB PO ONE (21:30)
[2023-10-12] MEDS: LORazepam 0.5 MG TAB PO PRN (03:25)
[2023-10-12] MEDS: LABETALOL HCL 200 MG TAB PO ONE (04:08)
[2023-10-12 06:11] LABS: Basophils # (auto) 0.03 K/uL (0.00-0.20); Basophils % (auto) 0.4 %; Eosinophils # (auto) 0.11 K/uL (0.00-0.50); Eosinophils % (auto) 1.3 %; Hematocrit (blood only) 32.6 % (37.0-47.0); Hemoglobin 10.9 g/dl (12.0-16.0); Immature Granulocytes # (auto) 0.25 K/uL (0.01-0.20); Immature Granulocytes % (auto) 2.9 %; Lymphocytes # (auto) 1.36 K/uL (1.20-3.40); Lymphocytes % (auto) 15.9 %; Mean Corpuscular Hemoglobin 27.8 pg (25.0-34.0); Mean Corpuscular Hgb Conc 33.4 g/dL (32.0-36.0); Mean Corpuscular Volume 83.2 fL (80.0-100.0); Mean Platelet Volume 10.5 fL (9.4-12.4); Monocytes # (auto) 0.98 K/uL (0.11-0.59); Monocytes % (auto) 11.5 %; Neutrophils # (auto) 5.82 K/uL (1.40-6.50); Platelet Count 298 K/uL (130-400); RDW Coefficient of Variation 13.4 % (11.5-14.5); RDW Standard Deviation 40.6 fL (36.4-46.3); Red Blood Count 3.92 M/uL (4.20-5.40); White Blood Count 8.55 K/ul (4.8-10.8)
[2023-10-12 06:22] LABS: BUN Creatinine Ratio 15.4 (10-20); Calcium 7.9 mg/dl (8.6-10.3); Creatinine Clr Calc Pharmacy 44.3 ml/min; Est GFR (African American) 68.1 ml/min; Est GFR (Non-African American) 58.8 ml/min
[2023-10-12] MEDS: LABETALOL HCL 300 MG TAB PO SCH (07:26)
[2023-10-12] MEDS: POTASSIUM CHLORIDE CRTAB 20 MEQ TABCR PO ONE ×2 (08:41→16:54)
[2023-10-12] MEDS ORDERED: LABETALOL HCL 200 MG TAB PO SCH (09:00)
--- NOTE | 2023-10-12 09:20 | Nephrology Consultation ---
Date of Consultation October 12, 2023 Assessment & Plan (1) Resistant hypertension: * Outpatient evaluation for secondary causes has been unrevealing - no evidence of underlying endocrine, vascular, or renal cause * Current antihypertensive regimen includes clonidine 0.3 mg p.o. twice daily, hydralazine 100 mg p.o. 3 times daily, losartan 100 mg p.o. every morning, labetalol 300 mg p.o. 3 times daily. * Patient is intolerant of thiazide diuretic therapy due to hyponatremia. Verapamil may have contributed to constipation. * Suspect liberal sodium intake as outpatient due to frequent meals at restaurants * Heplock IVF. Patient is net 5 L volume + since admission * Continue current medical regimen. Blood pressure remains suboptimally controlled. Primary service has treated low K. Will add low-dose loop diuretic and monitor blood pressure response. * Patient was intolerant of spironolactone due to nausea. If blood pressure remains elevated may consider adding back low-dose eplerenone * [place] blood pressure regimen will consist of ARB, beta-lena, loop diuretic and MRA History of Present Illness Reason for Consultation: Resistant HTN Attending Physician: Marko Jimenez DO History of Present Illness Ms. Wood is an 82 year old white female who is seen at the request of [facility] hospitalist service for evaluation of resistant HTN. Information for the HPI is obtained from direct patient interview and review of the EMR. HPI is summarized as follows: Ms. Wood has preserved kidney function. She does have long standing HTN and has been evaluated in the HTN clinic by CURT[facility] Dior. Evaluation for secondary causes of HTN has included the following: * Renal Artery Duplex (2016)- <60% stenosis in bilateral renal arteries. * Plasma Renin 0.87 ng/mL/h * Aldosterone 6 ng/dL * 24h urine free cortisol- 8.9 mcg/24h * Plasma metanephrines (no prep) <25pg/mL * plasma normetanephrines (no prep) 112 pg/mL * PTH- 37.9 pg/ml * CT Abd/Pelvis - 1.1cm hypodense right adrenal nodule, suggestive of adenoma. As an outpatient Ms. Buchanans blood pressure has been managed with Clonidine 0.3 mg BID, Hydralazine 100 mg TID, Verapamil ER 300 mg BID and Olmesartan 40 mg daily. Despite this regimen her outpatient SBP has been ranging 200 -220 mm Hg. Ms. Wood presented to [facility] 10/05/23 for evaluation of RLQ abdominal pain. She was found to have severe constipation and was treated using laxatives. Verapamil was stopped as it was felt to be contributing to her constipation. Her current antihypertensive regimen includes clonidine 0.3 mg p.o. twice daily, hydralazine 100 mg p.o. 3 times daily, losartan 100 mg p.o. every morning, labetalol 300 mg p.o. 3 times daily. The patient currently denies headache, visual change, or uremic symptoms. Echocardiogram this hospitalization revealed LVEF greater than 75%, severe concentric LVH. Ms. Wood lives with her daughter. Her daughter prepares all of the meals. However they do not eat at restaurants on a regular basis. Patient reports that she otherwise does not add salt to her food. She does not use NSAIDS on a regular basis and denies the use of alcohol or tobacco Allergies Allergy/AdvReac Type Severity Reaction Status Date / Time diltiazem Allergy Severe Rash Verified 10/05/23 20:40 Influenza Virus Vaccines Allergy Severe itching Verified 10/05/23 20:40 sertraline [From Zoloft] Allergy Severe shortness Verified 10/05/23 20:40 of breath, worsened anxiety Sulfa (Sulfonamide Allergy Severe TONGUE Verified 10/05/23 20:40 Antibiotics) SWELLS sulfamethoxazole Allergy Severe TONGUE Verified 10/05/23 20:40 SWELLS trimethoprim Allergy Severe TONGUE Verified 10/05/23 20:40 SWELLS adhesive tape Allergy Mild Rash Verified 10/05/23 20:40 Beta-Blockers AdvReac Severe shortness Verified 10/06/23 02:02 (Beta-Adrenergic Bloc of breath, worsened anxiety metoprolol AdvReac Severe severe Verified 10/06/23 02:02 fatigue and palpitations metronidazole [From Flagyl] AdvReac Intermediate Nausea Verified 10/05/23 20:40 felodipine [From Plendil] AdvReac Unknown Unknown Verified 10/05/23 20:40 Home Medications Medication Instructions Recorded Confirmed Type lorazepam 0.5 mg tablet (Ativan) 0.5 mg sublingual BID PRN Anxiety 10/28/18 10/05/23 History multivitamin 1 tab PO QAM 10/28/18 10/05/23 History omega 3 350 mg-dha 235 mg-epa 90 1 cap PO QPM 10/28/18 10/05/23 History mg-fish oil 597 mg capsule,delay rel ([place]-3) pantoprazole 40 mg tablet,delayed 40 mg PO QPM 10/28/18 10/05/23 History release venlafaxine 150 mg 150 mg PO HS 10/28/18 10/05/23 History capsule,extended release 24 hr verapamil 300 mg capsule 24hr 300 mg PO BID #180 caps 11/09/19 10/05/[address],ext.release prevagen 20 mg PO QAM 08/21/21 10/05/23 History psyllium husk 3.4 gram/5.4 gram 2 tbsp PO BID 08/21/21 10/05/23 History oral powder (Metamucil) Wheeled Walker #1 ea 02/24/22 10/05/23 Rx Balance Of Nature 6 cap PO QAM 02/27/22 10/05/23 History aflibercept 2 mg/0.05 mL 2 mg intravitreal UD 02/27/22 10/05/23 History intravitreal syringe (Eylea) amoxicillin 500 mg capsule 2,000 mg PO UD PRN prior to dental 02/27/22 10/05/23 History procedures cholecalciferol (vitamin D3) 125 125 mcg PO QPM 02/27/22 10/05/23 History mcg (5,000 unit) tablet (Vitamin D3) cyanocobalamin (vitamin B-12) 5,000 mcg sublingual QAM 02/27/22 10/05/23 History 5,000 mcg sublingual tablet (Vitamin B-12) Super Beets 2 tab PO QAM 09/04/22 10/05/23 History magnesium 250 mg tablet 250 mg PO BID 09/04/22 10/05/23 History acetaminophen 500 mg tablet 1,000 mg (2 x 500 mg) PO TID pain 09/13/22 10/05/23 Rx (Tylenol Extra Strength) 30 days #180 tabs ondansetron 4 mg disintegrating 4 mg PO Q8 PRN nausea #20 tabs 09/13/22 10/05/23 Rx tablet caffiene 100 mg PO DAILY PRN .KEEP ALERT 05/27/23 10/05/23 History clonidine HCl 0.3 mg tablet 0.3 mg PO BID #180 tabs 06/10/23 10/05/23 Rx olmesartan 40 mg tablet 40 mg PO DAILY #90 tabs 07/20/23 10/05/23 Rx levothyroxine 88 mcg capsule 88 mcg PO DAILY 07/29/23 10/05/23 History hydralazine 50 mg tablet 100 mg (2 x 50 mg) PO TID 90 days 08/04/23 10/05/23 Rx #540 tabs sennosides 8.6 mg tablet (Senna 8.6 mg PO BID PRN constipation #10 10/04/23 10/05/23 Rx Lax) tabs eplerenone 25 mg tablet 12.5 mg PO DAILY 10/05/23 10/05/23 History Patient History Medical History Palpitations Adrenal adenoma Avascular necrosis of bone Chondrocalcinosis Hypertension Epistaxis Medication reaction Elevated partial thromboplastin time (PTT) Following with [facility] - Dr. Cadet GERD (gastroesophageal reflux disease) rare, stable per pt Sleep apnea not currently treated- could not tolerate device due to getting up multiple times at night to urinate History of blood transfusion prior to hysterectomy () Anxiety Encounter for pre-operative examination Urinary incontinence severe Hypothyroidism Hearing deficit Wears hearing aids intermittently History of COVID-19 diagnosed 03/2021--mild symptoms, no symptoms now Left knee DJD Surgical History Status post right partial knee replacement History of dilatation and curettage History of bilateral tubal ligation History of partial knee replacement right History of colonoscopy History of bilateral cataract extraction H/O parathyroidectomy S/P appendectomy H/O: hysterectomy Total with BSO Family History Father Coronary heart disease Heart disease Hypertension Myocardial infarction Dyslipidemia Mother Hypertension Sister Hypertension Heart disease Other No family history of adverse response to anesthesia Social History Smoking Status: Never smoker Second Hand Exposure: No; Do You Dip or Chew Tobacco: No; Hx Alcohol Use: No Hx Substance Use: No Preferred Language: Bol[place]ian Communication Ability: Effective Visual Impairment: No Limitations Hearing Ability: Normal 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: No Beliefs That Will Affect Care: None marital status: / Current Living Situation: Family Current Living Situation Comment: lives with daughter current occupational status: retired How many Children do You have: 6 Other Information That Helps Us Care for You: No Feels Safe at Home: Yes Safety Concerns: Feels Safe At This Time Diet: regular caffeine: Yes (takes caffeine pills 100mg ) Physical Activity Frequency: Does not Exercise Seatbelt Use: always Do you think of yourself as: straight/heterosexual Gender Identity: Female Assistive Devices: Glasses and Walker Review of Systems Constitutional: no fever Eyes: no problem reported Ear, Nose, Mouth, Throat: no problem reported Respiratory: no cough and no dyspnea Cardiovascular: no chest pain Gastrointestinal: no abdominal pain, no nausea, no vomiting and no diarrhea/loose stools Genitourinary: no dysuria and no hematuria Integumentary: no rash Physical Exam Constitutional: not in distress Eyes: PERRL, conjunctivae normal, anicteric sclerae ENMT: external ear and nose normal, oropharynx normal Neck: trachea midline, no thyromegaly Respiratory: normal respiratory effort, lungs clear to auscultation Cardiovascular: Rate/Rhythm: regular rate and regular rhythm Extremities: no edema Gastrointestinal (Abdomen): Inspection/Auscultation: + abdomen distended and + hypoactive bowel sounds Skin: no rashes, warm and dry Results & Data Vital Signs (Past 12 Hours) Vital Signs Temp Pulse Pulse Resp BP BP Pulse Ox 10/12/23 08:54 63 17 131/81 94 10/12/23 08:19 36.8 C 83 17 232/106 H 93 10/12/23 08:13 75 10/12/23 03:44 36.8 C 83 20 209/79 H 92 10/11/23 23:29 36.9 C 80 20 197/77 H 92 10/11/23 23:10 82 10/11/23 21:53 149/76 H O2 Del Method 10/12/23 08:54 Room Air 10/12/23 08:19 Room Air 10/12/23 08:13 10/12/23 03:44 Room Air 10/11/23 23:29 Room Air 10/11/23 23:10 10/11/23 21:53 Laboratory Results Laboratory Results WBC 8.55 K/ul (4.8-10.8) 10/12/23 05:31 RBC 3.92 M/uL (4.20-5.40) L 10/12/23 05:31 Hgb 10.9 g/dl (12.0-16.0) L 10/12/23 05:31 Hct 32.6 % (37.0-47.0) L 10/12/23 05:31 MCV 83.2 fL (80.0-100.0) 10/12/23 05:31 MCH 27.8 pg (25.0-34.0) 10/12/23 05:31 MCHC 33.4 g/dL (32.0-36.0) 10/12/23 05:31 RDW Std Deviation 40.6 fL (36.4-46.3) 10/12/23 05:31 RDW Coeff of [place] 13.4 % (11.5-14.5) 10/12/23 05:31 Plt Count 298 K/uL (130-400) 10/12/23 05:31 MPV 10.5 fL (9.4-12.4) 10/12/23 05:31 Immature Gran % (Auto) 2.9 % 10/12/23 05:31 Neut % (Auto) 68.0 % 10/12/23 05:31 Lymph % (Auto) 15.9 % 10/12/23 05:31 [place] % (Auto) 11.5 % 10/12/23 05:31 Eos % (Auto) 1.3 % 10/12/23 05:31 Baso % (Auto) 0.4 % 10/12/23 05:31 Neut # (Auto) 5.82 K/uL (1.40-6.50) 10/12/23 05:31 Lymph # (Auto) 1.36 K/uL (1.20-3.40) 10/12/23 05:31 [place] # (Auto) 0.98 K/uL (0.11-0.59) H 10/12/23 05:31 Eos # (Auto) 0.11 K/uL (0.00-0.50) 10/12/23 05:31 Baso # (Auto) 0.03 K/uL (0.00-0.20) 10/12/23 05:31 Immature Gran # (Auto) 0.25 K/uL (0.01-0.20) H 10/12/23 05:31 Sodium 137 mmol/L (136-145) 10/12/23 05:31 Potassium 3.0 mmol/L (3.5-5.1) L 10/12/23 05:31 Chloride 103 mmol/L (98-107) 10/12/23 05:31 Carbon Dioxide 29 mmol/L (21-32) 10/12/23 05:31 Anion Gap 5 (3-11) 10/12/23 05:31 BUN 14 mg/dl (6-23) 10/12/23 05:31 Creatinine 0.91 mg/dl (0.6-1.2) 10/12/23 05:31 Est Cr Clr Drug Dosing 44.3 ml/min 10/12/23 05:31 Est GFR ( Amer) 68.1 ml/min 10/12/23 05:31 Est GFR (Non-Af Amer) 58.8 ml/min 10/12/23 05:31 BUN/Creatinine Ratio 15.4 (10-20) 10/12/23 05:31 Glucose 98 mg/dl (70-99(Fasting)) 10/12/23 05:31 Lactate 1.5 mmol/L (0.4-2.0) 10/09/23 23:15 Calcium 7.9 mg/dl (8.6-10.3) L 10/12/23 05:31 Magnesium 1.9 mg/dl (1.7-2.4) 10/09/23 21:30 Total Bilirubin 0.7 mg/dl (0.2-1.0) 10/06/23 22:47 AST 17 U/L (13-39) 10/06/23 22:47 ALT 13 U/L (7-52) 10/06/23 22:47 Alkaline Phosphatase 73 U/L (34-104) 10/06/23 22:47 Troponin I High Sens 43.1 pg/ml (0-14) H D 10/06/23 20:01 C-Reactive Protein 3.44 mg/dl (0-0.5) H 10/09/23 21:30 Total Protein 6.3 gm/dl (6.0-8.3) 10/06/23 22:47 Albumin 3.5 gm/dl (3.4-5.0) 10/06/23 22:47 Globulin 2.8 gm/dl (2.5-4.0) 10/06/23 22:47 Albumin/Globulin Ratio 1.3 (0.9-2) 10/06/23 22:47 Lipase 13 U/L (11-82) 10/05/23 20:32 TSH 2.632 uIu/ml (0.300-4.500) 10/10/23 15:41 Free T4 0.96 ng/dl (0.61-1.60) 10/10/23 15:41 Free T3 2.21 pg/ml (2.3-4.2) L 10/10/23 15:41 Urine Color Yellow 10/08/23 07:51 Urine Appearance Clear (Clear) 10/08/23 07:51 Urine pH 6.0 (4.5-7.5) 10/08/23 07:51 Ur Specific [place] 1.012 (1.000-1.030) 10/08/23 07:51 Urine Protein 2+ (Negative) H 10/08/23 07:51 Urine Glucose (UA) Negative (Negative) 10/08/23 07:51 Urine Ketones Negative (Negative) 10/08/23 07:51 Urine Blood Negative (Negative) 10/08/23 07:51 Urine Nitrite Negative (Negative) 10/08/23 07:51 Urine Bilirubin Negative (Negative) 10/08/23 07:51 Urine Urobilinogen Negative (Negative) 10/08/23 07:51 Ur Leukocyte Esterase Negative (Negative) 10/08/23 07:51 Urine WBC (Auto) 0-5 /hpf (0-5) 10/08/23 07:51 Urine RBC (Auto) 0-2 /hpf (0-2) 10/08/23 07:51 U Hyaline Cast (Auto) 0-2 /lpf (0-2) 10/08/23 07:51 U Epithel Cells (Auto) 0-2 /hpf (0-2) 10/08/23 07:51 Urine Bacteria (Auto) None Seen (None Seen) 10/08/23 07:51 Nasal Screen MRSA (PCR) Negative (Negative) 10/09/23 23:20 Laboratory Tests 04/23/24 04/23/24 04/23/24 09:45 13:57 13:57 Renin Activity 0.87 Aldosterone 6 TSH Plas Total Metaneph Urine Creatinine 0.46 L 06/23/23 10/10/23 14:50 15:41 Renin Activity Aldosterone TSH 2.632 Plas Total Metaneph 112 Urine Creatinine Chest CTA 10/06/23 00:50 Exam(s): CTA CHEST IV Amt: 118 ML OPTIRAY 320 EXAM: CT Angiography Chest With Intravenous Contrast CLINICAL HISTORY: Reason for exam: PE. TECHNIQUE: Axial computed tomographic angiography images of the chest with intravenous contrast. CTDI is 25.97 mGy and DLP is 1306.01 mGy-cm. Automated exposure control was utilized for the study. A dose lowering technique was utilized adhering to the principles of ALARA. MIP reconstructed images were created and reviewed. COMPARISON: No relevant prior studies available. FINDINGS: LUNGS: No focal consolidation, pleural effusion, or pneumothorax. Atelectasis at the lung bases. HEART: Cardiomegaly. VASCULATURE: No acute pulmonary embolism. Atherosclerotic changes of the aorta. THYROID: Within normal limits. MEDIASTINUM + LYMPH NODES: There are no pathologically enlarged mediastinal, hilar, or axillary lymph nodes. SUPERIOR ABDOMEN: Hepatic steatosis. Large volume of fecal retention in the upper abdomen. MUSCULOSKELETAL: Degenerative changes. IMPRESSION: No acute pulmonary embolism. Electronically signed by: Easton Oleary MD 10/06/23 04:59 AM Abdomen/Pelvis CT 10/06/23 01:03 Exam(s): CT ABDOMEN + PELVIS With Contrast Oral - High Density Amt: 30 ML GASTRO, IV Amt: 118 ML OPTIRAY 320 EXAM: CT Abdomen and Pelvis With Intravenous Contrast CLINICAL HISTORY: Reason for exam: eval mesenteric ischemia. TECHNIQUE: Axial computed tomography images of the abdomen and pelvis with intravenous contrast. CTDI is 25.97 mGy and DLP is 1306.01 mGy-cm. Automated exposure control was utilized for the study. A dose lowering technique was utilized adhering to the principles of ALARA. CONTRAST: Patient received 30 ML GASTRO of Oral - High Density and 118 ML OPTIRAY 320 of IV contrast COMPARISON: No relevant prior studies available. FINDINGS: Lung bases: Unremarkable. No mass. No consolidation. Mediastinum: Small hiatus hernia and gastroesophageal reflux. ABDOMEN: Liver: Unremarkable. No mass. Gallbladder and bile ducts: There is cholelithiasis. No ductal dilation. Pancreas: Unremarkable. No mass. No ductal dilation. Spleen: Unremarkable. No splenomegaly. Adrenals: Unremarkable. No mass. Kidneys and ureters: Unremarkable. No solid mass. No hydronephrosis. Stomach and bowel: There is colonic distention with fecal matter and air with transition point located in the proximal sigmoid colon. The sigmoid colon shows diffuse wall thickening, measuring up to 9 mm along with mucosal hyperenhancement. PELVIS: Appendix: No findings to suggest acute appendicitis. Bladder: Unremarkable. No mass. Reproductive: Unremarkable as visualized. ABDOMEN and PELVIS: Intraperitoneal space: Unremarkable. No free air. No significant fluid collection. Bones/joints: No acute fracture. No dislocation. Soft tissues: Unremarkable. Vasculature: Patent superior mesenteric artery. Atherosclerotic calcification seen in the region of the patent celiac artery.. No abdominal aortic aneurysm. Lymph nodes: Unremarkable. No enlarged lymph nodes. IMPRESSION: Diffuse sigmoid colonic wall thickening and mucosal hyperenhancement is suggestive of colitis, causing distal colonic obstruction Electronically signed by: Jeremy Jones MD 10/06/23 05:38 AM Chest X-Ray 10/09/23 19:50 SINGLE VIEW CHEST CLINICAL HISTORY: Wheezing FINDINGS: An AP, portable, upright chest radiograph is compared to study dated 10/07/2023 and correlated with chest CT dated 10/06/2023. The heart is enlarged noting atherosclerotic calcification of the thoracic aorta. The pulmonary vasculature is noncongested. Chronic interstitial thickening is similar to previous. There is chronic elevation right hemidiaphragm noting bibasilar scarring/atelectasis. No airspace consolidation or large pleural effusion is identified. No pneumothorax is seen. The skeletal structures are osteopenic. The bony thorax is grossly intact. IMPRESSION: Cardiomegaly with no active disease in the chest. ACT 112: Negative or not required by law. Electronically signed by: James Jiménez M.D. 10/10/2023 8:17 AM KUB X-Ray 10/10/23 08:00 KUB CLINICAL HISTORY: Constipation. FINDINGS: An AP, portable, supine abdominal radiographic is compared to study dated 10/09/2023 and correlated with abdominal CT dated 10/06/2023. There is moderate to severe colonic fecal retention. Gaseous distention of the colon has modestly improved. The small bowel loops are normal in caliber. No evidence of intraperitoneal free air is seen on this supine image. There are no abnormal abdominal calcifications. Phleboliths are seen in the pelvis. The skeletal structures are osteopenic and appear intact. Lumbosacral spondylosis is noted. IMPRESSION: 1. Moderate to severe constipation 2. Gaseous distention of the colon appears modestly improved. Electronically signed by: James Jiménez M.D. 10/10/2023 7:47 AM PG Care Time/CCT Total # of Minutes Spent Total Time Spent with Patient: Total time spent is greater than 50% in coordination of care (as documented) at patient's floor/unit and/or counseling patient: Coding Level of Care Code 21380 IN/OBS CONSULT LVL 5,80M Diagnoses Resistant hypertension I10
--- NOTE | 2023-10-12 11:37 | Cardiology Consultation ---
Date of Consultation October 12, 2023 Assessment & Plan (1) Hypertensive urgency: (2) Resistant hypertension: (3) Mild aortic regurgitation: (4) Mild mitral regurgitation by prior echocardiogram: (5) Left ventricular hypertrophy: Plan ASSESSMENT/PLAN: 1. Elevated troponin: Did not present with acute coronary syndrome. Likely due to demand ischemia in the setting of abdominal discomfort with severe constipation and severe hypertension. 2. Resistant hypertension: This has been managed by nephrology and at baseline, has significant hypertension at home although worse during this hospital stay. Perhaps now that she is moving her bowels and has less discomfort, blood pressure may improve. Nephrology to manage blood pressure. Secondary workup reportedly unremarkable. 3. Aortic and mitral regurgitation: Nonsevere. Can be followed in the outpatient setting by her primary aquaculture program director. 4. LVH: Likely due to longstanding persistent hypertension. Optimize blood pressure control as able. 5. Disposition: Cardiology will sign off at this time. Can continue to follow- up with her primary aquaculture program director, Dr. Shepard. Thank you for allowing me to participate in the care of your patient. Please call for any other questions or concerns. Sincerely, Delvis Choudhary M.D. History of Present Illness Reason for Consultation: Uncontrolled hypertension Requesting Physician: Marko Jimenez DO Attending Physician: Marko Jimenez DO History of Present Illness Ms. Wood is a very pleasant 82-year-old female with a history significant for resistant hypertension, aortic regurgitation, mitral regurgitation, and LVH. Her primary aquaculture program director is Dr. Shepard. She is known to have resistant hypertension and has had secondary evaluation through nephrology as she is followed in the hypertension clinic through the nephrology department. She was admitted on 10/05/2023 with abdominal discomfort and constipation. She had CT imaging on the day of presentation which reported distended colon with massive amount of well-formed stool/gas and suggestive of colitis. She was also noted to be significantly hypertensive with systolic blood pressures over 200 mmHg. According to patient and her daughter, who presented to the bedside, at home, systolic blood pressures in the 170-180 mmHg range. Her daughter states that acupuncture has helped significantly but she stopped going to her acupuncture provider. She denies chest pain, shortness of breath, syncope, near syncope, palpitations, edema, or bleeding. Fortunately, she states that she is moving her bowels often today but it is still formed. Her abdominal discomfort has subsided. Review of systems: As above. Review of systems otherwise negative/unremarkable. Family history: Father had CABG. Social history: She denies tobacco or alcohol abuse. She lives at home. Her daughter lives with her. She had 6 children, however 1 . Her daughter presented to the bedside. Allergies Allergy/AdvReac Type Severity Reaction Status Date / Time diltiazem Allergy Severe Rash Verified 10/05/23 20:40 Influenza Virus Vaccines Allergy Severe itching Verified 10/05/23 20:40 sertraline [From Zoloft] Allergy Severe shortness Verified 10/05/23 20:40 of breath, worsened anxiety Sulfa (Sulfonamide Allergy Severe TONGUE Verified 10/05/23 20:40 Antibiotics) SWELLS sulfamethoxazole Allergy Severe TONGUE Verified 10/05/23 20:40 SWELLS trimethoprim Allergy Severe TONGUE Verified 10/05/23 20:40 SWELLS adhesive tape Allergy Mild Rash Verified 10/05/23 20:40 Beta-Blockers AdvReac Severe shortness Verified 10/06/23 02:02 (Beta-Adrenergic Bloc of breath, worsened anxiety metoprolol AdvReac Severe severe Verified 10/06/23 02:02 fatigue and palpitations metronidazole [From Flagyl] AdvReac Intermediate Nausea Verified 10/05/23 20:40 felodipine [From Plendil] AdvReac Unknown Unknown Verified 10/05/23 20:40 Home Medications Medication Instructions Recorded Confirmed Type lorazepam 0.5 mg tablet (Ativan) 0.5 mg sublingual BID PRN Anxiety 10/28/18 10/05/23 History multivitamin 1 tab PO QAM 10/28/18 10/05/23 History omega 3 350 mg-dha 235 mg-epa 90 1 cap PO QPM 10/28/18 10/05/23 History mg-fish oil 597 mg capsule,delay rel ([place]-3) pantoprazole 40 mg tablet,delayed 40 mg PO QPM 10/28/18 10/05/23 History release venlafaxine 150 mg 150 mg PO HS 10/28/18 10/05/23 History capsule,extended release 24 hr verapamil 300 mg capsule 24hr 300 mg PO BID #180 caps 11/09/19 10/05/[address],ext.release prevagen 20 mg PO QAM 08/21/21 10/05/23 History psyllium husk 3.4 gram/5.4 gram 2 tbsp PO BID 08/21/21 10/05/23 History oral powder (Metamucil) Wheeled Walker #1 ea 02/24/22 10/05/23 Rx Balance Of Nature 6 cap PO QAM 02/27/22 10/05/23 History aflibercept 2 mg/0.05 mL 2 mg intravitreal UD 02/27/22 10/05/23 History intravitreal syringe (Eylea) amoxicillin 500 mg capsule 2,000 mg PO UD PRN prior to dental 02/27/22 10/05/23 History procedures cholecalciferol (vitamin D3) 125 125 mcg PO QPM 02/27/22 10/05/23 History mcg (5,000 unit) tablet (Vitamin D3) cyanocobalamin (vitamin B-12) 5,000 mcg sublingual QAM 02/27/22 10/05/23 History 5,000 mcg sublingual tablet (Vitamin B-12) Super Beets 2 tab PO QAM 09/04/22 10/05/23 History magnesium 250 mg tablet 250 mg PO BID 09/04/22 10/05/23 History acetaminophen 500 mg tablet 1,000 mg (2 x 500 mg) PO TID pain 09/13/22 10/05/23 Rx (Tylenol Extra Strength) 30 days #180 tabs ondansetron 4 mg disintegrating 4 mg PO Q8 PRN nausea #20 tabs 09/13/22 10/05/23 Rx tablet caffiene 100 mg PO DAILY PRN .KEEP ALERT 05/27/23 10/05/23 History clonidine HCl 0.3 mg tablet 0.3 mg PO BID #180 tabs 06/10/23 10/05/23 Rx olmesartan 40 mg tablet 40 mg PO DAILY #90 tabs 07/20/23 10/05/23 Rx levothyroxine 88 mcg capsule 88 mcg PO DAILY 07/29/23 10/05/23 History hydralazine 50 mg tablet 100 mg (2 x 50 mg) PO TID 90 days 08/04/23 10/05/23 Rx #540 tabs sennosides 8.6 mg tablet (Senna 8.6 mg PO BID PRN constipation #10 10/04/23 10/05/23 Rx Lax) tabs eplerenone 25 mg tablet 12.5 mg PO DAILY 10/05/23 10/05/23 History Problem List (Updated 10/06/23 @ 04:47 by Ángel Catalan MD) Antiphospholipid syndrome Intractable nausea and vomiting Uncontrolled hypertension Lupus anticoagulant disorder Following with heme- no personal hx of DVT/PE- heme aware of upcoming TKA- recommendations given Left ventricular hypertrophy Hypertension Depression Anxiety Prediabetes Nonrheumatic mitral valve insufficiency Near syncope Mild obstructive sleep apnea Lightheadedness Heart disease Diastolic dysfunction, left ventricle AI (aortic insufficiency) Elevated troponin Hypertensive urgency (Acute) Acute hypokalemia (Acute) Leukocytosis (Acute) Abdominal distension (Acute) Acute constipation (Acute) Constipation (Acute) Status post left partial knee replacement Resistant hypertension Antiplatelet or antithrombotic long-term use pt denies any besides aspirin 81 daily Mild mitral regurgitation by prior echocardiogram Effusion, left knee Mild aortic regurgitation Mild tricuspid regurgitation Central retinal vein occlusion ~ - follows with Dr White for an injection in the left eye every 6- 8 weeks. Left ventricular hypertrophy Severe LVH per 09/2021 ECHO ; no LVOT obstruction per cardio follows with Dr. Shepard Dyslipidemia Hypertension (Acute) controlled, stable per pt Depression (Chronic) Patient History Medical History (Updated 10/06/23 @ 04:47 by Ángel aCtalan MD) Palpitations Adrenal adenoma Avascular necrosis of bone Chondrocalcinosis Hypertension Epistaxis Medication reaction Elevated partial thromboplastin time (PTT) Following with [facility] - Dr. Cadet GERD (gastroesophageal reflux disease) rare, stable per pt Sleep apnea not currently treated- could not tolerate device due to getting up multiple times at night to urinate History of blood transfusion prior to hysterectomy () Anxiety Encounter for pre-operative examination Urinary incontinence severe Hypothyroidism Hearing deficit Wears hearing aids intermittently History of COVID-19 diagnosed 03/2021--mild symptoms, no symptoms now Left knee DJD Surgical History Status post right partial knee replacement History of dilatation and curettage History of bilateral tubal ligation History of partial knee replacement right History of colonoscopy History of bilateral cataract extraction H/O parathyroidectomy S/P appendectomy H/O: hysterectomy Total with BSO Family History Father Coronary heart disease Heart disease Hypertension Myocardial infarction Dyslipidemia Mother Hypertension Sister Hypertension Heart disease Other No family history of adverse response to anesthesia Social History Smoking Status: Never smoker Second Hand Exposure: No; Do You Dip or Chew Tobacco: No; Hx Alcohol Use: No Hx Substance Use: No Preferred Language: Malay Communication Ability: Effective Visual Impairment: No Limitations Hearing Ability: Normal Dry Cell Tester Required: No Beliefs That Will Affect Care: None marital status: / Current Living Situation: Family Current Living Situation Comment: lives with daughter current occupational status: retired How many Children do You have: 6 Other Information That Helps Us Care for You: No Feels Safe at Home: Yes Safety Concerns: Feels Safe At This Time Diet: regular caffeine: Yes (takes caffeine pills 100mg ) Physical Activity Frequency: Does not Exercise Seatbelt Use: always Do you think of yourself as: straight/heterosexual Gender Identity: Female Assistive Devices: Glasses and Walker Physical Exam Physical Exam: Gen.: No acute distress. Alert. HEENT: Anicteric sclera. Neck: No JVD. Normal carotid upstrokes bilaterally. Cardiac: Regular. Normal S1-S2. 2/6 systolic murmur. Pulmonary: Clear to auscultation bilaterally without wheezes, rales, or rhonchi. Abdomen: Soft, nontender, with hyperactive bowel sounds. No bruits noted. Extremities: 2+ radial pulses bilaterally. 2+ posterior tibialis pulses bilaterally. No edema or cyanosis. Psychiatric: Affect appears appropriate. Results & Data Vital Signs (Past 12 Hours) Vital Signs Temp Pulse Pulse Resp BP BP Pulse Ox 10/12/23 10:29 10/12/23 08:54 63 17 131/81 94 10/12/23 08:19 36.8 C 83 17 232/106 H 93 10/12/23 08:13 75 10/12/23 03:44 36.8 C 83 20 209/79 H 92 O2 Del Method 10/12/23 10:29 Room Air 10/12/23 08:54 Room Air 10/12/23 08:19 Room Air 10/12/23 08:13 10/12/23 03:44 Room Air Laboratory Results Laboratory Results - last 24 hr 10/12/23 05:31 WBC 8.55 RBC 3.92 L Hgb 10.9 L Hct 32.6 L MCV 83.2 MCH 27.8 MCHC 33.4 RDW Std Deviation 40.6 RDW Coeff of Elizabeth 13.4 Plt Count 298 MPV 10.5 Immature Gran % (Auto) 2.9 Neut % (Auto) 68.0 Lymph % (Auto) 15.9 [place] % (Auto) 11.5 Eos % (Auto) 1.3 Baso % (Auto) 0.4 Neut # (Auto) 5.82 Lymph # (Auto) 1.36 [place] # (Auto) 0.98 H Eos # (Auto) 0.11 Baso # (Auto) 0.03 Immature Gran # (Auto) 0.25 H Sodium 137 Potassium 3.0 L Chloride 103 Carbon Dioxide 29 Anion Gap 5 BUN 14 Creatinine 0.91 Est Cr Clr Drug Dosing 44.3 Est GFR ( Amer) 68.1 Est GFR (Non-Af Amer) 58.8 BUN/Creatinine Ratio 15.4 Glucose 98 Calcium 7.9 L Diagnostic Findings CTA chest report from 10/06/2023 reviewed: No acute pulmonary embolism. KUB 10/10/2023: Moderate to severe constipation per radiology. CT abdomen/pelvis 10/06/2023: Diffuse sigmoid colonic wall thickening and mucosal hyperenhancement suggestive of colitis, causing distal colonic obstruction per radiology. ECG personally reviewed 10/10/2023 at 5:57 AM: Sinus rhythm 87 bpm. LVH with repolarization abnormality. Echo report from 10/06/2023 reviewed: Hyperdynamic LV. EF > 70%. Normal wall motion. Severe concentric LVH. Mild to moderate AI. Mild MR. History and physical report reviewed. Surgery note from 10/08/2023 reviewed. Labs reviewed and notable for mildly elevated high-sensitivity troponin, peaking at 62 on 10/06/2023. Hypokalemia, normal renal function, normal magnesium level, normal transaminase levels, normal TSH, mild anemia. Medications Administered Current Inpatient Medications Acetaminophen (Acetaminophen 500 Mg Tab) 1,000 mg PO Q8H PRN PRN Reason: Fever Stop: 11/09/23 05:18 Last Admin: 10/10/23 13:23 Dose: 1,000 mg Albuterol (Albut/Ipratrop 3mg/0.5mg Neb 3 Ml Vial) 3 ml NEB Q6R PRN; Protocol PRN Reason: Wheezing Stop: 11/06/23 18:34 Last Admin: 10/09/23 20:17 Dose: 3 ml Bisacodyl (Bisacodyl 10 Mg Supp) 10 mg NM TID PRN PRN Reason: Constipation Stop: 11/04/23 22:29 Last Admin: 10/12/23 08:41 Dose: 10 mg Clonidine HCl (Clonidine Hcl 0.3 Mg Tab) 0.3 mg PO BID [facility] Stop: 11/05/23 08:59 Last Admin: 10/12/23 07:26 Dose: 0.3 mg Docusate Sodium (Docusate Sodium 100 Mg Cap) 100 mg PO BID [facility] Stop: 11/05/23 20:59 Last Admin: 10/12/23 07:25 Dose: 100 mg Enoxaparin Sodium (Enoxaparin Inj 40 Mg/0.4 Ml Syr) 40 mg SQ Q24H [facility] Stop: 11/05/23 08:59 Last Admin: 10/12/23 07:28 Dose: 40 mg Glycerin (Glycerin Adult 12 Supp/Box Supp) 1 supp NM BID PRN PRN Reason: Constipation Stop: 11/10/23 20:35 Hydralazine HCl (Hydralazine Tab 50 Mg Tab) 100 mg PO TID [facility] Stop: 11/07/23 13:59 Last Admin: 10/12/23 07:26 Dose: 100 mg Famotidine (Pepcid 20mg Iv Push) 20 mg in 5 mls @ 2.5 mls/min IV QAM [facility] Stop: 11/05/23 10:59 Last Admin: 10/12/23 07:25 Dose: 2.5 mls/min Potassium Chloride/Dextrose/Sod Cl (D5nss + 20meq Kcl) 20 meq in 1,000 mls @ 60 mls/hr IV .[id number] [facility]; Protocol Stop: 11/09/23 11:29 Last Admin: 10/11/23 20:18 Dose: 60 mls/hr Labetalol HCl (Labetalol Hcl 300 Mg Tab) 300 mg PO TID [facility] Stop: 11/11/23 08:59 Last Admin: 10/12/23 07:26 Dose: 300 mg Levothyroxine Sodium (Levothyroxine Sodium 88 Mcg Tablet) 88 mcg PO DAILYBB [facility] Stop: 11/05/23 06:29 Last Admin: 10/12/23 04:08 Dose: 88 mcg Lorazepam (Lorazepam 0.5 Mg Tab) 0.5 mg PO Q6H PRN PRN Reason: Anxiety Stop: 11/09/23 11:03 Last Admin: 10/12/23 03:25 Dose: 0.5 mg Losartan Potassium (Losartan Potassium 50 Mg Tab) 100 mg PO QAM [facility] Stop: 11/10/23 14:44 Last Admin: 10/12/23 07:27 Dose: 100 mg Metoclopramide HCl (Metoclopramide Hcl Inj 5 Mg/Ml 2 Ml Vial) 10 mg IV Q6H PRN PRN Reason: Nausea Stop: 11/09/23 12:14 Miscellaneous (Eplerenone~Order Awaiting Action) 1 each N/A QS [facility] Stop: 11/05/23 01:29 Last Admin: 10/12/23 07:28 Dose: Not Given Pantoprazole Sodium (Pantoprazole 40 Mg Tab) 40 mg PO QAM [facility] Stop: 11/08/23 08:59 Last Admin: 10/12/23 07:27 Dose: 40 mg Polyethylene Glycol (Polyethylene (Miralax) 17 Gm Pack) 17 gm PO TID [facility] Stop: 11/09/23 08:59 Last Admin: 10/12/23 07:25 Dose: 17 gm Sodium Biphosphate/Sodium Phosphate (Sod Phosphate/Sod Biphosphate Enema 132 Ml Btl) 132 ml NM BID PRN PRN Reason: Constipation Stop: 11/05/23 20:59 Venlafaxine HCl (Venlafaxine Hcl Xr 150 Mg Capxr) 150 mg PO HS [facility] Stop: 11/05/23 20:59 Last Admin: 10/11/23 20:14 Dose: 150 mg PG Care Time/CCT Total # of Minutes Spent Total Time Spent with Patient: Total time spent is greater than 50% in coordination of care (as documented) at patient's floor/unit and/or counseling patient: Coding Level of Care Code 04207 INT INP/OBS CARE 2/55MIN Diagnoses Hypertensive urgency I16.0 Resistant hypertension I10 Mild aortic regurgitation I35.1 Mild mitral regurgitation by prior echocardiogram I34.0 Left ventricular hypertrophy I51.7
--- NOTE | 2023-10-12 14:31 | Hospitalist Progress Note ---
Date of Service October 12, 2023 Assessment & Plan (1) Intractable nausea and vomiting: Plan: -Related to constipation -Improved -Now with multiple bowel movements -Reglan has now been switched to as needed dosing -May consider repeating KUB in the AM based on symtpoms -Multiple large bowel movements on 10/11, small noted on 10/10 in the evening -Continue bowel regimen (2) Acute constipation: Plan: -Patient constipation started 10/03. -Dulcolax 10mg , Magnesium Citrate 296 ml, miralax given in ED 10/04. Continue stool softeners and laxatives. Continue parenteral metoclopramide as a hypermotility agent. -Appreciate general surgery consultation and recommendations. -Repeat KUB done on October 11: pending read but this was preformed prior to multiple large volume bowel movements per patient and RN -May need to remain off verapamil as an inciting agent -Continue bowel regimen -clinically improving- patient requesting increase in diet from full liquid (3) Uncontrolled hypertension: Plan: -Unfortunately, her blood pressure has been refractory to treatment. -She is able to take oral medication now though and labetalol and hydralazine have been switched to oral dosing. -The patient and her daughter and son both state that her blood pressure always runs high. -Cardiac echo reveals severe left ventricular hypertrophy which undoubtedly is due to persistent hypertension. -Continue to monitor on Telemetry. -There has been extensive workup in the past according to records -Nephrology consulted- patient follows with HTN clinic in the past- follow up recommendations -Cardiology recommendations appreciated (4) Lupus anticoagulant disorder: Plan: -By history. She is not on systemic anticoagulation however. -Needs to follow with her outpatient provider (5) Acute hypokalemia: Plan: -K 3.0 this AM- multiple doses of repletion ordered -IV fluids with 20 meq of K ordered -Continue replacement -Monitor serial labs. (6) Elevated troponin: Plan: -Due to demand ischemia most likely. No evidence of acute coronary syndrome. No chest pain. No acute EKG changes. Plan Discussed with son over the phone, and daughter in person Repeat PT/OT consults ordered Admission and Anticipated Discharge Date Admission Date: October 07, 2023 Subjective Patient seen and evaluated bedside this AM and again in the afternoon Patient noted to be improving from a constipation standpoint this afternoon- reported multiple large bowel movements per RN and patient. KUB was obtained this AM prior to large volume bowel movement Admits to feeling better after multiple bowel movements. Requesting diet advancement Spoke to her daughter bedside and her son Bess Nori over the phone BP remains elevated- adjusting pharmacotherapy with nephro team Patient would like to repeat PT evaluation in the AM to see if she can progress and not need rehab Review of Systems Review of Systems: As per HPI Physical Exam Physical Exam: Gen.: No acute distress. Alert. HEENT: Anicteric sclera. Neck: No JVD. Normal carotid upstrokes bilaterally. Cardiac: Regular. Normal S1-S2. 2/6 systolic murmur. Pulmonary: Clear to auscultation bilaterally without wheezes, rales, or rhonchi. Abdomen: Soft, nontender, with hyperactive bowel sounds. No bruits noted. Extremities: 2+ radial pulses bilaterally. 2+ posterior tibialis pulses bilaterally. No edema or cyanosis. Psychiatric: Affect appears appropriate. Results & Data Results & Data Vital Signs (Past 12 Hours) Vital Signs Temp Pulse Pulse Resp BP BP Pulse Ox 10/12/23 11:47 36.7 C 80 17 183/75 H 94 10/12/23 10:29 10/12/23 08:54 63 17 131/81 94 10/12/23 08:19 36.8 C 83 17 232/106 H 93 10/12/23 08:13 75 10/12/23 03:44 36.8 C 83 20 209/79 H 92 O2 Del Method 10/12/23 11:47 Room Air 10/12/23 10:29 Room Air 10/12/23 08:54 Room Air 10/12/23 08:19 Room Air 10/12/23 08:13 10/12/23 03:44 Room Air PG Care Time/CCT Total # of Minutes Spent Total Time Spent with Patient: Total time spent is greater than 50% in coordination of care (as documented) at patient's floor/unit and/or counseling patient: Coding Level of Care Code 86073 SUB INP/OBS CARE 2/35MIN Diagnoses Intractable nausea and vomiting R11.2 Acute constipation K59.00 Uncontrolled hypertension I10 Lupus anticoagulant disorder D68.62 Acute hypokalemia E87.6 Elevated troponin R79.89
--- NOTE | 2023-10-12 15:29 | XRay Report ---
KUB CLINICAL HISTORY: Constipation. FINDINGS: 2 AP, portable, supine abdominal radiographs are compared to study dated 10/10/2023 and hema elated with abdominal CT dated 10/06/2023. There is moderate colonic fecal retention. Gaseous distenti on of the colon it is similar to previous. The small bowel loops are normal in caliber. No evidence o f intraperitoneal free air is seen on these supine images. There are no abnormal abdominal calcificat ions. Phleboliths are seen in the pelvis. The skeletal structures are osteopenic and appear intact. L umbosacral spondylosis is noted. IMPRESSION: 1. Moderate constipation 2. Gaseous distention of the colon is similar to previous. Electronically signed by: James Jiménez M.D. 10/12/2023 3:28 PM
[2023-10-12] MEDS ORDERED: POTASSIUM CHLORIDE CRTAB 20 MEQ TABCR PO ONE (17:00)
[2023-10-12] MEDS: BUMETANIDE 1 MG TAB PO SCH (17:35)
[2023-10-13] MEDS: NITROGLYCERIN 2% OINTMENT 30GM TUBE EXT ONE (00:18)
[2023-10-13] MEDS: LABETALOL HCL 200 MG TAB PO ONE (03:30)
[2023-10-13 08:02] LABS: Basophils # (auto) 0.04 K/uL (0.00-0.20); Basophils % (auto) 0.7 %; Eosinophils # (auto) 0.24 K/uL (0.00-0.50); Eosinophils % (auto) 4.1 %; Hematocrit (blood only) 33.7 % (37.0-47.0); Hemoglobin 11.2 g/dl (12.0-16.0); Immature Granulocytes # (auto) 0.27 K/uL (0.01-0.20); Immature Granulocytes % (auto) 4.7 %; Lymphocytes # (auto) 1.24 K/uL (1.20-3.40); Lymphocytes % (auto) 21.4 %; Mean Corpuscular Hemoglobin 27.7 pg (25.0-34.0); Mean Corpuscular Hgb Conc 33.2 g/dL (32.0-36.0); Mean Corpuscular Volume 83.4 fL (80.0-100.0); Mean Platelet Volume 10.3 fL (9.4-12.4); Monocytes # (auto) 0.72 K/uL (0.11-0.59); Monocytes % (auto) 12.4 %; Neutrophils # (auto) 3.29 K/uL (1.40-6.50); Neutrophils % (auto) 56.7 %; Platelet Count 280 K/uL (130-400); RDW Coefficient of Variation 13.5 % (11.5-14.5); RDW Standard Deviation 41.3 fL (36.4-46.3); Red Blood Count 4.04 M/uL (4.20-5.40)
[2023-10-13 08:21] LABS: BUN Creatinine Ratio 11.7 (10-20); Creatinine Clr Calc Pharmacy 41.5 ml/min; Est GFR (African American) 65.5 ml/min; Est GFR (Non-African American) 56.5 ml/min; Magnesium 1.8 mg/dl (1.7-2.4); Potassium 3.5 mmol/L (3.5-5.1)
[2023-10-13] MEDS: EPLERENONE 25MG TABLET PO SCH ×2 (08:21→20:20)
--- NOTE | 2023-10-13 08:52 | Nephrology Progress Note ---
Date of Service October 13, 2023 Assessment & Plan (1) Resistant hypertension: Plan: * Outpatient evaluation for secondary causes has been unrevealing - no evidence of underlying endocrine, vascular, or renal cause * Current antihypertensive regimen includes clonidine 0.3 mg p.o. twice daily, hydralazine 100 mg p.o. 3 times daily, losartan 100 mg p.o. every morning, labetalol 300 mg p.o. 3 times daily. Bumex 0.5 mg daily was added last evening. * Patient is intolerant of thiazide diuretic therapy due to hyponatremia. Verapamil may have contributed to constipation. * Suspect liberal sodium intake as outpatient due to frequent meals at restaurants * Patient was intolerant of spironolactone due to nausea. * Resume eplerenone 12.5 mg BID * Monitor BP response and titrate up eplerenone dose as tolerated Admission and Anticipated Discharge Date Admission Date: October 07, 2023 Subjective Ms. Wood was evaluated in her hospital room this morning. She reports continued BM. Abdominal discomfort has resolved. She is tolerating oral BP medications without side effect Review of Systems Constitutional: no fever Eyes: no problem reported Ear, Nose, Mouth, Throat: no problem reported Respiratory: no cough and no dyspnea Cardiovascular: no chest pain Gastrointestinal: no abdominal pain, no nausea, no vomiting and no diarrhea/loose stools Genitourinary: no dysuria and no hematuria Integumentary: no rash Physical Exam Constitutional: not in distress Eyes: PERRL, conjunctivae normal, anicteric sclerae ENMT: external ear and nose normal, oropharynx normal Neck: trachea midline, no thyromegaly Respiratory: normal respiratory effort, lungs clear to auscultation Cardiovascular: Rate/Rhythm: regular rate and regular rhythm Extremities: no edema Gastrointestinal (Abdomen): Inspection/Auscultation: + abdomen distended and + hypoactive bowel sounds Skin: no rashes, warm and dry Results & Data Vital Signs (Past 12 Hours) Vital Signs Temp Pulse Pulse Resp BP BP Pulse Ox 10/13/23 07:43 36.7 C 71 20 229/90 H 228/94 H 94 10/13/23 07:27 65 10/13/23 05:22 194/78 H 10/13/23 03:00 36.7 C 82 18 237/104 H 93 10/12/23 22:08 68 10/12/23 22:06 36.7 C 66 18 193/82 H 94 O2 Del Method 10/13/23 07:43 Room Air 10/13/23 07:27 10/13/23 05:22 10/13/23 03:00 Room Air 10/12/23 22:08 10/12/23 22:06 Room Air Laboratory Results Laboratory Results - last 24 hr 10/13/23 07:22 WBC 5.80 RBC 4.04 L Hgb 11.2 L Hct 33.7 L MCV 83.4 MCH 27.7 MCHC 33.2 RDW Std Deviation 41.3 RDW Coeff of [place] 13.5 Plt Count 280 MPV 10.3 Immature Gran % (Auto) 4.7 Neut % (Auto) 56.7 Lymph % (Auto) 21.4 [place] % (Auto) 12.4 Eos % (Auto) 4.1 Baso % (Auto) 0.7 Neut # (Auto) 3.29 Lymph # (Auto) 1.24 [place] # (Auto) 0.72 H Eos # (Auto) 0.24 Baso # (Auto) 0.04 Immature Gran # (Auto) 0.27 H Sodium 138 Potassium 3.5 Chloride 105 Carbon Dioxide 26 Anion Gap 7 BUN 11 Creatinine 0.94 Est Cr Clr Drug Dosing 41.5 Est GFR ( Amer) 65.5 Est GFR (Non-Af Amer) 56.5 BUN/Creatinine Ratio 11.7 Glucose 94 Calcium 8.0 L Magnesium 1.8 PG Care Time/CCT Total # of Minutes Spent Total Time Spent with Patient: Total time spent is greater than 50% in coordination of care (as documented) at patient's floor/unit and/or counseling patient: Coding Level of Care Code 83879 SUB INP/OBS CARE 3/50MIN Diagnoses Resistant hypertension I10
[2023-10-13] MEDS: POTASSIUM CHLORIDE CRTAB 20 MEQ TABCR PO STA (09:18)
--- NOTE | 2023-10-13 15:33 | Hospitalist Progress Note ---
Date of Service October 13, 2023 Assessment & Plan (1) Intractable nausea and vomiting: Plan: -Related to constipation- now improved -Multiple bowel movements -Now tolerating diet well -Continue bowel regimen (2) Acute constipation: Plan: -Patient constipation started 10/03. -Now improved -Multple bowel movements on 10/11 -Resolution of symptoms -Continue bowel regimen -Appreciate general surgery consultation and recommendations. -Continue to hold off verapamil as an inciting agent -Continue bowel regimen -Now tolerating po diet (3) Uncontrolled hypertension: Plan: -Unfortunately, her blood pressure has been refractory to treatment. -She is able to take oral medication now though and labetalol and hydralazine have been switched to oral dosing. -The patient and her daughter and son both state that her blood pressure always runs high. -Cardiac echo reveals severe left ventricular hypertrophy which undoubtedly is due to persistent hypertension. -Continue to monitor on Telemetry. -There has been extensive workup in the past according to records -Nephrology consulted- now added Bumex and Eplerenone to current regimen- will monitor BP closely -Cardiology recommendations appreciated (4) Lupus anticoagulant disorder: Plan: -By history. She is not on systemic anticoagulation however. -Needs to follow with her outpatient provider (5) Acute hypokalemia: Plan: -Continue replacement -Monitor serial labs. (6) Elevated troponin: Plan: -Due to demand ischemia most likely. No evidence of acute coronary syndrome. No chest pain. No acute EKG changes. Plan Discussed with son over the phone Improved on repeat PT evaluation Admission and Anticipated Discharge Date Admission Date: October 07, 2023 Subjective Patient seen and evaluated bedside Patient is currently in NAD She reports feeling much better after having multiple bowel movements BP still variable- started on Eplerenone and Bumex Tolerating po diet Patient's functional status improving Updated her son Dr. Julio over the phone Review of Systems Review of Systems: As indicated in HPI Physical Exam Physical Exam: Gen.: No acute distress. Alert. HEENT: Anicteric sclera. Neck: No JVD. Normal carotid upstrokes bilaterally. Cardiac: Regular. Normal S1-S2. 2/6 systolic murmur. Pulmonary: Clear to auscultation bilaterally without wheezes, rales, or rhonchi. Abdomen: Soft, nontender, with hyperactive bowel sounds. No bruits noted. Extremities: 2+ radial pulses bilaterally. 2+ posterior tibialis pulses bilaterally. No edema or cyanosis. Psychiatric: Affect appears appropriate. Results & Data Results & Data Vital Signs (Past 12 Hours) Vital Signs Temp Pulse Pulse Resp BP BP Pulse Ox 10/13/23 14:04 78 10/13/23 11:29 37.0 C 71 18 157/75 H 95 10/13/23 07:43 36.7 C 71 20 229/90 H 228/94 H 94 10/13/23 07:27 65 10/13/23 05:22 194/78 H O2 Del Method 10/13/23 14:04 10/13/23 11:29 Room Air 10/13/23 07:43 Room Air 10/13/23 07:27 10/13/23 05:22 PG Care Time/CCT Total # of Minutes Spent Total Time Spent with Patient: Total time spent is greater than 50% in coordination of care (as documented) at patient's floor/unit and/or counseling patient: Coding Level of Care Code 51168 SUB INP/OBS CARE 2/35MIN Diagnoses Intractable nausea and vomiting R11.2 Acute constipation K59.00 Uncontrolled hypertension I10 Lupus anticoagulant disorder D68.62 Acute hypokalemia E87.6 Elevated troponin R79.89
[2023-10-14 06:36] LABS: Basophils # (auto) 0.05 K/uL (0.00-0.20); Basophils % (auto) 0.8 %; Eosinophils # (auto) 0.32 K/uL (0.00-0.50); Eosinophils % (auto) 5.1 %; Hematocrit (blood only) 30.5 % (37.0-47.0); Hemoglobin 10.4 g/dl (12.0-16.0); Immature Granulocytes # (auto) 0.28 K/uL (0.01-0.20); Immature Granulocytes % (auto) 4.5 %; Lymphocytes # (auto) 1.15 K/uL (1.20-3.40); Lymphocytes % (auto) 18.4 %; Mean Corpuscular Hemoglobin 28.3 pg (25.0-34.0); Mean Corpuscular Hgb Conc 34.1 g/dL (32.0-36.0); Mean Corpuscular Volume 82.9 fL (80.0-100.0); Mean Platelet Volume 10.6 fL (9.4-12.4); Monocytes # (auto) 0.74 K/uL (0.11-0.59); Monocytes % (auto) 11.8 %; Neutrophils # (auto) 3.71 K/uL (1.40-6.50); Neutrophils % (auto) 59.4 %; Platelet Count 263 K/uL (130-400); RDW Coefficient of Variation 13.4 % (11.5-14.5); RDW Standard Deviation 40.7 fL (36.4-46.3); Red Blood Count 3.68 M/uL (4.20-5.40); White Blood Count 6.25 K/ul (4.8-10.8)
[2023-10-14 07:07] LABS: BUN Creatinine Ratio 12.8 (10-20); Creatinine Clr Calc Pharmacy 41.2 ml/min; Est GFR (African American) 65.5 ml/min; Est GFR (Non-African American) 56.5 ml/min; Potassium 3.4 mmol/L (3.5-5.1)
[2023-10-14] MEDS: POTASSIUM CHLORIDE CRTAB 20 MEQ TABCR PO STA (08:49)
--- NOTE | 2023-10-14 08:59 | Nephrology Progress Note ---
Date of Service October 14, 2023 Assessment & Plan (1) Resistant hypertension: Plan: * Outpatient evaluation for secondary causes has been unrevealing - no evidence of underlying endocrine, vascular, or renal cause * Current antihypertensive regimen includes clonidine 0.3 mg p.o. twice daily, hydralazine 100 mg TID, losartan 100 mg qAM, labetalol 300 mg TID, bumex 0.5 mg qAM and eplerenone 12.5 mg BID * Patient is intolerant of thiazide diuretic therapy due to hyponatremia. Verapamil may have contributed to constipation. * Suspect liberal sodium intake as outpatient due to frequent meals at restaurants * Patient was intolerant of spironolactone due to nausea * SBP continues to run 170-220 mm Hg * Increase eplerenone to 25 mg BID and monitor BP, serum K Admission and Anticipated Discharge Date Admission Date: October 07, 2023 Subjective Ms. Wood was evaluated in her hospital room this morning. She reports loose bowel movements. Abdominal discomfort has resolved. She is tolerating oral BP medications without side effect Review of Systems Constitutional: no fever Eyes: no problem reported Ear, Nose, Mouth, Throat: no problem reported Respiratory: no cough and no dyspnea Cardiovascular: no chest pain Gastrointestinal: no abdominal pain, no nausea, no vomiting and no diarrhea/loose stools Genitourinary: no dysuria and no hematuria Integumentary: no rash Physical Exam Constitutional: not in distress Eyes: PERRL, conjunctivae normal, anicteric sclerae ENMT: external ear and nose normal, oropharynx normal Neck: trachea midline, no thyromegaly Respiratory: normal respiratory effort, lungs clear to auscultation Cardiovascular: Rate/Rhythm: regular rate and regular rhythm Extremities: no edema Gastrointestinal (Abdomen): Inspection/Auscultation: + abdomen distended and + hypoactive bowel sounds Skin: no rashes, warm and dry Results & Data Vital Signs (Past 12 Hours) Vital Signs Temp Pulse Pulse Resp BP Pulse Ox O2 Del Method 10/14/23 07:56 36.6 C 69 16 213/79 H 91 Room Air 10/14/23 07:28 69 10/14/23 03:43 36.7 C 74 18 201/75 H 95 Room Air 10/13/23 23:10 36.8 C 68 20 168/74 H 69 L Room Air 10/13/23 21:56 69 Laboratory Results Laboratory Results - last 24 hr 10/14/23 05:32 WBC 6.25 RBC 3.68 L Hgb 10.4 L Hct 30.5 L MCV 82.9 MCH 28.3 MCHC 34.1 RDW Std Deviation 40.7 RDW Coeff of Elizabeth 13.4 Plt Count 263 MPV 10.6 Immature Gran % (Auto) 4.5 Neut % (Auto) 59.4 Lymph % (Auto) 18.4 [place] % (Auto) 11.8 Eos % (Auto) 5.1 Baso % (Auto) 0.8 Neut # (Auto) 3.71 Lymph # (Auto) 1.15 L [place] # (Auto) 0.74 H Eos # (Auto) 0.32 Baso # (Auto) 0.05 Immature Gran # (Auto) 0.28 H Sodium 136 Potassium 3.4 L Chloride 102 Carbon Dioxide 27 Anion Gap 7 BUN 12 Creatinine 0.94 Est Cr Clr Drug Dosing 41.2 Est GFR ( Amer) 65.5 Est GFR (Non-Af Amer) 56.5 BUN/Creatinine Ratio 12.8 Glucose 92 Calcium 8.0 L PG Care Time/CCT Total # of Minutes Spent Total Time Spent with Patient: Total time spent is greater than 50% in coordination of care (as documented) at patient's floor/unit and/or counseling patient: Coding Level of Care Code 88941 SUB INP/OBS CARE 3/50MIN Diagnoses Resistant hypertension I10
--- NOTE | 2023-10-14 15:40 | Electrocardiogram Report ---
Test Reason : Blood Pressure : */* mmHG Vent. Rate : 87 BPM Atrial Rate : 87 BPM P-R Int : 174 ms QRS Dur : 98 ms QT Int : 396 ms P-R-T Axes : 57 -32 131 degrees QTcB Int : 476 ms Normal sinus rhythm Left axis deviation Left ventricular hypertrophy with repolarization abnormality Abnormal ECG When compared with ECG of 06-Oct-2023 21:41, Premature ventricular complexes are no longer Present Confirmed by Jolly Figueroa (Armida) on 10/10/2023 2:19:25 PM Referred By: REFERRED SELF Confirmed By: Jolly Figueroa
--- NOTE | 2023-10-14 16:41 | Hospitalist Progress Note ---
Date of Service October 14, 2023 Assessment & Plan (1) Uncontrolled hypertension: Plan: -Unfortunately, her blood pressure has been refractory to treatment. -The patient and her daughter and son both state that her blood pressure always runs high. -Cardiac echo reveals severe left ventricular hypertrophy which undoubtedly is due to persistent hypertension. -Continue to monitor on Telemetry. -There has been extensive workup in the past according to records -Current regimen includes: Bumex, Clonidine, Eplerenone, Hydralazine, Labetalol, Losartan -Verapamil had to be discontinued due to constipation -BP trend still high but much improved- goal is around >180's systolic -Will increase Eplerenone dosing to 25 mg BID -Nephrology consulted- recommendations appreciated -Cardiology recommendations appreciated (2) Intractable nausea and vomiting: Plan: -Resolved -Multiple bowel movements -Now tolerating diet well -Continue bowel regimen (3) Acute constipation: Plan: -Patient constipation started 10/03. -Now improved -Multple bowel movements on 10/11 -Resolution of symptoms -Continue bowel regimen -Appreciate general surgery consultation and recommendations. -Continue to hold off verapamil as an inciting agent -Continue bowel regimen -Now tolerating po diet (4) Lupus anticoagulant disorder: Plan: -By history. She is not on systemic anticoagulation however. -Needs to follow with her outpatient provider (5) Acute hypokalemia: Plan: -Continue replacement -Monitor serial labs. (6) Elevated troponin: Plan: -Due to demand ischemia most likely. No evidence of acute coronary syndrome. No chest pain. No acute EKG changes. Plan Voicemail left for son over the phone awaiting callback Overall BP trend slightly improved- if continued to improve possible DC in the AM Improved on repeat PT evaluation Admission and Anticipated Discharge Date Admission Date: October 07, 2023 Subjective Patient seen and evaluated bedside Patient reports overall feeling much better BP still elevated- some improvement noted Patient is eager for discharge Discussed need for continued titration of medications Review of Systems Review of Systems: As indicated in HPI Physical Exam Physical Exam: Gen.: No acute distress. Alert. HEENT: Anicteric sclera. Neck: No JVD. Normal carotid upstrokes bilaterally. Cardiac: Regular. Normal S1-S2. 2/6 systolic murmur. Pulmonary: Clear to auscultation bilaterally without wheezes, rales, or rhonchi. Abdomen: Soft, nontender, with hyperactive bowel sounds. No bruits noted. Extremities: 2+ radial pulses bilaterally. 2+ posterior tibialis pulses bilaterally. No edema or cyanosis. Psychiatric: Affect appears appropriate. Results & Data Results & Data Vital Signs (Past 12 Hours) Vital Signs Temp Pulse Pulse Resp BP Pulse Ox O2 Del Method 10/14/23 15:21 70 10/14/23 15:00 36.6 C 66 16 185/80 H 96 Room Air 10/14/23 12:07 36.9 C 68 16 177/78 H 94 Room Air 10/14/23 07:56 36.6 C 69 16 213/79 H 91 Room Air 10/14/23 07:28 69 PG Care Time/CCT Total # of Minutes Spent Total Time Spent with Patient: Total time spent is greater than 50% in coordination of care (as documented) at patient's floor/unit and/or counseling patient: Coding Level of Care Code 83369 SUB INP/OBS CARE 2/35MIN Diagnoses Uncontrolled hypertension I10 Intractable nausea and vomiting R11.2 Acute constipation K59.00 Lupus anticoagulant disorder D68.62 Acute hypokalemia E87.6 Elevated troponin R79.89
[2023-10-14] MEDS: EPLERENONE PO SCH (20:33)
--- NOTE | 2023-10-15 06:55 | Communication Note ---
Date of Service: October 15, 2023 Received sign out from overnight physician coverage that patient's mother independently discontinued his heparin drip 0344. Orders were placed to reflect this change.
[2023-10-15 07:19] LABS: Hematocrit (blood only) 31.6 % (37.0-47.0); Hemoglobin 10.8 g/dl (12.0-16.0); Mean Corpuscular Hemoglobin 28.1 pg (25.0-34.0); Mean Corpuscular Hgb Conc 34.2 g/dL (32.0-36.0); Mean Corpuscular Volume 82.3 fL (80.0-100.0); Mean Platelet Volume 10.4 fL (9.4-12.4); Platelet Count 267 K/uL (130-400); RDW Coefficient of Variation 13.8 % (11.5-14.5); RDW Standard Deviation 41.2 fL (36.4-46.3); Red Blood Count 3.84 M/uL (4.20-5.40); White Blood Count 6.37 K/ul (4.8-10.8)
[2023-10-15 07:51] LABS: Albumin Globulin Ratio 1.6 (0.9-2); Albumin Level 3.6 gm/dl (3.4-5.0); BUN Creatinine Ratio 11.5 (10-20); Bilirubin,Total 0.4 mg/dl (0.2-1.0); Calcium 8.3 mg/dl (8.6-10.3); Est GFR (African American) 57.9 ml/min; Globulin 2.3 gm/dl (2.5-4.0); Potassium 3.8 mmol/L (3.5-5.1); Total Protein 5.9 gm/dl (6.0-8.3)
[2023-10-15] MEDS: FAMOTIDINE 20 MG TAB PO SCH (09:03)
--- NOTE | 2023-10-15 09:05 | Nephrology Progress Note ---
Date of Service October 15, 2023 Assessment & Plan (1) Resistant hypertension: Plan: * Outpatient evaluation for secondary causes has been unrevealing - no evidence of underlying endocrine, vascular, or renal cause * Current antihypertensive regimen includes clonidine 0.3 mg p.o. twice daily, hydralazine 100 mg TID, losartan 100 mg qAM, labetalol 300 mg TID, bumex 0.5 mg qAM and eplerenone 25 mg BID * Patient is intolerant of thiazide diuretic therapy due to hyponatremia. Verapamil may have contributed to constipation. Spironolactone stopped due to nausea * Suspect liberal sodium intake as outpatient due to frequent meals at restaurants * SBP continues to run 170-220 mm Hg * Continue eplerenone 25 mg BID. This can be titrated up to 50 mg BID as outpatient * Start amlodipine 2.5 mg qAM (verapamil 9% constipation, amlodipine 1% constipation). Can titrate dose as outpatient * Will consult dietitian for education on low sodium diet * If discharged today, please continue current antihypertensive regimen including amlodipine. Have patient follow up with Natalie [facility] at [facility] ([phone]) within 1 week. As outpatient will need to focus on a regimen of ARB, CCB, loop diuretic and MRA. This should allow other medications to tapered to off Admission and Anticipated Discharge Date Admission Date: October 07, 2023 Subjective Ms. Wood was evaluated in her hospital room this morning. She reports regular bowel movements. Abdominal discomfort has resolved. Ms. Wood is tolerating oral BP medications without side effect. She is anxious to return home Review of Systems Constitutional: no fever Eyes: no problem reported Ear, Nose, Mouth, Throat: no problem reported Respiratory: no cough and no dyspnea Cardiovascular: no chest pain Gastrointestinal: no abdominal pain, no nausea, no vomiting and no diarrhea/loose stools Genitourinary: no dysuria and no hematuria Integumentary: no rash Physical Exam Constitutional: not in distress Eyes: PERRL, conjunctivae normal, anicteric sclerae ENMT: external ear and nose normal, oropharynx normal Neck: trachea midline, no thyromegaly Respiratory: normal respiratory effort, lungs clear to auscultation Cardiovascular: Rate/Rhythm: regular rate and regular rhythm Extremities: no edema Gastrointestinal (Abdomen): Inspection/Auscultation: + abdomen distended and + hypoactive bowel sounds Skin: no rashes, warm and dry Results & Data Vital Signs (Past 12 Hours) Vital Signs Temp Pulse Pulse Resp BP BP Pulse Ox 10/15/23 07:51 36.6 C 70 18 217/92 H 93 10/15/23 03:18 37.0 C 68 18 206/77 H 94 10/14/23 22:19 36.8 C 68 18 195/51 H 95 10/14/23 22:00 69 10/14/23 22:00 O2 Del Method 10/15/23 07:51 Room Air 10/15/23 03:18 Room Air 10/14/23 22:19 Room Air 10/14/23 22:00 10/14/23 22:00 Room Air Laboratory Results Laboratory Results - last 24 hr 10/15/23 06:49 WBC 6.37 RBC 3.84 L Hgb 10.8 L Hct 31.6 L MCV 82.3 MCH 28.1 MCHC 34.2 RDW Std Deviation 41.2 RDW Coeff of Elizabeth 13.8 Plt Count 267 MPV 10.4 Sodium 138 Potassium 3.8 Chloride 103 Carbon Dioxide 28 Anion Gap 7 BUN 12 Creatinine 1.04 Est Cr Clr Drug Dosing 37.0 Est GFR ( Amer) 57.9 Est GFR (Non-Af Amer) 50.0 BUN/Creatinine Ratio 11.5 Glucose 93 Calcium 8.3 L Total Bilirubin 0.4 AST 17 ALT 21 Alkaline Phosphatase 64 Total Protein 5.9 L Albumin 3.6 Globulin 2.3 L Albumin/Globulin Ratio 1.6 PG Care Time/CCT Total # of Minutes Spent Total Time Spent with Patient: Total time spent is greater than 50% in coordination of care (as documented) at patient's floor/unit and/or counseling patient: Coding Level of Care Code 47408 SUB INP/OBS CARE 3/50MIN Diagnoses Resistant hypertension I10
[2023-10-15 11:38] VITALS: RESP 16; TEMP 97.5; O2SAT 95
[2023-10-15] MEDS: amLODIPine BESYLATE 5 MG TAB PO SCH (11:40)
[2023-10-15 13:38] VITALS: PULSE 79
--- NOTE | 2023-10-15 14:07 | Discharge Summary ---
Discharge Summary Date of Service October 15, 2023 Principal Dx & Hospital Course #1 = Principal Diagnosis (1) Uncontrolled hypertension: -Unfortunately, her blood pressure has been refractory to treatment. -The patient and her daughter and son both state that her blood pressure always runs high. She follows with hypertension clinic and has had an extensive workup for secondary causes to no avail -Cardiac echo reveals severe left ventricular hypertrophy which undoubtedly is due to persistent hypertension. Appreciate nephrology consultation-she is now with a much improved blood pressure and is tolerating the addition of Bumex 0.5 Mg once daily, amlodipine 2.5 Mg p.o. once daily, and increasing eplerenone to 25 Mg p.o. twice daily, and adding labetalol 300 mg p.o. 3 times daily Continue home, Clonidine, Hydralazine, and olmesartan -Verapamil had to be discontinued due to constipation Nephrology recommends increasing eplerenone dosing to 50 mg BID as an outpatient Follow-up in the hypertension clinic within 1 week and will need BMP checked at that time She had myocardial demand ischemia due to severe LVH and significant only elevated high blood pressure on admission with troponin trending back downward and no chest pain (2) Intractable nausea and vomiting: -Resolved, secondary to severe constipation which is now resolved (3) Acute constipation: -Patient constipation started 10/03. -Now improved -Multple bowel movements on 10/11 and going several times a day, now only passing liquid and small amounts of mucus Abdomen is soft and benign, she is much improved clinically -Appreciate general surgery consultation and recommendations. -Continue to hold off verapamil as an inciting agent -Continue bowel regimen with MiraLAX once daily, docusate 100 mg p.o. twice daily Discontinue home Metamucil as this may have been causing worsening distention and gas -Now tolerating po diet (4) Lupus anticoagulant disorder: -By history. She is not on systemic anticoagulation however. -Needs to follow with her outpatient provider (5) Acute hypokalemia: Replaced and resolved, now on eplerenone Follow BMP as an outpatient (6) Elevated troponin: -Due to demand ischemia most likely. No evidence of acute coronary syndrome. No chest pain. No acute EKG changes. Plan Disposition-stable for discharge to home Discussed her care with her daughter at the bedside on the day of discharge Lovenox SQ was used for DVT prophylaxis Notes For Next Care Provider Follow-up closely in hypertension clinic within 1 week Follow BMP in 1 week Medication Changes From Visit See list below Admission HPI Per Admitting Provider Sarika Wood is a 82 y/o F with a past medical history of chronic hypertension, hyperparathyroidism, GERD, osteoarthritis, dyslipidemia, and left ventricular hypertrophy arriving in the [facility] due to constipation and abdominal bloating. The patient was seen 10/03 in the ED due to lower quadrant abdominal pain 3/10, abdominal distention, constipation and nausea. At the time the patient underwent a KUB x-ray showing fecal retention and non-obstructive bowel gas pattern, abdominal pelvic CT showed circumferential thickening within distal colon and sigmoid colon and mild pericolonic fat stranding consistent with non-specific colitis. The patient was offered an enema at the time, but elected to leave and was given senna. Today the patient arrived to the ED again due to continued constipation, mild abdominal pain, and nausea. The patient feels that her bl oating, nausea, and vomiting became worse after taking the senna. The patient endorses 3 very small bowel movements, but does not feel that they have helped with her abdominal distention. The patient reports that it has been 3 days since her last normal BM. The patient takes Metamucil on a regular basis and does not regularly have bowel issues. Patient reports that the last time she had abdominal and GI issues was during a bout of diverticulitis, and reports that she felt better after antibiotics and that she had a colonoscopy at the time that was largely normal except for a few diverticula. The patient denies fevers, chills, chest pain/palpitations/tightness, shortness of breath, cough, or wheeze. Discharge Exam Constitutional WD/WN, vitals as above Respiratory normal respiratory effort, lungs clear to auscultation Cardiovascular RRR, no murmur, no edema Gastrointestinal (Abdomen) normal bowel sounds, soft, nontender, no hepatosplenomegaly Psychiatric A+Ox3, euthymic affect Discharge Plan Discharge Items Patient Disposition: Home - Self-Care Reason For Visit: CONSTIPATION Discharge Diagnosis: Severe constipation Hypertensive urgency Condition on Discharge: Good Activity: Resume your previous activity Non-emergency contact: Primary Care Provider, [employer] Call non-emergency contact if: you have any medication questions and your symptoms worsen Follow-up/Referrals: Natalie Wan CRNP [Nurse Practitioner] - (Follow-up within 1 week for your high blood pressure) Hernandez Brar [Primary Care Provider] - (Follow-up within 1 to 2 weeks) Diet: Low Sodium (2gm) Addtl Attending Provider Instructions: You were admitted with severe constipation and significantly elevated blood pressures. Both of these conditions were treated and you are feeling much improved. Please continue to take MiraLAX once a day and stop the Metamucil. Hopefully now that the verapamil is discontinued, the constipation will also be improved. You also had several new blood pressure medications added. Please follow-up with the nurse practitioner at the hypertension clinic within 1 week. You will need blood work at that time to check your potassium levels. Pending Studies at Discharge: No Stand-Alone Forms: My [facility] [employer], Smoking Cessation Medications and DC Order Prescriptions: New amlodipine 2.5 mg tablet 2.5 mg PO DAILY Qty: 30 0RF labetalol 300 mg Tablet 300 mg PO TID Qty: 90 0RF bumetanide 0.5 mg tablet 0.5 mg PO DAILY Qty: 30 0RF polyethylene glycol 3350 [Miralax] 17 gram Powder In Packet 17 g PO DAILY Qty: 30 0RF Rx Instructions: [id number] docusate sodium 100 mg Capsule 100 mg PO BID Qty: 60 0RF Rx Instructions: [id number] Continued ondansetron 4 mg tablet,disintegrating 4 mg PO Q8 PRN (Reason: nausea) Qty: 20 1RF Rx Instructions: Take as needed for nausea acetaminophen [Tylenol Extra Strength] 500 mg tablet 1,000 mg PO TID 30 Days Qty: 180 0RF Rx Instructions: Take 3 times per day to lessen pain. clonidine HCl 0.3 mg tablet 0.3 mg PO BID Qty: 180 3RF olmesartan 40 mg tablet 40 mg PO DAILY Qty: 90 2RF prevagen 20 mg 20 mg PO QAM (DME) [employer] [facility] [place] See Rx Instructions .MEDSUPPLY Qty: 1 0RF Rx Instructions: As directed caffiene 100 mg PO DAILY PRN (Reason: .KEEP ALERT) Rx Instructions: "to help her function" levothyroxine 88 mcg capsule 88 mcg PO DAILY hydralazine 50 mg tablet 100 mg PO TID 90 Days Qty: 540 1RF lorazepam [Ativan] 0.5 mg Tablet 0.5 mg SUBLINGUAL BID PRN (Reason: Anxiety) pantoprazole 40 mg Tablet,Delayed Release (Dr/Ec) 40 mg PO QPM venlafaxine 150 mg Capsule,Extended Release 24hr 150 mg PO HS Rx Instructions: take with 75mg multivitamin Tablet 1 tab PO QAM Lilly-3 350 mg-235 mg- 90 mg-597 mg Capsule,Delayed Release(Dr/Ec) 1 cap PO QPM cholecalciferol (vitamin D3) [Vitamin D3] 125 mcg (5,000 unit) Tablet 125 mcg PO QPM Balance Of Nature 6 cap PO QAM Patient Comments: "veggie and fruit capsules midday" amoxicillin 500 mg Capsule 2,000 mg PO UD PRN (Reason: prior to dental procedures) Eylea 2 mg/0.05 mL Syringe 2 mg INTRAVITREAL UD Patient Comments: every 6-8wks cyanocobalamin (vitamin B-12) [Vitamin B-12] 5,000 mcg Tablet, Sublingual 5,000 mcg SUBLINGUAL QAM magnesium 250 mg Tablet 250 mg PO BID Super Beets 2 tab PO QAM Changed eplerenone 25 mg tablet 25 mg PO BID Qty: 60 0RF Rx Instructions: take at bedtime Discontinued verapamil 300 mg capsule, [address] 300 mg PO BID Qty: 180 3RF Metamucil 3.4 gram/5.4 gram powder 2 tbsp PO BID Rx Instructions: mix into at least 8 oz of water or juice before administering sennosides [Senna Lax] 8.6 mg tablet 8.6 mg PO BID PRN (Reason: constipation) Qty: 10 0RF Discharge Orders: Discharge Order (Routine); Ordered 10/15/23 Ordered By: Jessy Mack Admission Data Admit Date/Time: 10/07/23 15:15 Attending Provider: Jessy Mack Admit Provider: Andrew Panda Primary Care Provider: Hernandez Brar Other Providers: David Mclean; Ángel Catalan; Marcelo Choudhary; Bebeto [facility] Stay Data Consultations 10/05/23 22:04 Consult General Surgery Routine 10/05/23 22:23 ED Decision to Admit Stat 10/12/23 07:52 Consult Cardiology Routine 10/12/23 08:29 Consult Nephrology Routine Diagnostic Imagining Performed 10/05/23 20:19 CT Abd and Pelvis [CT abd pelvis wo con] Stat 10/06/23 00:50 CT angio chest PE protocol Stat 10/06/23 01:03 CT Abd and Pelvis [CT abd pelvis oral and IV con] Stat Pending Results Patient Have Any Pending Studies at Discharge: No Discharge Instructions Given to Patient (Per Discharging Provider) You were admitted with severe constipation and significantly elevated blood pressures. Both of these conditions were treated and you are feeling much improved. Please continue to take MiraLAX once a day and stop the Metamucil. Hopefully now that the verapamil is discontinued, the constipation will also be improved. You also had several new blood pressure medications added. Please follow-up with the nurse practitioner at the hypertension clinic within 1 week. You will need blood work at that time to check your potassium levels. Total Time Total Time Spent Total Time Spent (In Minutes): 40 minutes Total Time Includes: Examination of the Patient, Discharge Planning and Medication Reconciliation Coding Level of Care Code 93712 INP/OBS DISCH >30 MIN Diagnoses Uncontrolled hypertension I10 Intractable nausea and vomiting R11.2 Acute constipation K59.00 Lupus anticoagulant disorder D68.62 Acute hypokalemia E87.6 Elevated troponin R79.89
[2023-10-15 14:23] VITALS: BP 206/77
== END 2023-10-15 15:08 | disposition home or self-care (01) | DRG 392 ==
LOC: ED 18:13 → EDINP 18:13 → SUATTDRO 23:38 → 2S 10-06 01:20 → SUATTDRO 10-07 15:15 → 2W 10-07 23:33

== ENCOUNTER 2023-11-01 13:28 | Inpatient (IN) ==
--- NOTE | 2023-11-01 13:44 | Emergency Department Note ---
Impression & Plan Syncope, Elevated troponin, Leukopenia, Anemia ED Provider Note NAME: LUTHER GUZMAN AGE: 82 SEX: F : 1940 ARRIVES VIA: Ambulance INFORMANT: Patient ED PROVIDER(S): Adrien Liu DO CHIEF COMPLAINT: syncope HPI: Patient is an 82-year-old female with a past medical elevated blood pressure, LVH, hypertension, mitral valve insufficiency, prediabetes, diastolic dysfunction, aortic regurg, dyslipidemia who presents to the ER for syncopal episode. She notes she was standing sorting her pills and felt like she was going up pass out and she was waking up on the ground. She denies anything hurting from the fall. She denies any weakness or numbness in the arms or legs. Per report from EMS this lasted for a minute. Denies any chest pain or shortness of breath preceding or following the incident. No dysuria, urgency, or frequency. No other exacerbating or remitting factors. Additional history obtained from her daughter who notes that she heard a thud and when she got into the bathroom her mother was out of bed and not making any sense was on the ground. She eventually got her up into a chair and shortly after that she passed out again. Consummately called EMS and brought her in. ADDITIONAL HISTORY OBTAINED: Per HPI Chronic Medical/Social Conditions Affecting Care: Per HPI PAST MEDICAL HISTORY:See Below PAST SURGICAL HISTORY:See Below FAMILY HISTORY:See Below SOCIAL HISTORY:See Below HOME MEDICATIONS:See Below ALLERGIES:See Below VITALS:See Below PHYSICAL EXAMINATION: GENERAL: Sitting up in bed, alert, well appearing, well nourished, no distress, non-toxic HEAD: NC/AT EYE EXAM: normal conjunctiva. PERRL and EOM's grossly intact. OROPHARYNX: no exudate, no erythema, lips, buccal mucosa, and tongue normal and mucous membranes are moist NECK: supple, no nuchal rigidity, no adenopathy, non-tender LUNGS: Clear to auscultation. Normal chest wall mechanics HEART: no murmurs, S1 normal and S2 normal ABDOMEN: abdomen soft, non-tender, normo-active bowel sounds, no masses, no rebound or guarding. BACK: Back is symmetrical on inspection and there is no deformity, no midline tenderness, no CVA tenderness. SKIN: no rashes and no bruising UPPER EXTREMITIES: upper extremities are grossly normal. LOWER EXTREMITIES: No pitting edema. NEURO EXAM: Normal sensorium, cranial nerves II-XII intact, normal speech, no weakness of arms, no weakness of legs. No drift. Finger to nose intact. Gross sensation intact. MEDICAL DECISION MAKING: Patient is an 82-year-old female who presents ER for the above-stated complaint. IV was established blood work is obtained. Labs show a leukopenia 3.8. Mild anemia at 11.4 which is improved upon review of external records from 10/15/2023 which shows a hemoglobin of 10.5. BMP with mild hyponatremia at 132. LFTs bilirubin was unremarkable. Troponin was slightly positive at 17.6. Lipase was normal. Upon review of troponins this appears to be less than any previous. She has no chest pain or shortness of breath. Do not feel this consistent with ACS but could have been an arrhythmia. CT of the head was negative. Patient was updated bedside. Discussed case with the hospitalist for further evaluation management treatment. Consults/Care Managements Discussions: Per [facility] Triage Nursing notes reviewed. Limited review of prior medical records performed Vital Signs: reviewed and remarkable for no significant abnormalities Differential diagnosis: Differential diagnosis includes etiologies such as vasovagal event, infection, hypoglycemia, electrolyte abnormalities, cardiac sources, intracerebral event, toxicologic, neurologic, as well as others were entertained. ER treatment provided: See below Diagnostics interpreted by me include EKG and cardiac monitoring as listed below: -Cardiac Monitoring: An order was placed for continuous cardiac monitoring. The monitor shows a rate of 60 with sinus rhythm. -ECG: Sinus rhythm rate of 55 Left axis LVH T wave inversion ST depressions in the high lateral leads QTc 447 No significant change from previous EKG performed at the end of September -Laboratory studies:Interpreted by me as stated above in MDM and shown below. Imaging studies: Xrays: As interpreted by me: Portable AP upright 1 view of the chest shows no focal infiltrate CTs show: CT head was negative per radiology Procedures:none Critical Care: None Past Med/Surg History Problem List (Updated 11/01/23 @ 18:31 by Adrien Liu DO) Anemia (Acute) Leukopenia (Acute) Elevated troponin (Acute) Syncope (Acute) Hyponatremia Diarrhea Syncope Antiphospholipid syndrome Intractable nausea and vomiting Uncontrolled hypertension Lupus anticoagulant disorder Following with heme- no personal hx of DVT/PE- heme aware of upcoming TKA- recommendations given Left ventricular hypertrophy Hypertension Depression Anxiety Prediabetes Nonrheumatic mitral valve insufficiency Near syncope Mild obstructive sleep apnea Lightheadedness Heart disease Diastolic dysfunction, left ventricle AI (aortic insufficiency) Elevated troponin Hypertensive urgency (Acute) Acute hypokalemia (Acute) Leukocytosis (Acute) Abdominal distension (Acute) Acute constipation (Acute) Status post left partial knee replacement Resistant hypertension Antiplatelet or antithrombotic long-term use pt denies any besides aspirin 81 daily Mild mitral regurgitation by prior echocardiogram Effusion, left knee Mild aortic regurgitation Mild tricuspid regurgitation Central retinal vein occlusion ~ - follows with Dr White for an injection in the left eye every 6- 8 weeks. Left ventricular hypertrophy Severe LVH per 09/2021 ECHO ; no LVOT obstruction per cardio follows with Dr. Shepard Dyslipidemia Hypertension (Acute) controlled, stable per pt Depression (Chronic) Medical History Palpitations Adrenal adenoma Avascular necrosis of bone Chondrocalcinosis Hypertension Epistaxis Medication reaction Elevated partial thromboplastin time (PTT) Following with [facility] - Dr. Cadet GERD (gastroesophageal reflux disease) rare, stable per pt Sleep apnea not currently treated- could not tolerate device due to getting up multiple times at night to urinate History of blood transfusion prior to hysterectomy () Anxiety Encounter for pre-operative examination Urinary incontinence severe Hypothyroidism Hearing deficit Wears hearing aids intermittently History of COVID-19 diagnosed 03/2021--mild symptoms, no symptoms now Left knee DJD Surgical History Status post right partial knee replacement History of dilatation and curettage History of bilateral tubal ligation History of partial knee replacement right History of colonoscopy History of bilateral cataract extraction H/O parathyroidectomy S/P appendectomy H/O: hysterectomy Total with BSO Family History Father Coronary heart disease Heart disease Hypertension Myocardial infarction Dyslipidemia Mother Hypertension Sister Hypertension Heart disease Other No family history of adverse response to anesthesia Social History Smoking Status: Former smoker Second Hand Exposure: No; Do You Dip or Chew Tobacco: No; Hx Alcohol Use: No Hx Substance Use: No Preferred Language: [place] Communication Ability: Effective Visual Impairment: No Limitations Hearing Ability: Normal [employer] Installer Required: No Beliefs That Will Affect Care: None marital status: / Current Living Situation: Family Current Living Situation Comment: lives with daughter current occupational status: retired How many Children do You have: 6 Feels Safe at Home: Yes Diet: regular caffeine: Yes (takes caffeine pills 100mg ) Physical Activity Frequency: Does not Exercise Seatbelt Use: always Do you think of yourself as: straight/heterosexual Gender Identity: Female Assistive Devices: Glasses and Walker Allergies Allergies Allergy/AdvReac Type Severity Reaction Status Date / Time diltiazem Allergy Severe Rash Verified 10/05/23 20:40 Influenza Virus Vaccines Allergy Severe itching Verified 10/05/23 20:40 sertraline [From Zoloft] Allergy Severe shortness Verified 10/05/23 20:40 of breath, worsened anxiety Sulfa (Sulfonamide Allergy Severe TONGUE Verified 10/05/23 20:40 Antibiotics) SWELLS sulfamethoxazole Allergy Severe TONGUE Verified 10/05/23 20:40 SWELLS trimethoprim Allergy Severe TONGUE Verified 10/05/23 20:40 SWELLS adhesive tape Allergy Mild Rash Verified 10/05/23 20:40 Beta-Blockers AdvReac Severe shortness Verified 10/06/23 02:02 (Beta-Adrenergic Bloc of breath, worsened anxiety metoprolol AdvReac Severe severe Verified 10/06/23 02:02 fatigue and palpitations metronidazole [From Flagyl] AdvReac Intermediate Nausea Verified 10/05/23 20:40 felodipine [From Plendil] AdvReac Unknown Unknown Verified 10/05/23 20:40 Home Meds Home Medications Medication Instructions Recorded Confirmed lorazepam 0.5 mg tablet (Ativan) 0.5 mg sublingual BID PRN Anxiety 10/28/18 11/01/23 multivitamin 1 tab PO QAM 10/28/18 11/01/23 omega 3 350 mg-dha 235 mg-epa 90 1 cap PO QPM 10/28/18 11/01/23 mg-fish oil 597 mg capsule,delay rel ([place]-3) pantoprazole 40 mg tablet,delayed 40 mg PO QPM 10/28/18 11/01/23 release venlafaxine 150 mg 150 mg PO HS 10/28/18 11/01/23 capsule,extended release 24 hr prevagen 20 mg PO QAM 08/21/21 11/01/23 Balance Of Nature 6 cap PO QAM 02/27/22 11/01/23 aflibercept 2 mg/0.05 mL 2 mg intravitreal UD 02/27/22 11/01/23 intravitreal syringe (Eylea) amoxicillin 500 mg capsule 2,000 mg PO UD PRN prior to dental 02/27/22 11/01/23 procedures cholecalciferol (vitamin D3) 125 125 mcg PO QPM 02/27/22 11/01/23 mcg (5,000 unit) tablet (Vitamin D3) cyanocobalamin (vitamin B-12) 5,000 mcg sublingual QAM 02/27/22 11/01/23 5,000 mcg sublingual tablet (Vitamin B-12) Super Beets 2 tab PO QAM 09/04/22 11/01/23 magnesium 250 mg tablet 250 mg PO BID 09/04/22 11/01/23 caffiene 100 mg PO DAILY PRN .KEEP ALERT 05/27/23 11/01/23 levothyroxine 88 mcg capsule 88 mcg PO DAILY 07/29/23 11/01/23 Previous Rx's Medication Instructions Recorded Wheeled Walker #1 ea 02/24/22 acetaminophen 500 mg tablet 1,000 mg (2 x 500 mg) PO TID pain 09/13/22 (Tylenol Extra Strength) 30 days #180 tabs ondansetron 4 mg disintegrating 4 mg PO Q8 PRN nausea #20 tabs 09/13/22 tablet clonidine HCl 0.3 mg tablet 0.3 mg PO BID #180 tabs 06/10/23 olmesartan 40 mg tablet 40 mg PO DAILY #90 tabs 07/20/23 hydralazine 50 mg tablet 100 mg (2 x 50 mg) PO TID 90 days 08/04/23 #540 tabs docusate sodium 100 mg capsule 100 mg PO BID #60 caps 10/15/23 eplerenone 25 mg tablet 25 mg PO BID #60 tabs 10/15/23 polyethylene glycol 3350 17 gram 17 g PO DAILY #30 ea 10/15/23 oral powder packet (Miralax) amlodipine 2.5 mg tablet 2.5 mg PO DAILY #90 tabs 10/27/23 bumetanide 1 mg tablet 1 mg PO BID #60 tabs 10/28/23 labetalol 200 mg tablet 200 mg PO TID 30 days #90 tabs 10/28/23 Results & Data (ED) Vital Signs Vital Signs - 24 hr 11/01/23 13:05 11/01/23 13:15 11/01/23 13:15 Temperature 36.6 C Temperature Source Temporal Artery Scan Pulse Rate 55 L Pulse Rate [Apical] Respiratory Rate 18 16 Respiratory Effort / Characteristics Respiratory Depth Respiratory Pattern Blood Pressure 127/63 Blood Pressure [Right Arm] Blood Pressure Mean 84 Blood Pressure Mean [Right Arm] Blood Pressure Position [Right Arm] Pulse Oximetry 91 Oxygen Delivery Method Room Air Room Air Sepsis Recent Fever Within 48 Hours No Sepsis New/Unexplained Change in Mental Status N/A Sepsis Action Taken by Nursing No Action Required 11/01/23 13:40 11/01/23 15:00 11/01/23 17:00 Temperature Temperature Source Pulse Rate Pulse Rate [Apical] 59 L 54 L Respiratory Rate 19 18 Respiratory Effort / Characteristics Non-Labored Spontaneous Respiratory Depth Normal Respiratory Pattern Regular Blood Pressure Blood Pressure [Right Arm] 154/73 H 171/70 H Blood Pressure Mean Blood Pressure Mean [Right Arm] 100 103 Blood Pressure Position [Right Arm] Semi-fowlers Semi-fowlers Pulse Oximetry 90 96 95 Oxygen Delivery Method Room Air Room Air Room Air Sepsis Recent Fever Within 48 Hours Sepsis New/Unexplained Change in Mental Status Sepsis Action Taken by Nursing Laboratory Data 11/01/23 13:37 11/01/23 13:37 Lab Results 11/01/23 Range/Units 13:37 WBC 3.89 L (4.8-10.8) K/ul RBC 3.95 L (4.20-5.40) M/uL Hgb 11.4 L (12.0-16.0) g/dl Hct 33.0 L (37.0-47.0) % MCV 83.5 (80.0-100.0) fL MCH 28.9 (25.0-34.0) pg MCHC 34.5 (32.0-36.0) g/dL RDW Std Deviation 42.6 (36.4-46.3) fL RDW Coeff of Elizabeth 13.9 (11.5-14.5) % Plt Count 239 (130-400) K/uL MPV 10.8 (9.4-12.4) fL Immature Gran % (Auto) 0.5 % Neut % (Auto) 52.4 % Lymph % (Auto) 28.3 % Hemphill % (Auto) 11.8 % Eos % (Auto) 5.7 % Baso % (Auto) 1.3 % Neut # (Auto) 2.04 (1.40-6.50) K/uL Lymph # (Auto) 1.10 L (1.20-3.40) K/uL Hemphill # (Auto) 0.46 (0.11-0.59) K/uL Eos # (Auto) 0.22 (0.00-0.50) K/uL Baso # (Auto) 0.05 (0.00-0.20) K/uL Immature Gran # (Auto) 0.02 (0.01-0.20) K/uL Sodium 132 L (136-145) mmol/L Potassium 4.0 (3.5-5.1) mmol/L Chloride 95 L (98-107) mmol/L Carbon Dioxide 29 (21-32) mmol/L Anion Gap 8 (3-11) BUN 19 (6-23) mg/dl Creatinine 1.24 H (0.6-1.2) mg/dl Est Cr Clr Drug Dosing 32.8 ml/min Est GFR ( Amer) 46.8 ml/min Est GFR (Non-Af Amer) 40.4 ml/min BUN/Creatinine Ratio 15.3 (10-20) Glucose 114 H (70-99(Fasting)) mg/dl Calcium 9.0 (8.6-10.3) mg/dl Total Bilirubin 0.6 (0.2-1.0) mg/dl AST 16 (13-39) U/L ALT 14 (7-52) U/L Alkaline Phosphatase 85 (34-104) U/L Troponin I High Sens 17.6 H (0-14) pg/ml Total Protein 6.6 (6.0-8.3) gm/dl Albumin 4.2 (3.4-5.0) gm/dl Globulin 2.4 L (2.5-4.0) gm/dl Albumin/Globulin Ratio 1.8 (0.9-2) Lipase 24 (11-82) U/L Imaging Data Radiologist's Impression: Chest X-Ray 11/01/23 13:40 XR chest 1V portable CLINICAL HISTORY: Chest pain, nonspecific TECHNIQUE: Single frontal radiograph of the chest was obtained. Comparison: Comparison is made to chest radiograph 10/09/2023 FINDINGS: No lines and tubes are seen. Cardiomegaly is noted. The aortic arch is calcified. The lungs are clear. No evidence of pleural effusion or pneumothorax. IMPRESSION: No acute chest disease. Cardiomegaly is noted. ACT 112: Negative or not required by law. Electronically signed by: Francisco J Garcia M.D. 11/01/2023 2:[address] 11/01/23 13:40 CT head/brain wo con CLINICAL HISTORY: syncope Technique: Contiguous axial CT images of the head were acquired from the base of the skull to the vertex without intravenous contrast administration. Images were viewed in brain, subdural and bone windows. Automated dose lowering techniques and/or adjustment according to patient size were utilized for this exam. Comparison: None available at the time of this dictation. Findings: Areas of decreased attenuation are present in the periventricular and subcortical white matter bilaterally consistent with small vessel ischemic disease. Generalized cerebral atrophy with commensurate enlargement of the ventricles, sulci, and cisterns is also present. There is no acute intracranial hemorrhage or evidence of acute territorial infarction. No shift of the midline structures, mass effect, or extra-axial abnormalities are shown. Atherosclerotic calcifications are present in the intracranial segments of the internal carotid arteries. Imaged portions of the paranasal sinuses and mastoid air cells are clear. The orbits appear normal. There are no acute fractures of the calvaria or scalp swelling. Impression: No acute intracranial hemorrhage, no evidence of acute territorial infarction or other acute intracranial disease process. ACT 112: Negative or not required by law. Electronically signed by: Francisco J Garcia M.D. 11/01/2023 2:52 PM Discharge Plan Visit Data Chief Complaint: Syncope Stated Complaint: SYNCOPE ED Provider: Adrien Liu Discharge Problem: Syncope, Elevated troponin, Leukopenia, Anemia Forms Stand Alone Forms: [employer] Prescriptions Prescriptions: No Action ondansetron 4 mg tablet,disintegrating 4 mg PO Q8 PRN (Reason: nausea) Qty: 20 1RF Rx Instructions: Take as needed for nausea acetaminophen [Tylenol Extra Strength] 500 mg tablet 1,000 mg PO TID 30 Days Qty: 180 0RF Rx Instructions: Take 3 times per day to lessen pain. clonidine HCl 0.3 mg tablet 0.3 mg PO BID Qty: 180 3RF olmesartan 40 mg tablet 40 mg PO DAILY Qty: 90 2RF prevagen 20 mg 20 mg PO QAM (DME) Ysabel Walker [facility] [place] Rx Instructions .MEDSUPPLY Qty: 1 0RF Rx Instructions: As directed amlodipine 2.5 mg tablet 2.5 mg PO DAILY Qty: 90 1RF labetalol 200 mg tablet 200 mg PO TID 30 Days Qty: 90 1RF bumetanide 1 mg tablet 1 mg PO BID Qty: 60 1RF caffiene 100 mg PO DAILY PRN (Reason: .KEEP ALERT) Rx Instructions: "to help her function" levothyroxine 88 mcg capsule 88 mcg PO DAILY hydralazine 50 mg tablet 100 mg PO TID 90 Days Qty: 540 1RF lorazepam [Ativan] 0.5 mg Tablet 0.5 mg SUBLINGUAL BID PRN (Reason: Anxiety) pantoprazole 40 mg Tablet,Delayed Release (Dr/Ec) 40 mg PO QPM venlafaxine 150 mg Capsule,Extended Release 24hr 150 mg PO HS Rx Instructions: take with 75mg multivitamin Tablet 1 tab PO QAM [place]-3 350 mg-235 mg- 90 mg-597 mg Capsule,Delayed Release(Dr/Ec) 1 cap PO QPM cholecalciferol (vitamin D3) [Vitamin D3] 125 mcg (5,000 unit) Tablet 125 mcg PO QPM Balance Of Nature 6 cap PO QAM Patient Comments: "veggie and fruit capsules midday" amoxicillin 500 mg Capsule 2,000 mg PO UD PRN (Reason: prior to dental procedures) Eylea 2 mg/0.05 mL Syringe 2 mg INTRAVITREAL UD Patient Comments: every 6-8wks cyanocobalamin (vitamin B-12) [Vitamin B-12] 5,000 mcg Tablet, Sublingual 5,000 mcg SUBLINGUAL QAM magnesium 250 mg Tablet 250 mg PO BID Hold Instructions: Home Medication placed on hold at Doctor's office Super Beets 2 tab PO QAM docusate sodium 100 mg Capsule 100 mg PO BID Qty: 60 0RF Hold Instructions: Home Medication placed on hold at Doctor's office Rx Instructions: [id number] polyethylene glycol 3350 [Miralax] 17 gram Powder In Packet 17 g PO DAILY Qty: 30 0RF Hold Instructions: Home Medication placed on hold at Doctor's office Rx Instructions: [id number] eplerenone 25 mg tablet 25 mg PO BID Qty: 60 0RF Rx Instructions: take at bedtime Referrals Referrals: Hernandez Brar [Primary Care Provider] - Discharge Problem: Syncope Qualifiers: Syncope type: unspecified Qualified Code(s): R55 - Syncope and collapse Leukopenia Qualifiers: Leukopenia type: unspecified Qualified Code(s): D72.819 - Decreased white blood cell count, unspecified Anemia Qualifiers: Anemia type: unspecified type Qualified Code(s): D64.9 - Anemia, unspecified
[2023-11-01 14:08] LABS: Basophils # (auto) 0.05 K/uL (0.00-0.20); Basophils % (auto) 1.3 %; Eosinophils # (auto) 0.22 K/uL (0.00-0.50); Eosinophils % (auto) 5.7 %; Hemoglobin 11.4 g/dl (12.0-16.0); Immature Granulocytes # (auto) 0.02 K/uL (0.01-0.20); Immature Granulocytes % (auto) 0.5 %; Lymphocytes % (auto) 28.3 %; Mean Corpuscular Hemoglobin 28.9 pg (25.0-34.0); Mean Corpuscular Hgb Conc 34.5 g/dL (32.0-36.0); Mean Corpuscular Volume 83.5 fL (80.0-100.0); Mean Platelet Volume 10.8 fL (9.4-12.4); Monocytes # (auto) 0.46 K/uL (0.11-0.59); Monocytes % (auto) 11.8 %; Neutrophils # (auto) 2.04 K/uL (1.40-6.50); Neutrophils % (auto) 52.4 %; Platelet Count 239 K/uL (130-400); RDW Coefficient of Variation 13.9 % (11.5-14.5); RDW Standard Deviation 42.6 fL (36.4-46.3); Red Blood Count 3.95 M/uL (4.20-5.40); White Blood Count 3.89 K/ul (4.8-10.8)
[2023-11-01 14:23] LABS: Albumin Globulin Ratio 1.8 (0.9-2); Albumin Level 4.2 gm/dl (3.4-5.0); BUN Creatinine Ratio 15.3 (10-20); Bilirubin,Total 0.6 mg/dl (0.2-1.0); Creatinine Clr Calc Pharmacy 32.8 ml/min; Est GFR (African American) 46.8 ml/min; Est GFR (Non-African American) 40.4 ml/min; Globulin 2.4 gm/dl (2.5-4.0); Total Protein 6.6 gm/dl (6.0-8.3)
[2023-11-01 14:30] LABS: Troponin I High Sensitivity 17.6 pg/ml (0-14)
--- NOTE | 2023-11-01 14:37 | XRay Report ---
XR chest 1V portable CLINICAL HISTORY: Chest pain, nonspecific TECHNIQUE: Single frontal radiograph of the chest was obtained. Comparison: Comparison is made to chest radiograph 10/09/2023 FINDINGS: No lines and tubes are seen. Cardiomegaly is noted. The aortic arch is calcified. The lungs are clear . No evidence of pleural effusion or pneumothorax. IMPRESSION: No acute chest disease. Cardiomegaly is noted. ACT 112: Negative or not required by law. Electronically signed by: Francisco J Garcia M.D. 11/01/2023 2:36 PM
--- NOTE | 2023-11-01 14:54 | CT Scan Report ---
CT head/brain wo con CLINICAL HISTORY: syncope Technique: Contiguous axial CT images of the head were acquired from the base of the skull to the helen jose manuel without intravenous contrast administration. Images were viewed in brain, subdural and bone [facility]. Automated dose lowering techniques and/or adjustment according to patient size were utilized for this exam. Comparison: None available at the time of this dictation. Findings: Areas of decreased attenuation are present in the periventricular and subcortical white matter bilate rally consistent with small vessel ischemic disease. Generalized cerebral atrophy with commensurate e nlargement of the ventricles, sulci, and cisterns is also present. There is no acute intracranial hem orrhage or evidence of acute territorial infarction. No shift of the midline structures, mass effect, or extra-axial abnormalities are shown. Atherosclerotic calcifications are present in the intracran ial segments of the internal carotid arteries. Imaged portions of the paranasal sinuses and mastoid air cells are clear. The orbits appear normal. There are no acute fractures of the calvaria or scalp swelling. Impression: No acute intracranial hemorrhage, no evidence of acute territorial infarction or other acute intracra nial disease process. ACT 112: Negative or not required by law. Electronically signed by: Francisco J Garcia M.D. 11/01/2023 2:52 PM
--- NOTE | 2023-11-01 15:08 | History & Physical Report ---
Date of Service November 01, 2023 Assessment & Plan (1) Syncope: Plan: Unwitnessed syncopal episode on the morning of 10/31 Full LOC; patient is unsure if she hit her head Head CT on arrival without acute findings Last echocardiogram on 10/06/2023 revealed LVEF at >70% Suspect this is largely secondary to recent changes in BP medications Orthostatic vital signs ordered, pending Continuous telemetry monitoring to assess for arrhythmias PT/OT evaluations appreciated A.m. CBC, BMP (2) Uncontrolled hypertension: Plan: Continue clonidine 0.3mg BID Continue olmesartan 40mg daily Continue hydralazine 100mg TID Continue eplerenone 25mg BID; monitor K Decrease Bumex from 1mg BID --> 0.5mg BID Decrease labetalol from 200 mg TID --> 100mg TID in the setting of bradycardia Hold amlodipine Hydralazine 2.5 mg IV q8h as needed for refractory HTN (SBP>200 or DBP>120) PCU status (3) Renal artery stenosis: Plan: Renal artery duplex in 2017 revealed <60% stenosis bilaterally Follows with hypertension clinic (4) Diarrhea: Plan: Diarrhea began shortly after leaving the hospital PCR stool/C. difficile ordered, pending (5) Hyponatremia: Plan: Mild; Na 132 on arrival Recheck a.m. BMP Plan Disposition: Admit to PCU telemetry Full code Heart healthy diet VTE PPx: Heparin 5000u SQ q12h History of Present Illness Chief Complaint: Syncope Primary Care Provider: Hernandez Baum is a pleasant 82-year-old female with PMH of uncontrolled HTN, KAYLEEN, depression, dyslipidemia, central retinal vein occlusion in the left eye, aortic insufficiency, antiphospholipid syndrome, and anxiety. She presented on 10/31 after an unwitnessed episode of syncope and collapse. Patient reports she was sitting at a table, and felt like she was going to pass out. She reports she felt lightheaded, not dizzy (like the room was spinning). She got up to go lie down in bed, and experienced a syncopal event. This was unwitnessed, she is unsure if she hit her head, but reports no head pain. Daughter heard the fall and went to check and are; full LOC. She was out for approximately 1 minute, then responded by opening her eyes. She was responding to questions at that time and says she was feeling tired and wanted to sleep. She denied any chest pain or nausea at that time. Patient's daughter helped her get up to a chair, where she was okay for a moment, then she passed out again for another minute; daughter thought she might of fainted again and called EMS. This all occurred shortly after patient took her morning BP medications. Patient took all her regular morning medications today, and manages her own medicine at home. However she has had some recent changes in her blood pressure medications. For instance her labetalol was changed from 300 mg BID-->200mg TID. Also her Bumex was increased from 0.5 mg once daily, to 1 mg twice daily. She reports she is on 6 blood pressure medications total. She does check her BP at home with a home BP cuff, and reports it has been low for her and recently (most recently 127/52). Prior to these changes she would usually run in the SBP 170 range. She reports she has felt lousy, tired, and weak since returning home from her recent hospital stay. She was recently in the hospital for a course of constipation and hypertension. She had 2 days of regular bowel movements after leaving hospital, then developed diarrhea x 7 days. She describes it as loose stool, but not watery; no blood in stool; not mucousy. She is unsure she was given antibiotics in the hospital. She is not having regular stool in between bouts of diarrhea, but only has a diarrhea every "third day". Patient reports she has had diarrhea x 7 days. Patient does not have a history of fainting. However she did feel presyncopal a couple days ago, and believes that it largely spawns from taking her BP medications in the morning; she does not feel lightheaded in the afternoons. Patient denies smoking, tobacco use, or recent alcohol use. She has 19 grandchildren, and 3 great-grandchildren, with [address]. Patient is mildly bradycardic at 55 bpm at time of admission; SpO2 90% on RA; vitals otherwise stable. ED course: ROS: Patient endorses increased fatigue, syncope, lightheadedness, nausea, diarrhea (every third day since leaving the hospital), and urinary incontinence (chronic; not new for her). Patient denies dizziness (like the room is spinning), fever, chills, night- sweat, MUSE, rashes, tick bites, chest pain, SOB, chest palpitations, cough, pleuritic CP, abdominal pain, vomiting, blood in the stool, burning with urination, dysuria, blood in the urine, or numbness/tingling in the arms and legs. Allergies Allergy/AdvReac Type Severity Reaction Status Date / Time diltiazem Allergy Severe Rash Verified 10/05/23 20:40 Influenza Virus Vaccines Allergy Severe itching Verified 10/05/23 20:40 sertraline [From Zoloft] Allergy Severe shortness Verified 10/05/23 20:40 of breath, worsened anxiety Sulfa (Sulfonamide Allergy Severe TONGUE Verified 10/05/23 20:40 Antibiotics) SWELLS sulfamethoxazole Allergy Severe TONGUE Verified 10/05/23 20:40 SWELLS trimethoprim Allergy Severe TONGUE Verified 10/05/23 20:40 SWELLS adhesive tape Allergy Mild Rash Verified 10/05/23 20:40 Beta-Blockers AdvReac Severe shortness Verified 10/06/23 02:02 (Beta-Adrenergic Bloc of breath, worsened anxiety metoprolol AdvReac Severe severe Verified 10/06/23 02:02 fatigue and palpitations metronidazole [From Flagyl] AdvReac Intermediate Nausea Verified 10/05/23 20:40 felodipine [From Plendil] AdvReac Unknown Unknown Verified 10/05/23 20:40 Home Medications Medication Instructions Recorded Confirmed Type lorazepam 0.5 mg tablet (Ativan) 0.5 mg sublingual BID PRN Anxiety 10/28/18 11/01/23 History multivitamin 1 tab PO QAM 10/28/18 11/01/23 History omega 3 350 mg-dha 235 mg-epa 90 1 cap PO QPM 10/28/18 11/01/23 History mg-fish oil 597 mg capsule,delay rel (Craig-3) pantoprazole 40 mg tablet,delayed 40 mg PO QPM 10/28/18 11/01/23 History release venlafaxine 150 mg 150 mg PO HS 10/28/18 11/01/23 History capsule,extended release 24 hr prevagen 20 mg PO QAM 08/21/21 11/01/23 History Wheeled Walker #1 ea 02/24/22 10/27/23 Rx Balance Of Nature 6 cap PO QAM 02/27/22 11/01/23 History aflibercept 2 mg/0.05 mL 2 mg intravitreal UD 02/27/22 11/01/23 History intravitreal syringe (Eylea) amoxicillin 500 mg capsule 2,000 mg PO UD PRN prior to dental 02/27/22 11/01/23 History procedures cholecalciferol (vitamin D3) 125 125 mcg PO QPM 02/27/22 11/01/23 History mcg (5,000 unit) tablet (Vitamin D3) cyanocobalamin (vitamin B-12) 5,000 mcg sublingual QAM 02/27/22 11/01/23 History 5,000 mcg sublingual tablet (Vitamin B-12) Super Beets 2 tab PO QAM 09/04/22 11/01/23 History magnesium 250 mg tablet 250 mg PO BID 09/04/22 11/01/23 History acetaminophen 500 mg tablet 1,000 mg (2 x 500 mg) PO TID pain 09/13/22 11/01/23 Rx (Tylenol Extra Strength) 30 days #180 tabs ondansetron 4 mg disintegrating 4 mg PO Q8 PRN nausea #20 tabs 09/13/22 11/01/23 Rx tablet caffiene 100 mg PO DAILY PRN .KEEP ALERT 05/27/23 11/01/23 History clonidine HCl 0.3 mg tablet 0.3 mg PO BID #180 tabs 06/10/23 11/01/23 Rx olmesartan 40 mg tablet 40 mg PO DAILY #90 tabs 07/20/23 11/01/23 Rx levothyroxine 88 mcg capsule 88 mcg PO DAILY 07/29/23 11/01/23 History hydralazine 50 mg tablet 100 mg (2 x 50 mg) PO TID 90 days 08/04/23 11/01/23 Rx #540 tabs docusate sodium 100 mg capsule 100 mg PO BID #60 caps 10/15/23 11/01/23 Rx eplerenone 25 mg tablet 25 mg PO BID #60 tabs 10/15/23 11/01/23 Rx polyethylene glycol 3350 17 gram 17 g PO DAILY #30 ea 10/15/23 11/01/23 Rx oral powder packet (Miralax) amlodipine 2.5 mg tablet 2.5 mg PO DAILY #90 tabs 10/27/23 11/01/23 Rx bumetanide 1 mg tablet 1 mg PO BID #60 tabs 10/28/23 11/01/23 Rx labetalol 200 mg tablet 200 mg PO TID 30 days #90 tabs 10/28/23 11/01/23 Rx Past Med/Surg History Problem List (Updated 11/01/23 @ 19:06 by Paolo Cutler PA-C) Renal artery stenosis Anemia (Acute) Leukopenia (Acute) Elevated troponin (Acute) Syncope (Acute) Hyponatremia Diarrhea Syncope Antiphospholipid syndrome Intractable nausea and vomiting Uncontrolled hypertension Lupus anticoagulant disorder Following with heme- no personal hx of DVT/PE- heme aware of upcoming TKA- recommendations given Left ventricular hypertrophy Hypertension Depression Anxiety Prediabetes Nonrheumatic mitral valve insufficiency Near syncope Mild obstructive sleep apnea Lightheadedness Heart disease Diastolic dysfunction, left ventricle AI (aortic insufficiency) Elevated troponin Hypertensive urgency (Acute) Acute hypokalemia (Acute) Leukocytosis (Acute) Abdominal distension (Acute) Acute constipation (Acute) Status post left partial knee replacement Resistant hypertension Antiplatelet or antithrombotic long-term use pt denies any besides aspirin 81 daily Mild mitral regurgitation by prior echocardiogram Effusion, left knee Mild aortic regurgitation Mild tricuspid regurgitation Central retinal vein occlusion ~ - follows with Dr White for an injection in the left eye every 6- 8 weeks. Left ventricular hypertrophy Severe LVH per 09/2021 ECHO ; no LVOT obstruction per cardio follows with Dr. Shepard Dyslipidemia Hypertension (Acute) controlled, stable per pt Depression (Chronic) Medical History Palpitations Adrenal adenoma Avascular necrosis of bone Chondrocalcinosis Hypertension Epistaxis Medication reaction Elevated partial thromboplastin time (PTT) Following with [facility] - Dr. Cadet GERD (gastroesophageal reflux disease) rare, stable per pt Sleep apnea not currently treated- could not tolerate device due to getting up multiple times at night to urinate History of blood transfusion prior to hysterectomy () Anxiety Encounter for pre-operative examination Urinary incontinence severe Hypothyroidism Hearing deficit Wears hearing aids intermittently History of COVID-19 diagnosed 03/2021--mild symptoms, no symptoms now Left knee DJD Surgical History Status post right partial knee replacement History of dilatation and curettage History of bilateral tubal ligation History of partial knee replacement right History of colonoscopy History of bilateral cataract extraction H/O parathyroidectomy S/P appendectomy H/O: hysterectomy Total with BSO Family History Father Coronary heart disease Heart disease Hypertension Myocardial infarction Dyslipidemia Mother Hypertension Sister Hypertension Heart disease Other No family history of adverse response to anesthesia Social History Smoking Status: Former smoker Second Hand Exposure: No; Do You Dip or Chew Tobacco: No; Hx Alcohol Use: No Hx Substance Use: No Preferred Language: Spanish Communication Ability: Effective Visual Impairment: No Limitations Hearing Ability: Normal [employer] Required: No Beliefs That Will Affect Care: None marital status: / Current Living Situation: Family Current Living Situation Comment: lives with daughter current occupational status: retired How many Children do You have: 6 Feels Safe at Home: Yes Diet: regular caffeine: Yes (takes caffeine pills 100mg ) Physical Activity Frequency: Does not Exercise Seatbelt Use: always Do you think of yourself as: straight/heterosexual Gender Identity: Female Assistive Devices: Glasses and Walker Review of Systems Review of Systems: See HPI above Physical Exam Physical Exam: General: no acute distress; pleasant affect; non-toxic appearing; frail appearing; cooperative; SpO2 96% on RA HEENT: normocephalic, atraumatic; no scleral icterus; PERRLA; left eye blinking with mild internal rotation; vision and hearing intact Neck: supple; no lymphadenopathy; trachea midline Skin: warm, dry without signs of tenting; no cyanosis; no rashes, bruising, lesions, or erythema noted CV: chest wall NTP; RRR; S1/S2 normal; no murmurs/rubs/gallops; pulses intact and symmetric at radial, DP, and PT Lungs: no acute respiratory distress; symmetrical chest wall expansion; clear breath sounds across all lung [place] w/o adventitious sounds; no wheezing ABD: Soft, NTP; BS present; no rebound/guarding; no distention MSK: no tics or fasciculations; no edema noted in the LEs b/l, nonerythematous Neuro: A&Ox3; normal mood and affect; fluent speech; no focal deficits; sensation grossly intact in the LEs b/l Results & Data Results & Data Vital Signs (Past 12 Hours) Vital Signs Temp Pulse Resp BP Pulse Ox O2 Del Method 11/01/23 13:40 90 Room Air 11/01/23 13:15 16 11/01/23 13:15 Room Air 11/01/23 13:05 36.6 C 55 L 18 127/63 91 Room Air Laboratory Results Abnormal lab results 11/01/23 Range/Units 13:37 WBC 3.89 L (4.8-10.8) K/ul RBC 3.95 L (4.20-5.40) M/uL Hgb 11.4 L (12.0-16.0) g/dl Hct 33.0 L (37.0-47.0) % Lymph # (Auto) 1.10 L (1.20-3.40) K/uL Sodium 132 L (136-145) mmol/L Chloride 95 L (98-107) mmol/L Creatinine 1.24 H (0.6-1.2) mg/dl Glucose 114 H (70-99(Fasting)) mg/dl Troponin I High Sens 17.6 H (0-14) pg/ml Globulin 2.4 L (2.5-4.0) gm/dl Diagnostic Findings Chest X-Ray 11/01/23 13:40 XR chest 1V portable CLINICAL HISTORY: Chest pain, nonspecific TECHNIQUE: Single frontal radiograph of the chest was obtained. Comparison: Comparison is made to chest radiograph 10/09/2023 FINDINGS: No lines and tubes are seen. Cardiomegaly is noted. The aortic arch is calcified. The lungs are clear. No evidence of pleural effusion or pneumothorax. IMPRESSION: No acute chest disease. Cardiomegaly is noted. ACT 112: Negative or not required by law. Electronically signed by: Francisco J Garcia M.D. 11/01/2023 2:[address] 11/01/23 13:40 CT head/brain wo con CLINICAL HISTORY: syncope Technique: Contiguous axial CT images of the head were acquired from the base of the skull to the vertex without intravenous contrast administration. Images were viewed in brain, subdural and bone windows. Automated dose lowering techniques and/or adjustment according to patient size were utilized for this exam. Comparison: None available at the time of this dictation. Findings: Areas of decreased attenuation are present in the periventricular and subcortical white matter bilaterally consistent with small vessel ischemic disease. Generalized cerebral atrophy with commensurate enlargement of the ventricles, sulci, and cisterns is also present. There is no acute intracranial hemorrhage or evidence of acute territorial infarction. No shift of the midline structures, mass effect, or extra-axial abnormalities are shown. Atherosclerotic calcifications are present in the intracranial segments of the internal carotid arteries. Imaged portions of the paranasal sinuses and mastoid air cells are clear. The orbits appear normal. There are no acute fractures of the calvaria or scalp swelling. Impression: No acute intracranial hemorrhage, no evidence of acute territorial infarction or other acute intracranial disease process. ACT 112: Negative or not required by law. Electronically signed by: Francisco J Garcia M.D. 11/01/2023 2:52 PM ECG Additional Comments: ECG revealed sinus bradycardia at 55 bpm; QTc 447 Code Status & VTE Plan Code Status Full code (discussed with patient and patient's daughter at bedside) VTE Prophylaxis Plan VTE Prophylaxis will be ordered: Yes Supervising Physician Co-Signing Physician Notes Patient seen and examined, chart reviewed, case discussed with Paolo Cutler PA-C and I agree with the assessment and plan as above except as otherwise noted Labs and images reviewed 82-year-old female with a history of hypertension, resistant hypertension, and an episode of orthostasis. Patient has a history of difficult to control hypertension, but had an episode of syncope with lightheaded prodrome. She has a history of KAYLEEN. Given her underlying renal artery stenosis recommend continuing her olmesartan she is slightly bradycardic, labetalol down titrated to 100 mg 3 times daily. Has been intolerant of diuretics in the past of hyponatremia, did not tolerate verapamil, and has consistently been 170/mid 200s as outpatient. Continue other antihypertensives as noted she is nondistressed, feels well, and has no symptoms at time of bedside reassessment. Lungs are clear. EKG is sinus bradycardia, LVH with repolarization abnormality. Agree with above. PG Care Time/CCT Total # of Minutes Spent Total Time Spent with Patient: Total time spent is greater than 50% in coordination of care (as documented) at patient's floor/unit and/or counseling patient: Coding [place] [address] INT INP/OBS CARE 3/75MIN Patient Type Established Medical Decision Making High Complexity Diagnoses Syncope R55 Uncontrolled hypertension I10 Renal artery stenosis I70.1 Diarrhea R19.7 Hyponatremia E87.1
[2023-11-01] MEDS ORDERED: ACETAMINOPHEN 325 MG TAB PO PRN (20:05)
[2023-11-01] MEDS ORDERED: hydrALAZINE HCL 20 MG/ML VIAL IV PRN (20:05)
[2023-11-01] MEDS: cloNIDine HCL 0.3 MG TAB PO SCH (21:21)
[2023-11-01] MEDS: hydrALAZINE TAB 50 MG TAB PO SCH (21:22)
[2023-11-01] MEDS: HEPARIN SOD 5,000 UNIT/0.5 ML VIAL SQ SCH (21:23)
[2023-11-01] MEDS: DOCUSATE SODIUM 100 MG CAP PO SCH (21:23)
[2023-11-01] MEDS: LABETALOL HCL 100 MG TAB PO SCH (21:24)
[2023-11-01] MEDS: VENLAFAXINE HCL XR 150 MG CAPXR PO SCH (21:25)
[2023-11-01] MEDS: MAGNESIUM OXIDE 400 MG TAB PO SCH (21:25)
[2023-11-01] MEDS: PANTOprazole 40 MG TAB PO SCH (21:26)
[2023-11-01] MEDS: LORazepam 0.5 MG TAB PO ONE (23:13)
[2023-11-02 05:08] LABS: Basophils # (auto) 0.05 K/uL (0.00-0.20); Basophils % (auto) 1.2 %; Eosinophils # (auto) 0.24 K/uL (0.00-0.50); Eosinophils % (auto) 5.8 %; Hematocrit (blood only) 33.2 % (37.0-47.0); Hemoglobin 11.2 g/dl (12.0-16.0); Immature Granulocytes # (auto) 0.03 K/uL (0.01-0.20); Immature Granulocytes % (auto) 0.7 %; Lymphocytes # (auto) 1.51 K/uL (1.20-3.40); Lymphocytes % (auto) 36.2 %; Mean Corpuscular Hemoglobin 28.1 pg (25.0-34.0); Mean Corpuscular Hgb Conc 33.7 g/dL (32.0-36.0); Mean Corpuscular Volume 83.2 fL (80.0-100.0); Mean Platelet Volume 10.9 fL (9.4-12.4); Monocytes # (auto) 0.53 K/uL (0.11-0.59); Monocytes % (auto) 12.7 %; Neutrophils # (auto) 1.81 K/uL (1.40-6.50); Neutrophils % (auto) 43.4 %; Platelet Count 207 K/uL (130-400); RDW Coefficient of Variation 13.7 % (11.5-14.5); RDW Standard Deviation 41.9 fL (36.4-46.3); Red Blood Count 3.99 M/uL (4.20-5.40); White Blood Count 4.17 K/ul (4.8-10.8)
[2023-11-02 05:21] LABS: BUN Creatinine Ratio 20.8 (10-20); Creatinine Clr Calc Pharmacy 38.4 ml/min; Est GFR (African American) 56.6 ml/min; Est GFR (Non-African American) 48.9 ml/min; Magnesium 1.8 mg/dl (1.7-2.4); Potassium 3.5 mmol/L (3.5-5.1)
[2023-11-02] MEDS: LEVOTHYROXINE SODIUM 88 MCG TABLET PO SCH (07:54)
[2023-11-02] MEDS: POLYETHYLENE (MIRALAX) 17 GM PACK PO SCH (09:36)
[2023-11-02] MEDS: BUMETANIDE 1 MG TAB PO SCH (09:38)
[2023-11-02 09:59] LABS: Troponin I High Sensitivity 26.6 pg/ml (0-14)
[2023-11-02 15:23] VITALS: RESP 18
--- NOTE | 2023-11-02 18:14 | Hospitalist Progress Note ---
Date of Service November 02, 2023 Assessment & Plan (1) Syncope: Plan: Unwitnessed syncopal episode with Full LOC for a minute. Syncope Possibly 2/2 BP fluctuation due to recent increase in BP medication dosage in addition to diarrhea. Head CT on arrival negative. Echo (10/06/2023) LVH, focal thickening of basal septum with no evidence of outflow obstruction. LVEF at >70% PT evaluated pt today and cleared. Plan: Tele Monitor BP A.m. labs (2) Uncontrolled hypertension: Plan: known hx, on multiple BP meds. her admission BP 123/63. usual home BP readings in 160-170s/80s.recent increase on Labetalol to 200mg TID and Bumex to 1mg BID. Pt says that with this increased dose BP would go down to 130s/50s on measurement and this made her feel tired and dizzy at times in the last few days. Plan: Monitor BP monitor labs Decrease Bumex from 1mg BID --> 0.5mg BID Decrease labetalol from 200 mg TID --> 100mg TID Hold amlodipine (bradycardia) C/W clonidine 0.3mg BID C/w olmesartan 40mg daily C/W hydralazine 100mg TID C/w eplerenone 25mg BID Hydralazine 2.5 mg IV q8h as needed for refractory HTN (SBP>200 or DBP>120) (3) Renal artery stenosis: Plan: Renal artery duplex in 2017 revealed <60% stenosis bilaterally. today K 3.5, BUN 22, Cr 1.06 (1.24 on admission), eGFR 48.9 Plan: Monitor BP AM labs. (4) Hyponatremia: Plan: Hx of dizziness. Na 132 (132) likely 2/2 diarrhea, and diuretic use. Plan: AM labs Adequate hydration. (5) Diarrhea: Plan: loose stools after starting on laxatives. sounds noninfectious - no fevers, abdo pains, no nausea./vomiting. Improved after stopping laxatives. diarrhea sx resolved after admission. (6) Elevated troponin: Plan: pt presented with syncope but did not report any chest pain/discomfort. admission ECG show no acute ST changes. Tele no acute overnight events events. trending Trops (trended down) 17.6 --> 26.6 -->19.1 elevated trops possibly due to demand ischemia. Plan: C/w Tele AM labs AM EKG Admission and Anticipated Discharge Date Admission Date: November 01, 2023 Supervising Physician Co-Signing Physician Notes Attending Physician Supervision Note: I independently interviewed and examined the patient and verified the martinez history and physical, reviewed labs and image studies and agree with findings and care plan noted above. 82-year-old female with a h/o resistant hypertension, KAYLEEN here with syncope Syncope - Recent uptitration of bumex and labetolol and diarrhea a day before admission - Likely contributors. Monitor BP and keep on Tele. Decreased labetolol to 100mgs TID and Decreased bumex to 0.5mgs bid. BP stable. Continue other antihypertensives Mild Troponin elevation - Likely demand related. downtrending. Anticipate d/c home in am Subjective Pt was seen and evaluated this am today by the bedside this am.Pt reports feeling better and denies any further syncopal episodes since admission. Denies any chest pain, palpitations, SoB. Denies any headaches, dizziness or weakness. Denies any fevers chills. Pt was eating her breakfast in her bed comfortable denies any acute pain. Not in any acute distress. No acute events overnight as per the nurse. Telemetry - no events. Interval history: On further questioning pt reports that she has been having loose stools 3-4 bowel movements as she was prescribed laxatives and also her BP meds doses were increased lately Bumex 1.5 tab to 2 tabs per day and labetalol to 200mg. she says that her BP was dropping from 170s to 130s, that was making her feel dizzy for the last 4 days. Denies any hx of CAD. Review of Systems Review of Systems: rest all negative. Physical Exam Physical Exam: General:Alert and oriented, no acute distress HEENT: Normocephalic, moist oral mucosa, Cardio: Regular rate and rhythm, no murmur, Resp:Lungs clear to auscultation b/l, no wheezes or rhonchi, GI: Soft and nontender, nondistended, bowel sounds active Skin: Warm, pink, dry, Psych: Mood-affect congruence. Results & Data Results & Data Vital Signs (Past 12 Hours) Vital Signs Temp Pulse Pulse Resp BP Pulse Ox O2 Del Method 11/02/23 15:20 36.8 C 59 L 18 158/64 H 92 Room Air 11/02/23 15:00 66 11/02/23 14:42 36.6 C 65 16 159/70 H 95 Room Air 11/02/23 14:39 Room Air 11/02/23 12:00 61 20 139/76 94 Room Air 11/02/23 09:21 70 11/02/23 07:58 68 20 174/97 H 94 Room Air Resident Activity Tracking Resident Involvement: Resident Care Provided Care Provided: Adult Hospital Medicine (1) Syncope Syncope type: unspecified Qualified Code(s): R55 - Syncope and collapse (5) Diarrhea Diarrhea type: unspecified type Qualified Code(s): R19.7 - Diarrhea, unspecified
[2023-11-03] MEDS: LORazepam 0.5 MG TAB PO ONE (01:00)
--- NOTE | 2023-11-03 06:17 | Electrocardiogram Report ---
Test Reason : Blood Pressure : */* mmHG Vent. Rate : 55 BPM Atrial Rate : 55 BPM P-R Int : 192 ms QRS Dur : 94 ms QT Int : 468 ms P-R-T Axes : 43 -33 126 degrees QTcB Int : 447 ms Sinus bradycardia Left axis deviation Left ventricular hypertrophy with repolarization abnormality ( R in aVL , Nunda product , Romhilt-E stes ) Inferior infarct , age undetermined Anterolateral infarct , age undetermined Abnormal ECG When compared with ECG of 10-Oct-2023 05:57, Vent. rate has decreased by [address] elevation now present in Anterior leads Confirmed by Saleem Bonilla ([id number]) on 11/03/2023 6:16:43 AM Referred By: REFERRED SELF Confirmed By: Saleem Bonilla
[2023-11-03 06:21] LABS: Basophils # (auto) 0.04 K/uL (0.00-0.20); Basophils % (auto) 1.2 %; Eosinophils # (auto) 0.19 K/uL (0.00-0.50); Eosinophils % (auto) 5.7 %; Hematocrit (blood only) 33.8 % (37.0-47.0); Hemoglobin 11.5 g/dl (12.0-16.0); Immature Granulocytes # (auto) 0.02 K/uL (0.01-0.20); Immature Granulocytes % (auto) 0.6 %; Lymphocytes % (auto) 35.7 %; Mean Corpuscular Hemoglobin 28.4 pg (25.0-34.0); Mean Corpuscular Volume 83.5 fL (80.0-100.0); Mean Platelet Volume 10.6 fL (9.4-12.4); Monocytes # (auto) 0.42 K/uL (0.11-0.59); Monocytes % (auto) 12.5 %; Neutrophils # (auto) 1.49 K/uL (1.40-6.50); Neutrophils % (auto) 44.3 %; Platelet Count 203 K/uL (130-400); RDW Coefficient of Variation 13.8 % (11.5-14.5); RDW Standard Deviation 42.2 fL (36.4-46.3); Red Blood Count 4.05 M/uL (4.20-5.40); White Blood Count 3.36 K/ul (4.8-10.8)
[2023-11-03 06:33] LABS: Albumin Globulin Ratio 1.8 (0.9-2); Albumin Level 4.2 gm/dl (3.4-5.0); Bilirubin,Total 0.5 mg/dl (0.2-1.0); Calcium 9.1 mg/dl (8.6-10.3); Creatinine Clr Calc Pharmacy 34.7 ml/min; Est GFR (African American) 49.7 ml/min; Est GFR (Non-African American) 42.9 ml/min; Globulin 2.4 gm/dl (2.5-4.0); Potassium 3.5 mmol/L (3.5-5.1); Total Protein 6.6 gm/dl (6.0-8.3)
--- NOTE | 2023-11-03 09:32 | Electrocardiogram Report ---
Test Reason : Blood Pressure : */* mmHG Vent. Rate : 56 BPM Atrial Rate : 56 BPM P-R Int : 198 ms QRS Dur : 100 ms QT Int : 470 ms P-R-T Axes : 61 -36 130 degrees QTcB Int : 453 ms Sinus bradycardia Left axis deviation Left ventricular hypertrophy with repolarization abnormality Abnormal ECG When compared with ECG of 02-Nov-2023 00:10, No significant change was found Confirmed by Ta Woodall ([id number]) on 11/03/2023 9:32:00 AM Referred By: REFERRED SELF Confirmed By: Ta Woodall
--- NOTE | 2023-11-03 09:34 | Electrocardiogram Report ---
Test Reason : Blood Pressure : */* mmHG Vent. Rate : 57 BPM Atrial Rate : 57 BPM P-R Int : 190 ms QRS Dur : 104 ms QT Int : 458 ms P-R-T Axes : 61 -28 136 degrees QTcB Int : 445 ms Sinus bradycardia Left ventricular hypertrophy with repolarization abnormality ( R in aVL , Hammon product , Romhilt-E stes ) Abnormal ECG When compared with ECG of 01-Nov-2023 13:36, Criteria for Inferior infarct are no longer Present Criteria for Anterolateral infarct no longer present Confirmed by Ta Woodall ([id number]) on 11/03/2023 9:34:00 AM Referred By: REFERRED SELF Confirmed By: Ta Woodall
[2023-11-03 11:29] VITALS: BP 192/77; PULSE 61; TEMP 98.4; O2SAT 96
--- NOTE | 2023-11-03 14:29 | Discharge Summary ---
Date of Service November 03, 2023 Admission HPI Per Admitting Provider Sarika is a pleasant 82-year-old female with PMH of uncontrolled HTN, KAYLEEN, depression, dyslipidemia, central retinal vein occlusion in the left eye, aortic insufficiency, antiphospholipid syndrome, and anxiety. She presented on 10/31 after an unwitnessed episode of syncope and collapse. Patient reports she was sitting at a table, and felt like she was going to pass out. She reports she felt lightheaded, not dizzy (like the room was spinning). She got up to go lie down in bed, and experienced a syncopal event. This was unwitnessed, she is unsure if she hit her head, but reports no head pain. Daughter heard the fall and went to check and are; full LOC. She was out for approximately 1 minute, then responded by opening her eyes. She was responding to questions at that time and says she was feeling tired and wanted to sleep. She denied any chest pain or nausea at that time. Patient's daughter helped her get up to a chair, where she was okay for a moment, then she passed out again for another minute; daughter thought she might of fainted again and called EMS. This all occurred shortly after patient took her morning BP medications. Patient took all her regular morning medications today, and manages her own medicine at home. However she has had some recent changes in her blood pressure medications. For instance her labetalol was changed from 300 mg BID-->200mg TID. Also her Bumex was increased from 0.5 mg once daily, to 1 mg twice daily. She reports she is on 6 blood pressure medications total. She does check her BP at home with a home BP cuff, and reports it has been low for her and recently (most recently 127/52). Prior to these changes she would usually run in the SBP 170 range. She reports she has felt lousy, tired, and weak since returning home from her recent hospital stay. She was recently in the hospital for a course of constipation and hypertension. She had 2 days of regular bowel movements after leaving hospital, then developed diarrhea x 7 days. She describes it as loose stool, but not watery; no blood in stool; not mucousy. She is unsure she was given antibiotics in the hospital. She is not having regular stool in between bouts of diarrhea, but only has a diarrhea every "third day". Patient reports she has had diarrhea x 7 days. Patient does not have a history of fainting. However she did feel presyncopal a couple days ago, and believes that it largely spawns from taking her BP medications in the morning; she does not feel lightheaded in the afternoons. Patient denies smoking, tobacco use, or recent alcohol use. She has 19 grandchildren, and 3 great-grandchildren, with [address]. Patient is mildly bradycardic at 55 bpm at time of admission; SpO2 90% on RA; vitals otherwise stable. ED course: ROS: Patient endorses increased fatigue, syncope, lightheadedness, nausea, diarrhea (every third day since leaving the hospital), and urinary incontinence (chronic; not new for her). Patient denies dizziness (like the room is spinning), fever, chills, night- sweat, MUSE, rashes, tick bites, chest pain, SOB, chest palpitations, cough, pleuritic CP, abdominal pain, vomiting, blood in the stool, burning with urination, dysuria, blood in the urine, or numbness/tingling in the arms and legs. Admission Exam Per Admitting Provider General: no acute distress; pleasant affect; non-toxic appearing; frail appearing; cooperative; SpO2 96% on RA HEENT: normocephalic, atraumatic; no scleral icterus; PERRLA; left eye blinking with mild internal rotation; vision and hearing intact Neck: supple; no lymphadenopathy; trachea midline Skin: warm, dry without signs of tenting; no cyanosis; no rashes, bruising, lesions, or erythema noted CV: chest wall NTP; RRR; S1/S2 normal; no murmurs/rubs/gallops; pulses intact and symmetric at radial, DP, and PT Lungs: no acute respiratory distress; symmetrical chest wall expansion; clear breath sounds across all lung [place] w/o adventitious sounds; no wheezing ABD: Soft, NTP; BS present; no rebound/guarding; no distention MSK: no tics or fasciculations; no edema noted in the LEs b/l, nonerythematous Neuro: A&Ox3; normal mood and affect; fluent speech; no focal deficits; sensation grossly intact in the LEs b/l Principal Diagnosis Syncope Discharge Exam General:Alert and oriented, no acute distress HEENT: Normocephalic, moist oral mucosa, Cardio: Regular rate and rhythm, no murmur, Resp:Lungs clear to auscultation b/l, no wheezes or rhonchi, GI: Soft and nontender, nondistended, bowel sounds active Skin: Warm, pink, dry, Psych: Mood-affect congruence. Discharge Data Allergies Allergy/AdvReac Type Severity Reaction Status Date / Time diltiazem Allergy Severe Rash Verified 10/05/23 20:40 Influenza Virus Vaccines Allergy Severe itching Verified 10/05/23 20:40 sertraline [From Zoloft] Allergy Severe shortness Verified 10/05/23 20:40 of breath, worsened anxiety Sulfa (Sulfonamide Allergy Severe TONGUE Verified 10/05/23 20:40 Antibiotics) SWELLS sulfamethoxazole Allergy Severe TONGUE Verified 10/05/23 20:40 SWELLS trimethoprim Allergy Severe TONGUE Verified 10/05/23 20:40 SWELLS adhesive tape Allergy Mild Rash Verified 10/05/23 20:40 Beta-Blockers AdvReac Severe shortness Verified 10/06/23 02:02 (Beta-Adrenergic Bloc of breath, worsened anxiety metoprolol AdvReac Severe severe Verified 10/06/23 02:02 fatigue and palpitations metronidazole [From Flagyl] AdvReac Intermediate Nausea Verified 10/05/23 20:40 felodipine [From Plendil] AdvReac Unknown Unknown Verified 10/05/23 20:40 Consultations 11/01/23 16:26 ED Decision to Admit Stat Ordered Studies 11/01/23 13:40 CT head/brain wo con Stat Hospital Course (1) Syncope: Syncope likely 2/2 BP fluctuation due to recent increase in BP medication dosage in addition to diarrhea. Pt was evaluated - Head CT was negative. EKG no acute changes and trops were mildly raised likely due to demand ischaemia. due to Echo (10/06/2023) LVH, focal thickening of basal septum with no evidence of outflow obstruction. LVEF at >70% Pts BP meds were titrated and her BP and vitals were monitored during the stay. pt stabilized medically.PT evaluated and cleared for d/c home. Consider early follow with PCP to monitor BP and titrate the meds. (2) Uncontrolled hypertension: known hx, on multiple BP meds at home. We have adjusted dosage of 2 of her BP meds. and monitored her BP and symptoms during her admission, pt responded very well. Hence pt is discharged with Bumex 0.5mg bid and labetalol 100mg TID. consider continuing rest of the BP meds as usual along with the above changes. (3) Renal artery stenosis: Renal artery duplex in 2017 revealed <60% stenosis bilaterally. advised to follow up HTN clinic. (4) Hyponatremia: Hx of dizziness. Na 132, likely 2/2 diarrhea, and diuretic use. Na improved with hydration and pt reported no diarrhea after the laxatives were held. Hyponatremia resolved at d/c Na 135. (5) Diarrhea: Related to laxative use. Improved after stopping it. (6) Elevated troponin: pt presented with syncope but did not report any chest pain/discomfort. admission ECG shows no acute ST/T changes. transiently elevated mild trops on admission was possibly due to demand isc hemia. Pt had no symptoms while in-pt. Monitored on tele with no events. Total Time Total Time Spent Total Time Spent (In Minutes): as per attending entry Discharge Plan Discharge Items Patient Disposition: Home - Self-Care Reason For Visit: SYNCOPE/collapse Discharge Diagnosis: syncope Activity: Per Instructions section Non-emergency contact: Primary Care Provider Call non-emergency contact if: you have any medication questions and your symptoms worsen Follow-up/Referrals: Natalie Wan CRNP [Nurse Practitioner] - (HTN f/u) Hernandez Brar [Primary Care Provider] - 11/18/23 10:05 am (Hospital follow up scheduled November 17 at 10:05 with Demetria Enciso at the [facility] location. ) Diet: Heart Healthy Addtl Attending Provider Instructions: You were admitted to the hospital for syncope (passing out). You were evaluated with a head CT (which was normal) and your heart was monitored on telemetry (which showed no abnormal heart rhythms). It is thought that the reason you passed out was due to the recent change in your blood pressure medications. A discharge summary will be sent to your primary care physician to ensure continuity of care. Please bring this discharge summary with you to your next office appointment so that your provider can review it at that time. Medications: Your medication list has been reviewed and reconciled upon discharge to ensure accuracy and continuity of care. An updated list of all your medications is included with your hospital discharge paperwork. Please review this list closely and make note of any changes to your medications. - You should decrease your bumex to 0.5mg twice per day (previously 1mg twice per day). - You should also decrease labetalol to 100mg three times per day (previously 200mg three times per day). These two new scripts were sent to your pharmacy. Follow up appointments: - Make a follow up appointment with your PCP within the next week. It is very important that you follow up with them shortly after discharge from the hospital. - You should follow up with the hypertension clinic shortly after discharge. - Keep all of your follow up appointments as already scheduled. If you cannot make an appointment, notify your provider. CONTACT YOUR PRIMARY CARE PROVIDER if you experience any of the following: - Difficulty following your treatment plan - Difficulty taking any of your medications CALL 911 OR GO TO THE EMERGENCY DEPARTMENT if you experience any of the following: - Syncope (losing consciousness) for any period of time - Sudden, severe abdominal pain or nausea/vomiting - Severe chest pain or chest pain that radiates to your jaw or arm - Sudden, severe shortness of breath or difficulty breathing Pending Studies at Discharge: No Stand-Alone Forms: My [facility] [employer], Smoking Cessation Medications and DC Order Prescriptions: New bumetanide 1 mg Tablet 0.5 mg PO BID Qty: 60 0RF labetalol 100 mg Tablet 100 mg PO TID Qty: 90 0RF Continued ondansetron 4 mg tablet,disintegrating 4 mg PO Q8 PRN (Reason: nausea) Qty: 20 1RF Rx Instructions: Take as needed for nausea acetaminophen [Tylenol Extra Strength] 500 mg tablet 1,000 mg PO TID 30 Days Qty: 180 0RF Rx Instructions: Take 3 times per day to lessen pain. clonidine HCl 0.3 mg tablet 0.3 mg PO BID Qty: 180 3RF olmesartan 40 mg tablet 40 mg PO DAILY Qty: 90 2RF prevagen 20 mg 20 mg PO QAM ([facility] [place]) Ysabel Portillo [facility] See Rx Instructions .MEDSUPPLY Qty: 1 0RF Rx Instructions: As directed amlodipine 2.5 mg tablet 2.5 mg PO DAILY Qty: 90 1RF caffiene 100 mg PO DAILY PRN (Reason: .KEEP ALERT) Rx Instructions: "to help her function" levothyroxine 88 mcg capsule 88 mcg PO DAILY hydralazine 50 mg tablet 100 mg PO TID 90 Days Qty: 540 1RF lorazepam [Ativan] 0.5 mg Tablet 0.5 mg SUBLINGUAL BID PRN (Reason: Anxiety) pantoprazole 40 mg Tablet,Delayed Release (Dr/Ec) 40 mg PO QPM venlafaxine 150 mg Capsule,Extended Release 24hr 150 mg PO HS Rx Instructions: take with 75mg multivitamin Tablet 1 tab PO QAM Manti-3 350 mg-235 mg- 90 mg-597 mg Capsule,Delayed Release(Dr/Ec) 1 cap PO QPM cholecalciferol (vitamin D3) [Vitamin D3] 125 mcg (5,000 unit) Tablet 125 mcg PO QPM Balance Of Nature 6 cap PO QAM Patient Comments: "veggie and fruit capsules midday" amoxicillin 500 mg Capsule 2,000 mg PO UD PRN (Reason: prior to dental procedures) Eylea 2 mg/0.05 mL Syringe 2 mg INTRAVITREAL UD Patient Comments: every 6-8wks cyanocobalamin (vitamin B-12) [Vitamin B-12] 5,000 mcg Tablet, Sublingual 5,000 mcg SUBLINGUAL QAM magnesium 250 mg Tablet 250 mg PO BID Hold Instructions: Home Medication placed on hold at Doctor's office Super Beets 2 tab PO QAM docusate sodium 100 mg Capsule 100 mg PO BID Qty: 60 0RF Hold Instructions: Home Medication placed on hold at Doctor's office Rx Instructions: [id number] polyethylene glycol 3350 [Miralax] 17 gram Powder In Packet 17 g PO DAILY Qty: 30 0RF Hold Instructions: Home Medication placed on hold at Doctor's office Rx Instructions: [id number]-[id number] eplerenone 25 mg tablet 25 mg PO BID Qty: 60 0RF Rx Instructions: take at bedtime Discontinued labetalol 200 mg tablet 200 mg PO TID 30 Days Qty: 90 1RF bumetanide 1 mg tablet 1 mg PO BID Qty: 60 1RF Discharge Orders: Discharge Order (Routine); Ordered 11/03/23 Ordered By: Kristi Weaver Admission Data Admit Date/Time: 11/01/23 16:42 Attending Provider: Vanessa Jones Admit Provider: Vinny Gutierrez Primary Care Provider: Hernandez Brar Other Providers: Vinny Gutierrez Other Interventions: Discharge Summary Assessment (RN) Last Done: 11/03/23 11:36 Supervising Physician Co-Signing Physician Notes Attending Physician Supervision Note: I independently interviewed and examined the patient and verified the martinez history and physical, reviewed labs and image studies and agree with findings and care plan noted above. 82-year-old female with a h/o resistant hypertension, KAYLEEN here with syncope Syncope - Monitored on Tele. Echo - EF >70%. Severe LVH but no outflow tract obstruction. Recent uptitration of bumex and labetolol and diarrhea a day before admission - Likely contributors. Decreased labetolol to 100mgs TID and Decreased bumex to 0.5mgs bid. f/u with antihypertensive clinic. Mild Troponin elevation - Demand related. Resident Activity Tracking Resident Involvement: Resident Care Provided Care Provided: Adult [facility]
== END 2023-11-03 12:49 | disposition home or self-care (01) | DRG 312 ==
LOC: ED 13:28 → SUATTDRO 16:42 → EDINP 16:42 → 2S 20:06

== ENCOUNTER 2024-11-15 14:44 | Inpatient (IN) ==
--- NOTE | 2024-11-15 15:07 | Emergency Department Note ---
History of Present Illness General Chief complaint: Cardiac Assessment Stated complaint: DIZZINESS, IRREGULAR HEART RATE AND BLOOD PRESSURE Time Seen by Provider: 11/15/24 15:06 History of Present Illness This is an 83-year-old female who presents to the emergency department via private vehicle accompanied by daughter with complaints of "dizziness, irregular heart rate, blood pressure issue". Patient is she feels fine presently, however as of recent has had some episodes of falling/possible syncope. Patient is intermittent dizziness. She was seen today by nephrology and referred in noting the bradycardia and symptoms as above. Patient also at times will feel warm, diaphoretic. Patient also notes systolic murmur heard today louder than previous. No preceding or current illness. No fevers or chills. No vomiting. Home Medications Medication Instructions Recorded Confirmed Type lorazepam 0.5 mg tablet (Ativan) 0.5 mg sublingual BID PRN Anxiety 10/28/18 11/15/24 History multivitamin 1 tab PO QAM 10/28/18 11/15/24 History omega 3 350 mg-dha 235 mg-epa 90 1 cap PO QPM 10/28/18 11/15/24 History mg-fish oil 597 mg capsule,delay rel ([place]-3) pantoprazole 40 mg tablet,delayed 40 mg PO QPM 10/28/18 11/15/24 History release venlafaxine 150 mg 150 mg PO HS 10/28/18 11/15/24 History capsule,extended release 24 hr Wheeled Walker #1 ea 02/24/22 11/15/24 Rx Balance Of Nature 6 cap PO QAM 02/27/22 11/15/24 History aflibercept 2 mg/0.05 mL 2 mg intravitreal UD 02/27/22 11/15/24 History intravitreal syringe (Eylea) amoxicillin 500 mg capsule 2,000 mg PO UD PRN prior to dental 02/27/22 11/15/24 History procedures cholecalciferol (vitamin D3) 125 125 mcg PO QPM 02/27/22 11/15/24 History mcg (5,000 unit) tablet (Vitamin D3) cyanocobalamin (vitamin B-12) 5,000 mcg sublingual QAM 02/27/22 11/15/24 History 5,000 mcg sublingual tablet (Vitamin B-12) Super Beets 2 tab PO QAM 09/04/22 11/15/24 History ondansetron 4 mg disintegrating 4 mg PO Q8 PRN nausea #20 tabs 09/13/22 11/15/24 Rx tablet caffiene 100 mg PO DAILY PRN .KEEP ALERT 05/27/23 11/15/24 History levothyroxine 88 mcg capsule 88 mcg PO DAILY 07/29/23 11/15/24 History docusate sodium 100 mg capsule 100 mg PO BID PRN Constipation 11/11/23 11/15/24 History olmesartan 40 mg tablet 40 mg PO DAILY #90 tabs 04/19/24 11/15/24 Rx magnesium 250 mg tablet 400 mg PO DAILY 06/09/24 11/15/24 History eplerenone 25 mg tablet 25 mg PO DAILY #90 tabs 08/05/24 11/15/24 Rx bumetanide 0.5 mg tablet 0.5 mg PO BID #180 tabs 08/31/24 11/15/24 Rx amlodipine 5 mg tablet 5 mg PO DAILY #90 tabs 09/14/24 11/15/24 Rx hydralazine 50 mg tablet 100 mg (2 x 50 mg) PO TID 90 days 09/14/24 11/15/24 Rx #540 tabs acetaminophen 500 mg tablet 1,000 mg PO TID PRN pain 11/15/24 11/15/24 History (Tylenol Extra Strength) Allergies Allergy/AdvReac Type Severity Reaction Status Date / Time Beta-Blockers Allergy Severe shortness Verified 11/15/24 17:11 (Beta-Adrenergic Bloc of breath, worsened anxiety sertraline [From Zoloft] Allergy Severe shortness Verified 11/15/24 17:11 of breath, worsened anxiety Sulfa (Sulfonamide Allergy Severe TONGUE Verified 11/15/24 17:11 Antibiotics) SWELLS sulfamethoxazole Allergy Severe TONGUE Verified 11/15/24 17:11 SWELLS trimethoprim Allergy Severe TONGUE Verified 11/15/24 17:11 SWELLS diltiazem Allergy Intermediate Rash Verified 11/15/24 17:11 Influenza Virus Vaccines Allergy Intermediate itching Verified 11/15/24 17:11 adhesive tape Allergy Mild Rash Verified 11/15/24 17:11 metoprolol AdvReac Severe severe Verified 11/15/24 17:11 fatigue and palpitations metronidazole [From Flagyl] AdvReac Intermediate Nausea Verified 11/15/24 17:11 felodipine [From Plendil] AdvReac Unknown Unknown Verified 11/15/24 17:11 Past Med/Surg History Problem List (Updated 11/15/24 @ 19:03 by Alcides Marr PA-C) Hyponatremia (Acute) Bradycardia Fatigue Albuminuria Benign hypertension Renal artery stenosis Anemia (Acute) Leukopenia (Acute) Elevated troponin (Acute) Syncope (Acute) Hyponatremia Diarrhea Syncope Antiphospholipid syndrome Uncontrolled hypertension Lupus anticoagulant disorder Following with heme- no personal hx of DVT/PE- heme aware of upcoming TKA- recommendations given Left ventricular hypertrophy Hypertension Depression Anxiety Prediabetes Nonrheumatic mitral valve insufficiency Near syncope Mild obstructive sleep apnea Lightheadedness (Acute) Heart disease Diastolic dysfunction, left ventricle AI (aortic insufficiency) Status post left partial knee replacement Resistant hypertension Antiplatelet or antithrombotic long-term use pt denies any besides aspirin 81 daily Mild mitral regurgitation by prior echocardiogram Effusion, left knee Mild aortic regurgitation Mild tricuspid regurgitation Central retinal vein occlusion ~ - follows with Dr White for an injection in the left eye every 6- 8 weeks. Left ventricular hypertrophy Severe LVH per 09/2021 ECHO ; no LVOT obstruction per cardio follows with Dr. Shepard Dyslipidemia Hypertension (Acute) controlled, stable per pt Depression (Chronic) Medical History Palpitations Adrenal adenoma Avascular necrosis of bone Chondrocalcinosis Hypertension Epistaxis Medication reaction Elevated partial thromboplastin time (PTT) Following with [facility] - Dr. Cadet GERD (gastroesophageal reflux disease) rare, stable per pt Sleep apnea not currently treated- could not tolerate device due to getting up multiple times at night to urinate History of blood transfusion prior to hysterectomy () Anxiety Encounter for pre-operative examination Urinary incontinence severe Hypothyroidism Hearing deficit Wears hearing aids intermittently History of COVID-19 diagnosed 03/2021--mild symptoms, no symptoms now Left knee DJD Surgical History Status post right partial knee replacement History of dilatation and curettage History of bilateral tubal ligation History of partial knee replacement right History of colonoscopy History of bilateral cataract extraction H/O parathyroidectomy S/P appendectomy H/O: hysterectomy Total with BSO Family History Father Coronary heart disease Heart disease Hypertension Myocardial infarction Dyslipidemia Mother Hypertension Sister Hypertension Heart disease Other No family history of adverse response to anesthesia Social History Smoking Status: Never smoker Second Hand Exposure: No; Do You Dip or Chew Tobacco: No; Hx Alcohol Use: No Hx Substance Use: No Preferred Language: Bulgarian Communication Ability: Effective Visual Impairment: No Limitations Hearing Ability: Normal Camera Storage Clerk Required: No Beliefs That Will Affect Care: None marital status: / Current Living Situation: Family Current Living Situation Comment: daughter current occupational status: retired How many Children do You have: 6 Feels Safe at Home: Yes Diet: regular caffeine: Yes (takes caffeine pills 100mg ) Physical Activity Frequency: Does not Exercise Seatbelt Use: always Do you think of yourself as: straight/heterosexual Gender Identity: Female Assistive Devices: Glasses Review of Systems A total of 10 systems reviewed and were otherwise negative Physical Exam Vital Signs Vital Signs - 24 hr 11/15/24 14:46 11/15/24 16:30 11/15/24 16:34 Temperature 36.5 C Temperature Source Temporal Artery Scan Pulse Rate 88 91 H Pulse Rate [Finger] 90 Respiratory Rate 17 18 Respiratory Effort / Characteristics Non-Labored Spontaneous Respiratory Depth Normal Respiratory Pattern Regular Blood Pressure 163/70 H Blood Pressure [Right Arm] 192/104 H Blood Pressure Mean 101 Blood Pressure Mean [Right Arm] 133 Pulse Oximetry 96 95 Oxygen Delivery Method Room Air Room Air Sepsis Recent Fever Within 48 Hours No Sepsis New/Unexplained Change in Mental Status N/A Sepsis Action Taken by Nursing No Action Required 11/15/24 18:22 Temperature Temperature Source Pulse Rate Pulse Rate [Finger] 99 H Respiratory Rate 20 Respiratory Effort / Characteristics Respiratory Depth Respiratory Pattern Blood Pressure Blood Pressure [Right Arm] 211/109 H Blood Pressure Mean Blood Pressure Mean [Right Arm] 143 Pulse Oximetry 96 Oxygen Delivery Method Room Air Sepsis Recent Fever Within 48 Hours Sepsis New/Unexplained Change in Mental Status Sepsis Action Taken by Nursing VITAL SIGNS - Vital signs and nursing notes were reviewed. Stable and afebrile. GENERAL -83-year-old female appearing her stated age who is in no acute distress. Communicates well with provider and answers questions appropriately. SKIN - Without rashes. No meningeal or petechial rash. HEAD - NC/AT. EYES - PERRL with EOMI bilaterally. Sclera anicteric. EARS - No deformities of external structures noted on gross examination bilaterally. NOSE - Midline and without cyanosis. No epistaxis or purulent drainage noted. MOUTH/OROPHARYNX - Without perioral cyanosis. NECK - Neck with FROM. No nuchal rigidity. LUNGS - CTA CARDIAC - RRR ABDOMEN - Abdominal contour normal without pulsations or visible masses. BS normoactive all four quadrants. No tenderness, palpable masses, hepatosplenomegaly, or ascites noted. EXTREMITIES - No clubbing or peripheral cyanosis. +5/5 strength noted in UE/LE bilaterally. NEUROLOGIC - Cranial nerves II through XII grossly intact. PSYCH -alert, oriented and pleasant on exam Course Administered Medications Discontinued Medications Amlodipine Besylate (Amlodipine Besylate 5 Mg Tab) 5 mg PO NOW ONE Stop: 11/15/24 18:38 Last Admin: 11/15/24 18:43 Dose: 5 mg Documented By: RADHA Medical Decision Making Laboratory Data 11/15/24 15:52 11/15/24 15:52 Lab Results 11/15/24 Range/Units 15:52 WBC 8.71 (4.8-10.8) K/ul RBC 5.00 (4.20-5.40) M/uL Hgb 14.7 (12.0-16.0) g/dl Hct 42.5 (37.0-47.0) % MCV 85.0 (80.0-100.0) fL MCH 29.4 (25.0-34.0) pg MCHC 34.6 (32.0-36.0) g/dL RDW Std Deviation 41.1 (36.4-46.3) fL RDW Coeff of Elizabeth 13.2 (11.5-14.5) % Plt Count 312 (130-400) K/uL MPV 10.7 (9.4-12.4) fL Immature Gran % (Auto) 0.2 % Neut % (Auto) 71.2 % Lymph % (Auto) 18.7 % [place] % (Auto) 8.2 % Eos % (Auto) 0.9 % Baso % (Auto) 0.8 % Neut # (Auto) 6.20 (1.40-6.50) K/uL Lymph # (Auto) 1.63 (1.20-3.40) K/uL [place] # (Auto) 0.71 H (0.11-0.59) K/uL Eos # (Auto) 0.08 (0.00-0.50) K/uL Baso # (Auto) 0.07 (0.00-0.20) K/uL Immature Gran # (Auto) 0.02 (0.01-0.20) K/uL PT 10.6 (9.0-12.0) Seconds INR 1.0 (0.9-1.1) APTT 38 H (21-31) Seconds PTT Ratio 1.4 Sodium 133 L (136-145) mmol/L Potassium 3.9 (3.5-5.1) mmol/L Chloride 99 (98-107) mmol/L Carbon Dioxide 25 (21-32) mmol/L Anion Gap 9 (3-11) BUN 25 H (6-23) mg/dl Creatinine 1.16 (0.6-1.2) mg/dl Est Cr Clr Drug Dosing 33.3 ml/min eGFR 46.78 BUN/Creatinine Ratio 21.6 H (10-20) Glucose 106 H (70-99(Fasting)) mg/dl Calcium 9.8 (8.6-10.3) mg/dl Magnesium 2.2 (1.7-2.4) mg/dl Total Bilirubin 0.6 (0.2-1.0) mg/dl AST 19 (13-39) U/L ALT 17 (7-52) U/L Alkaline Phosphatase 92 (34-104) U/L Troponin I High Sens 50.4 H* (0-14) pg/ml Total Protein 8.0 (6.0-8.3) gm/dl Albumin 4.7 (3.4-5.0) gm/dl Globulin 3.3 (2.5-4.0) gm/dl Albumin/Globulin Ratio 1.4 (0.9-2) TSH 3.065 (0.300-4.500) uIu/ml Lyme Disease Screen Negative (Negative) Imaging Data Radiologist's Impression: Head CT 11/15/24 15:34 Clinical History: Dizziness Technique: Axial computed tomography images were obtained of the brain without intravenous contrast. Findings: There is diffuse cerebral atrophy, within expected limits for the patient's age. Areas of decreased attenuation are seen within the periventricular white matter, likely representing chronic small vessel ischemic disease. There is no definite sign of acute or old infarction. No intracranial hemorrhage is evident. No definite mass lesion is seen on this noncontrast examination. There is no midline shift or other form of herniation. No hydrocephalus is seen. No fracture is identified. The orbits and the visualized paranasal sinuses appear unremarkable. The mastoid air cells appear clear. Impression: 1. Cerebral atrophy and chronic small vessel ischemic disease 2. Otherwise unremarkable noncontrast CT of the brain Electronically signed by Elton Hinkle 11-15-2024 4:20 PM Chest X-Ray 11/15/24 15:35 XR chest 1V portable CLINICAL HISTORY: dizziness, bradycardia COMPARISON STUDY: 11/01/2023 FINDINGS: Stable cardiomegaly without pulmonary vascular congestion. No consolidation or pleural effusion. No pneumothorax. IMPRESSION: No acute findings. ACT 112: Negative or not required by law. Electronically signed by: Flaco Nelson M.D. 11/15/2024 3:55 PM MDM Narrative Patient was seen and evaluated as above in room B12a. Review was performed of nursing notes and vital signs. I did review pertinent previous visits and patient history. After obtaining a thorough history and physical examination the above work up was performed. Patient presents with the above symptoms. She is well-appearing and nontoxic on assessment. NIHSS is 0. No focal deficit. GCS 15. EKG: Per my interpretation sinus rhythm with occasional PVC. Ventricular rate 95. QTc 485. QRS 98. No ST elevation. Options of care were discussed with the patient. IV access was established. Labs were drawn. There is no leukocytosis or concerning anemia. No emergent coagulopathy. Hyponatremia 133. No evidence of emergent kidney or liver failure. Troponin elevated at 50.4. TSH reveals euthyroid state. Lyme screen negative. Chest x-ray per monitor potation negative for acute process. CT scan of the head as above without any acute finding. Noting the patient's potential syncope with multiple episodes over the recent past/dizziness/falls I do believe that further evaluation and management in inpatient setting is warranted. Case discussed with the hospitalist service. Please refer to further documentation regarding her stay. GCS: 15 In the evaluation and treatment of this patient the following differential diagnoses were entertained: CVA, TIA, malignancy, electrolyte disturbance, PR, PE, pneumonia, among others Impression & Plan Lightheadedness, Syncope, Hyponatremia, Elevated troponin Discharge Plan Visit Data Chief Complaint: Cardiac Assessment Stated Complaint: DIZZINESS, IRREGULAR HEART RATE AND BLOOD PRESSURE ED Provider: Everett Dey ED Midlevel Provider: Alcides Marr Discharge Problem: Lightheadedness, Syncope, Hyponatremia, Elevated troponin Patient Disposition: Admitted As Inpatient Condition: Good Forms Stand Alone Forms: My [facility] [employer] Prescriptions Prescriptions: No Action ondansetron 4 mg tablet,disintegrating 4 mg PO Q8 PRN (Reason: nausea) Qty: 20 1RF Rx Instructions: Take as needed for nausea eplerenone 25 mg tablet 25 mg PO DAILY Qty: 90 2RF Rx Instructions: take at bedtime bumetanide 0.5 mg tablet 0.5 mg PO BID Qty: 180 2RF (DME) Wheeled Walker Misc See Rx Instructions .MEDSUPPLY Qty: 1 0RF Rx Instructions: As directed docusate sodium 100 mg capsule 100 mg PO BID PRN (Reason: Constipation) Hold Instructions: Home Medication placed on hold at Doctor's office Rx Instructions: [id number] amlodipine 5 mg tablet 5 mg PO DAILY Qty: 90 1RF hydralazine 50 mg tablet 100 mg PO TID 90 Days Qty: 540 1RF caffiene 100 mg PO DAILY PRN (Reason: .KEEP ALERT) Rx Instructions: "to help her function" levothyroxine 88 mcg capsule 88 mcg PO DAILY olmesartan 40 mg tablet 40 mg PO DAILY Qty: 90 2RF lorazepam [Ativan] 0.5 mg Tablet 0.5 mg SUBLINGUAL BID PRN (Reason: Anxiety) pantoprazole 40 mg Tablet,Delayed Release (Dr/Ec) 40 mg PO QPM venlafaxine 150 mg Capsule,Extended Release 24hr 150 mg PO HS Rx Instructions: take with 75mg multivitamin Tablet 1 tab PO QAM [place]-3 350 mg-235 mg- 90 mg-597 mg Capsule,Delayed Release(Dr/Ec) 1 cap PO QPM cholecalciferol (vitamin D3) [Vitamin D3] 125 mcg (5,000 unit) Tablet 125 mcg PO QPM Balance Of Nature 6 cap PO QAM Patient Comments: "veggie and fruit capsules midday" amoxicillin 500 mg Capsule 2,000 mg PO UD PRN (Reason: prior to dental procedures) Eylea 2 mg/0.05 mL Syringe 2 mg INTRAVITREAL UD Patient Comments: every 6-8wks cyanocobalamin (vitamin B-12) [Vitamin B-12] 5,000 mcg Tablet, Sublingual 5,000 mcg SUBLINGUAL QAM Super Beets 2 tab PO QAM magnesium 250 mg tablet 400 mg PO DAILY Hold Instructions: Home Medication placed on hold at Doctor's office acetaminophen [Tylenol Extra Strength] 500 mg tablet 1,000 mg PO TID PRN (Reason: pain) Referrals Referrals: Hernandez Brar [Primary Care Provider] -
--- NOTE | 2024-11-15 15:56 | XRay Report ---
XR chest 1V portable CLINICAL HISTORY: dizziness, bradycardia COMPARISON STUDY: 11/01/2023 FINDINGS: Stable cardiomegaly without pulmonary vascular congestion. No consolidation or pleural effu mahsa. No pneumothorax. IMPRESSION: No acute findings. ACT 112: Negative or not required by law. Electronically signed by: Flaco Nelson M.D. 11/15/2024 3:55 PM
[2024-11-15 16:06] LABS: Hematocrit (blood only) 42.5 % (37.0-47.0); Hemoglobin 14.7 g/dl (12.0-16.0); Immature Granulocytes # (auto) 0.02 K/uL (0.01-0.20); Immature Granulocytes % (auto) 0.2 %; Mean Corpuscular Hemoglobin 29.4 pg (25.0-34.0); Mean Corpuscular Volume 85.0 fL (80.0-100.0); Platelet Count 312 K/uL (130-400); RDW Standard Deviation 41.1 fL (36.4-46.3); Red Blood Count 5.00 M/uL (4.20-5.40); White Blood Count 8.71 K/ul (4.8-10.8)
--- NOTE | 2024-11-15 16:20 | CT Scan Report ---
Clinical History: Dizziness Technique: Axial computed tomography images were obtained of the brain without intravenous contrast. Findings: There is diffuse cerebral atrophy, within expected limits for the patient's age. Areas of decreased attenuation are seen within the periventricular white matter, likely representing chronic small vessel ischemic disease. There is no definite sign of acute or old infarction. No intracranial hemorrhage is evident. No definite mass lesion is seen on this noncontrast examination. There is no midline shift or other form of herniation. No hydrocephalus is seen. No fracture is identified. The orbits and the visualized paranasal sinuses appear unremarkable. The mastoid air cells appear clear. Impression: 1. Cerebral atrophy and chronic small vessel ischemic disease 2. Otherwise unremarkable noncontrast CT of the brain Electronically signed by Elton Hinkle 11-15-2024 4:20 PM
[2024-11-15 16:29] LABS: Alanine Aminotransferase 17.0 U/L (7-52); Albumin Globulin Ratio 1.4 (0.9-2); Albumin Level 4.7 gm/dl (3.4-5.0); Alkaline Phosphatase 92.0 U/L (34-104); Anion Gap 9.0 (3-11); Bilirubin,Total 0.6 mg/dl (0.2-1.0); Blood Urea Nitrogen 25.0 mg/dl (6-23); Calcium 9.8 mg/dl (8.6-10.3); Carbon Dioxide 25.0 mmol/L (21-32); Chloride 99.0 mmol/L (98-107); Creatinine Clr Calc Pharmacy 33.3 ml/min; Globulin 3.3 gm/dl (2.5-4.0); Glucose 106.0 mg/dl (70-99(Fasting)); Magnesium 2.2 mg/dl (1.7-2.4); Potassium 3.9 mmol/L (3.5-5.1); Sodium 133.0 mmol/L (136-145); Total Protein 8.0 gm/dl (6.0-8.3)
[2024-11-15 16:36] LABS: INR 1.0 (0.9-1.1); Partial Thromboplastin Time 38 Seconds (21-31); Prothrombin Time 10.6 Seconds (9.0-12.0)
[2024-11-15 16:44] LABS: Thyroid Stimulating Hormone 3.065 uIu/ml (0.300-4.500)
--- NOTE | 2024-11-15 18:03 | Emergency Department Note ---
ED Visit Note I was consulted by the Advanced Practice Provider. I personally made/approved the management plan and take responsibility for the patient management. This includes the aspects of: [-History/Physical/Personally seeing the patient] [-MDM] .
--- NOTE | 2024-11-15 18:24 | History & Physical Report ---
Date of Service November 15, 2024 Assessment & Plan (1) Bradycardia: (2) Hyponatremia: (3) Resistant hypertension: (4) Renal artery stenosis: Plan 83 yr old F with PMHx of resistant HTN, renal artery stenosis sent to the hospital from nephrology office for the evaluation of bradycardia and syncope / presyncope. #Dizziness / Pre-syncope / Syncope #Bradycardia - pt not on any AV enoc blocking agents - admit to PCU - lyme negative, TSH neg - CT head unremarkable - check carotid US - she had ECHO in 05/2024, discussed with cardiology as doubt there will be any utility in repeat at this time - cardiology consulted - check d-dimer - trop elevated to 50, trend at this time #Resistant hypertension - pt did skip her diuretics this morning, resume now - given she was weaned off of clonidine, will increase amlodipine dose to 10mg daily, will give 5mg now - cont hydralazine TID, olmesartan #GERD - cont PPI #Anxiety - cont venlafaxine #Hypothyroidism - cont levothyroxine Code status: Full code, pt does not want to be vent dependent or be in persistent vegetative state Dispo: pending clinical improvement History of Present Illness Chief Complaint: Dizziness and Passing out Primary Care Provider: Hernandez Brar 83 yr old F with PMHx of resistant HTN, renal artery stenosis sent to the hospital from nephrology office for the evaluation of bradycardia and syncope / presyncope. History obtained from pt and her daughter. They stated that last week, pt was not feeling well, probably viral illness. She did not have an appetite. During this period, she had two episodes of dizziness. During one episode, pt's daughter thought maybe she lost consciousness. During both episodes, pt was not fully responsive and profusely sweating. Last Thursday, she was instructed to come to the ER for evaluation, but she didn't understand the full gravity until today. Pt denied any chest pain, palpitations, N/V during the episode. She was not having a BM or straining while the dizziness occurred. She does have retinal vein occlusion, which makes her vision poor, subsequently giving her occasional dizziness. But these episodes were different. While at the nephrology office, she was bradycardic, which is unusual for her as her HR runs in the 90s to low 100s. Currently she denies any symptoms. Allergies Allergy/AdvReac Type Severity Reaction Status Date / Time Beta-Blockers Allergy Severe shortness Verified 11/15/24 17:11 (Beta-Adrenergic Bloc of breath, worsened anxiety sertraline [From Zoloft] Allergy Severe shortness Verified 11/15/24 17:11 of breath, worsened anxiety Sulfa (Sulfonamide Allergy Severe TONGUE Verified 11/15/24 17:11 Antibiotics) SWELLS sulfamethoxazole Allergy Severe TONGUE Verified 11/15/24 17:11 SWELLS trimethoprim Allergy Severe TONGUE Verified 11/15/24 17:11 SWELLS diltiazem Allergy Intermediate Rash Verified 11/15/24 17:11 Influenza Virus Vaccines Allergy Intermediate itching Verified 11/15/24 17:11 adhesive tape Allergy Mild Rash Verified 11/15/24 17:11 metoprolol AdvReac Severe severe Verified 11/15/24 17:11 fatigue and palpitations metronidazole [From Flagyl] AdvReac Intermediate Nausea Verified 11/15/24 17:11 felodipine [From Plendil] AdvReac Unknown Unknown Verified 11/15/24 17:11 Home Medications Medication Instructions Recorded Confirmed Type lorazepam 0.5 mg tablet (Ativan) 0.5 mg sublingual BID PRN Anxiety 10/28/18 11/15/24 History multivitamin 1 tab PO QAM 10/28/18 11/15/24 History omega 3 350 mg-dha 235 mg-epa 90 1 cap PO QPM 10/28/18 11/15/24 History mg-fish oil 597 mg capsule,delay rel ([place]-3) pantoprazole 40 mg tablet,delayed 40 mg PO QPM 10/28/18 11/15/24 History release venlafaxine 150 mg 150 mg PO HS 10/28/18 11/15/24 History capsule,extended release 24 hr Wheeled Walker #1 ea 02/24/22 11/15/24 Rx Balance Of Nature 6 cap PO QAM 02/27/22 11/15/24 History aflibercept 2 mg/0.05 mL 2 mg intravitreal UD 02/27/22 11/15/24 History intravitreal syringe (Eylea) amoxicillin 500 mg capsule 2,000 mg PO UD PRN prior to dental 02/27/22 11/15/24 History procedures cholecalciferol (vitamin D3) 125 125 mcg PO QPM 02/27/22 11/15/24 History mcg (5,000 unit) tablet (Vitamin D3) cyanocobalamin (vitamin B-12) 5,000 mcg sublingual QAM 02/27/22 11/15/24 History 5,000 mcg sublingual tablet (Vitamin B-12) Super Beets 2 tab PO QAM 09/04/22 11/15/24 History ondansetron 4 mg disintegrating 4 mg PO Q8 PRN nausea #20 tabs 09/13/22 11/15/24 Rx tablet caffiene 100 mg PO DAILY PRN .KEEP ALERT 05/27/23 11/15/24 History levothyroxine 88 mcg capsule 88 mcg PO DAILY 07/29/23 11/15/24 History docusate sodium 100 mg capsule 100 mg PO BID PRN Constipation 11/11/23 11/15/24 History olmesartan 40 mg tablet 40 mg PO DAILY #90 tabs 04/19/24 11/15/24 Rx magnesium 250 mg tablet 400 mg PO DAILY 06/09/24 11/15/24 History eplerenone 25 mg tablet 25 mg PO DAILY #90 tabs 08/05/24 11/15/24 Rx bumetanide 0.5 mg tablet 0.5 mg PO BID #180 tabs 08/31/24 11/15/24 Rx amlodipine 5 mg tablet 5 mg PO DAILY #90 tabs 09/14/24 11/15/24 Rx hydralazine 50 mg tablet 100 mg (2 x 50 mg) PO TID 90 days 09/14/24 11/15/24 Rx #540 tabs acetaminophen 500 mg tablet 1,000 mg PO TID PRN pain 11/15/24 11/15/24 History (Tylenol Extra Strength) Past Med/Surg History Problem List (Updated 11/15/24 @ 16:27 by CURTIS Meade) Bradycardia Fatigue Albuminuria Benign hypertension Renal artery stenosis Anemia (Acute) Leukopenia (Acute) Elevated troponin (Acute) Syncope (Acute) Hyponatremia Diarrhea Syncope Antiphospholipid syndrome Uncontrolled hypertension Lupus anticoagulant disorder Following with heme- no personal hx of DVT/PE- heme aware of upcoming TKA- recommendations given Left ventricular hypertrophy Hypertension Depression Anxiety Prediabetes Nonrheumatic mitral valve insufficiency Near syncope Mild obstructive sleep apnea Lightheadedness Heart disease Diastolic dysfunction, left ventricle AI (aortic insufficiency) Status post left partial knee replacement Resistant hypertension Antiplatelet or antithrombotic long-term use pt denies any besides aspirin 81 daily Mild mitral regurgitation by prior echocardiogram Effusion, left knee Mild aortic regurgitation Mild tricuspid regurgitation Central retinal vein occlusion ~ - follows with Dr White for an injection in the left eye every 6- 8 weeks. Left ventricular hypertrophy Severe LVH per 09/2021 ECHO ; no LVOT obstruction per cardio follows with Dr. Shepard Dyslipidemia Hypertension (Acute) controlled, stable per pt Depression (Chronic) Medical History Palpitations Adrenal adenoma Avascular necrosis of bone Chondrocalcinosis Hypertension Epistaxis Medication reaction Elevated partial thromboplastin time (PTT) GERD (gastroesophageal reflux disease) Sleep apnea History of blood transfusion Anxiety Encounter for pre-operative examination Urinary incontinence Hypothyroidism Hearing deficit History of COVID-19 Left knee DJD Surgical History Status post right partial knee replacement History of dilatation and curettage History of bilateral tubal ligation History of partial knee replacement History of colonoscopy History of bilateral cataract extraction H/O parathyroidectomy S/P appendectomy H/O: hysterectomy Family History Father Coronary heart disease Heart disease Hypertension Myocardial infarction Dyslipidemia Mother Hypertension Sister Hypertension Heart disease Other No family history of adverse response to anesthesia Social History Smoking Status: Never smoker Second Hand Exposure: No; Do You Dip or Chew Tobacco: No; Hx Alcohol Use: No Hx Substance Use: No Preferred Language: Occitan Communication Ability: Effective Visual Impairment: No Limitations Hearing Ability: Normal Needle Leader Required: No Beliefs That Will Affect Care: None marital status: / Current Living Situation: Family Current Living Situation Comment: daughter current occupational status: retired How many Children do You have: 6 Feels Safe at Home: Yes Diet: regular caffeine: Yes (takes caffeine pills 100mg ) Physical Activity Frequency: Does not Exercise Seatbelt Use: always Do you think of yourself as: straight/heterosexual Gender Identity: Female Assistive Devices: Glasses Review of Systems Review of Systems: Comprehensive ROS completed and is otherwise negative. Physical Exam Physical Exam: Gen: no acute distress, lying in bed comfortable HEENT: NC/AT, MMM Lungs: nonlabored breathing, CTAB CVS: s1s2nl, II/ ANTHONY at left 2nd ICS, RRR Abd: nl bowel sounds, soft, NT / ND : no marlow Ext: no edema Neuro: AAOx3 Psych: calm, cooperative Results & Data Results & Data Vital Signs (Past 12 Hours) Vital Signs Temp Pulse Pulse Resp BP BP Pulse Ox 11/15/24 16:34 91 H 11/15/24 16:30 90 18 192/104 H 95 11/15/24 14:46 36.5 C 88 17 163/70 H 96 O2 Del Method 11/15/24 16:34 11/15/24 16:30 Room Air 11/15/24 14:46 Room Air PG Care Time/CCT Total # of Minutes Spent Total Time Spent with Patient: Total time spent is greater than 50% in coordination of care (as documented) at patient's floor/unit and/or counseling patient: Coding Level of Care Code 62605 INT INP/OBS CARE 3/75MIN Diagnoses Bradycardia R00.1 Hyponatremia E87.1 Resistant hypertension I10 Renal artery stenosis I70.1
[2024-11-15] MEDS: BUMETANIDE 1 MG TAB PO ONE (20:34)
[2024-11-15] MEDS: HEPARIN SOD 5,000 UNIT/0.5 ML VIAL SQ SCH (20:35)
--- NOTE | 2024-11-15 21:26 | Ultrasound Report ---
Exam(s): US CAROTID EXAM: US Duplex Bilateral Extracranial Arteries CLINICAL HISTORY: Reason for exam: syncope. TECHNIQUE: Real-time duplex ultrasound scan of the extracranial arteries integrating B-mode two-dimensional vascular structure, Doppler spectral analysis and color flow Doppler imaging. COMPARISON: None FINDINGS: Right common carotid artery: Unremarkable. No occlusion or significant stenosis on color flow and spectral Doppler imaging. Right internal carotid artery: Peak systolic velocity in the right ICA measures 68.7 cm/s. No occlusion or significant stenosis on color flow and spectral Doppler imaging. Right external carotid artery: Unremarkable. No occlusion or significant stenosis on color flow and spectral Doppler imaging. Right vertebral artery: Unremarkable. Antegrade flow. Right ICA/CCA ratio: Unremarkable. Within normal limits. Left common carotid artery: Unremarkable. No occlusion or significant stenosis on color flow and spectral Doppler imaging. Left internal carotid artery: Peak systolic velocity in the left ICA measures 124.8 cm/s. No occlusion or significant stenosis on color flow and spectral Doppler imaging. Left external carotid artery: Unremarkable. No occlusion or significant stenosis on color flow and spectral Doppler imaging. Left vertebral artery: Unremarkable. Antegrade flow. Left ICA/CCA ratio: Unremarkable. Within normal limits. Lymph nodes: Unremarkable. No lymphadenopathy. CAROTID STENOSIS REFERENCE USING IAC CRITERIA: Mild - <50% stenosis. ICA PSV is less than 180 cm/s and plaque or intimal thickening is visible. Moderate - 50-69% stenosis. ICA PSV is 180 to 230 cm/s and plaque is visible. Severe - 70-94% stenosis. ICA PSV is more than 230 cm/s and visible plaque with lumen narrowing is seen. Near occlusion - 95-99% stenosis. ICA PSV is variable and significant plaque with luminal narrowing is seen. Occluded - 100% stenosis. No flow identified. IMPRESSION: 1. No hemodynamically significant stenosis in either ICA. 2. Normal antegrade flow in bilateral vertebral arteries. Electronically signed by: Radha Nassar M.D. 11/15/24 21:26 PM
[2024-11-15 22:31] LABS: Appearance Urine Clear (Clear); Bacteria Urine Automated 3+ (None Seen); Cast Urine Automated 0-2 /lpf (0-2); Epithelial Cell Urine Auto 0-2 /hpf (0-2); Glucose Urine UA Negative (Negative); RBC Urine Automated 0-2 /hpf (0-2); WBC Urine Automated 0-5 /hpf (0-5)
[2024-11-15] MEDS ORDERED: ACETAMINOPHEN 325 MG TAB PO PRN (22:53)
[2024-11-15] MEDS ORDERED: MELATONIN 3 MG TAB PO PRN (22:53)
[2024-11-15] MEDS ORDERED: ONDANSETRON INJ 2 MG/ML 2 ML VIAL IV PRN (22:53)
[2024-11-15] MEDS ORDERED: NITROGLYCERIN SL 0.4 MG/TAB TAB SL PRN (22:53)
[2024-11-15] MEDS: VENLAFAXINE HCL XR 150 MG CAPXR PO SCH (23:34)
[2024-11-16] MEDS: BUMETANIDE 1 MG TAB PO SCH (00:05)
[2024-11-16] MEDS: LORazepam 0.5 MG TAB SL PRN (02:29)
[2024-11-16] MEDS: LEVOTHYROXINE SODIUM 88 MCG TABLET PO SCH (06:11)
[2024-11-16] MEDS: LOSARTAN POTASSIUM 50 MG TAB PO SCH (09:16)
[2024-11-16] MEDS: MAGNESIUM OXIDE 400 MG TAB PO SCH (09:19)
--- NOTE | 2024-11-16 11:13 | Cardiology Consultation ---
Date of Consultation November 16, 2024 Assessment & Plan (1) Dizziness: (2) Near syncope: (3) Ventricular bigeminy: (4) Resistant hypertension: Plan Dizziness Near syncope Ventricular bigeminy - unclear etiology at this point. TTE ordered given these symptoms are fairly new. There is no outflow obstruction noted on her prior echocardiogram earlier this year, we will reassess for this. - Orthostatic vital signs are to be completed and recorded. - Proper hydration discussed with the patient Ventricular bigeminy - Evident on racquet maker - Likely causing a pulse deficit resulting in pseudo-bradycardia - unclear cause at this time. As stated above, we will obtain a new echocardiogram to assess for any new abnormalities. - we may have to explore different medication options for this. A beta-lena could be a good choice, however, the patient had felt significant fatigue while on a cardioselective beta blockade before - monitor renal function and electrolytes Treatment resistant hypertension - Patient follows with the hypertension clinic for this - She has trialed multiple medications in the past for her hypertension (see HPI). Currently she is on amlodipine, olmesartan, hydralazine, clonidine, Bumex and eplerenone. - further adjustments may be needed depending on clinical course Supervising Physician Co-Signing Physician Notes I saw and examined the patient and agree with the documentation by CURTIS Hodgson. Briefly, patient brought to the hospital for frequent falls and unsteadiness. She describes symptoms as dizziness on occasion. She states that she generally does not lose consciousness or postural tone, but does fall frequently due to dizziness and lightheadedness. She describes a variety of episodes. Many episodes occur when bending over and then sitting upright. Most episodes occur while standing. Episodes did not appear to be closely associated with exertion or changes in position such as getting up from a seated position. There is not appear to be any associated palpitations or shortness of breath. On 1 occasion she clearly had vertigo. She is definitely unsteady and some of her difficulty is associated with changes in the vision of her left eye. From a cardiac standpoint we should exclude orthostatic hypotension, left ventricular outflow tract obstruction and arrhythmias. Will request orthostatic vital signs Will repeat her echocardiogram Will continue her telemetry and consider outpatient monitoring With regard to her hypertension, she clearly appears to have refractory hypertension. In the setting of severe LVH and a small left ventricular cavity I will caution the continued use of diuretics. This could certainly exacerbate her symptoms of dizziness or orthostatic hypotension if documented. History of Present Illness Attending Physician: Darlene Kumar MD History of Present Illness Sarika is an 83-year-old female with a past medical history of renal artery stenosis, hypertension, valvular regurgitation who was instructed to proceed to the ER from her nephrology's office due to bradycardia and presyncope. EKG that was completed in the ER revealed sinus rhythm with multiple PVCs. 95 bpm. Left atrial enlargement evident as well. Her peak HS troponin thus far is 76.7 at 0600 today. Her other laboratory work is not overly concerning. CT of the head and CXR do not reveal any acute concern. Carotid doppler study did not show any hemodynamically significant stenosis in either ICA. Per review of her telemetry overnight, she had frequent bouts of bigeminy along with several episodes of trigeminy. This likely is causing a pulse deficit which is why she appears to be bradycardic. Sarika tells me that over the last several weeks she has had multiple instances where she feels as if she was going to pass out. She has only ever had 1 true episode of syncope a year ago thought to be an isolated incident due to antihypertensive medication adjustments. She states that these episodes happen nearly every day and have affected her quality of life. She states that she fe els fine when she is sitting and with changing positions. However, when she begins to exert herself she becomes quite dizzy, begins to profusely sweat, feels weak and has to sit down or lay down immediately as she feels that she is going to pass out. She does not endorse any chest discomfort, palpitations, shortness of breath or nausea with these episodes. She does follow with our cardiology office. Previously, we were involved with managing her BP before she was referred to the HTN clinic. She follows with annually. On 06/01/2024, here echo showed severe LVH was noted without evidence of LV outflow obstruction. Ejection fraction greater than 70% with grade 1 diastolic dysfunction. Mild to moderate aortic regurgitation. She has been on multiple cardiac medications in the past due to her treatment resistant hypertension. She does follow with her hypertension clinic. Previous Medications Trialed: * Beta Blockers- fatigue, SOB * Diltazem- rash * metoprolol- severe fatigue * spironolactone - nausea * Loop diuretics- sulfa allergy Allergies Allergy/AdvReac Type Severity Reaction Status Date / Time Beta-Blockers Allergy Severe shortness Verified 11/15/24 17:11 (Beta-Adrenergic Bloc of breath, worsened anxiety sertraline [From Zoloft] Allergy Severe shortness Verified 11/15/24 17:11 of breath, worsened anxiety Sulfa (Sulfonamide Allergy Severe TONGUE Verified 11/15/24 17:11 Antibiotics) SWELLS sulfamethoxazole Allergy Severe TONGUE Verified 11/15/24 17:11 SWELLS trimethoprim Allergy Severe TONGUE Verified 11/15/24 17:11 SWELLS diltiazem Allergy Intermediate Rash Verified 11/15/24 17:11 Influenza Virus Vaccines Allergy Intermediate itching Verified 11/15/24 17:11 adhesive tape Allergy Mild Rash Verified 11/15/24 17:11 metoprolol AdvReac Severe severe Verified 11/15/24 17:11 fatigue and palpitations metronidazole [From Flagyl] AdvReac Intermediate Nausea Verified 11/15/24 17:11 felodipine [From Plendil] AdvReac Unknown Unknown Verified 11/15/24 17:11 Home Medications Medication Instructions Recorded Confirmed Type lorazepam 0.5 mg tablet (Ativan) 0.5 mg sublingual BID PRN Anxiety 10/28/18 11/15/24 History multivitamin 1 tab PO QAM 10/28/18 11/15/24 History omega 3 350 mg-dha 235 mg-epa 90 1 cap PO QPM 10/28/18 11/15/24 History mg-fish oil 597 mg capsule,delay rel ([place]-3) pantoprazole 40 mg tablet,delayed 40 mg PO QPM 10/28/18 11/15/24 History release venlafaxine 150 mg 150 mg PO HS 10/28/18 11/15/24 History capsule,extended release 24 hr Wheeled Walker #1 ea 02/24/22 11/15/24 Rx Balance Of Nature 6 cap PO QAM 02/27/22 11/15/24 History aflibercept 2 mg/0.05 mL 2 mg intravitreal UD 02/27/22 11/15/24 History intravitreal syringe (Eylea) amoxicillin 500 mg capsule 2,000 mg PO UD PRN prior to dental 02/27/22 11/15/24 History procedures cholecalciferol (vitamin D3) 125 125 mcg PO QPM 02/27/22 11/15/24 History mcg (5,000 unit) tablet (Vitamin D3) cyanocobalamin (vitamin B-12) 5,000 mcg sublingual QAM 02/27/22 11/15/24 History 5,000 mcg sublingual tablet (Vitamin B-12) Super Beets 2 tab PO QAM 09/04/22 11/15/24 History ondansetron 4 mg disintegrating 4 mg PO Q8 PRN nausea #20 tabs 09/13/22 11/15/24 Rx tablet caffiene 100 mg PO DAILY PRN .KEEP ALERT 05/27/23 11/15/24 History levothyroxine 88 mcg capsule 88 mcg PO DAILY 07/29/23 11/15/24 History docusate sodium 100 mg capsule 100 mg PO BID PRN Constipation 11/11/23 11/15/24 History olmesartan 40 mg tablet 40 mg PO DAILY #90 tabs 04/19/24 11/15/24 Rx magnesium 250 mg tablet 400 mg PO DAILY 06/09/24 11/15/24 History eplerenone 25 mg tablet 25 mg PO DAILY #90 tabs 08/05/24 11/15/24 Rx bumetanide 0.5 mg tablet 0.5 mg PO BID #180 tabs 08/31/24 11/15/24 Rx amlodipine 5 mg tablet 5 mg PO DAILY #90 tabs 09/14/24 11/15/24 Rx hydralazine 50 mg tablet 100 mg (2 x 50 mg) PO TID 90 days 09/14/24 11/15/24 Rx #540 tabs acetaminophen 500 mg tablet 1,000 mg PO TID PRN pain 11/15/24 11/15/24 History (Tylenol Extra Strength) Patient History Medical History Palpitations Adrenal adenoma Avascular necrosis of bone Chondrocalcinosis Hypertension Epistaxis Medication reaction Elevated partial thromboplastin time (PTT) Following with [facility] - Dr. Cadet GERD (gastroesophageal reflux disease) rare, stable per pt Sleep apnea not currently treated- could not tolerate device due to getting up multiple times at night to urinate History of blood transfusion prior to hysterectomy () Anxiety Encounter for pre-operative examination Urinary incontinence severe Hypothyroidism Hearing deficit Wears hearing aids intermittently History of COVID-19 diagnosed 03/2021--mild symptoms, no symptoms now Left knee DJD Surgical History Status post right partial knee replacement History of dilatation and curettage History of bilateral tubal ligation History of partial knee replacement right History of colonoscopy History of bilateral cataract extraction H/O parathyroidectomy S/P appendectomy H/O: hysterectomy Total with BSO Family History Father Coronary heart disease Heart disease Hypertension Myocardial infarction Dyslipidemia Mother Hypertension Sister Hypertension Heart disease Other No family history of adverse response to anesthesia Social History Smoking Status: Never smoker Second Hand Exposure: No; Do You Dip or Chew Tobacco: No; Hx Alcohol Use: No Hx Substance Use: No Preferred Language: Azeri Communication Ability: Effective Visual Impairment: No Limitations Hearing Ability: Normal Metal Ceiling Builder Required: No Beliefs That Will Affect Care: None marital status: / Current Living Situation: Family Current Living Situation Comment: daughter current occupational status: retired How many Children do You have: 6 Other Information That Helps Us Care for You: No Feels Safe at Home: Yes Safety Concerns: Feels Safe At This Time Diet: regular caffeine: Yes (takes caffeine pills 100mg ) Physical Activity Frequency: Does not Exercise Seatbelt Use: always Do you think of yourself as: straight/heterosexual Gender Identity: Female Assistive Devices: None Review of Systems Review of Systems: per hpi Physical Exam Physical Exam: Physical Exam: AOx3. Mood affect appear normal. All questions appropriately. HEENT: Sclerae are anicteric. Pupils are equal and reactive to light and accommodation. Extraocular movements were intact. Neuro: Cranial nerves intact Lungs: Lungs are clear to auscultation bilaterally. There are no rales wheezes or rhonchi. Normal respiratory effort without use of accessory muscles. Cardiac: The rhythm was regular. S1 and S2 were normal. There are no murmurs on examination. The PMI was not markedly displaced on palpation. Extremities: Patient has bilateral radial pulses that are equal in intensity. There is no evidence cyanosis or clubbing. There was no evidence of significant peripheral edema bilaterally. Skin: There are no rashes noted on examination today. Results & Data Vital Signs (Past 12 Hours) Vital Signs Temp Pulse Pulse Resp BP Pulse Ox O2 Del Method 11/16/24 07:51 36.6 C 81 18 169/73 H 92 Room Air 11/16/24 07:47 Room Air 11/16/24 07:38 102 H 11/16/24 02:20 36.8 C 73 18 184/80 H 94 Room Air PG Care Time/CCT Total # of Minutes Spent Total Time Spent with Patient: Total time spent is greater than 50% in coordination of care (as documented) at patient's floor/unit and/or counseling patient: Coding [place] [address] INT INP/OBS CARE 3/75MIN Patient Type Established Diagnoses Dizziness R42 Near syncope R55 Ventricular bigeminy I49.8 Resistant hypertension I1A.0 Time Spent (min) 55
--- NOTE | 2024-11-16 17:46 | XCELERA ---
[id number]
--- NOTE | 2024-11-16 18:01 | Electrocardiogram Report ---
Test Reason : Blood Pressure : */* mmHG Vent. Rate : 95 BPM Atrial Rate : 95 BPM P-R Int : 180 ms QRS Dur : 98 ms QT Int : 386 ms P-R-T Axes : 69 -43 115 degrees QTcB Int : 485 ms Sinus rhythm with occasional Premature ventricular complexes Possible Left atrial enlargement Left axis deviation Left ventricular hypertrophy with repolarization abnormality possible Inferior infarct , age undetermined Poor R wave progression, consider anterior LA vs. lead placement vs. LVH Abnormal ECG When compared with ECG of 03-Nov-2023 05:26, Premature ventricular complexes are now Present Vent. rate has increased by 39 bpm Inferior infarct is now Present Confirmed by Adams Miller ([id number]) on 11/16/2024 6:01:39 PM Referred By: Natalie Wan Confirmed By: Adams Miller
--- NOTE | 2024-11-16 18:20 | Hospitalist Progress Note ---
Date of Service November 16, 2024 Assessment & Plan (1) Bradycardia: (2) Hyponatremia: (3) Resistant hypertension: (4) Renal artery stenosis: Plan 83 yr old F with PMHx of resistant HTN, renal artery stenosis sent to the hospital from nephrology office for the evaluation of bradycardia and syncope / presyncope. #Dizziness / Pre-syncope / Syncope #Bradycardia - pt not on any AV enoc blocking agents - lyme negative, TSH neg - CT head unremarkable - carotid US unremarkable - she had ECHO in 05/2024, initially thought repeat might not be beneficial, but for further evaluation ordered rpt ECHO - cardiology recs appreciated - d-dimer neg - trop elevated to 50, small up trend - pt did have drop in SBP from 156 to 132 #Resistant hypertension - given she was weaned off of clonidine, will increase amlodipine dose to 10mg daily - cont hydralazine TID, olmesartan, bumex, eplerenone - BP improving #GERD - cont PPI #Anxiety - cont venlafaxine #Hypothyroidism - cont levothyroxine Code status: Full code, pt does not want to be vent dependent or be in persistent vegetative state Dispo: pending clinical improvement Admission and Anticipated Discharge Date Admission Date: November 15, 2024 Subjective Admitted yesterday Currently no new complaints Review of Systems Review of Systems: Comprehensive ROS completed and is otherwise negative. Physical Exam Physical Exam: Gen: no acute distress, lying in bed comfortable HEENT: NC/AT, MMM Lungs: nonlabored breathing, CTAB CVS: s1s2nl, II/ ANTHONY at left 2nd ICS, RRR Abd: nl bowel sounds, soft, NT / ND : no marlow Ext: no edema Neuro: AAOx3 Psych: calm, cooperative Results & Data Results & Data Vital Signs (Past 12 Hours) Vital Signs Temp Pulse Pulse Resp BP Pulse Ox O2 Del Method 11/16/24 15:26 36.6 C 93 Room Air 11/16/24 13:45 92 H 11/16/24 11:47 36.9 C 65 22 129/74 95 Nasal Cannula 11/16/24 07:51 36.6 C 81 18 169/73 H 92 Room Air 11/16/24 07:47 Room Air 11/16/24 07:38 102 H O2 Flow Rate 11/16/24 15:26 11/16/24 13:45 11/16/24 11:47 3 11/16/24 07:51 11/16/24 07:47 11/16/24 07:38 PG Care Time/CCT Total # of Minutes Spent Total Time Spent with Patient: Total time spent is greater than 50% in coordination of care (as documented) at patient's floor/unit and/or counseling patient: Coding Level of Care Code 78386 SUB INP/OBS CARE 3/50MIN Diagnoses Bradycardia R00.1 Hyponatremia E87.1 Resistant hypertension I10 Renal artery stenosis I70.1
[2024-11-16] MEDS: EPLERENONE PO SCH (23:24)
[2024-11-17 03:09] VITALS: O2SAT 95
--- NOTE | 2024-11-17 10:31 | Cardiology Progress Note ---
Date of Service November 17, 2024 Assessment & Plan (1) Dizziness: (2) Near syncope: (3) Ventricular bigeminy: (4) Resistant hypertension: Plan Dizziness Near syncope - TTE completed 11/16/2024 does not show any outflow obstruction. There is severe concentric LVH evident which was present previously. No significant valvular disease noted. - There is a degree of orthostatic hypotension of present which may be contributing to the patient's symptoms. Recommend discontinuing her bumex at this time - Proper hydration discussed with the patient Ventricular bigeminy - Ectopy noted on telemetry review from overnight though no further runs of bigeminy noted - This was likely causing a pulse deficit resulting in pseudo-bradycardia - monitor renal function and electrolytes Resistant hypertension - Patient follows with the hypertension clinic for this - She has trialed multiple medications in the past for her hypertension (see HPI). Consider refactory at this point as she is currently she is on amlodipine, olmesartan, hydralazine, clonidine, and eplerenone. Her amlodipine has been increased to 10mg - further adjustments may be needed depending on clinical course Admission and Anticipated Discharge Date Admission Date: November 15, 2024 Supervising Physician Co-Signing Physician Notes I saw and examined the patient and agree with the documentation above. Will try more ambulation today to monitor her symptoms. This diuretic would seem appropriate. Subjective Patient seen and evaluated at bedside, chart reviewed. Patient does not voice any complaints today other than fatigue. Patient states she has mostly been in bed since her hospitalization and has been utilizing her pure wick for urination. It would be beneficial for the patient to be more active so we can further assess her dizziness and near syncopal events Review of Systems Review of Systems: per hpi Physical Exam Physical Exam: Physical Exam: AOx3. Mood affect appear normal. All questions appropriately. HEENT: Sclerae are anicteric. Pupils are equal and reactive to light and accommodation. Extraocular movements were intact. Neuro: Cranial nerves intact Lungs: Lungs are clear to auscultation bilaterally. There are no rales wheezes or rhonchi. Normal respiratory effort without use of accessory muscles. Cardiac: The rhythm was regular. S1 and S2 were normal. There are no murmurs on examination. The PMI was not markedly displaced on palpation. Extremities: Patient has bilateral radial pulses that are equal in intensity. There is no evidence cyanosis or clubbing. There was no evidence of significant peripheral edema bilaterally. Skin: There are no rashes noted on examination today. Results & Data Vital Signs (Past 12 Hours) Vital Signs Temp Pulse Pulse Resp BP Pulse Ox O2 Del Method 11/17/24 07:50 36.6 C 100 H 17 151/72 H 95 Room Air 11/17/24 03:09 36.9 C 93 H 18 139/80 95 Room Air 11/16/24 23:17 36.2 C L 89 20 165/82 H 94 Room Air 11/16/24 22:23 93 H PG Care Time/CCT Total # of Minutes Spent Total Time Spent with Patient: Total time spent is greater than 50% in coordination of care (as documented) at patient's floor/unit and/or counseling patient: [place] [address] SUB INP/OBS CARE 2/35MIN Patient Type Established Medical Decision Making Low Complexity Diagnoses Dizziness R42 Near syncope R55 Ventricular bigeminy I49.8 Resistant hypertension I1A.0
[2024-11-17 11:15] VITALS: BP 133/73; PULSE 89; RESP 18; TEMP 97.5
--- NOTE | 2024-11-17 15:02 | Discharge Summary ---
Discharge Summary Date of Service November 17, 2024 Principal Dx & Hospital Course #1 = Principal Diagnosis (1) Bradycardia: (2) Hyponatremia: (3) Resistant hypertension: (4) Renal artery stenosis: Plan 83 yr old F with PMHx of resistant HTN, renal artery stenosis sent to the hospital from nephrology office for the evaluation of bradycardia and syncope / presyncope. #Dizziness / Pre-syncope / Syncope #Bradycardia - no further episodes while in the hospital - pt not on any AV enoc blocking agents - lyme negative, TSH neg - CT head unremarkable - carotid US unremarkable - she had ECHO in 05/2024, initially thought repeat might not be beneficial, but for further evaluation ordered rpt ECHO - pt did have drop in SBP from 156 to 132 - cardiology recs appreciated - suspect intravascular depletion - d-dimer neg - trop elevated to 50, small up trend - cardiology to sent event monitor to patient as outpatient #Resistant hypertension - given she was weaned off of clonidine, will increase amlodipine dose to 10mg daily , cont on d/c - cont hydralazine TID, olmesartan, eplerenone - hold bumex indefinitely at this time - monitor BP at home #GERD - cont PPI #Anxiety - cont venlafaxine #Hypothyroidism - cont levothyroxine Code status: Full code, pt does not want to be vent dependent or be in persistent vegetative state Dispo: d/c home Admission HPI Per Admitting Provider 83 yr old F with PMHx of resistant HTN, renal artery stenosis sent to the hospital from nephrology office for the evaluation of bradycardia and syncope / presyncope. History obtained from pt and her daughter. They stated that last week, pt was not feeling well, probably viral illness. She did not have an appetite. During this period, she had two episodes of dizziness. During one episode, pt's daughter thought maybe she lost consciousness. During both episodes, pt was not fully responsive and profusely sweating. Last Thursday, she was instructed to come to the ER for evaluation, but she didn't understand the full gravity until today. Pt denied any chest pain, palpitations, N/V during the episode. She was not having a BM or straining while the dizziness occurred. She does have retinal vein occlusion, which makes her vision poor, subsequently giving her occasional dizziness. But these episodes were different. While at the nephrology office, she was bradycardic, which is unusual for her as her HR runs in the 90s to low 100s. Currently she denies any symptoms. Discharge Exam Gen: no acute distress, lying in bed comfortable HEENT: NC/AT, MMM Lungs: nonlabored breathing, CTAB CVS: s1s2nl, II/ ANTHONY at left 2nd ICS, RRR Abd: nl bowel sounds, soft, NT / ND : no marlow Ext: no edema Neuro: AAOx3 Psych: calm, cooperative Discharge Plan Discharge Items Patient Disposition: Home - Self-Care Reason For Visit: SYNCOPE Discharge Diagnosis: Syncope, dehydration Condition on Discharge: Good Activity: Resume your previous activity Non-emergency contact: Primary Care Provider and Land Degradation Analyst Call non-emergency contact if: you have any medication questions and your symptoms worsen Follow-up/Referrals: [facility] [Provider Group] Hernandez Brar [Primary Care Provider] - Diet: Heart Healthy Addtl Attending Provider Instructions: You were admitted to the hospital for the evaluation dizziness, loss of consciousness, low heart rate. You were evaluated by cardiology. Your symptoms were attributed to intravascular dehydration. It is recommended that you stop taking bumex at this time. You also had some abnormalities in your rhythm (bigeminy). You will be receiving an event monitor at home that will be used to monitor your heart rhythm continuously. Please follow up with cardiology for further management. Please note that your amlodipine dose has been increased to 10mg daily. Monitor your blood pressure at home and report to your doctor managing your high blood pressure. You are medically stable for discharge. You will need to follow up with your primary care doctor in about 7 to 10 days. It was a pleasure being a part of your medical care team during your stay at [facility]. Pending Studies at Discharge: No Stand-Alone Forms: My [facility] [employer], Smoking Cessation Medications and DC Order Prescriptions: Continued ondansetron 4 mg tablet,disintegrating 4 mg PO Q8 PRN (Reason: nausea) Qty: 20 1RF Rx Instructions: Take as needed for nausea eplerenone 25 mg tablet 25 mg PO DAILY Qty: 90 2RF Rx Instructions: take at bedtime (DME) Wheeled Walker Misc See Rx Instructions .MEDSUPPLY Qty: 1 0RF Rx Instructions: As directed docusate sodium 100 mg capsule 100 mg PO BID PRN (Reason: Constipation) Hold Instructions: Home Medication placed on hold at Doctor's office Rx Instructions: Vgib-rzj-tevisdf hydralazine 50 mg tablet 100 mg PO TID 90 Days Qty: 540 1RF caffiene 100 mg PO DAILY PRN (Reason: .KEEP ALERT) Rx Instructions: "to help her function" levothyroxine 88 mcg capsule 88 mcg PO DAILY olmesartan 40 mg tablet 40 mg PO DAILY Qty: 90 2RF lorazepam [Ativan] 0.5 mg Tablet 0.5 mg SUBLINGUAL BID PRN (Reason: Anxiety) pantoprazole 40 mg Tablet,Delayed Release (Dr/Ec) 40 mg PO QPM venlafaxine 150 mg Capsule,Extended Release 24hr 150 mg PO HS Rx Instructions: take with 75mg multivitamin Tablet 1 tab PO QAM [place]-3 350 mg-235 mg- 90 mg-597 mg Capsule,Delayed Release(Dr/Ec) 1 cap PO QPM cholecalciferol (vitamin D3) [Vitamin D3] 125 mcg (5,000 unit) Tablet 125 mcg PO QPM Balance Of Nature 6 cap PO QAM Patient Comments: "veggie and fruit capsules midday" amoxicillin 500 mg Capsule 2,000 mg PO UD PRN (Reason: prior to dental procedures) Eylea 2 mg/0.05 mL Syringe 2 mg INTRAVITREAL UD Patient Comments: every 6-8wks cyanocobalamin (vitamin B-12) [Vitamin B-12] 5,000 mcg Tablet, Sublingual 5,000 mcg SUBLINGUAL QAM Super Beets 2 tab PO QAM magnesium 250 mg tablet 400 mg PO DAILY Hold Instructions: Home Medication placed on hold at Doctor's office acetaminophen [Tylenol Extra Strength] 500 mg tablet 1,000 mg PO TID PRN (Reason: pain) Changed amlodipine 5 mg tablet 10 mg PO DAILY Qty: 90 1RF Held bumetanide 0.5 mg tablet 0.5 mg PO BID Qty: 180 2RF Hold Instructions: Resume on 11/15/25. Until further cleared by cardiology Discharge Orders: Discharge Order (Routine); Ordered 11/17/24 Ordered By: Darlene Kumar Admission Data Admit Date/Time: 11/15/24 18:37 Attending Provider: Darlene Kumar Admit Provider: Darlene Kumar Primary Care Provider: Hernandez Brar Other Providers: Darlene Kumar; [facility] Hospital Stay Data Consultations 11/15/24 17:26 ED Decision to Admit Stat 11/15/24 22:53 Consult Cardiology Routine Diagnostic Imagining Performed 11/15/24 15:34 CT head/brain wo con Stat 11/15/24 18:37 US carotid doppler BI Routine Pending Results Patient Have Any Pending Studies at Discharge: No Discharge Instructions Given to Patient (Per Discharging Provider) You were admitted to the hospital for the evaluation dizziness, loss of consciousness, low heart rate. You were evaluated by cardiology. Your symptoms were attributed to intravascular dehydration. It is recommended that you stop taking bumex at this time. You also had some abnormalities in your rhythm (bigeminy). You will be receiving an event monitor at home that will be used to monitor your heart rhythm continuously. Please follow up with cardiology for further management. Please note that your amlodipine dose has been increased to 10mg daily. Monitor your blood pressure at home and report to your doctor managing your high blood pressure. You are medically stable for discharge. You will need to follow up with your primary care doctor in about 7 to 10 days. It was a pleasure being a part of your medical care team during your stay at [facility]. Total Time Total Time Spent Total Time Spent (In Minutes): 45 Coding Level of Care Code 85885 INP/OBS DISCH >30 MIN Diagnoses Bradycardia R00.1 Hyponatremia E87.1 Resistant hypertension I10 Renal artery stenosis I70.1
[2024-11-17] MEDS ORDERED: MAGNESIUM OXIDE 400 MG TAB PO SCH (21:00)
--- NOTE | 2024-11-18 11:01 | Coding Query ---
CODING QUERY To promote full compliance with coding requirements relating to patient care, provider participation is requested in all cases of frame table operator helper uncertainty. Please assist us with the question(s) below: Coding Question(s): The Discharge Summary documents, under Dizziness/Pre- syncope/Syncope, Bradycardia, "- cardiology recs appreciated - suspect intravascular depletion", and there is documentation of, "Addtl Attending Provider Instructions: You were admitted to the hospital for the evaluation dizziness, loss of consciousness, low heart rate. You were evaluated by cardiology. Your symptoms were attributed to intravascular dehydration. It is recommended that you stop taking bumex at this time.", and the 11/16 Cardiology Consultation, documents, "From a cardiac standpoint we should exclude orthostatic hypotension, left ventricular outflow tract obstruction and arrhythmias.", and, "In the setting of severe LVH and a small left ventricular cavity I will caution the continued use of diuretics. This could certainly exacerbate her symptoms of dizziness or orthostatic hypotension if documented.", and the 11/17 Cardiology Progress Note (currently I-signed) documents, "- There is a degree of orthostatic hypotension of present which may be contributing to the patient's symptoms. Recommend discontinuing her bumex at this time - Proper hydration discussed with the patient". Please specify below, in your clinical opinion, regarding the most likely cause of the Dizziness/Pre-syncope/Syncope, Bradycardia symptoms: ( ) Orthostatic Hypotension with intravascular dehydration ( ) most likely due to Bumex adverse effect ( ) most likely due to Other: Please Specify ( ) unspecified likely cause ( ) Dehydration ( ) Other: Please Specify Physician's Response(s): Definitely confounding. Suspect she had underlying dehydration which was exacerbated by bumex. Thank you Clementine Prince Principal Diagnosis: "that condition established after study, to be chiefly responsible for occasioning the admission of the patient to the hospital for care." Co-Existing Principal Diagnosis: "when two or more diagnoses equally meet the criteria for principal diagnosis as determined by the circumstances of admission, diagnostic work up, and/or therapy provided, and the Alphabetic Index, Tabular List, or another coding guideline does not provide sequencing direction, any one of the diagnoses may be sequenced first." "When the physician has documented what appears to be a current diagnosis in the body of the record, but has not included the diagnosis in the final diagnostic statement, the physician should be asked whether the diagnosis should be added." (Source Coding Clinic 2 QTR90. p3-4) JAIME
== END 2024-11-17 15:46 | disposition home or self-care (01) | DRG 641 ==
LOC: ED 14:44 → 4W 18:37
DX: Z88.2 Allergy status to sulfonamides; Z79.899 Other long term (current) drug therapy; Z79.890 Hormone replacement therapy; Z82.49 Family history of ischemic heart disease and other diseases of the circulatory system; R00.8 Other abnormalities of heart beat; K21.9 Gastro-esophageal reflux disease without esophagitis; T50.1X5A Adverse effect of loop [high-ceiling] diuretics, initial encounter; Z88.1 Allergy status to other antibiotic agents; I70.1 Atherosclerosis of renal artery; E86.0 Dehydration; Z88.7 Allergy status to serum and vaccine; Z88.8 Allergy status to other drugs, medicaments and biological substances; I10 Essential (primary) hypertension; I1A.0 Resistant hypertension; I95.1 Orthostatic hypotension; E87.1 Hypo-osmolality and hyponatremia; E03.9 Hypothyroidism, unspecified; R29.6 Repeated falls; F41.9 Anxiety disorder, unspecified; R00.1 Bradycardia, unspecified; R55 Syncope and collapse; Z91.048 Other nonmedicinal substance allergy status

== ENCOUNTER 2024-12-03 15:25 | Inpatient (IN) ==
[2024-12-03] MEDS: ASPIRIN CHEW 324 MG PO STA (15:40)
[2024-12-03] MEDS: LABETALOL HCL IV 5 MG/ML 20ML IV ONE (15:42)
[2024-12-03 15:57] LABS: Hematocrit (blood only) 40.1 % (37.0-47.0); Hemoglobin 13.3 g/dl (12.0-16.0); Immature Granulocytes # (auto) 0.03 K/uL (0.01-0.20); Immature Granulocytes % (auto) 0.4 %; Mean Corpuscular Hemoglobin 28.6 pg (25.0-34.0); Mean Corpuscular Volume 86.2 fL (80.0-100.0); Platelet Count 326 K/uL (130-400); RDW Standard Deviation 42.7 fL (36.4-46.3); Red Blood Count 4.65 M/uL (4.20-5.40); White Blood Count 7.12 K/ul (4.8-10.8)
--- NOTE | 2024-12-03 16:06 | Emergency Department Note ---
Impression & Plan Syncope, Weakness, Heart palpitations, Frequent PVCs ED Provider Note ED Provider Note NAME: LUTHER GUZMAN AGE:84 SEX: Female : 1940 ARRIVES VIA: EMS INFORMANT: Patient ED PROVIDER(s): Noelle Stevens CHIEF COMPLAINT: weakness HPI: 84-year-old female presents to the emergency room with complaints of weakness. Patient states today she has felt weak like she was get a pass out. She states that she has had multiple syncopal episodes in the last few weeks. Patient states that she feels generally poorly. States that she woke up and felt weak like she was going to pass out. No focal symptoms. Patient states she is been on a Holter monitor for an irregular heartbeat. her daughter stated that she felt like her gait was not exactly normal. EMS stated that she walked well to the stretcher. NIH is 0. PAST MEDICAL HISTORY:See Below PAST SURGICAL HISTORY:See Below FAMILY HISTORY:See Below SOCIAL HISTORY:See Below HOME MEDICATIONS:See Below ALLERGIES:See Below VITALS:See Below PHYSICAL EXAMINATION: GENERAL: alert, well appearing, well nourished, no distress, non-toxic EYE EXAM: normal conjunctiva, PERRL and EOM's grossly intact OROPHARYNX: no exudate, no erythema, lips, buccal mucosa, and tongue normal and mucous membranes are moist NECK: supple, no nuchal rigidity, no adenopathy, non-tender LUNGS: Clear to auscultation. Normal chest wall mechanics, no w/r/r HEART: no murmurs, S1 normal and S2 normal ABDOMEN: abdomen soft, non-tender, normo-active bowel sounds, no masses, no rebound or guarding. BACK: Back is symmetrical on inspection and there is no deformity, no midline tenderness, no CVA tenderness. SKIN: no rashes, petechiae, orbruising UPPER EXTREMITIES: upper extremities are grossly normal. FROM, nml pulses b/l. LOWER EXTREMITIES: No pitting edema. FROM, nml pulses b/l. NEURO EXAM: Normal sensorium, cranial nerves II-XII grossly intact, normal speech, no facial droop,nogross weakness of arms, no gross weakness of legs. Gross sensation intact. No ataxia. Vital Signs: reviewed and remarkable Differential Diagnosis: Vasovagal event, dehydration, infection, hypoglycemia, electrolyte abnormalities, cardiac sources, intracerebral event, pulmonary embolism, seizure, toxicologic, neurologic, as well as other pathologies. MEDICAL DECISION MAKIN-year-old female presents emergency department with complaints of syncope. Patient does not feel that she can safely be at home. She is concerned about not having enough help at home as well. She is resistant to placement for PT rehab. I spoke with her about option for admission to the hospital given her 2 syncopal episodes since her last hospital admission, she is agreeable with the plan. I spoke with hospitalist, they will admit. ER Treatment Provided: See below Diagnostics Interpreted By Me: -ECG: EKG shows sinus tach at a rate of [address] changes, PVCs, frequent, unifocal, LVH, seen on prior interpretation of 11 15 24. -Cardiac Monitoring: An order was placed for continuous cardiac monitoring. The monitor shows a rate of 100 with NS rhythm. -Laboratory studies: As stated above and show below. -Imaging studies: Chest x-ray, no acute changes. Triage Nursing Note Reviewed Prior/Outside Records Reviewed Past Med/Surg History Problem List (Updated 12/03/24 @ 18:22 by Padmini Stevens DO) Frequent PVCs (Acute) Heart palpitations (Acute) Weakness (Acute) Syncope (Acute) Resistant hypertension Ventricular bigeminy Near syncope Dizziness Hyponatremia (Acute) Bradycardia Fatigue Albuminuria Benign hypertension Renal artery stenosis Anemia (Acute) Leukopenia (Acute) Elevated troponin (Acute) Syncope (Acute) Hyponatremia Diarrhea Syncope Antiphospholipid syndrome Uncontrolled hypertension Lupus anticoagulant disorder Following with heme- no personal hx of DVT/PE- heme aware of upcoming TKA- recommendations given Left ventricular hypertrophy Hypertension Depression Anxiety Prediabetes Nonrheumatic mitral valve insufficiency Near syncope Mild obstructive sleep apnea Lightheadedness (Acute) Heart disease Diastolic dysfunction, left ventricle AI (aortic insufficiency) Status post left partial knee replacement Resistant hypertension Antiplatelet or antithrombotic long-term use pt denies any besides aspirin 81 daily Mild mitral regurgitation by prior echocardiogram Effusion, left knee Mild aortic regurgitation Mild tricuspid regurgitation Central retinal vein occlusion ~ - follows with Dr White for an injection in the left eye every 6- 8 weeks. Left ventricular hypertrophy Severe LVH per 09/2021 ECHO ; no LVOT obstruction per cardio follows with Dr. Shepard Dyslipidemia Hypertension (Acute) controlled, stable per pt Depression (Chronic) Medical History Palpitations Adrenal adenoma Avascular necrosis of bone Chondrocalcinosis Hypertension Epistaxis Medication reaction Elevated partial thromboplastin time (PTT) Following with [facility] - Dr. Cadet GERD (gastroesophageal reflux disease) rare, stable per pt Sleep apnea not currently treated- could not tolerate device due to getting up multiple times at night to urinate History of blood transfusion prior to hysterectomy () Anxiety Encounter for pre-operative examination Urinary incontinence severe Hypothyroidism Hearing deficit Wears hearing aids intermittently History of COVID-19 diagnosed 03/2021--mild symptoms, no symptoms now Left knee DJD Surgical History Status post right partial knee replacement History of dilatation and curettage History of bilateral tubal ligation History of partial knee replacement right History of colonoscopy History of bilateral cataract extraction H/O parathyroidectomy S/P appendectomy H/O: hysterectomy Total with BSO Family History Father Coronary heart disease Heart disease Hypertension Myocardial infarction Dyslipidemia Mother Hypertension Sister Hypertension Heart disease Other No family history of adverse response to anesthesia Social History Smoking Status: Never smoker Second Hand Exposure: No; Do You Dip or Chew Tobacco: No; Hx Alcohol Use: No Hx Substance Use: No Preferred Language: Azeri Communication Ability: Effective Visual Impairment: No Limitations 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 Beliefs That Will Affect Care: None marital status: / Current Living Situation: Family Current Living Situation Comment: daughter current occupational status: retired How many Children do You have: 6 Feels Safe at Home: Yes Diet: regular caffeine: Yes (takes caffeine pills 100mg ) Physical Activity Frequency: Does not Exercise Seatbelt Use: always Do you think of yourself as: straight/heterosexual Gender Identity: Female Assistive Devices: None Allergies Allergies Allergy/AdvReac Type Severity Reaction Status Date / Time Beta-Blockers Allergy Severe shortness Verified 12/03/24 17:27 (Beta-Adrenergic Bloc of breath, worsened anxiety sertraline [From Zoloft] Allergy Severe shortness Verified 12/03/24 17:27 of breath, worsened anxiety Sulfa (Sulfonamide Allergy Severe TONGUE Verified 12/03/24 17:27 Antibiotics) SWELLS sulfamethoxazole Allergy Severe TONGUE Verified 12/03/24 17:27 SWELLS trimethoprim Allergy Severe TONGUE Verified 12/03/24 17:27 SWELLS diltiazem Allergy Intermediate Rash Verified 12/03/24 17:27 Influenza Virus Vaccines Allergy Intermediate itching Verified 12/03/24 17:27 adhesive tape Allergy Mild Rash Verified 12/03/24 17:27 metoprolol AdvReac Severe severe Verified 12/03/24 17:27 fatigue and palpitations metronidazole [From Flagyl] AdvReac Intermediate Nausea Verified 12/03/24 17:27 felodipine [From Plendil] AdvReac Unknown Unknown Verified 12/03/24 17:27 Home Meds Home Medications Medication Instructions Recorded Confirmed lorazepam 0.5 mg tablet (Ativan) 0.5 mg PO HS PRN Anxiety or sleep 10/28/18 12/03/24 multivitamin 2 tab PO QAM 10/28/18 12/03/24 omega 3 350 mg-dha 235 mg-epa 90 1 cap PO QPM 10/28/18 12/03/24 mg-fish oil 597 mg capsule,delay rel (Sondheimer-3) venlafaxine 150 mg 150 mg PO HS 10/28/18 12/03/24 capsule,extended release 24 hr Balance Of Nature 6 cap PO QAM 02/27/22 12/03/24 aflibercept 2 mg/0.05 mL 2 mg intravitreal Q8WK 02/27/22 12/03/24 intravitreal syringe (Eylea) amoxicillin 500 mg capsule 2,000 mg PO UD PRN prior to dental 02/27/22 12/03/24 procedures cholecalciferol (vitamin D3) 125 125 mcg PO QPM 02/27/22 12/03/24 mcg (5,000 unit) tablet (Vitamin D3) cyanocobalamin (vitamin B-12) 5,000 mcg sublingual QAM 02/27/22 12/03/24 5,000 mcg sublingual tablet (Vitamin B-12) Super Beets 2 tab PO QAM 09/04/22 12/03/24 caffiene 100 mg PO DAILY PRN .KEEP ALERT 05/27/23 12/03/24 levothyroxine 88 mcg capsule 88 mcg PO DAILY 07/29/23 12/03/24 magnesium 250 mg tablet 400 mg PO HS 06/09/24 12/03/24 acetaminophen 500 mg tablet 1,000 mg PO TID PRN pain 11/15/24 12/03/24 (Tylenol Extra Strength) amlodipine 5 mg tablet 5 mg PO HS 12/03/24 12/03/24 psyllium husk 3.4 gram/5.4 gram 1 tbsp PO BID 12/03/24 12/03/24 oral powder (Metamucil) Previous Rx's Medication Instructions Recorded Wheeled Walker #1 ea 02/24/22 olmesartan 40 mg tablet 40 mg PO DAILY #90 tabs 04/19/24 eplerenone 25 mg tablet 25 mg PO DAILY #90 tabs 08/05/24 hydralazine 50 mg tablet 100 mg (2 x 50 mg) PO TID 90 days 09/14/24 #540 tabs Results & Data (ED) Vital Signs Vital Signs - 24 hr 12/03/24 15:32 12/03/24 15:32 12/03/24 15:32 Temperature 36.6 C 36.6 C Temperature Source Oral Oral Pulse Rate 68 Pulse Rate [Apical] 68 Respiratory Rate 17 17 Respiratory Effort / Characteristics Non-Labored Spontaneous Non-Labored Spontaneous Respiratory Depth Normal Normal Respiratory Pattern Regular Regular Blood Pressure 213/101 H Blood Pressure [Right Arm] 213/101 H Blood Pressure Mean 138 Blood Pressure Mean [Right Arm] 138 Blood Pressure Position Lying Blood Pressure Position [Right Arm] Lying Pulse Oximetry 95 95 95 Oxygen Delivery Method Room Air Room Air Room Air Sepsis Recent Fever Within 48 Hours No Sepsis New/Unexplained Change in Mental Status N/A Sepsis Action Taken by Nursing No Action Required 12/03/24 15:32 12/03/24 15:38 12/03/24 16:00 Temperature Temperature Source Pulse Rate 68 81 Pulse Rate [Apical] 76 Respiratory Rate 17 25 H Respiratory Effort / Characteristics Non-Labored Spontaneous Respiratory Depth Normal Respiratory Pattern Regular Blood Pressure Blood Pressure [Right Arm] 158/84 H Blood Pressure Mean Blood Pressure Mean [Right Arm] 108 Blood Pressure Position Blood Pressure Position [Right Arm] Lying Pulse Oximetry 95 94 Oxygen Delivery Method Room Air Room Air Sepsis Recent Fever Within 48 Hours Sepsis New/Unexplained Change in Mental Status Sepsis Action Taken by Nursing 12/03/24 18:00 Temperature Temperature Source Pulse Rate Pulse Rate [Apical] 102 H Respiratory Rate 22 Respiratory Effort / Characteristics Non-Labored Spontaneous Respiratory Depth Normal Respiratory Pattern Regular Blood Pressure Blood Pressure [Right Arm] 179/95 H Blood Pressure Mean Blood Pressure Mean [Right Arm] 123 Blood Pressure Position Blood Pressure Position [Right Arm] Lying Pulse Oximetry 96 Oxygen Delivery Method Room Air Sepsis Recent Fever Within 48 Hours Sepsis New/Unexplained Change in Mental Status Sepsis Action Taken by Nursing Laboratory Data 12/03/24 15:36 12/03/24 15:36 Lab Results 12/03/24 12/03/24 Range/Units 15:36 17:31 WBC 7.12 (4.8-10.8) K/ul RBC 4.65 (4.20-5.40) M/uL Hgb 13.3 (12.0-16.0) g/dl Hct 40.1 (37.0-47.0) % MCV 86.2 (80.0-100.0) fL MCH 28.6 (25.0-34.0) pg MCHC 33.2 (32.0-36.0) g/dL RDW Std Deviation 42.7 (36.4-46.3) fL RDW Coeff of Elizabeth 13.8 (11.5-14.5) % Plt Count 326 (130-400) K/uL MPV 10.9 (9.4-12.4) fL Immature Gran % (Auto) 0.4 % Neut % (Auto) 65.4 % Lymph % (Auto) 22.1 % Assumption % (Auto) 8.6 % Eos % (Auto) 2.5 % Baso % (Auto) 1.0 % Neut # (Auto) 4.66 (1.40-6.50) K/uL Lymph # (Auto) 1.57 (1.20-3.40) K/uL Assumption # (Auto) 0.61 H (0.11-0.59) K/uL Eos # (Auto) 0.18 (0.00-0.50) K/uL Baso # (Auto) 0.07 (0.00-0.20) K/uL Immature Gran # (Auto) 0.03 (0.01-0.20) K/uL Sodium 136 (136-145) mmol/L Potassium 4.3 (3.5-5.1) mmol/L Chloride 104 (98-107) mmol/L Carbon Dioxide 23 (21-32) mmol/L Anion Gap 9 (3-11) BUN 20 (6-23) mg/dl Creatinine 0.96 (0.6-1.2) mg/dl Est Cr Clr Drug Dosing 38.6 ml/min eGFR 58.34 BUN/Creatinine Ratio 20.8 H (10-20) Glucose 124 H (70-99(Fasting)) mg/dl Calcium 9.4 (8.6-10.3) mg/dl Phosphorus 4.1 (2.5-4.9) mg/dl Magnesium 2.2 (1.7-2.4) mg/dl Total Bilirubin 0.5 (0.2-1.0) mg/dl AST 15 (13-39) U/L ALT 14 (7-52) U/L Alkaline Phosphatase 83 (34-104) U/L Troponin I High Sens 34.4 H 39.9 H (0-14) pg/ml Total Protein 7.0 (6.0-8.3) gm/dl Albumin 3.9 (3.4-5.0) gm/dl Globulin 3.1 (2.5-4.0) gm/dl Albumin/Globulin Ratio 1.3 (0.9-2) Lipase 47 (11-82) U/L Administered Medications Discontinued Medications Aspirin (Aspirin Chew 324 Mg) 324 mg PO NOW STA Stop: 12/03/24 15:37 Last Admin: 12/03/24 15:40 Dose: 324 mg Documented By: SELINA Co-signed By: DAJUAN Hydralazine HCl (Hydralazine Hcl 20 Mg/Ml Vial) 10 mg IV NOW STA Stop: 12/03/24 15:37 Last Admin: 12/03/24 15:41 Dose: 10 mg Documented By: SELINA Co-signed By: DAJUAN Labetalol HCl (Labetalol Hcl Iv 5 Mg/Ml 20ml) Confirm Administered Dose 5 mg IV .STK-MED ONE Stop: 12/03/24 15:38 Last Admin: 12/03/24 15:42 Dose: Not Given Documented By: DAJUAN Imaging Data Radiologist's Impression: Chest X-Ray 12/03/24 15:36 Exam: AP Portable Chest Exam reason: Chest pain Comparison: 11/15/2024 Technique: A single AP portable view of the chest was obtained Findings: The lungs are well-expanded. No focal areas of consolidation are identified. An apparent electrical stimulator is noted over the right chest. The cardiac and mediastinal silhouettes are within normal limits. There is no pneumothorax and no acute bony abnormalities are seen. Impression: No acute cardiopulmonary abnormalities Electronically signed by Clive Fitzgerald 12-03-2024 4:05 PM Discharge Plan Visit Data Chief Complaint: Weakness ED Provider: Padmini Stevens Discharge Problem: Syncope, Weakness, Heart palpitations, Frequent PVCs Patient Disposition: Admitted As Inpatient Condition: Fair Forms Stand Alone Forms: [facility] Prescriptions Prescriptions: No Action eplerenone 25 mg tablet 25 mg PO DAILY Qty: 90 2RF Rx Instructions: take at bedtime (DME) Wheeled Walker Misc See Rx Instructions .MEDSUPPLY Qty: 1 0RF Rx Instructions: As directed hydralazine 50 mg tablet 100 mg PO TID 90 Days Qty: 540 1RF caffiene 100 mg PO DAILY PRN (Reason: .KEEP ALERT) Rx Instructions: "to help her function" levothyroxine 88 mcg capsule 88 mcg PO DAILY olmesartan 40 mg tablet 40 mg PO DAILY Qty: 90 2RF lorazepam [Ativan] 0.5 mg Tablet 0.5 mg PO HS PRN (Reason: Anxiety or sleep) venlafaxine 150 mg Capsule,Extended Release 24hr 150 mg PO HS multivitamin Tablet 2 tab PO QAM Rx Instructions: chewable/gummy women's one a day Sondheimer-3 350 mg-235 mg- 90 mg-597 mg Capsule,Delayed Release(Dr/Ec) 1 cap PO QPM cholecalciferol (vitamin D3) [Vitamin D3] 125 mcg (5,000 unit) Tablet 125 mcg PO QPM Balance Of Nature 6 cap PO QAM Patient Comments: "veggie and fruit capsules midday" amoxicillin 500 mg Capsule 2,000 mg PO UD PRN (Reason: prior to dental procedures) Eylea 2 mg/0.05 mL Syringe 2 mg INTRAVITREAL Q8WK Patient Comments: every 6-8wks Rx Instructions: every 6 to 8 weeks cyanocobalamin (vitamin B-12) [Vitamin B-12] 5,000 mcg Tablet, Sublingual 5,000 mcg SUBLINGUAL QAM Super Beets 2 tab PO QAM Rx Instructions: contains grape seed extract magnesium 250 mg tablet 400 mg PO HS Hold Instructions: Home Medication placed on hold at Doctor's office acetaminophen [Tylenol Extra Strength] 500 mg tablet 1,000 mg PO TID PRN (Reason: pain) Metamucil 3.4 gram/5.4 gram Powder 1 tbsp PO BID Rx Instructions: mix into at least 8 oz of water or juice before administering amlodipine 5 mg tablet 5 mg PO HS Referrals Referrals: Hernandez Brar [Primary Care Provider] -
[2024-12-03 16:16] LABS: Alanine Aminotransferase 14.0 U/L (7-52); Albumin Globulin Ratio 1.3 (0.9-2); Albumin Level 3.9 gm/dl (3.4-5.0); Alkaline Phosphatase 83.0 U/L (34-104); Anion Gap 9.0 (3-11); Bilirubin,Total 0.5 mg/dl (0.2-1.0); Blood Urea Nitrogen 20.0 mg/dl (6-23); Calcium 9.4 mg/dl (8.6-10.3); Carbon Dioxide 23.0 mmol/L (21-32); Chloride 104.0 mmol/L (98-107); Creatinine Clr Calc Pharmacy 38.6 ml/min; Globulin 3.1 gm/dl (2.5-4.0); Glucose 124.0 mg/dl (70-99(Fasting)); Lipase 47.0 U/L (11-82); Magnesium 2.2 mg/dl (1.7-2.4); Potassium 4.3 mmol/L (3.5-5.1); Sodium 136.0 mmol/L (136-145); Total Protein 7.0 gm/dl (6.0-8.3)
--- NOTE | 2024-12-03 19:25 | History & Physical Report ---
Date of Service December 03, 2024 Assessment & Plan (1) Weakness: (2) UTI (urinary tract infection): (3) Syncope: (4) Elevated troponin: Plan 84-year-old female PMHx resistant HTN, renal artery stenosis, adrenal adenoma on R side, depression, dyslipidemia, antiphospholipid syndrome, and anxiety presenting for sudden syncopal episodes within the past few weeks and increased weakness. Overall her workup reveals a troponin of 34.4 and then 39.9 on repeat, but EKG without ischemic changes. Her chest x-ray is insignificant for acute findings. Patient continues to have worsening weakness since hospital discharge and with syncopal episodes, warranting admission for concerns for safety if going home as well as recurrent syncopal episodes. #Weakness/UTI/Syncope H/o of syncopal event x 2 since discharge, with prior history of such as well was thought to be 2/2 fluctuating BP. Pending Holter monitor results, still on L chest. Reports that she never loses consciousness, but feels generalized weakness during episodes, mainly with some exertion; Suspect that worsening weakness has to do with frequent hospital admissions/discharge, would benefit from at home assistance in care to prevent ongoing hospital admissions as appropriate. Should be considered for placement or at home assistance. Also, syncopal episodes in setting of alternating heart rate and hypertension, ? cardiac etiology. UA (+) after admission- in setting of worsening weakness, some increased urination, will provide with IV abx. - CBC WNL; CMP WNL; Mg, Phos WNL; troponin 34.3, 39.9 on repeat - Trop am - UA pending - EKG sinus tachycardia with PVCs @ 104 bpm - CXR without acute findings - Echo 11/16/2024 severe LVH, mild AR, RVSP elevated 30-40mmHg, EF 65-70% - Fall precautions - Orthostatic vitals pending - Ceftriaxone IV - Cardiology consulted - appreciate any input + recs - PT/OT ordered - appreciate assistance #Elevated troponin Pt w/ h/o elevated troponin not suspected to be 2/2 ACS; no current chest pain. In setting of alternating tachycardia and bradycardia. - Troponin 34.4, 39.9 on repeat - trend x 1 in am - EKG sinus tachy, without ischemic changes - Likely 2/2 demand ischemia #HTN/KAYLEEN Follows with HTN clinic, on multiple BP medications amlodipine, eplerenone. hydralazine, olmesartan; Renal artery duplex in 2017 w/ < 60% stenosis bilat - K 4.3; BUN 20, Cr 0.96 - BMP am - Continue BP meds - Provide HS po antihypertensives now -- amlodipine, hydralazine - Clonidine 0.1 mg po prn q3hr for SBP > 180s #Hypothyroidism- Levothyroxine - continue #Psych- Venlafaxine - continue Dispo: Admit, med/tele VTE Prophylaxis: SCDs This document was dictated utilizing [employer]. Please excuse any grammatical errors that may be secondary to use of this software. Admission and Anticipated Discharge Date Admission Date: 12/03/2024 History of Present Illness Chief Complaint: Weakness Primary Care Provider: Hernandez Brar 84-year-old female PMHx resistant HTN, renal artery stenosis, adrenal adenoma on R side, depression, dyslipidemia, antiphospholipid syndrome, and anxiety presenting for sudden syncopal episodes within the past few weeks and increased weakness. Since her past discharge from the hospital, she has been rather sedentary as her and her family are concerned that if she is up, she may fall after syncopal episode. She has generalized weakness, no focal deficits otherwise. She states that over the course of 2 weeks since d/c, she has had 2 near-syncope events that seem to happen when she is up, getting ready to have breakfast. She has no LOC, but feels syncopal and will fall towards the ground. The episodes last seconds and she recovers from them. However, her family is afraid to leave her alone in case she has an episode and cannot get up or tell someone. She has been sitting in her recliner most of the time. She does have a cardiac Holter monitor in place at present, said she was not wearing it during the episodes of pre-syncope because it was charging. Today, she has felt increased weakness and some fogginess in her brain. Has urinary incontinence at baseline, thinks it is slightly worse. No dysuria or other LUTS. No F/C. She denies CP or SOB, does admit to occasionally being aware of her heartbeat. Overall, she states that she is concerned about her ongoing weakness and she has the desire to be active, but not the means. She has been taking her medications as prescribed. Follows with cardiology and HTN clinic. ED evaluation reveals CBC grossly WNL; CMP glucose 124, BUN/creatinine ratio 20.8; magnesium 2.2 phosphorus 4.1; troponin 34.4, 39.9 on repeat; CXR no acute findings; EKG sinus tachycardia with frequent PVCs, L provided with AD, LVH at 104 bpm.; Aspirin 324 mg po and hydralazine 10 mg IV in ED. Please see Dr. Walls's attestation for adjustments/additions to treatment plan. Allergies Allergy/AdvReac Type Severity Reaction Status Date / Time Beta-Blockers Allergy Severe shortness Verified 12/03/24 17:27 (Beta-Adrenergic Bloc of breath, worsened anxiety sertraline [From Zoloft] Allergy Severe shortness Verified 12/03/24 17:27 of breath, worsened anxiety Sulfa (Sulfonamide Allergy Severe TONGUE Verified 12/03/24 17:27 Antibiotics) SWELLS sulfamethoxazole Allergy Severe TONGUE Verified 12/03/24 17:27 SWELLS trimethoprim Allergy Severe TONGUE Verified 12/03/24 17:27 SWELLS diltiazem Allergy Intermediate Rash Verified 12/03/24 17:27 Influenza Virus Vaccines Allergy Intermediate itching Verified 12/03/24 17:27 adhesive tape Allergy Mild Rash Verified 12/03/24 17:27 metoprolol AdvReac Severe severe Verified 12/03/24 17:27 fatigue and palpitations metronidazole [From Flagyl] AdvReac Intermediate Nausea Verified 12/03/24 17:27 felodipine [From Plendil] AdvReac Unknown Unknown Verified 12/03/24 17:27 Home Medications Medication Instructions Recorded Confirmed Type lorazepam 0.5 mg tablet (Ativan) 0.5 mg PO HS PRN Anxiety or sleep 10/28/18 12/03/24 History multivitamin 2 tab PO QAM 10/28/18 12/03/24 History omega 3 350 mg-dha 235 mg-epa 90 1 cap PO QPM 10/28/18 12/03/24 History mg-fish oil 597 mg capsule,delay rel ([place]-3) venlafaxine 150 mg 150 mg PO HS 10/28/18 12/03/24 History capsule,extended release 24 hr Wheeled Walker #1 ea 02/24/22 11/15/24 Rx Balance Of Nature 6 cap PO QAM 02/27/22 12/03/24 History aflibercept 2 mg/0.05 mL 2 mg intravitreal Q8WK 02/27/22 12/03/24 History intravitreal syringe (Eylea) amoxicillin 500 mg capsule 2,000 mg PO UD PRN prior to dental 02/27/22 12/03/24 History procedures cholecalciferol (vitamin D3) 125 125 mcg PO QPM 02/27/22 12/03/24 History mcg (5,000 unit) tablet (Vitamin D3) cyanocobalamin (vitamin B-12) 5,000 mcg sublingual QAM 02/27/22 12/03/24 History 5,000 mcg sublingual tablet (Vitamin B-12) Super Beets 2 tab PO QAM 09/04/22 12/03/24 History caffiene 100 mg PO DAILY PRN .KEEP ALERT 05/27/23 12/03/24 History levothyroxine 88 mcg capsule 88 mcg PO DAILY 07/29/23 12/03/24 History olmesartan 40 mg tablet 40 mg PO DAILY #90 tabs 04/19/24 12/03/24 Rx magnesium 250 mg tablet 400 mg PO HS 06/09/24 12/03/24 History eplerenone 25 mg tablet 25 mg PO DAILY #90 tabs 08/05/24 12/03/24 Rx hydralazine 50 mg tablet 100 mg (2 x 50 mg) PO TID 90 days 09/14/24 12/03/24 Rx #540 tabs acetaminophen 500 mg tablet 1,000 mg PO TID PRN pain 11/15/24 12/03/24 History (Tylenol Extra Strength) amlodipine 5 mg tablet 5 mg PO HS 12/03/24 12/03/24 History psyllium husk 3.4 gram/5.4 gram 1 tbsp PO BID 12/03/24 12/03/24 History oral powder (Metamucil) Past Med/Surg History Problem List (Updated 12/03/24 @ 21:28 by Alonso Dickey PA-C) UTI (urinary tract infection) Frequent PVCs (Acute) Heart palpitations (Acute) Weakness (Acute) Syncope (Acute) Resistant hypertension Ventricular bigeminy Near syncope Dizziness Hyponatremia (Acute) Bradycardia Fatigue Albuminuria Benign hypertension Renal artery stenosis Anemia (Acute) Leukopenia (Acute) Elevated troponin (Acute) Syncope (Acute) Hyponatremia Diarrhea Syncope Antiphospholipid syndrome Uncontrolled hypertension Lupus anticoagulant disorder Following with heme- no personal hx of DVT/PE- heme aware of upcoming TKA- recommendations given Left ventricular hypertrophy Hypertension Depression Anxiety Prediabetes Nonrheumatic mitral valve insufficiency Near syncope Mild obstructive sleep apnea Lightheadedness (Acute) Heart disease Diastolic dysfunction, left ventricle AI (aortic insufficiency) Status post left partial knee replacement Resistant hypertension Antiplatelet or antithrombotic long-term use pt denies any besides aspirin 81 daily Mild mitral regurgitation by prior echocardiogram Effusion, left knee Mild aortic regurgitation Mild tricuspid regurgitation Central retinal vein occlusion ~ - follows with Dr White for an injection in the left eye every 6- 8 weeks. Left ventricular hypertrophy Severe LVH per 09/2021 ECHO ; no LVOT obstruction per cardio follows with Dr. Shepard Dyslipidemia Hypertension (Acute) controlled, stable per pt Depression (Chronic) Medical History Palpitations Adrenal adenoma Avascular necrosis of bone Chondrocalcinosis Hypertension Epistaxis Medication reaction Elevated partial thromboplastin time (PTT) Following with [facility] - Dr. Cadet GERD (gastroesophageal reflux disease) rare, stable per pt Sleep apnea not currently treated- could not tolerate device due to getting up multiple times at night to urinate History of blood transfusion prior to hysterectomy () Anxiety Encounter for pre-operative examination Urinary incontinence severe Hypothyroidism Hearing deficit Wears hearing aids intermittently History of COVID-19 diagnosed 03/2021--mild symptoms, no symptoms now Left knee DJD Surgical History Status post right partial knee replacement History of dilatation and curettage History of bilateral tubal ligation History of partial knee replacement right History of colonoscopy History of bilateral cataract extraction H/O parathyroidectomy S/P appendectomy H/O: hysterectomy Total with BSO Family History Father Coronary heart disease Heart disease Hypertension Myocardial infarction Dyslipidemia Mother Hypertension Sister Hypertension Heart disease Other No family history of adverse response to anesthesia Social History Smoking Status: Never smoker Second Hand Exposure: No; Do You Dip or Chew Tobacco: No; Hx Alcohol Use: No Hx Substance Use: No Preferred Language: Omani Communication Ability: Effective Visual Impairment: No Limitations Hearing Ability: Normal Award Clerk Required: No Beliefs That Will Affect Care: None marital status: / Current Living Situation: Family Current Living Situation Comment: daughter current occupational status: retired How many Children do You have: 6 Other Information That Helps Us Care for You: No Feels Safe at Home: Yes Safety Concerns: Feels Safe At This Time Diet: regular caffeine: Yes (takes caffeine pills 100mg ) Physical Activity Frequency: Does not Exercise Seatbelt Use: always Do you think of yourself as: straight/heterosexual Gender Identity: Female Assistive Devices: Cane, Glasses, Hearing Aid - Bilateral, Stair Lift and Walker Review of Systems Review of Systems: All systems reviewed & are unremarkable except as noted in Subjective Physical Exam Physical Exam: General: No acute distress Skin: Warm and dry Head: Normocephalic, atraumatic Eyes: PERRL, conjunctivae clear, sclera non-icteric, L eye deviates (at baseline) ENT: External ear and ear canal without swelling; nose atraumatic; good dentition, tongue normal appearance, pharynx normal Neck: Supple, no LAD Cardio: Alternating regular rate and tachycardia, regular rhythm, faint murmu, no G/R, S1 and S2 normal Resp: No respiratory distress, Lungs CTA in all lobes bilaterally, no wheezes, rales, or rhonchi Abdomen: Soft, symmetric, nontender; No masses or hepatosplenomegaly; Bowel sounds normoactive MSK: No deformities; pulses palpable and equal; no edema. Neuro: Awake, alert; Sensation intact bilaterally; CN grossly intact Psych: Appropriate mood and affect; good judgement and insight. Daughter present in room at time of visit. Results & Data Results & Data Vital Signs (Past 12 Hours) Vital Signs Temp Pulse Pulse Resp BP BP Pulse Ox 12/03/24 18:00 102 H 22 179/95 H 96 12/03/24 16:00 76 25 H 158/84 H 94 12/03/24 15:38 81 12/03/24 15:32 68 17 95 12/03/24 15:32 36.6 C 68 17 213/101 H 95 12/03/24 15:32 95 12/03/24 15:32 36.6 C 68 17 213/101 H 95 O2 Del Method 12/03/24 18:00 Room Air 12/03/24 16:00 Room Air 12/03/24 15:38 12/03/24 15:32 Room Air 12/03/24 15:32 Room Air 12/03/24 15:32 Room Air 12/03/24 15:32 Room Air Laboratory Results 12/03/24 12/03/24 17:31 15:36 WBC 7.12 RBC 4.65 Hgb 13.3 Hct 40.1 MCV 86.2 MCH 28.6 MCHC 33.2 RDW Std Deviation 42.7 RDW Coeff of Elizabeth 13.8 Plt Count 326 MPV 10.9 Immature Gran % (Auto) 0.4 Neut % (Auto) 65.4 Lymph % (Auto) 22.1 Brooke % (Auto) 8.6 Eos % (Auto) 2.5 Baso % (Auto) 1.0 Neut # (Auto) 4.66 Lymph # (Auto) 1.57 Brooke # (Auto) 0.61 H Eos # (Auto) 0.18 Baso # (Auto) 0.07 Immature Gran # (Auto) 0.03 Sodium 136 Potassium 4.3 Chloride 104 Carbon Dioxide 23 Anion Gap 9 BUN 20 Creatinine 0.96 Est Cr Clr Drug Dosing 38.6 eGFR 58.34 BUN/Creatinine Ratio 20.8 H Glucose 124 H Calcium 9.4 Phosphorus 4.1 Magnesium 2.2 Total Bilirubin 0.5 AST 15 ALT 14 Alkaline Phosphatase 83 Troponin I High Sens 39.9 H 34.4 H Total Protein 7.0 Albumin 3.9 Globulin 3.1 Albumin/Globulin Ratio 1.3 Lipase 47 Diagnostic Findings Chest X-Ray 12/03/24 15:36 Exam: AP Portable Chest Exam reason: Chest pain Comparison: 11/15/2024 Technique: A single AP portable view of the chest was obtained Findings: The lungs are well-expanded. No focal areas of consolidation are identified. An apparent electrical stimulator is noted over the right chest. The cardiac and mediastinal silhouettes are within normal limits. There is no pneumothorax and no acute bony abnormalities are seen. Impression: No acute cardiopulmonary abnormalities Electronically signed by Clive Fitzgerald 12-03-2024 4:05 PM Medications Administered Aspirin 324 mg po Hydralazine 10 mg IV ECG Additional Comments: Sinus tachycardia with PVCs, LAD, LVH 104 bpm, MO 176, QRS 90, QT/QTc 358/470, PRT 67/-39/121 Code Status & VTE Plan Code Status Full Supervising Physician Co-Signing Physician Notes Patient seen and examined, chart reviewed, case discussed with PIEDAD Dickey and I agree with the assessment and plan as above. In brief, patient is a pleasant 84yo female with history of treatment resistant HTN, KAYLEEN, depression, HLP presenting with increased weakness since hospital discharge. Family is concerned about safety at home. On exam she is resting comfortably, NAD Skin - no rash HEENT -MMM, Neck supple Heart - +S1/S2, regular Lungs CTA Abd soft, NT/ND Labs and images reviewed Trop=34.4 --> 39.9 UA suggestive of infection EKG with sinus tachycardia with frequent PVCs, bigeminy pattern at times Assessment/plan #Generalized weakness - likely multifactorial - underlying UTI, also with deconditioning -Admit to medical with telemetry -Ceftriaxone -PT/OT #Elevated troponin -engine monitor -Repeat troponin #Hypertension - poorly controlled. Patient on multiple medications. No chest pain, SOB, back pain, focal complaints -Continue home regimen -Clonidine PRN Remainder as above PG Care Time/CCT Total # of Minutes Spent Total Time Spent with Patient: Total time spent is greater than 50% in coordination of care (as documented) at patient's floor/unit and/or counseling patient: Coding Level of Care Code 80532 INT INP/OBS CARE 3/75MIN Diagnoses Weakness R53.1 UTI (urinary tract infection) N39.0 Syncope R55 Elevated troponin R79.89
[2024-12-03 20:27] LABS: Appearance Urine Clear (Clear); Glucose Urine UA Negative (Negative)
[2024-12-03 20:50] LABS: Bacteria Urine Automated 4+ (None Seen); Cast Urine Automated 0-2 /lpf (0-2); Epithelial Cell Urine Auto 0-2 /hpf (0-2); RBC Urine Automated 0-2 /hpf (0-2); WBC Urine Automated 0-5 /hpf (0-5)
[2024-12-03] MEDS ORDERED: ONDANSETRON INJ 2 MG/ML 2 ML VIAL IV PRN (21:40)
[2024-12-03] MEDS ORDERED: MAGNESIUM HYDROXIDE SUSP 30 ML UDC PO PRN (21:40)
[2024-12-03] MEDS ORDERED: POLYETHYLENE (MIRALAX) 17 GM PACK PO PRN (21:40)
[2024-12-03] MEDS: PSYLLIUM HUSK 4GM PACKET PO SCH (22:06)
[2024-12-03] MEDS: cefTRIAXone SODIUM 2,000 MG/50 ML BAG IV SCH (22:06)
[2024-12-03] MEDS: LORazepam 0.5 MG TAB PO PRN (22:55)
[2024-12-04] MEDS: LEVOTHYROXINE SODIUM 88 MCG TABLET PO SCH (06:31)
[2024-12-04 08:46] LABS: Magnesium 2.2 mg/dl (1.7-2.4)
[2024-12-04 08:52] LABS: Creatine Kinase 33.0 U/L (26-192)
[2024-12-04 09:05] LABS: T4 Free Thyroxine 1.28 ng/dl (0.61-1.60)
--- NOTE | 2024-12-04 09:49 | Cardiology Consultation ---
Date of Consultation December 04, 2024 Assessment & Plan (1) Near syncope: (2) Ventricular bigeminy: (3) Weakness: (4) Elevated troponin: (5) Hypertension: Plan 1. Near syncope: The cause of her near syncopal episodes remains under investigation. On detailed questioning she has not lost consciousness since last summer, she describes her near syncopal events as "syncope" when she uses the term. She is still wearing the monitor, she had only 1 of these episodes since wearing the monitor and that was when it was off for charging so we do not know what her rhythm was. I would recommend continuing to have her wear it. Perhaps the episodes are orthostasis as was suspected last visit, that would explain why she has improved in that regard with only 1 episode in 2 weeks off of Bumex. 2. Ventricular bigeminy: She has periods of ventricular bigeminy as well as very frequent premature ventricular beats. I cannot tell if these are actually causing symptoms but they can lower her effective heart rate, they could make orthostasis worse potentially since it would reduce her heart rate and possibly cardiac output when she needs it to maintain blood pressure. That is very hard to prove. Perhaps the easiest thing to do would be to try to suppress them, class Ic antiarrhythmics are very effective in preventing PVCs and she does not have a specific contraindication that I can see. I am going to add flecainide while she is here to see where they can be suppressed and to make sure she does not have prior arrhythmia or side effects on flecainide. She is not on a beta- lena and her blood pressure is markedly elevated, it is listed as an allergy but it does not really sound like an allergy (shortness of breath and worsened anxiety) so I am going to try a low-dose. 3. Weakness: I am not sure what is causing her weakness, from her description it has been continuous since she went home not intermittent as would be expected from ventricular bigeminy which is only intermittent. It may be some other cause, perhaps the severe hypertension, perhaps the kidney infection. 4. Elevated troponin: She does have an elevated troponin but I think this is consistent with demand ischemia from severe hypertension. I would not look for ischemia at this point. 5. Hypertension: Her blood pressure is markedly elevated, there may be a component of anxiety which can generally be helped by beta-blockade since that blocks catecholamines (as opposed to causing anxiety which is listed as her side effect to them). I think a low-dose beta-lena would be beneficial for her and I am going to start that. At home she was on amlodipine and telmisartan, here she is on clonidine and no other medications currently. History of Present Illness Reason for Consultation: Presyncope Attending Physician: Omar Wolf MD, PhD History of Present Illness This is an 84-year-old woman whose primary interior block wirer is Dr. Shepard in our office. She has a history of dyslipidemia, hypertension, carotid arterial disease and aortic regurgitation. She was recently hospitalized from November 15, 2024 through November 17, 2024 for dizziness and near syncope. She was identified as having difficult to control hypertension and ventricular bigeminy. A component of orthostatic hypotension was identified with a drop in systolic blood pressure for 156-132 and her Bumex was held on discharge. An echocardiogram done November 16, 2024 showed normal left ventricular systolic function with severe concentric left ventricular hypertrophy, mild aortic insufficiency and mild aortic root dilatation. A carotid Doppler study was done on November 15, 2024 and showed no hemodynamically significant stenosis. She presented to the emergency room on December 03, 2024 with weakness and presyncope, she reported multiple "syncopal" episodes in the weeks leading up to this presentation. She feels she has had progressive weakness since her recent hospital discharge in addition to presyncopal episodes. Her presenting electrocardiogram shows left ventricular hypertrophy with repolarization abnormalities. Her electrocardiogram this morning is essentially unchanged. Her troponin was mildly elevated, 34.4 on presentation and 39.9 several hours later and 51.2 on her third, this was not felt to be related to myocardial ischemia. Her blood pressure here since admission has been markedly elevated. I discussed her symptoms with her and her description is somewhat different than what appears in the chart. She tells me that she has "syncope", but she uses the word differently than we do and she tells me the last time she lost consciousness was a year ago. She has not had loss of consciousness since, she has episodes where she feels like she might pass out but has not and she calls that syncope. The last episode of presyncope she recalls was about a week and a half ago, she has been wearing her monitor since discharge but happened to have the monitor off during that episode so we are not going to know the cause. She has also been feeling poorly in a nonspecific way since that last discharge, and this does not seem to be intermittent (as it should be within arrhythmia) so perhaps it is related to her severe hypertension or a possible urinary tract infection. Today in bed she seems to feel relatively well. She does not have other cardiovascular symptoms such as chest discomfort or shortness of breath. Allergies Allergy/AdvReac Type Severity Reaction Status Date / Time Beta-Blockers Allergy Severe shortness Verified 12/03/24 17:27 (Beta-Adrenergic Bloc of breath, worsened anxiety sertraline [From Zoloft] Allergy Severe shortness Verified 12/03/24 17:27 of breath, worsened anxiety Sulfa (Sulfonamide Allergy Severe TONGUE Verified 12/03/24 17:27 Antibiotics) SWELLS sulfamethoxazole Allergy Severe TONGUE Verified 12/03/24 17:27 SWELLS trimethoprim Allergy Severe TONGUE Verified 12/03/24 17:27 SWELLS diltiazem Allergy Intermediate Rash Verified 12/03/24 17:27 Influenza Virus Vaccines Allergy Intermediate itching Verified 12/03/24 17:27 adhesive tape Allergy Mild Rash Verified 12/03/24 17:27 metoprolol AdvReac Severe severe Verified 12/03/24 17:27 fatigue and palpitations metronidazole [From Flagyl] AdvReac Intermediate Nausea Verified 12/03/24 17:27 felodipine [From Plendil] AdvReac Unknown Unknown Verified 12/03/24 17:27 Home Medications Medication Instructions Recorded Confirmed Type lorazepam 0.5 mg tablet (Ativan) 0.5 mg PO HS PRN Anxiety or sleep 10/28/18 12/03/24 History multivitamin 2 tab PO QAM 10/28/18 12/03/24 History omega 3 350 mg-dha 235 mg-epa 90 1 cap PO QPM 10/28/18 12/03/24 History mg-fish oil 597 mg capsule,delay rel (Beach-3) venlafaxine 150 mg 150 mg PO HS 10/28/18 12/03/24 History capsule,extended release 24 hr Wheeled Walker #1 ea 02/24/22 11/15/24 Rx Balance Of Nature 6 cap PO QAM 02/27/22 12/03/24 History aflibercept 2 mg/0.05 mL 2 mg intravitreal Q8WK 02/27/22 12/03/24 History intravitreal syringe (Eylea) amoxicillin 500 mg capsule 2,000 mg PO UD PRN prior to dental 02/27/22 12/03/24 History procedures cholecalciferol (vitamin D3) 125 125 mcg PO QPM 02/27/22 12/03/24 History mcg (5,000 unit) tablet (Vitamin D3) cyanocobalamin (vitamin B-12) 5,000 mcg sublingual QAM 02/27/22 12/03/24 History 5,000 mcg sublingual tablet (Vitamin B-12) Super Beets 2 tab PO QAM 09/04/22 12/03/24 History caffiene 100 mg PO DAILY PRN .KEEP ALERT 05/27/23 12/03/24 History levothyroxine 88 mcg capsule 88 mcg PO DAILY 07/29/23 12/03/24 History olmesartan 40 mg tablet 40 mg PO DAILY #90 tabs 04/19/24 12/03/24 Rx magnesium 250 mg tablet 400 mg PO HS 06/09/24 12/03/24 History eplerenone 25 mg tablet 25 mg PO DAILY #90 tabs 08/05/24 12/03/24 Rx hydralazine 50 mg tablet 100 mg (2 x 50 mg) PO TID 90 days 09/14/24 12/03/24 Rx #540 tabs acetaminophen 500 mg tablet 1,000 mg PO TID PRN pain 11/15/24 12/03/24 History (Tylenol Extra Strength) amlodipine 5 mg tablet 5 mg PO HS 12/03/24 12/03/24 History psyllium husk 3.4 gram/5.4 gram 1 tbsp PO BID 12/03/24 12/03/24 History oral powder (Metamucil) Patient History Medical History Palpitations Adrenal adenoma Avascular necrosis of bone Chondrocalcinosis Hypertension Epistaxis Medication reaction Elevated partial thromboplastin time (PTT) Following with [facility] - Dr. Cadet GERD (gastroesophageal reflux disease) rare, stable per pt Sleep apnea not currently treated- could not tolerate device due to getting up multiple times at night to urinate History of blood transfusion prior to hysterectomy () Anxiety Encounter for pre-operative examination Urinary incontinence severe Hypothyroidism Hearing deficit Wears hearing aids intermittently History of COVID-19 diagnosed 03/2021--mild symptoms, no symptoms now Left knee DJD Surgical History Status post right partial knee replacement History of dilatation and curettage History of bilateral tubal ligation History of partial knee replacement right History of colonoscopy History of bilateral cataract extraction H/O parathyroidectomy S/P appendectomy H/O: hysterectomy Total with BSO Family History Father Coronary heart disease Heart disease Hypertension Myocardial infarction Dyslipidemia Mother Hypertension Sister Hypertension Heart disease Other No family history of adverse response to anesthesia Social History Smoking Status: Never smoker Second Hand Exposure: No; Do You Dip or Chew Tobacco: No; Hx Alcohol Use: No Hx Substance Use: No Preferred Language: Gabonese Communication Ability: Effective Visual Impairment: No Limitations Hearing Ability: Normal Maid Supervisor Required: No Beliefs That Will Affect Care: None marital status: / Current Living Situation: Family Current Living Situation Comment: daughter current occupational status: retired How many Children do You have: 6 Other Information That Helps Us Care for You: No Feels Safe at Home: Yes Safety Concerns: Feels Safe At This Time Diet: regular caffeine: Yes (takes caffeine pills 100mg ) Physical Activity Frequency: Does not Exercise Seatbelt Use: always Do you think of yourself as: straight/heterosexual Gender Identity: Female Assistive Devices: Cane, Glasses, Hearing Aid - Bilateral, Stair Lift and Walker Review of Systems Review of Systems: All systems reviewed & are unremarkable except as noted in HPI & below Physical Exam Physical Exam: Constitutional: Alert, cooperative and in no distress. HEENT: Unremarkable Neck: No jugular venous distention, carotid pulses are normal and equal bilaterally without bruits. Pulmonary: Clear to auscultation bilaterally. Cardiac: Regular rhythm with no murmur, gallop or rub. Abdomen: Soft, nontender with normal bowel sounds. Extremities: No edema. Neurologic: No focal findings. Skin: No rash, ecchymoses or petechiae. Results & Data Vital Signs (Past 12 Hours) Vital Signs Temp Pulse Pulse Resp BP Pulse Ox O2 Del Method 12/04/24 07:36 36.8 C 44 L 16 164/56 H 94 Room Air 12/04/24 07:32 86 12/04/24 02:49 36.7 C 57 L 18 163/80 H 95 Room Air 12/03/24 23:06 36.5 C 78 18 167/73 H 96 Room Air 12/03/24 22:00 104 H 12/03/24 21:40 36.5 C 75 20 183/65 H 97 Room Air Laboratory Results Cardiac Enzymes 12/03/24 12/03/24 12/03/24 Range/Units 15:36 17:31 22:54 AST 15 (13-39) U/L Troponin I High Sens 34.4 H 39.9 H 51.2 H* D (0-14) pg/ml 12/04/24 Range/Units 05:53 AST (13-39) U/L Troponin I High Sens 53.9 H* (0-14) pg/ml CBC 12/03/24 Range/Units 15:36 WBC 7.12 (4.8-10.8) K/ul RBC 4.65 (4.20-5.40) M/uL Hgb 13.3 (12.0-16.0) g/dl Hct 40.1 (37.0-47.0) % Plt Count 326 (130-400) K/uL Neut # (Auto) 4.66 (1.40-6.50) K/uL Lymph # (Auto) 1.57 (1.20-3.40) K/uL [place] # (Auto) 0.61 H (0.11-0.59) K/uL Eos # (Auto) 0.18 (0.00-0.50) K/uL Baso # (Auto) 0.07 (0.00-0.20) K/uL Comprehensive Metabolic Panel 12/03/24 Range/Units 15:36 Sodium 136 (136-145) mmol/L Potassium 4.3 (3.5-5.1) mmol/L Chloride 104 (98-107) mmol/L Carbon Dioxide 23 (21-32) mmol/L BUN 20 (6-23) mg/dl Creatinine 0.96 (0.6-1.2) mg/dl Glucose 124 H (70-99(Fasting)) mg/dl Calcium 9.4 (8.6-10.3) mg/dl AST 15 (13-39) U/L ALT 14 (7-52) U/L Alkaline Phosphatase 83 (34-104) U/L Total Protein 7.0 (6.0-8.3) gm/dl Albumin 3.9 (3.4-5.0) gm/dl Intake and Output 12/03/24 12/04/24 12/04/24 22:59 06:59 14:59 Intake Total 50 / 200 150 / 200 Output Total 300 / 300 Balance 50 / -100 -150 / -100 Intake: IV 50 / 50 cefTRIAXone SODIUM 2,000 mg In 50 / 50 50 ml @ 100 mls/hr IV Q24H [facility] Rx#:[id number] Oral 150 / 150 Output: Urine Amount (Catheter) 300 / 300 External 300 / 300 Other: # Unmeasured Voids 1 Weight 65.9 kg 65.9 kg Weight Measurement Method Built in Bedscale Standing Scale Diagnostic Findings Telemetry: Sinus rhythm, periods of premature ventricular beats including ventricular bigeminy but it is intermittent. PG Care Time/CCT Total # of Minutes Spent Total Time Spent with Patient: Total time spent is greater than 50% in coordination of care (as documented) at patient's floor/unit and/or counseling patient: Coding Level of Care Code 02732 INT INP/OBS CARE 3/75MIN Diagnoses Near syncope R55 Ventricular bigeminy I49.8 Weakness R53.1 Elevated troponin R79.89 Hypertension I10
[2024-12-04] MEDS: METOPROLOL TARTRATE 25 MG TAB PO SCH (11:22)
[2024-12-04] MEDS: ACETAMINOPHEN 325 MG TAB PO PRN (13:22)
--- NOTE | 2024-12-04 19:40 | Electrocardiogram Report ---
Test Reason : Blood Pressure : */* mmHG Vent. Rate : 81 BPM Atrial Rate : 81 BPM P-R Int : 178 ms QRS Dur : 94 ms QT Int : 414 ms P-R-T Axes : 42 -45 122 degrees QTcB Int : 480 ms Normal sinus rhythm Left axis deviation Left ventricular hypertrophy with repolarization abnormality ( R in aVL , Luke product , Romhilt-E stes ) Inferior infarct , age undetermined Anteroseptal infarct (cited on or before 15-Nov-2024) QTcB >= 480 msec Abnormal ECG When compared with ECG of 03-Dec-2024 15:32, (unconfirmed) Premature ventricular complexes are no longer Present ST no longer elevated in Anterior leads Nonspecific T wave abnormality now evident in Anterior leads Confirmed by Saleem Bonilla ([id number]) on 12/04/2024 7:40:15 PM Referred By: REFERRED SELF Confirmed By: Saleem Bonilla
--- NOTE | 2024-12-04 20:16 | Hospitalist Progress Note ---
Date of Service December 04, 2024 Assessment & Plan (1) Weakness: Plan: Due to acute E. coli UTI (as noted on 12/03/2024, 8:11pm urine culture). Continue empiric ceftriaxone 2g IV daily (day #1/3 on 12/03/2024, 10:06pm). (2) UTI (urinary tract infection): Plan: Due to acute E. coli UTI (as noted on 12/03/2024, 8:11pm urine culture). Continue empiric ceftriaxone 2g IV daily (day #1/3 on 12/03/2024, 10:06pm). (3) Syncope: Plan: Due to acute E. coli UTI (as noted on 12/03/2024, 8:11pm urine culture). Continue empiric ceftriaxone 2g IV daily (day #1/3 on 12/03/2024, 10:06pm). (4) Elevated troponin: Plan: Due to acute E. coli UTI (as noted on 12/03/2024, 8:11pm urine culture). Continue empiric ceftriaxone 2g IV daily (day #1/3 on 12/03/2024, 10:06pm). Plan 84-years old with PMH of FULL CODE@ home, overweight with BMI 27.5 (height 154.9 cm; weight 65.9 kg), resistant HTN, renal artery stenosis, adrenal adenoma on R side, depression, dyslipidemia, antiphospholipid syndrome, and anxiety presenting for sudden syncopal episodes within the past few weeks and increased weakness. Overall her workup reveals a troponin of 34.4 and then 39.9 on repeat, but EKG without ischemic changes. Her chest x-ray is insignificant for acute findings. Patient continues to have worsening weakness since hospital discharge and with syncopal episodes, warranting admission for concerns for safety if going home as well as recurrent syncopal episodes. #Weakness/UTI/Syncope H/o of syncopal event x 2 since discharge, with prior history of such as well was thought to be 2/2 fluctuating BP. Pending Holter monitor results, still on L chest. Reports that she never loses consciousness, but feels generalized weakness during episodes, mainly with some exertion; Suspect that worsening weakness has to do with frequent hospital admissions/discharge, would benefit from at home assistance in care to prevent ongoing hospital admissions as appropriate. Should be considered for placement or at home assistance. Also, syncopal episodes in setting of alternating heart rate and hypertension, ? cardiac etiology. UA (+) after admission- in setting of worsening weakness, some increased urination, will provide with IV abx. - CBC WNL; CMP WNL; Mg, Phos WNL; troponin 34.3, 39.9 on repeat - Trop am - UA pending - EKG sinus tachycardia with PVCs @ 104 bpm - CXR without acute findings - Echo 11/16/2024 severe LVH, mild AR, RVSP elevated 30-40mmHg, EF 65-70% - Fall precautions - Orthostatic vitals pending - Ceftriaxone IV - Cardiology consulted - appreciate any input + recs - PT/OT ordered - appreciate assistance #Elevated troponin Pt w/ h/o elevated troponin not suspected to be 2/2 ACS; no current chest pain. In setting of alternating tachycardia and bradycardia. - Troponin 34.4, 39.9 on repeat - trend x 1 in am - EKG sinus tachy, without ischemic changes - Likely 2/2 demand ischemia #HTN/KAYLEEN Follows with HTN clinic, on multiple BP medications amlodipine, eplerenone. hydralazine, olmesartan; Renal artery duplex in 2017 w/ < 60% stenosis bilat - K 4.3; BUN 20, Cr 0.96 - BMP am - Continue BP meds - Provide HS po antihypertensives now -- amlodipine, hydralazine - Clonidine 0.1 mg po prn q3hr for SBP > 180s #Hypothyroidism- Levothyroxine - continue #Psych- Venlafaxine - continue Dispo: Admit, med/tele VTE Prophylaxis: SCDs This document was dictated utilizing [employer]. Please excuse any grammatical errors that may be secondary to use of this software. Admission and Anticipated Discharge Date Admission Date: December 03, 2024 Subjective "I feel weak. I was discharged from this hospital on 11/17/2024, and I felt weak when they discharged me on 11/17/2024, and I didn't know why. Now, I know that I have a urinary tract infection. That explains a lot of things." Review of Systems Constitutional: Positive for generalized weakness. Negative for antecedent/coincident fevers, chills, diaphoresis, cough, wheeze, sore throat, hemoptysis, SOB/JUSTIN, chest pains, palpitations, pleurisy, nausea, vomiting, diarrhea, abdominal pain, pelvic pain, hematemesis, hematochezia, melena, hematuria, dysuria, frequency, urgency, flank pain, headaches, dizziness, lightheadedness, visual changes, hearing changes, falls, syncope, trauma, travel history, sick contacts, or food/drug ingestions novel or new. All other review of systems are reported as negative by the patient on 12/04/2024. Physical Exam Constitutional: General: Comfortable, cooperative, coherent. Wide awake and alert. Not confused, lethargic, or obtunded. Patient speaks in complete, fluent, and articulate sentences without pause, interruption, cough, or wheeze. HEENT: NC/AT. EOMI. PERRL. No nystagmus, gaze paresis, anisocoria, miosis, mydriasis, chemosis, hyphema, scleral injection, conjunctivitis, or pterygium. No otorrhea. No rhinorrhea. Neck: Supple, no stridor, bruit, or goiter. Jugular venous pressure 5cm above the sternal angle of Mathew, which is typically 5 cm above the right atrium. Lymph: No anterior/posterior cervical lymphadenopathy, supraclavicular/infraclavicular lymphadenopathy, axilla/epitrochlear/inguinal lymphadenopathy. Chest: Symmetric rise and fall with respirations. Non-tender to palpation. Heart: RRR, S1 and S2. No S3 or S4 summation gallop. No tripartite friction rub. No murmur. Lungs: Clear to auscultation and percussion. No audible expiratory wheeze, egophony, pectoriloquy, increase in tactile fremitus, or flatness/dullness to percussion at the bases. Abd: Soft, non-tender, non-distended. Bowel sounds auscultated in all 4 quadrants. No rebound, guarding, Bishop's sign, or organomegaly. Ext: No clubbing, cyanosis, or edema. 2+ pedal pulses bilaterally. Skin: No decubitus ulcer or enanthem or exanthem. Neuro: No tremors, tics, or myoclonus. DTR+. Urology: No marlow catheter. No purewick. No urethral discharge. Results & Data Results & Data Vital Signs (Past 12 Hours) Vital Signs Temp Pulse Pulse Resp BP BP Pulse Ox 12/04/24 19:39 36.6 C 49 L 18 152/56 H 96 12/04/24 17:18 168/70 H 12/04/24 16:25 36.7 C 94 H 20 183/82 H 214/77 H 94 12/04/24 14:38 91 H 12/04/24 11:41 36.6 C 78 20 172/82 H 94 O2 Del Method 12/04/24 19:39 Room Air 12/04/24 17:18 12/04/24 16:25 Room Air 12/04/24 14:38 12/04/24 11:41 Room Air Laboratory Results Urine culture (12/03/2024, 8:11pm): > 100,000 cfu/mL E. coli PG Care Time/CCT Total # of Minutes Spent Total Time Spent with Patient: Total time spent is greater than 50% in coordination of care (as documented) at patient's floor/unit and/or counseling patient: Coding Level of Care Code 02839 SUB INP/OBS CARE 2/35MIN Diagnoses Weakness R53.1 Acute cystitis without hematuria N30.00 Urinary tract infection type: acute cystitis Hematuria presence: without hematuria Syncope, unspecified syncope type R55 Syncope type: unspecified Elevated troponin R79.89 (2) UTI (urinary tract infection) Urinary tract infection type: acute cystitis Hematuria presence: without hematuria Qualified Code(s): N30.00 - Acute cystitis without hematuria (3) Syncope Syncope type: unspecified Qualified Code(s): R55 - Syncope and collapse
[2024-12-04] MEDS: VENLAFAXINE HCL XR 150 MG CAPXR PO SCH (21:56)
[2024-12-04] MEDS: FLECAINIDE ACETATE 100 MG TABLET PO SCH (21:56)
--- NOTE | 2024-12-04 22:15 | Electrocardiogram Report ---
Test Reason : Blood Pressure : */* mmHG Vent. Rate : 104 BPM Atrial Rate : 104 BPM P-R Int : 176 ms QRS Dur : 90 ms QT Int : 358 ms P-R-T Axes : 67 -39 121 degrees QTcB Int : 470 ms Sinus tachycardia with frequent Premature ventricular complexes Left axis deviation Left ventricular hypertrophy with repolarization abnormality ( R in aVL , Sokolow-Luna , [place] prod uct , Romhilt-Hicks ) Anteroseptal infarct (cited on or before 15-Nov-2024) Abnormal ECG When compared with ECG of 15-Nov-2024 16:13, No significant change Confirmed by Saleem Bonilla ([id number]) on 12/04/2024 10:15:18 PM Referred By: REFERRED SELF Confirmed By: Saleem Bonilla
[2024-12-05] MEDS: LOSARTAN POTASSIUM 50 MG TAB PO SCH (09:19)
--- NOTE | 2024-12-05 20:35 | Hospitalist Progress Note ---
Date of Service December 05, 2024 Assessment & Plan (1) Weakness: Plan: Due to acute ciprofloxacin-resistant, otherwise baldwin-sensitive E. coli UTI (as noted on 12/03/2024, 8:11pm urine culture). Continue empiric ceftriaxone 2g IV daily (day #1/3 on 12/03/2024, 10:06pm; day #2/3 on 12/04/2024, 9:55pm). (2) UTI (urinary tract infection): Plan: Due to acute ciprofloxacin-resistant, otherwise baldwin-sensitive E. coli UTI (as noted on 12/03/2024, 8:11pm urine culture). Continue empiric ceftriaxone 2g IV daily (day #1/3 on 12/03/2024, 10:06pm; day #2/3 on 12/04/2024, 9:55pm). (3) Syncope: Plan: Due to acute ciprofloxacin-resistant, otherwise baldwin-sensitive E. coli UTI (as noted on 12/03/2024, 8:11pm urine culture). Continue empiric ceftriaxone 2g IV daily (day #1/3 on 12/03/2024, 10:06pm; day #2/3 on 12/04/2024, 9:55pm). (4) Elevated troponin: Plan: Due to acute ciprofloxacin-resistant, otherwise baldwin-sensitive E. coli UTI (as noted on 12/03/2024, 8:11pm urine culture). Continue empiric ceftriaxone 2g IV daily (day #1/3 on 12/03/2024, 10:06pm; day #2/3 on 12/04/2024, 9:55pm). Plan 84-years old with PMH of FULL CODE@ home, overweight with BMI 27.5 (height 154.9 cm; weight 65.9 kg), resistant HTN, renal artery stenosis, adrenal adenoma on R side, depression, dyslipidemia, antiphospholipid syndrome, and anxiety presenting for sudden syncopal episodes within the past few weeks and increased weakness. Overall her workup reveals a troponin of 34.4 and then 39.9 on repeat, but EKG without ischemic changes. Her chest x-ray is insignificant for acute findings. Patient continues to have worsening weakness since hospital discharge and with syncopal episodes, warranting admission for concerns for safety if going home as well as recurrent syncopal episodes. #Weakness/UTI/Syncope H/o of syncopal event x 2 since discharge, with prior history of such as well was thought to be 2/2 fluctuating BP. Pending Holter monitor results, still on L chest. Reports that she never loses consciousness, but feels generalized weakness during episodes, mainly with some exertion; Suspect that worsening weakness has to do with frequent hospital admissions/discharge, would benefit from at home assistance in care to prevent ongoing hospital admissions as appropriate. Should be considered for placement or at home assistance. Also, syncopal episodes in setting of alternating heart rate and hypertension, ? cardiac etiology. UA (+) after admission- in setting of worsening weakness, some increased urination, will provide with IV abx. - CBC WNL; CMP WNL; Mg, Phos WNL; troponin 34.3, 39.9 on repeat - Trop am - UA pending - EKG sinus tachycardia with PVCs @ 104 bpm - CXR without acute findings - Echo 11/16/2024 severe LVH, mild AR, RVSP elevated 30-40mmHg, EF 65-70% - Fall precautions - Orthostatic vitals pending - Ceftriaxone IV - Cardiology consulted - appreciate any input + recs - PT/OT ordered - appreciate assistance #Elevated troponin Pt w/ h/o elevated troponin not suspected to be 2/2 ACS; no current chest pain. In setting of alternating tachycardia and bradycardia. - Troponin 34.4, 39.9 on repeat - trend x 1 in am - EKG sinus tachy, without ischemic changes - Likely 2/2 demand ischemia #HTN/KAYLEEN Follows with HTN clinic, on multiple BP medications amlodipine, eplerenone. hydralazine, olmesartan; Renal artery duplex in 2017 w/ < 60% stenosis bilat - K 4.3; BUN 20, Cr 0.96 - BMP am - Continue BP meds - Provide HS po antihypertensives now -- amlodipine, hydralazine - Clonidine 0.1 mg po prn q3hr for SBP > 180s #Hypothyroidism- Levothyroxine - continue #Psych- Venlafaxine - continue Dispo: Admit, med/tele VTE Prophylaxis: SCDs This document was dictated utilizing Generate. Please excuse any grammatical errors that may be secondary to use of this software. Admission and Anticipated Discharge Date Admission Date: December 03, 2024 Subjective "I feel better today. The antibiotics are working on my UTI, doc. Thanks!" Review of Systems Constitutional: Positive for LESS severe, generalized weakness on 12/05/2024, compared to 12/04/2024. Negative for antecedent/coincident fevers, chills, diaphoresis, cough, wheeze, sore throat, hemoptysis, SOB/JUSTIN, chest pains, palpitations, pleurisy, nausea, vomiting, diarrhea, abdominal pain, pelvic pain, hematemesis, hematochezia, melena, hematuria, dysuria, frequency, urgency, flank pain, headaches, dizziness, lightheadedness, visual changes, hearing changes, falls, syncope, trauma, travel history, sick contacts, or food/drug ingestions novel or new. All other review of systems are reported as negative by the patient on 12/05/2024. Physical Exam Constitutional: General: Comfortable, cooperative, coherent. Wide awake and alert. Not confused, lethargic, or obtunded. Patient speaks in complete, fluent, and articulate sentences without pause, interruption, cough, or wheeze. HEENT: NC/AT. EOMI. PERRL. No nystagmus, gaze paresis, anisocoria, miosis, mydriasis, chemosis, hyphema, scleral injection, conjunctivitis, or pterygium. No otorrhea. No rhinorrhea. Neck: Supple, no stridor, bruit, or goiter. Jugular venous pressure 5cm above the sternal angle of Mathew, which is typically 5 cm above the right atrium. Lymph: No anterior/posterior cervical lymphadenopathy, supraclavicular/infraclavicular lymphadenopathy, axilla/epitrochlear/inguinal lymphadenopathy. Chest: Symmetric rise and fall with respirations. Non-tender to palpation. Heart: RRR, S1 and S2. No S3 or S4 summation gallop. No tripartite friction rub. No murmur. Lungs: Clear to auscultation and percussion. No audible expiratory wheeze, egophony, pectoriloquy, increase in tactile fremitus, or flatness/dullness to percussion at the bases. Abd: Soft, non-tender, non-distended. Bowel sounds auscultated in all 4 quadrants. No rebound, guarding, Bishop's sign, or organomegaly. Ext: No clubbing, cyanosis, or edema. 2+ pedal pulses bilaterally. Skin: No decubitus ulcer or enanthem or exanthem. Neuro: No tremors, tics, or myoclonus. DTR+. Urology: No marlow catheter. No purewick. No urethral discharge. Results & Data Results & Data Vital Signs (Past 12 Hours) Vital Signs Temp Pulse Pulse Pulse Resp BP BP 12/05/24 19:45 36.8 C 76 20 117/70 12/05/24 16:00 36.6 C 84 16 163/84 H 12/05/24 13:06 85 12/05/24 11:41 83 12/05/24 11:41 84 12/05/24 11:30 36.7 C 102 H 16 153/76 H 12/05/24 10:48 Pulse Ox O2 Del Method 12/05/24 19:45 95 Room Air 12/05/24 16:00 92 Room Air 12/05/24 13:06 12/05/24 11:41 12/05/24 11:41 12/05/24 11:30 91 Room Air 12/05/24 10:48 Room Air Laboratory Results Urine culture (12/03/2024, 8:11pm): > 100,000 cfu/mL ciprofloxacin-resistant, otherwise baldwin-sensitive E. coli PG Care Time/CCT Total # of Minutes Spent Total Time Spent with Patient: Total time spent is greater than 50% in coordination of care (as documented) at patient's floor/unit and/or counseling patient: Coding Level of Care Code 67213 SUB INP/OBS CARE 2/35MIN Diagnoses Weakness R53.1 Acute cystitis without hematuria N30.00 Urinary tract infection type: acute cystitis Hematuria presence: without hematuria Syncope, unspecified syncope type R55 Syncope type: unspecified Elevated troponin R79.89 (2) UTI (urinary tract infection) Urinary tract infection type: acute cystitis Hematuria presence: without hematuria Qualified Code(s): N30.00 - Acute cystitis without hematuria (3) Syncope Syncope type: unspecified Qualified Code(s): R55 - Syncope and collapse
[2024-12-06 06:33] LABS: Anion Gap 9.0 (3-11); Blood Urea Nitrogen 29.0 mg/dl (6-23); Calcium 8.8 mg/dl (8.6-10.3); Carbon Dioxide 22.0 mmol/L (21-32); Chloride 104.0 mmol/L (98-107); Creatinine Clr Calc Pharmacy 33.2 ml/min; Glucose 108.0 mg/dl (70-99(Fasting)); Potassium 3.8 mmol/L (3.5-5.1); Sodium 135.0 mmol/L (136-145)
[2024-12-07 07:20] VITALS: RESP 18
[2024-12-07 11:46] VITALS: TEMP 97.5; O2SAT 94
[2024-12-07 13:10] VITALS: BP 131/77; PULSE 83
--- NOTE | 2024-12-07 13:19 | Discharge Summary ---
Discharge Summary Date of Service December 07, 2024 Principal Dx & Hospital Course #1 = Principal Diagnosis (1) Weakness: Acute weakness was due to acute ciprofloxacin-resistant, otherwise baldwin-sensitive E. coli UTI (as noted on 12/03/2024, 8:11pm urine culture). Patient received empiric ceftriaxone 2g IV daily x 4 doses (day #1 on 12/03/2024, 10:06pm; day #2 on 12/04/2024, 9:55pm; day #3 on 12/05/2024, 9:56pm; day #4 on 12/06/2024, 10:17pm). Patient was subsequently discharged back to her home on 12/07/2024, 1:30pm with an electronic prescription for cefdinir 300mg PO bid, #6 capsules, no refills, transmitted to her [facility] store [id number], [address] [place] [address], on 12/07/2024, 1:03pm, prior to hospital discharge back to her home on 12/07/2024, 1:30pm. Of note, acute weakness RESOLVED while patient remained in [facility] from admission date 12/03/2024 through discharge date 12/07/2024. (2) UTI (urinary tract infection): Acute ciprofloxacin-resistant, otherwise baldwin-sensitive E. coli UTI (as noted on 12/03/2024, 8:11pm urine culture). Patient received empiric ceftriaxone 2g IV daily x 4 doses (day #1 on 12/03/2024, 10:06pm; day #2 on 12/04/2024, 9:55pm; day #3 on 12/05/2024, 9:56pm; day #4 on 12/06/2024, 10:17pm). Patient was subsequently discharged back to her home on 12/07/2024, 1:30pm with an electronic prescription for cefdinir 300mg PO bid, #6 capsules, no refills, transmitted to her [facility] store #[id number], [address] [place] [address], on 12/07/2024, 1:03pm, prior to hospital discharge back to her home on 12/07/2024, 1:30pm. Of note, acute weakness RESOLVED while patient remained in [facility] from admission date 12/03/2024 through discharge date 12/07/2024. (3) Syncope: Syncope was due to acute ciprofloxacin-resistant, otherwise baldwin-sensitive E. coli UTI (as noted on 12/03/2024, 8:11pm urine culture). Patient received empiric ceftriaxone 2g IV daily x 4 doses (day #1 on 12/03/2024, 10:06pm; day #2 on 12/04/2024, 9:55pm; day #3 on 12/05/2024, 9:56pm; day #4 on 12/06/2024, 10:17pm). Patient was subsequently discharged back to her home on 12/07/2024, 1:30pm with an electronic prescription for cefdinir 300mg PO bid, #6 capsules, no refills, transmitted to her [facility] store #[id number], [address] [place] [id number], on 12/07/2024, 1:03pm, prior to hospital discharge back to her home on 12/07/2024, 1:30pm. Of note, syncope did not recur while patient remained in [facility] from admission date 12/03/2024 through discharge date 12/07/2024. (4) Elevated troponin: Acute troponin-I elevation was due to demand ischemia, which in turn, was due to acute ciprofloxacin-resistant, otherwise baldwin-sensitive E. coli UTI (as noted on 12/03/2024, 8:11pm urine culture). Patient received empiric ceftriaxone 2g IV daily x 4 doses (day #1 on 12/03/2024, 10:06pm; day #2 on 12/04/2024, 9:55pm; day #3 on 12/05/2024, 9:56pm; day #4 on 12/06/2024, 10:17pm). Patient was subs equently discharged back to her home on 12/07/2024, 1:30pm with an electronic prescription for cefdinir 300mg PO bid, #6 capsules, no refills, transmitted to her [facility] store #[id number], [address] [place] [address], on 12/07/2024, 1:03pm, prior to hospital discharge back to her home on 12/07/2024, 1:30pm. cf., troponin-I #1 34.4 pg/mL (12/03/2024, 3:36pm). cf., troponin-I #2 39.9 pg/mL (12/03/2024, 5:31pm). cf., troponin-I #3 51.2 pg/mL (12/03/2024, 10:54pm). cf., troponin-I #4 53.9 pg/mL (12/04/2024, 5:53am). cf., troponin-I #5 51.6 pg/mL (12/04/2024, 8:43am). Of note, acute troponin-I elevation was observed without further evaluation as patient underwent formal [facility] evaluation with Dr. Saleem Bonilla (12/04/2024, 9:37am), while patient remained in [facility] from admission date 12/03/2024 through discharge date 12/07/2024, and who wrote: 1. Near syncope: The cause of her near syncopal episodes remains under investigation. On detailed questioning she has not lost consciousness since last summer, she describes her near syncopal events as "syncope" when she uses the term. She is still wearing the monitor, she had only 1 of these episodes since wearing the monitor and that was when it was off for charging so we do not know what her rhythm was. I would recommend continuing to have her wear it. Perhaps the episodes are orthostasis as was suspected last visit, that would explain why she has improved in that regard with only 1 episode in 2 weeks off of Bumex. 2. Ventricular bigeminy: She has periods of ventricular bigeminy as well as very frequent premature ventricular beats. I cannot tell if these are actually causing symptoms but they can lower her effective heart rate, they could make orthostasis worse potentially since it would reduce her heart rate and possibly cardiac output when she needs it to maintain blood pressure. That is very hard to prove. Perhaps the easiest thing to do would be to try to suppress them, class Ic antiarrhythmics are very effective in preventing PVCs and she does not have a specific contraindication that I can see. I am going to add flecainide while she is here to see where they can be suppressed and to make sure she does not have prior arrhythmia or side effects on flecainide. She is not on a beta- lena and her blood pressure is markedly elevated, it is listed as an allergy but it does not really sound like an allergy (shortness of breath and worsened anxiety) so I am going to try a low-dose. 3. Weakness: I am not sure what is causing her weakness, from her description it has been continuous since she went home not intermittent as would be expected from ventricular bigeminy which is only intermittent. It may be some other cause, perhaps the severe hypertension, perhaps the kidney infection. 4. Elevated troponin: She does have an elevated troponin but I think this is consistent with demand ischemia from severe hypertension. I would not look for ischemia at this point. 5. Hypertension: Her blood pressure is markedly elevated, there may be a component of anxiety which can generally be helped by beta-blockade since that blocks catecholamines (as opposed to causing anxiety which is listed as her side effect to them). I think a low-dose beta-lena would be beneficial for her and I am going to start that. At home she was on amlodipine and telmisartan, here she is on clonidine and no other medications currently. Of note, patient was scheduled to receive metoprolol tartrate 25mg PO bid, as ordered by CAR[facility] Dr. Saleem Bonilla, but patient emphatically refused to receive this medication on 3 consecutive occasions while in [facility], as patient reported, "I have taken beta blockers in the past and it made me short of breath and anxious, so I am not going to take any beta blockers at all, here or at home." Plan 84-years old female with PMH of FULL CODE@ home, overweight with BMI 27.5 (height 154.9 cm; weight 65.9 kg), resistant HTN, renal artery stenosis, adrenal adenoma on R side, depression, dyslipidemia, antiphospholipid syndrome, and anxiety presenting for sudden syncopal episodes within the past few weeks and increased weakness. Overall her workup reveals a troponin of 34.4 and then 39.9 on repeat, but EKG without ischemic changes. Her chest x-ray is insignificant for acute findings. Patient continues to have worsening weakness since hospital discharge and with syncopal episodes, warranting admission for concerns for safety if going home as well as recurrent syncopal episodes. #Weakness/UTI/Syncope H/o of syncopal event x 2 since discharge, with prior history of such as well was thought to be 2/2 fluctuating BP. Pending Holter monitor results, still on L chest. Reports that she never loses consciousness, but feels generalized weakness during episodes, mainly with some exertion; Suspect that worsening weakness has to do with frequent hospital admissions/discharge, would benefit from at home assistance in care to prevent ongoing hospital admissions as appropriate. Should be considered for placement or at home assistance. Also, syncopal episodes in setting of alternating heart rate and hypertension, ? cardiac etiology. UA (+) after admission- in setting of worsening weakness, some increased urination, will provide with IV abx. - CBC WNL; CMP WNL; Mg, Phos WNL; troponin 34.3, 39.9 on repeat - Trop am - UA pending - EKG sinus tachycardia with PVCs @ 104 bpm - CXR without acute findings - Echo 11/16/2024 severe LVH, mild AR, RVSP elevated 30-40mmHg, EF 65-70% - Fall precautions - Orthostatic vitals pending - Ceftriaxone IV - Cardiology consulted - appreciate any input + recs - PT/OT ordered - appreciate assistance #Elevated troponin Pt w/ h/o elevated troponin not suspected to be 2/2 ACS; no current chest pain. In setting of alternating tachycardia and bradycardia. - Troponin 34.4, 39.9 on repeat - trend x 1 in am - EKG sinus tachy, without ischemic changes - Likely 2/2 demand ischemia #HTN/KAYLEEN Follows with HTN clinic, on multiple BP medications amlodipine, eplerenone. hydralazine, olmesartan; Renal artery duplex in 2017 w/ < 60% stenosis bilat - K 4.3; BUN 20, Cr 0.96 - BMP am - Continue BP meds - Provide HS po antihypertensives now -- amlodipine, hydralazine - Clonidine 0.1 mg po prn q3hr for SBP > 180s #Hypothyroidism- Levothyroxine - continue #Psych- Venlafaxine - continue Dispo: Admit, med/tele VTE Prophylaxis: SCDs This document was dictated utilizing [employer]. Please excuse any grammatical errors that may be secondary to use of this software. Admission HPI Per Admitting Provider 84-year-old female PMHx resistant HTN, renal artery stenosis, adrenal adenoma on R side, depression, dyslipidemia, antiphospholipid syndrome, and anxiety presenting for sudden syncopal episodes within the past few weeks and increased weakness. Since her past discharge from the hospital, she has been rather sedentary as her and her family are concerned that if she is up, she may fall after syncopal episode. She has generalized weakness, no focal deficits otherwise. She states that over the course of 2 weeks since d/c, she has had 2 near-syncope events that seem to happen when she is up, getting ready to have breakfast. She has no LOC, but feels syncopal and will fall towards the ground. The episodes last seconds and she recovers from them. However, her family is afraid to leave her alone in case she has an episode and cannot get up or tell someone. She has been sitting in her recliner most of the time. She does have a cardiac Holter monitor in place at present, said she was not wearing it during the episodes of pre-syncope because it was charging. Today, she has felt increased weakness and some fogginess in her brain. Has urinary incontinence at baseline, thinks it is slightly worse. No dysuria or other LUTS. No F/C. She denies CP or SOB, does admit to occasionally being aware of her heartbeat. Overall, she states that she is concerned about her ongoing weakness and she has the desire to be active, but not the means. She has been taking her medications as prescribed. Follows with cardiology and HTN clinic. ED evaluation reveals CBC grossly WNL; CMP glucose 124, BUN/creatinine ratio 20.8; magnesium 2.2 phosphorus 4.1; troponin 34.4, 39.9 on repeat; CXR no acute findings; EKG sinus tachycardia with frequent PVCs, L provided with AD, LVH at 104 bpm.; Aspirin 324 mg po and hydralazine 10 mg IV in ED. Please see Dr. Walls's attestation for adjustments/additions to treatment plan. Discharge Exam Constitutional General: Comfortable, cooperative, coherent. Wide awake and alert. Not confused, lethargic, or obtunded. Patient speaks in complete, fluent, and articulate sentences without pause, interruption, cough, or wheeze. HEENT: NC/AT. EOMI. PERRL. No nystagmus, gaze paresis, anisocoria, miosis, mydriasis, chemosis, hyphema, scleral injection, conjunctivitis, or pterygium. No otorrhea. No rhinorrhea. Neck: Supple, no stridor, bruit, or goiter. Jugular venous pressure 5cm above the sternal angle of Mathew, which is typically 5 cm above the right atrium. Lymph: No anterior/posterior cervical lymphadenopathy, supraclavicular/infraclavicular lymphadenopathy, axilla/epitrochlear/inguinal lymphadenopathy. Chest: Symmetric rise and fall with respirations. Non-tender to palpation. Heart: RRR, S1 and S2. No S3 or S4 summation gallop. No tripartite friction rub. No murmur. Lungs: Clear to auscultation and percussion. No audible expiratory wheeze, egophony, pectoriloquy, increase in tactile fremitus, or flatness/dullness to percussion at the bases. Abd: Soft, non-tender, non-distended. Bowel sounds auscultated in all 4 quadrants. No rebound, guarding, Bishop's sign, or organomegaly. Ext: No clubbing, cyanosis, or edema. 2+ pedal pulses bilaterally. Skin: No decubitus ulcer or enanthem or exanthem. Neuro: No tremors, tics, or myoclonus. DTR+. 5/5 motor strength in all 4 extremities, both proximally and distally. Urology: No marlow catheter. No purewick. No urethral discharge. Discharge Plan Discharge Items Patient Disposition: Home - Self-Care Reason For Visit: WEAKNESS,SYNCOPE, TROP Discharge Diagnosis: 1. Acute ciprofloxacin-resistant, levofloxacin-resistant, otherwise baldwin- sensitive E. coli UTI (as noted on 12/03/2024, 8:11pm urine culture). 2. Acute hypovolemic hyponatremia with post-admission/discharge Na 135 mmol/L (12/06/2024, 5:51am), due to acute dehydration, due to acute ciprofloxacin- resistant, levofloxacin-resistant, otherwise baldwin-sensitive E. coli UTI (as noted on 12/03/2024, 8:11pm urine culture). 3. Near syncope, due to acute dehydration, due to acute ciprofloxacin- resistant, levofloxacin-resistant, otherwise baldwin-sensitive E. coli UTI (as noted on 12/03/2024, 8:11pm urine culture). 4. Ventricular bigeminy, started on flecainide 50mg PO q12 (12/04/2024, 9:56pm, 12/05/2024, 9:20am, 8:05pm). 5. Overweight with BMI 27.5 (height 154.9 cm; weight 65.9 kg). 6. Recalcitrant/refractory essential HTN with renal artery stenosis on home- scheduled amlodipine 5mg PO qhs, hydralazine 50mg PO tid, eplerenone 25mg PO daily, olmesartan 50mg PO daily, and hospital-started clonidine 0.1mg PO q3 prn recalcitrant/refractory HTN, but NOT on hospital-started metoprolol 25mg PO bid as patient refused 3 separate times to take metoprolol 25mg PO bid while in [facility] as patient reported, "I have taken beta blockers in the past and it made me short of breath and anxious, so I am not going to take any beta blockers at all, here or at home." 7. Hypothyroidism on levothyroxine 88ug PO daily. 8. Dyslipidemia on omega 3 capsule PO qpm. 9. Antiphospholipid syndrome. 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 11."1.1 cm hypodense left adrenal gland nodule suggestive of an adenoma." (as noted on 08/27/2023, 12:40pm CT abd/pelvis without and with IV contrast)(NOT reported on 10/05/2023, 8:19pm CT abd/pelvis without contrast)(NOT reported on 10/05/2024, 1:03am CT abd/pelvis without and with IV and oral contrast) 12.Major depression on venlafaxine 150mg PO qhs. 13.Anxiety/insomnia disorder on lorazepam 0.5mg PO qhs prn anxiety/insomnia. Condition on Discharge: Fair Activity: Resume your previous activity Lifting: Gradually increase as tolerated Bathing: No limitations Sexual Activity: When tolerated Exercise/Sports: Gradually increase as tolerated Weightbearing: Full weightbearing Non-emergency contact: Primary Care Provider Call non-emergency contact if: you have any medication questions Follow-up/Referrals: Hernandez Brar [Primary Care Provider] - 12/14/24 10:00 am Diet: Heart Healthy Addtl Attending Provider Instructions: See your PCP Dr. Hernandez Brar within 5-7 days of hospital discharge. Pending Studies at Discharge: No Stand-Alone Forms: My [facility], Smoking Cessation Medications and DC Order Prescriptions: New clonidine HCl 0.1 mg Tablet 0.1 mg PO Q3H PRN (Reason: HTN) Qty: 240 0RF flecainide 100 mg Tablet 50 mg PO Q12 Qty: 60 0RF cefdinir 300 mg capsule 300 mg PO BID Qty: 6 0RF Continued eplerenone 25 mg tablet 25 mg PO DAILY Qty: 90 2RF Rx Instructions: take at bedtime hydralazine 50 mg tablet 100 mg PO TID 90 Days Qty: 540 1RF caffiene 100 mg PO DAILY PRN (Reason: .KEEP ALERT) Rx Instructions: "to help her function" levothyroxine 88 mcg capsule 88 mcg PO DAILY olmesartan 40 mg tablet 40 mg PO DAILY Qty: 90 2RF lorazepam [Ativan] 0.5 mg Tablet 0.5 mg PO HS PRN (Reason: Anxiety or sleep) venlafaxine 150 mg Capsule,Extended Release 24hr 150 mg PO HS multivitamin Tablet 2 tab PO QAM Rx Instructions: chewable/gummy women's one a day Sheridan-3 350 mg-235 mg- 90 mg-597 mg Capsule,Delayed Release(Dr/Ec) 1 cap PO QPM cholecalciferol (vitamin D3) [Vitamin D3] 125 mcg (5,000 unit) Tablet 125 mcg PO QPM Balance Of Nature 6 cap PO QAM Patient Comments: "veggie and fruit capsules midday" amoxicillin 500 mg Capsule 2,000 mg PO UD PRN (Reason: prior to dental procedures) Eylea 2 mg/0.05 mL Syringe 2 mg INTRAVITREAL Q8WK Patient Comments: every 6-8wks Rx Instructions: every 6 to 8 weeks cyanocobalamin (vitamin B-12) [Vitamin B-12] 5,000 mcg Tablet, Sublingual 5,000 mcg SUBLINGUAL QAM Super Beets 2 tab PO QAM Rx Instructions: contains grape seed extract magnesium 250 mg tablet 400 mg PO HS Hold Instructions: Home Medication placed on hold at Doctor's office acetaminophen [Tylenol Extra Strength] 500 mg tablet 1,000 mg PO TID PRN (Reason: pain) Metamucil 3.4 gram/5.4 gram Powder 1 tbsp PO BID Rx Instructions: mix into at least 8 oz of water or juice before administering amlodipine 5 mg tablet 5 mg PO HS No Action (DME) Wheeled Walker Misc See Rx Instructions .MEDSUPPLY Qty: 1 0RF Rx Instructions: As directed Discharge Orders: Discharge Order (Routine); Ordered 12/07/24 Ordered By: Omar Wolf Admission Data Admit Date/Time: 12/03/24 20:00 Attending Provider: Omar Wolf Admit Provider: Rosalia Walls Primary Care Provider: Hernandez Brar Other Providers: Rosalia Walls; Saleem Bonilla Hospital Stay Data Consultations 12/03/24 20:32 ED Decision to Admit Stat 12/03/24 21:40 Consult Cardiology Routine Pending Results Patient Have Any Pending Studies at Discharge: No Discharge Instructions Given to Patient (Per Discharging Provider) See your PCP Dr. Hernandez Brar within 5-7 days of hospital discharge. Total Time Total Time Spent Total Time Spent (In Minutes): 35 minutes. Of this time period, 19 minutes were spent in coordinating patient's discharge. Coding Level of Care Code 25905 INP/OBS DISCH >30 MIN Diagnoses Weakness R53.1 Acute cystitis without hematuria N30.00 Urinary tract infection type: acute cystitis Hematuria presence: without hematuria Syncope, unspecified syncope type R55 Syncope type: unspecified Elevated troponin R79.89
--- NOTE | 2024-12-09 06:53 | Electrocardiogram Report ---
Test Reason : Blood Pressure : */* mmHG Vent. Rate : 80 BPM Atrial Rate : 80 BPM P-R Int : 186 ms QRS Dur : 104 ms QT Int : 430 ms P-R-T Axes : 51 -36 129 degrees QTcB Int : 495 ms Sinus rhythm with occasional Premature ventricular complexes Left axis deviation Left ventricular hypertrophy with repolarization abnormality ( R in aVL , Sokolow-Luna , Julian prod uct , Romhilt-Hicks ) Inferior infarct Anteroseptal infarct Prolonged QT Abnormal ECG When compared with ECG of 04-Dec-2024 08:23, Premature ventricular complexes are now Present Confirmed by Marcelo Choudhary ([id number]) on 12/09/2024 6:52:59 AM Referred By: REFERRED SELF Confirmed By: Marcelo Choudhary
== END 2024-12-07 13:54 | disposition home or self-care (01) | DRG 690 ==
LOC: ED 15:25 → SUATTDRO 20:00 → 2N 20:00